=== PATIENT | female | born 1940 | race Caucasian/White ===

== ENCOUNTER 2024-10-07 10:03 | Emergency (ER) | payer BC, SELFPAY ==
--- NOTE | ~2024-10-07 | CT_ITS ---
EXAMINATION: CT brain wo con DATE: 10/07/2024 10:31 INDICATION: Closed head injury. TECHNIQUE: Computed tomography (CT) of the head was performed without intravenous contrast. The mA wa s adjusted according to patient size. Iterative reconstruction technique was employed. The dose-lengt h product was 605.33 mGy-cm. COMPARISON: None FINDINGS: There are scattered areas of low attenuation in the cerebral white matter, which is within normal limits for the patient's age. There is no intracranial hemorrhage, acute infarction, or abnorm al intracranial mass lesion. The ventricles are normal in size. The mastoid air cells are normal. The re is mild mucosal thickening in the paranasal sinuses. There are likely changes of ocular lens repla cement surgeries. There are changes of right-sided scleral banding procedure. There is a right optical effects camera operator ior scalp laceration. IMPRESSION: 1. Normal aging brain. Reviewed, dictated and finalized at location A. R FULFILLMENT SPECIALIST IMPRESSION: 1. Normal aging brain.
[2024-10-07 10:01] VITALS: BP 159/84; PULSE 90; RESP 16; TEMP 36.4; O2SAT 98
--- NOTE | 2024-10-07 10:28 | ED.FALL ---
HPI - Fall General Chief Complaint: Fall Stated Complaint: fall Time Seen by Provider: 10/07/24 10:03 History of Present Illness HPI Narrative: 84-year-old female presenting to the emergency department for evaluation of closed head injury. She does take blood thinners and states that she was walking in the dark trying to not wake up under for housemates while she was visiting family. She tripped and fell down 1 step and fell and struck the back of her head. Did not lose consciousness. She does have a small abrasion with a 0.5 cm laceration to posterior scalp. Denies any vision changes, nausea, vomiting, headache. Was otherwise in her normal state of health. No seizure history, did not lose consciousness. No weakness or motor deficits. Review of Systems Review of Systems: As reviewed above in HPI Exam Narrative: GENERAL: [Well-appearing, well-nourished, and in no acute distress.] HEAD: Normocephalic, posterior scalp hematoma was 0.5 cm laceration without any skull deformity or palpable deformity. EYES: [PERRLA and EOMI.] ENT: Nares clear, no rhinorrhea or epistaxis. Mucous membranes moist. No cervical spinal tenderness. No step-offs deformities. No restricted range of motion of the cervical spine. NECK: Supple. CHEST: [Clear to auscultation. No respiratory distress.] HEART: [Regular rate and rhythm]. No murmur heard. [Normal peripheral pulses.] ABDOMEN: [Soft, nondistended], [nontender], [No rigidity or guarding] EXTREMITIES: Normal range of motion. [No edema.] SKIN: Warm, dry, no rash. NEURO: [No focal deficits]. Alert and oriented [x3.] PSYCH: [Normal mood and affect.] Course Vital Signs Vital signs: Vital Signs Temperature 36.4 C 10/07/24 10:01 Pulse Rate 90 10/07/24 10:01 Respiratory Rate 16 10/07/24 10:01 Blood Pressure 159/84 H 10/07/24 10:01 Pulse Oximetry 98 10/07/24 10:01 Temperature 36.4 C 10/07/24 10:01 Pulse Rate 90 10/07/24 10:01 Respiratory Rate 16 10/07/24 10:01 Blood Pressure 159/84 H 10/07/24 10:01 Pulse Oximetry 98 10/07/24 10:01 Procedures Laceration Laceration 1: Date: 10/07/24 Time: 11:08 Site: scalp Side (If applicable): right Size (cm): 0.5 Description: linear Depth: simple, single layer Local Anesthetic: other anesthetic (TOPICAL LET) Amount of anesthesia used (mL): 5 Pre-repair: wound explored, irrigated extensively and deep structures intact ====== Skin Level ====== Skin layer closed with: filippo Number of sutures: 3 ====== Subcutaneous Layer ====== ====== Muscle Layer ====== ====== Tendon Layer ====== Dressing: pressure dressing MDM - Fall MDM Narrative Medical decision making narrative: 84-year-old female presenting for evaluation of a closed head injury while taking blood thinner medications. She is visiting family and not from town. She fell down 1 step in the dark while trying to not wake up her household. She is landed on the back of her head but did not lose consciousness. She has a small laceration the posterior scalp that will be repaired with filippo. Given her closed head injury on [facility] a CT head was obtained at this time. Patient has no mental status changes, no nausea vomiting, awake alert with normal strength and sensation unremarkable neurological assessment. Vital signs reassuring with some stable hypertension, no tachycardia, fever hypoxia. Let gel was applied to the posterior scalp for analgesia prior to filippo and CT scan obtained. CT scan shows no acute intracranial process such as a bleed. Laceration repaired with 3 separate filippo. Hemostasis achieved. Patient was given wound care instructions and return precautions as well as instructions to follow-up in 7-10 days for wound check and suture removal. Her tetanus is already up today. Stable for discharge at this time. Medical Records Attestation: I reviewed the patient's medical records. Imaging Data Attestation: I personally reviewed and interpreted this imaging study as follows: My impression: Impressions Head CT 10/07/24 10:38 IMPRESSION: 1. Normal aging brain. Discharge Plan Discharge Clinical Impression: CHI (closed head injury), Laceration of occipital scalp Patient Disposition: Home, Self-Care Condition: Stable Instructions: Antibiotic Form, Laceration (ED), Head Injury (ED), Staple Care (ED) Additional Instructions: Follow-up in 7-10 days for staple removal and wound check. Return with any new or worsening concerns at any time. Patient Language: Latvian Follow-up/Referrals: UNKNOWN,DOCTOR [Primary Care Provider] - Time of Disposition: 11:10
--- OUTSIDE RECORDS SUMMARY | 2024-10-14 21:56 | XMS_ITS | Continuity of Care Document ---
Author Organization [facility] Address Unknown Care Team Providers Care Homicide Squad Commanding Officer Name Role Phone DR BERENICE ROBERTO Primary Care Physician Encounter MPACCOMMFIN [id number] Date(s): 06/01/21 - 06/02/21 [facility] Attending Physician: MARVIN DEWEY MD Referring Physician: NONASSIGNED, PHYSICIAN Reason for Visit RIGHT SENT NODE INJECTION IN OR Allergies, Adverse Reactions, Alerts Substance Reaction Severity Status Adhesive Tape/Bandage pt prefers paper tape- others ri ps skin Active Medications cholecalciferol (Vitamin D3) Status: Ordered Start Date: 12/16/19 50,000 IntLUnit By Mouth Every 14 days. levothyroxine (Synthroid) Status: Ordered Start Date: 11/02/14 75 Microgram By Mouth EVERY MORNING. This is Synthroid; Do not change brands of medication; Do not discontinue drug without talking to doctor. Nonformulary Medication (Tob radex 0.3-0.1 % Oin Nova) Status: Ordered Start Date: 05/31/21 Left Eye 2 TIMES A DAY. timolol ophthalmic (Timoptic 0.5% ophthalmic solution) Status: Ordered Start Date: 12/16/19 1 Drops Each Affected Eye ONCE A DAY. Problem List Condition Effective Dates Status Health Status Inform ant Hypothyroidism NOS(Confirmed) Active Skin cancer(Confirmed) Active Procedures Procedure Date Related Diagnosis Body Site Status BIOPSY SENTINEL NODE (Left) 1 06/01/21 Completed MASTECTOMY SEGMENTAL (Left) 2 06/01/21 Completed BLEPHAROPLASTY (Bilateral) 3 12/17/19 Completed GI COLONOSCOPY W/REMOVAL OF POLYP/TUMOR/OTHER LESIONS W/COLD BIOPSY 4 11/04/14 Completed 1auto-populated from documented surgical case 2auto-populated from documented surgical case 3auto-populated from documented surgical case 4auto-populated from documented surgical case Social History Social History Type Response Smoking Status Never smoker Sex Female
--- OUTSIDE RECORDS SUMMARY | 2024-10-14 21:56 | XMS_ITS | Continuity of Care Document ---
Author Organization [facility] Address Unknown Care Team Providers Care Fur Sorter Name Role Phone BERENICE ROBERTO Primary Care Physician Encounter MPACCOMMFIN [id number] Date(s): 08/10/21 - 08/14/21 [facility] Discharge Disposition: Home/Routine Attending Physician: KEVIN KHAN MD Referring Physician: BERENICE ROBERTO MD Reason for Visit RAD ONC VISIT Allergies, Adverse Reactions, Alerts Substance Reaction Severity [...]
--- OUTSIDE RECORDS SUMMARY | 2024-10-14 21:56 | XMS_ITS | Continuity of Care Document ---
Author Organization [facility] Address [address] [place] [address]- Care Team Providers Care Art Tracer Name Role Phone BERENICE ROBERTO Primary Care Physician Encounter MPACCOMMFIN [id number] Date(s): 07/16/24 - 07/17/[address] [address]- Attending Physician: NONASSIGNED, PHYSICIAN Referring Physician: BERENICE ROBERTO MD Allergies, Adverse Reactions, Alerts Substance Criticality Severity Reaction Reaction Severity Status Adhesive Tape/Bandage pt prefers paper tape- others rips skin Active Medications Synthroid 75 mcg, By Mouth, QAM, Supply: 30 tab(s), 11/02/14 2:36:33 PM EST, This is Synthroid; Do not change brands of medication; Do not discontinue drug without talking to doctor, Tab Start Date: 11/02/14 Status: Ordered Timoptic 0.5% ophthalmic solution 1 Drop(s), Each Affected Eye, Daily, 12/16/19 1:31:00 PM EST Start Date: 12/16/19 Status: Ordered Tobradex 0.3-0.1 % Oin Nova Left Eye, BID, 05/31/21 8:45:00 AM EDT Start Date: 05/31/21 Status: Ordered Vitamin D3 50,000 IntLUnit, By Mouth, Q14Day, 12/16/19 1:30:00 PM EST, Tab Start Date: 12/16/19 Status: Ordered Problem List Condition Confirmation Course Effective Dates Status Health St atus Informant Hypothyroidism NOS Confirmed Active Skin cancer Confirmed Active Procedures Procedure Date Related Diagnosis Body [...] Response Smoking Status Never smoker Sex Female Sex Representation Female (finding) Patient Care team information Care Team Personnel Name: PARDEEP BLAKELY, BERENICE Friedman Position: Physician/Youth Agent (Meds) Member Role: Primary Care Physician Address: [address] [place] [address] [place] [address], [place] [address] [facility] Care Team Related Persons Name: AMOR SMALL
--- OUTSIDE RECORDS SUMMARY | 2024-10-14 21:56 | XMS_ITS | Continuity of Care Document ---
Author Organization [facility] Address Unknown Care Team Providers Care Pooling Operator Name Role Phone BERENICE ROBERTO Primary Care Physician Encounter EPICFIN [id number] Date(s): 01/25/22 - 01/26/22 [facility] Admitting Physician: SHANNON GORDON MD Referring Physician: SHANNON GORDON MD Reason for Visit ONC RETURN PATIENT Allergies, Adverse Reactions, Alerts Substance Reaction Severity [...]
--- OUTSIDE RECORDS SUMMARY | 2024-10-14 21:56 | XMS_ITS | Continuity of Care Document ---
Author Organization [facility] Address Unknown Care Team Providers Care Informatics Nurse Name Role Phone BERENICE ROBERTO Primary Care Physician Encounter MPACCOMMCLIVE [id number] Date(s): 08/24/21 - 10/23/21 [facility] Attending Physician: MICHELE NICOLE MD Referring Physician: PARDEEP BLAKELY, BERENICE Friedman Reason for Visit RAD ONC VISIT Allergies, [...]
--- OUTSIDE RECORDS SUMMARY | 2024-10-14 21:56 | XMS_ITS | Continuity of Care Document ---
Author Organization [facility] Address Unknown Care Team Providers Care Livestock Dealer Name Role Phone BERENICE ROBERTO Primary Care Physician Encounter EPICFIN [id number] Date(s): 10/19/21 - 10/20/21 [facility] Admitting Physician: SHANNON GORDON MD Referring Physician: MARVIN DEWEY MD Reason for Visit ONC RETURN PATIENT [...]
--- OUTSIDE RECORDS SUMMARY | 2024-10-14 21:56 | XMS_ITS | Continuity of Care Document ---
Author Organization [facility] Address Unknown Care Team Providers Care Linen Grader Name Role Phone BERENICE ROBERTO Primary Care Physician [phone] Encounter EPICFIN [id number] Date(s): 10/19/21 - 10/20/21 [facility] Admitting Physician: JEWEL NAPPANEE Referring Physician: SHANNON GORDON MD Reason for Visit ONC LAB OR TEST Allergies, Adverse Reactions, Alerts Substance Reaction Severity [...]
--- OUTSIDE RECORDS SUMMARY | 2024-10-14 21:56 | XMS_ITS | Continuity of Care Document ---
Author Organization [facility] Address Unknown Care Team Providers Care Tiler Name Role Phone DR BERENICE ROBERTO Primary Care Physician ( [phone] Encounter MPACCOMMFIN [id number] Date(s): 12/20/20 - 12/21/20 [facility] Attending Physician: NONASSIGNED, PHYSICIAN Referring Physician: NONASSIGNED, PHYSICIAN Reason for Visit SCREENING WITH NO SIGNS SYMPTOMS Allergies, Adverse Reactions, Alerts No Known Allergies Medications acetaminophen (Tylenol Extra Strength 500 mg oral tablet) 2 tab(s) By Mouth Every 6 Hours for 3 Days. Do not exceed 8 tablets in 24 hours, Take regularly for 3 days and then as needed. Refills: 0. Ordering provider: LOPEZ MADRID cholecalciferol (Vitamin D3) 50,000 IntLUnit By Mouth every other week. levothyroxine (Synthroid) 100 Microgram By Mouth EVERY MORNING. This is Synthroid; Do not change brands of medication; Do not discontinue drug without talking to doctor. timolol ophthalmic (Timoptic 0.5% ophthalmic solution) 1 Drops Each Affected Eye ONCE A DAY. Problem List Condition Effective Dates Status Health Status Inform ant Hypothyroidism NOS(Confirmed) Active Skin cancer(Confirmed) Active Procedures Procedure Date Related Diagnosis Body Site Status BLEPHAROPLASTY (Bilateral) 1 12/17/19 Completed GI COLONOSCOPY W/REMOVAL OF POLYP/TUMOR/OTHER LESIONS W/COLD BIOPSY 2 11/04/14 Completed 1auto-populated from documented surgical case 2auto-populated from documented surgical case Social History Social History Type Response Smoking Status Never smoker Sex Female
--- OUTSIDE RECORDS SUMMARY | 2024-10-14 21:56 | XMS_ITS | Continuity of Care Document ---
Author Organization [facility] Address Unknown Care Team Providers Care Terrazzo Worker Helper Name Role Phone BERENICE ROBERTO Primary Care Physician [phone] Encounter EPICFIN [id number] Date(s): 08/31/21 - 09/01/21 [facility] Referring Physician: MICHELE NICOLE MD Allergies, Adverse Reactions, Alerts Substance Reaction Severity [...]
--- OUTSIDE RECORDS SUMMARY | 2024-10-14 21:56 | XMS_ITS | Continuity of Care Document ---
Author Organization [facility] Address [address] [place] [address]- Care Team Providers Care Scaffold Worker Name Role Phone DR BERENICE ROBERTO Primary Care Physician Encounter MPACCOMMFIN [id number] Date(s): 12/29/19 - 12/30/[address] [address]- Attending Physician: CHERRY RIVERA MD Referring Physician: SELF, REFERRED Reason for Visit Eye Clinic Visit Allergies, Adverse Reactions, Alerts No Known Allergies [...]
--- OUTSIDE RECORDS SUMMARY | 2024-10-14 21:56 | XMS_ITS | Continuity of Care Document ---
Author Organization [facility] Address Unknown Care Team Providers Care Acrobatic Dancer Name Role Phone BERENICE ROBERTO Primary Care Physician [phone] Encounter ROC [id number] Date(s): 07/26/21 - 07/27/21 [facility] Attending Physician: KEVIN KHAN MD Referring Physician: NONASSIGNED, PHYSICIAN Reason for Visit [place] Allergies, Adverse Reactions, Alerts Substance Reaction Severity [...]
--- OUTSIDE RECORDS SUMMARY | 2024-10-14 21:56 | XMS_ITS | Continuity of Care Document ---
Author Organization [facility] Address Unknown Care Team Providers Care Elevator Starter Name Role Phone DR BERENICE ROBERTO Primary Care Physician ( [phone] Encounter MPACCOMMFIN [id number] Date(s): 01/24/21 - 01/25/21 [facility] Attending Physician: NONASSIGNED, PHYSICIAN Referring Physician: NONASSIGNED, [...]
--- OUTSIDE RECORDS SUMMARY | 2024-10-14 21:56 | XMS_ITS | Continuity of Care Document ---
Author Organization [facility] Address Unknown Care Team Providers Care Mortgage Loan Computation Clerk Name Role Phone DR BERENICE ROBERTO Primary Care Physician ( [phone] Encounter MPACCOMMFIN [id number] Date(s): 06/29/21 - 06/30/21 [facility] Attending Physician: NONASSIGNED, PHYSICIAN Referring Physician: BERENICE ROBERTO MD Reason for Visit C50.112 Allergies, Adverse Reactions, Alerts Substance Reaction Severity [...]
--- OUTSIDE RECORDS SUMMARY | 2024-10-14 21:56 | XMS_ITS | Continuity of Care Document ---
Author Organization [facility] Address Unknown Care Team Providers Care Account Services Specialist Name Role Phone DR BERENICE ROBERTO Primary Care Physician Encounter MPACCOMMFIN [id number] Date(s): 09/13/20 - 09/14/20 [facility] Attending Physician: NONASSIGNED, PHYSICIAN Referring Physician: BERENICE ROBERTO MD Reason for Visit lab Allergies, Adverse Reactions, Alerts No Known Allergies [...] surgical case 2auto-populated from documented surgical case Results Laboratory List Name Date TSH (Thyroid Stimulating Hormone) (Thyro id Stimulating Hormone) 09/13/20 09/13/20 Test Result Reference Range Specimen Source Labo ratory TSH 0.064 uIU/mL (Normal is 0.358-3.740 uIU/mL) [facility] Laboratory Information [facility] Number: [id number] [address] [facility] [place] [address] [address]- Social History Social History Type Response Smoking Status Never smoker Sex Female
--- OUTSIDE RECORDS SUMMARY | 2024-10-14 21:56 | XMS_ITS | Continuity of Care Document ---
Author Organization [facility] Address Unknown Care Team Providers Care Software Configuration Analyst Name Role Phone DR BERENICE ROBERTO Primary Care Physician Encounter MPACCOMMFIN [id number] Date(s): 12/12/19 - 12/13/19 [facility] Attending Physician: NONASSIGNED, PHYSICIAN Admitting Physician: NONASSIGNED, PHYSICIAN Referring Physician: NONASSIGNED, PHYSICIAN Reason for Visit SCREEN Allergies, Adverse Reactions, Alerts No Known Allergies Medications levothyroxine (Synthroid) 100 Microgram By Mouth EVERY MORNING. This is Synthroid; Do not change brands of medication; Do not discontinue drug without talking to doctor. Problem List Condition Effective Dates Status Health Status Inform ant Hypothyroidism NOS(Confirmed) Active Skin cancer(Confirmed) Active Procedures Procedure Date Related Diagnosis Body Site Status GI COLONOSCOPY W/REMOVAL OF POLYP/TUMOR/OTHER LESIONS W/COLD BIOPSY 1 11/04/14 Completed 1auto-populated from documented surgical case Social History Social History Type Response Smoking Status Never smoker Sex Female
--- OUTSIDE RECORDS SUMMARY | 2024-10-14 21:56 | XMS_ITS | Continuity of Care Document ---
Author Organization [facility] Address [address] [place] [address]- Care Team Providers Care Director Of Design Name Role Phone BERENICE ROBERTO Primary Care Physician Encounter MPACCOMMFIN [id number] Date(s): 05/14/24 - 05/15/[address] [address]- Attending Physician: GORAN LEE Referring Physician: SELF, REFERRED Allergies, Adverse Reactions, Alerts Substance Criticality Severity [...] Personnel Name: PARDEEP BLAKELY, BERENICE Friedman Position: Physician/Choker Setter (Meds) Member Role: Primary Care Physician Address: [address] [place] [address] [address] [place] [address]- [facility] Care Team Related Persons Name: AMOR SMALL
--- OUTSIDE RECORDS SUMMARY | 2024-10-14 21:56 | XMS_ITS | Continuity of Care Document ---
Author Organization [facility] Address [address] [place] [address]- Care Team Providers Care Canary Raiser Name Role Phone DR BERENICE ROBERTO Primary Care Physician Encounter MPACCOMMFIN [id number] Date(s): 12/25/19 - 12/26/[address] [address]- Attending Physician: LOPEZ MADRID Referring Physician: CHERRY RIVERA MD Reason for Visit Visual Disturbance Allergies, Adverse Reactions, Alerts No Known Allergies Medications acetaminophen (Tylenol Extra Strength 500 mg oral tablet) 2 tab(s) By Mouth Every 6 Hours for 3 Days. Do not exceed 8 tablets in 24 hours, Take regularly for 3 days and then as needed. Refills: 0. Ordering provider: LOPEZ MADRID cholecalciferol (Vitamin D3) 50,000 IntLUnit By Mouth every other week. erythromycin ophthalmic (daniella thromycin 0.5% ophthalmic ointment) 0.5 Inch Both Eyes 2 TIMES A DAY for 10 Days. Apply on both upper lids sutures. Refills: 0. Ordering provider: LOPEZ MADRID levothyroxine (Synthroid) 100 Microgram By Mouth EVERY [...]
--- OUTSIDE RECORDS SUMMARY | 2024-10-14 21:56 | XMS_ITS | Continuity of Care Document ---
Author Organization [facility] Address [address] [place] [address]- Care Team Providers Care Flight Attendant/Inflight Supervisor Name Role Phone BRUNAKYLE BERENICE Friedman Primary Care Physician [phone] Encounter MPACCOMMFIN [id number] Date(s): 06/17/24 - 06/18/24 [facility] [address] [place] [address]- Attending Physician: MAIRA E BLAKELY, ADRIANNA BHATT Referring Physician: JEANNE RAINEY Allergies, Adverse Reactions, Alerts Substance Criticality Severity [...] Personnel Name: PARDEEP BLAKELY, BERENICE Friedman Position: Physician/Customer Service Representative Teacher (Meds) Member Role: Primary Care Physician Address: [address] [place] [address] [place] [address], [place] [address]- [facility] Care Team Related Persons Name: AMOR SMALL
--- OUTSIDE RECORDS SUMMARY | 2024-10-14 21:56 | XMS_ITS | Continuity of Care Document ---
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) - Family history of malignant neoplasm of breast(Final) - Attending Physician: ADRIANNA SANDERSON MD Admitting Physician: ADRIANNA SANDERSON MD Referring Physician: BERENICE ROBERTO MD Reason for Visit Dermatochalasis of right upper eyelid, Dermatocha, Allergies, Adverse Reactions, Alerts No Known Allergies [...] surgical case 2auto-populated from documented surgical case Vital Signs 12/17/19 BMI from metric 23.9 Blood Pressure Cuff 132/77mmHg Blood Pressure Cuff 125/62mmHg Blood Pressure Cuff 120/51mmHg Height (cm) 157 cm Pulse 74 BPM Pulse 69 BPM Pulse 69 BPM O2 Saturation 96 % O2 Saturation 97 % O2 Saturation 92 % Temperature Metric 35.6 DegC Temperature Metric 36 DegC Temperature Metric 36 DegC 12/16/19 Dosing Weight (kg) 61.00 kg 1 1Result Comment: Dosing weight (kg) was created by Discern Expert using the Admission weight (kg). Social History Social History Type Response Smoking Status Never smoker Sex Female Hospital Discharge Instructions Patient Education 12/17/2019 17:11:00 After Surgery - Managing Your Care at Home (CUSTOM) After Surgery: Managing Your Care at Home [facility] These instructions will prepare you to manage your care once home. Managing Pain: Please fill your prescriptions for pain medicine and take the medicine as ordered by your doctor. Discomfort from your procedure is normal. Contact your doctor if: ??? You develop new or increasing pain ??? You have severe pain that is not relieved by the pain medicine What else can you do if you develop pain at home? Use ice packs on the surgical area for 20 minutes, 3-4 times a day ??? Change positions ??? Support your incision when getting in and out of bed ??? Try stress reducers such as deep breathing, music, and quiet visits from friends. Noticing Infection: A surgical site infection is one that occurs after surgery on the part of the body where surgery took place. Washing hands with soap and water is the best way to prevent surgical site infections. Contact your doctor if you have any signs and symptoms of infection including: ??? Redness and severe pain around the surgical site ??? Swelling in the area ??? Drainage that is not clear ??? Fever above 101??F using an oral thermometer If you had a urinary catheter, call your doctor if you have: ??? Difficulty urinating 6 hours after catheter removed ??? Pain or burning when you urinate ??? A frequent need to urinate without being able to pass much urine ??? Pain in the flank, which is just below the rib cage and above the waist on either side of the back ??? Blood in your urine ??? Your urine smells bad ??? Fever above 101??F using an oral thermometer Bleeding after Surgery: Stopping Bleeding ??? If you develop excessive bleeding from your surgery site or area: ??? Hold firm pressure for 10 min ??? Notify your surgeon immediately if it does not stop Managing Nausea: Nausea can occur after anesthesia and surgery. If you still have nausea or vomiting once home: ??? Try a cold compress to cool your forehead ??? Avoid heat and humidity ??? Try essential oils or scents such as brandi or peppermint ??? Relax and try to sleep through the nausea period ??? Eat bland, non-spiced, lean foods that are gentle on your stomach. Examples include crackers, rice, toasted whole grain bread, chicken without the skin ??? Contact your doctor if your nausea and vomiting gets worse or you can???t keep down fluids. QUESTIONS Write down any questions you have for your post procedure phone call or follow- up visit: You may receive a survey regarding your care. We would appreciate any feedback regarding the care you received. Our goal is to provide excellent care. 12/17/2019 17:11:00 [facility] Anesthesia Care Instructions (CUSTOM) Anesthesia Care Instructions [facility] Type of Anesthesia: You have received local anesthesia. The effects of anesthesia should disappear within a few hours. ___x__You have received intravenous sedation in addition to local anesthesia. You have received regional anesthesia. You have received general anesthesia. Additional Instructions: ??? If you had general anesthesia or major surgery, we recommend you have another adult stay with you for the next 24 hours. ??? For a minor procedure or surgery, you will get a sedative to help you relax. This drug will make you sleepy. It is usually given in a vein (by IV). A shot may also be used to numb the area. ??? If you had local anesthesia, you may feel some pain and discomfort as it wears off. If you havepain, don't be afraid to say so. Pain medicine works better if you take it before the pain gets bad. Common side effects from anesthesia include: ??? Feeling sleepy. (Your doctors and nurses will make sure you are not too sleepy to go home.) ??? Nausea and vomiting. This usually does not last long. ??? Feeling tired. Follow-up care is a jesus part of your treatment and safety. Be sure to make and go to all appointments and call your doctor if you are having problems. It's also a good idea to know your test results and keep a list of the medicines you take. How can you care for yourself at home? Activity ??? Don't do anything for 24 hours that requires attention to detail. It takes time for the medicine effects to completely wear off. ??? For your safety, you should not drive or operate any machinery that could be dangerous until the medicine wears off and you can think clearly and react easily. ??? Rest when you feel tired. Getting enough sleep will help you recover. Diet ??? Eat your normal diet unless your doctor gives you other instructions. If your stomach is upset,try clear liquids and bland, low-fat foods like plain toast or rice. ??? Drink plenty of fluids (unless your doctor tells you not to). ??? Don???t drink alcohol for 24 hours. Medicines ??? Be safe with medicines. Read and follow all instructions on the label. ??? If the doctor gave you a prescription medicine for pain, take it as prescribed. ??? If you are not taking a prescription pain medicine, ask your doctor if you can take an qxta-pqc-evqeedp medicine. ??? If you think your pain medicine is making you sick to your stomach: ??? Take your medicine after meals (unless your doctor has told you not to). ??? Ask your doctor for a different pain medicine. When should you call for help? Call 911 anytime you think you may need emergency care. For example, call if: ??? You have severe trouble breathing. ??? You passed out (lost consciousness). Call your doctor now or seek immediate medical care if: ??? You have trouble breathing. ??? You have ongoing or worsening nausea or vomiting. ??? You have a fever. ??? You have a new or worse headache. ??? The medicine is not wearing off and you can't think clearly. ??? Watch closely for changes in your health, and be sure to contact your doctor if: ??? You do not get better as expected. 12/17/2019 15:53:12 Eyelid Surgery: Post-op Postoperative instructions 1. You may shower after 24 hours and wash face like usual, but do NOT rub sutures. 2. Apply ice over both eyes for 10 minutes every hour you are awake for the first 48 hours. 3. Sleep with your head at 45 degrees for th first 48 hours. 4. For 3 days, no bending below the waist, no heavy lifting and no heavy physical activity like running. 5. Apply tobradex or erythromycin ointment on both upper lids sutures twice a day for 10 days. 6. Take tylenol 500 mg 2 tabs every 6 hours regularly for the first 3 days and then as needed. 7. Follow-up with Dr. Madrid at the [facility] on 12/25/2019at 2:00pm. 8. If you have decreasing vision, uncontrollable pain or active bleeding (more than a drop or two),call [phone] for ophthalmology on-call. Mental Status 12/17/19 Responsiveness/behavior Drowsy but arous able
--- OUTSIDE RECORDS SUMMARY | 2024-10-14 21:56 | XMS_ITS | Continuity of Care Document ---
Author Organization [facility] Address [address] [place] [address]- Care Team Providers Care Hazard Waste Handler Name Role Phone BERENICE ROBERTO Primary Care Physician Encounter MPACCOMMFIN [id number] Date(s): 09/26/21 - 10/10/[address] [id number]- Attending Physician: NONASSIGNED, PHYSICIAN Referring Physician: NONASSIGNED, PHYSICIAN Reason for Visit Eye Clinic Visit Allergies, Adverse Reactions, Alerts Substance Reaction Severity [...]
--- OUTSIDE RECORDS SUMMARY | 2024-10-14 21:56 | XMS_ITS | Continuity of Care Document ---
Author Organization [facility] Address [address] [place] [address]- Care Team Providers Care Solutions Executive Security Name Role Phone BERENICE ROBERTO Primary Care Physician Encounter MPACCOMMFIN [id number] Date(s): 03/14/24 - 03/15/[address] [address]- Attending Physician: GORAN LEE Referring Physician: GORAN LEE Allergies, Adverse Reactions, Alerts Substance Reaction Severity Status Adhesive Tape/Bandage pt prefers paper tape- others ri ps skin Active Medications Synthroid 75 mcg, By [...] Response Smoking Status Never smoker Sex Female Patient Care team information Care Team Personnel Name: PARDEEP BLAKELY, BERENICE Friedman Position: Physician/Sdet (Meds) Member Role: Primary Care Physician Address: Address: [address] [place] [address] [place] [address] [facility] Care Team Related Persons Name: AMOR SMALL Address: [address] [place] [address]
--- OUTSIDE RECORDS SUMMARY | 2024-10-14 21:56 | XMS_ITS | Continuity of Care Document ---
Author Organization [facility] Address [address] [place] [address]- Care Team Providers Care Service Cashier Name Role Phone BERENICE ROBERTO Primary Care Physician Encounter EPICFIN [id number] Date(s): 01/01/24 - 01/02/[address] [address]- Allergies, Adverse Reactions, Alerts Substance Reaction Severity [...] Personnel Name: PARDEEP BLAKELY, BERENICE Friedman Position: Physician/Daub Color Mixer (Meds) Member Role: Primary Care Physician Address: Address: [address] [place] [address] [place] [address] [facility] Care Team Related Persons Name: AMOR SMALL Address: [address] [place] [address]
--- OUTSIDE RECORDS SUMMARY | 2024-10-14 21:56 | XMS_ITS | Continuity of Care Document ---
Author Organization [facility] Address [address] [place] [address]- Care Team Providers Care Test Man Name Role Phone DR BERENICE ROBERTO Primary Care Physician Encounter EPICFIN ARIA FILLER OPERATOR [id number] Date(s): 06/29/21 - 06/29/21 [facility] [address] [place] [address]- [place] Allergies, Adverse Reactions, Alerts Substance Reaction Severity [...]
--- OUTSIDE RECORDS SUMMARY | 2024-10-14 21:56 | XMS_ITS | Continuity of Care Document ---
Author Organization [facility] Address Unknown Care Team Providers Care Elementary Secretary Name Role Phone BERENICE ROBERTO Primary Care Physician Encounter EPICFIN [id number] Date(s): 03/11/22 - 03/12/22 [facility] Admitting Physician: MARVIN DEWEY MD Referring Physician: MARVIN DEWEY MD Allergies, Adverse Reactions, Alerts Substance Reaction Severity Status Adhesive Tape/Bandage pt prefers paper tape- others ri ps skin Active Medications Synthroid 75 mcg, By Mouth, QAM, Supply: 30 tab(s), 11/02/14 14:36:33 EST, This is Synthroid; Do not change brands of medication; Do not discontinue drug without talking to doctor, Tab Start Date: 11/02/14 Status: Ordered Timoptic 0.5% ophthalmic solution 1 Drop(s), Each Affected Eye, Daily, 12/16/19 13:31:00 EST Start Date: 12/16/19 Status: Ordered Tobradex 0.3-0.1 % Oin Nova Left Eye, BID, 05/31/21 8:45:00 EDT Start Date: 05/31/21 Status: Ordered Vitamin D3 50,000 IntLUnit, By Mouth, Q14Day, 12/16/19 13:30:00 EST, Tab Start Date: 12/16/19 Status: Ordered Problem List Condition Effective Dates Status Health [...] Response Smoking Status Never smoker Sex Female Care Team Care Team Personnel Name: BERENICE ROBERTO MD Position: Physician/Adjunct History Instructor (Meds) Med Service: [facility] Member Role: Primary Care Physician Address: [address] [place] [address] [address] [place] [address] [facility] Care Team Related Persons Name: AMOR SMALL [address] [place] [address] [place] [address]
--- OUTSIDE RECORDS SUMMARY | 2024-10-14 21:56 | XMS_ITS | Continuity of Care Document ---
Author Organization [facility] Address Unknown Care Team Providers Care Slps Name Role Phone DR BERENICE ROBERTO Primary Care Physician Encounter MPACCOMMFIN [id number] Date(s): 03/22/21 - 03/23/21 [facility] Attending Physician: NONASSIGNED, PHYSICIAN Referring Physician: NONASSIGNED, PHYSICIAN Reason for Visit SCREENING WITH NO SIGNS SYMPTOMS SCREEN Allergies, Adverse Reactions, Alerts No Known [...]
--- OUTSIDE RECORDS SUMMARY | 2024-10-14 21:56 | XMS_ITS | Continuity of Care Document ---
Author Organization [facility] Address [address] [place] [address]- Care Team Providers Care Lockstitch Coat Joiner Name Role Phone BERENICE ROBERTO Primary Care Physician [phone] Encounter EPICFIN [id number] Date(s): 01/01/24 - 01/02/[address] [address]- Admitting Physician: SHANNON GORDON MD Allergies, Adverse Reactions, Alerts Substance Reaction [...] Personnel Name: PARDEEP BLAKELY, BERENICE Friedman Position: Physician/Stretcher Leveler Operator Helper (Meds) Member Role: Primary Care Physician Address: Address: [address] [place] [address] [place] [address] [facility] Care Team Related Persons Name: AMOR SMALL Address: [address] [place] [address]
--- OUTSIDE RECORDS SUMMARY | 2024-10-14 21:56 | XMS_ITS | Continuity of Care Document ---
Author Organization [facility] Address [address] [place] [address]- Care Team Providers Care Towel Sorter Name Role Phone BERENICE ROBERTO Primary Care Physician Encounter MPACCOMMFIN [id number] Date(s): 12/31/23 - 01/01/[address] [address]- Attending Physician: CHERRY RIVERA MD Referring Physician: SELF, REFERRED Allergies, Adverse Reactions, Alerts Substance Reaction Severity [...] Personnel Name: PARDEEP BLAKELY, BERENICE Friedman Position: Physician/Fence Post Cutter (Meds) Member Role: Primary Care Physician Address: Address: [address] [place] [address] [place] [address] [facility] Care Team Related Persons Name: AMOR SMALL Address: [address] [place] [address]
--- OUTSIDE RECORDS SUMMARY | 2024-10-14 21:56 | XMS_ITS | Continuity of Care Document ---
Author Organization [facility] Address Unknown Care Team Providers Care Plumbing Instructor Name Role Phone BERENICE ROBERTO Primary Care Physician Encounter EPICFIN [id number] Date(s): 08/30/21 - 08/31/21 [facility] Referring Physician: MICHELE NICOLE MD Allergies, Adverse [...]
--- OUTSIDE RECORDS SUMMARY | 2024-10-14 21:56 | XMS_ITS | Continuity of Care Document ---
Author Organization [facility] Address Unknown Care Team Providers Care Harvest Worker Fruit Name Role Phone DR BERENICE ROBERTO Primary Care Physician Encounter MPACCOMMCLIVE [id number] Date(s): 04/07/21 - 04/08/21 [facility] Attending Physician: NONASSIGNED, PHYSICIAN Referring Physician: NONASSIGNED, PHYSICIAN Reason for Visit RECALL LT ARCH DISTORTION Allergies, Adverse Reactions, Alerts No Known Allergies [...]
--- OUTSIDE RECORDS SUMMARY | 2024-10-14 21:56 | XMS_ITS | Continuity of Care Document ---
Author Organization [facility] Address Unknown Care Team Providers Care Business Management Intern Name Role Phone DR BERENICE ROBERTO Primary Care Physician Encounter MPACCOMMFIN [id number] Date(s): 05/20/20 - 05/21/20 [facility] Attending Physician: NONASSIGNED, PHYSICIAN Referring Physician: NONASSIGNED, PHYSICIAN Reason for Visit EVALUATE FOR OSTEOPOROSIS Allergies, Adverse Reactions, Alerts No Known Allergies [...]
--- OUTSIDE RECORDS SUMMARY | 2024-10-14 21:57 | XMS_ITS | Continuity of Care Document ---
Author Organization [facility] Address Unknown Care Team Providers Care Growth Hacker Name Role Phone DR BERENICE ROEBRTO Primary Care Physician ( [phone] Encounter MPACCOMMFIN [id number] Date(s): 02/08/21 - 02/09/21 [facility] Attending Physician: NONASSIGNED, PHYSICIAN Referring Physician: [...]
--- OUTSIDE RECORDS SUMMARY | 2024-10-14 21:57 | XMS_ITS | Encounter Summary ---
Author Organization [facility] Ambulatory Address [address] [place] [address] Phone Care Team Providers Care Surgery Tech Name Role Phone Ortiz Rothman MD Primary Care Provider [phone] Bryce Allison MD, PhD Unavailable + [phone] Provider, Abstract MD Unavailable Unavailabl Valerie Orellana MD Unavailable +- [phone] Yohan Powell MD Unavailable [phone] Vandana Walker Unavailable + Geovanna Hughes MD Unavailable Vandana Whitmore MD Unavailable + Provider, Historical Unavailable Unavailable Rozina Sanders MD Unavailable +[phone] Antonietta Bateman MD Unavailable + [phone] Antonietta Bateman MD Unavailable +[phone] Artie Lanza MD Unavailable Dena BerumenC Unavailable +[phone] Sangita HollyC Unavailable +[phone] Dulce LaraC Unavailable Elisa MartinesC Unavailable + Tanvi Gabriel Unavailable [phone] Merline Duran Unavailable +[phone] Tono Camarillo MD Unavailable Ean Mckeon MD Unavailable [phone] Sheyla Guerrero MD Unavailable [phone] None Unavailable Unavailable Sheyla Conley MD Unavailable +[phone] Karen Reynolds OD Unavailable [phone] Source Comments This information has been disclosed to you from records protected by federal confidentiality rules (42 CFR part 2). The federal rules prohibit you from making any further disclosure of information inthis record that identifies a patient as having or having had a substance use disorder either directly, by reference to publicly available information, or through verification of such identification by another person unless further disclosure is expressly permitted by the written consent of the individual whose information is being disclosed or as otherwise permitted by 42 CFR part 2. A general authorization for the release of medical or other information is NOT sufficient for this purpose (seesection 2.31). The federal rules restrict any use of the information to investigate or prosecute with regard to a crime any patient with a substance use disorder, except as provided at sections 2.12(c)(5) and 2.65.[facility] Ambulatory Reason for Visit * Reason Comments Follow-Up Encounter Details Date Type Department Care Team ([facility] Contact Info) Description 05/14/2024 11:00 AM EDT Office Visit [facility] Vision Van [address] [place] [phone] Timber Bucker: Valerie Purcell Rajesh, MD [address] [place] [address] [phone] Primary open angle glaucoma (POAG) of both eyes, severe stage (Primary Dx) Social History Tobacco Use Types Packs/Day Years Used Date Smoking Tobacco: Never Smokeless Tobacco: Never Alcohol Use Standard Drinks/Week Comments Yes 0 (1 standard drink = 0.6 oz pur e alcohol) socially Depression Answer Date Recorded PHQ Score Not on file 03/06/2020 PHQ Result PHQ-9 Score <= 4 03/06/2020 Sex and Gender Information Value Date Recorded Sex Assigned at Not on file Gender Identity Not on file Sexual Orientation Not on file documented as of this encounter Progress Notes * Merline Duran MBBS - 05/14/2024 11:00 AM EDT CC: 84 year old female presents today for follow up with HVF 24-2. Patient reports vision is stable. No fresh complaints. Denies pain/pressure. 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 Clinical Findings: Pachymetry 02/27/2024: 558/570 microns Gonioscopy 02/27/2024: open angles Right eye optic nerve head: pale with almost completely eroded rims Left eye optic nerve head: pale with inferior rim eroded and thin superior rim Posterior chamber intraocular lens well centered in both eyes Today: 05/14/24 Currently on: Brimonidine twice a day both eyes Timolol 0.5% twice a day both eyes Latanoprost once at night both eyes Clinical findings: Intraocular pressure 14-18 mm Hg and 23-28 mm Hg in the left eye Assessment: primary open angle glaucoma , severe stage, both eyes IOP target: 10 mm Hg or lower in both eyes - IOP uncontrolled both eyes, OS>OD - OCT and HVF both demonstrate possible progression, with more definitive porgression OD Plan: Continue both brimonidine twice a day and latanoprost once at night in both eyes Stop timolol 0.5% in both eyes Add dorzolamide/ timolol fixed combination twice a day in both eyes Review 2 months * Ean Mckeon MD - 05/14/2024 11:00 AM EDT I personally performed a history and physical examination on Danika Mckeon. I reviewed the Fellow's documentation and agree except otherwise noted. I discussed the plan with the patient. documented in this encounter Plan of Treatment Not on file documented as of this encounter Procedures Procedure Name Priority Date/Time Associated Diagnosis Comments CLARK 24-2 VISUAL FIELD - OU - BOTH EYES Routine 05/14/2024 12:17 PM EDT Primary open angle glaucoma (POAG) of both eyes, severe stage documented in this encounter Results * CLARK 24-2 VISUAL FIELD - OU - BOTH EYES (05/14/2024 12:17 PM EDT) Anatomical Region Laterality Modality Visual Field 05/14/2024 11:4 8 AM EDT Narrative 05/14/2024 3:15 PM EDT Clark visual field Right eye: reliable, worsened INS and paracentral depressions, temporal worsening Left eye: moderately reliable, worsened INS and paracentral depressions with progression of MD Ean Mckeon MD OPHTH VISUAL FIELD documented in this encounter Visit Diagnoses Diagnosis Primary open angle glaucoma (POAG) of both eyes, severe stage- Primary documented in this encounter Care Teams Surgery Tech Relationship Specialty Start Date End Date Ortiz Rothman MD [address] [facility] [address] [place] [address] PCP - General 12/03/02 Antonietta Bateman MD [facility], [address] [place] [address] PCP - CANCER CTR RMD Surgical Oncology 06/09/21 Artie Lanza MD 9100 [facility] [address] [place] [address] PCP - Cancer CTR Hematology 06/09/21 Bryce Allison MD, PhD [address] [place] [address] D, Bert [address] [place] [address] 08/25/10 Provider, MD Laura EPICARE PROVIDER 08/25/10 Valerie Wilkinson MD [facility] [address] [facility] [place] [address] 08/25/10 [place] [address] [place] [address] [address] [place] [address] ENT-Otolaryngology 03/15/17 Vandana Walker AUD [address] [place] [phone] Audiology 03/15/17 Geovanna Hughes MD [address] [place] [phone] Internal Medicine 04/01/19 Vandana Whitmore MD [address] [place] [address] [place] [address] Ophthalmology 08/18/19 Provider, Nithin EPICARE PROVIDER 11/06/19 Rozina Sanders MD [address] [place] [address] [place] [phone] Ophthalmology 12/25/19 Antonietta Bateman MD CORPORATE OFFICE [address], [facility] [address] [place] [address] Surgical Oncology 04/29/21 Dena Berumen PA-C [address] [facility] [address] [place] [address] Oncology 06/13/21 Sangita Holly PA-C [address] [facility] [address] [place] [address] General Surgery 06/23/21 Dulce Lara PA-C [address] [facility] [address] [place] [address] Surgical Oncology 06/28/22 Elisa Martines PA-C [address] [facility] [address] [place] [address] General Surgery 05/25/23 Tanvi Gabriel CRNP MW SURG ONC [facility] OFF 300 [facility] [address] [place] [address] General Surgery 07/04/23 Merline Duran MBBS [address] [phone] Internal Medicine 11/17/23 Tono Camarillo MD 200 [facility] [address] [place] [address] Ophthalmology 11/18/23 Ean Mckeon MD [address] [place] [address] Ophthalmology 02/27/24 Sheyla Guerrero MD [address] [place] [address] Oncology 03/13/24 None SELF-REFERRED OR FOR UNREFERRED [facility] HEALTH PLAN 03/13/24 Sheyla Conley MD [address], [address] [place] [address] Gastroenterology 03/14/24 Karen Reynolds OD [address] [place] [address] Optometry 03/14/24 documented as of this encounter
--- OUTSIDE RECORDS SUMMARY | 2024-10-14 21:57 | XMS_ITS | Encounter Summary ---
Author Organization [facility] Ambulatory Address [address] [place] [address] Phone Care Team Providers Care Manager Battery Name Role Phone Ortiz Rothman MD Primary Care Provider [phone] Bryce Allison MD, PhD Unavailable + [phone] Provider, Abstract MD Unavailable Unavailabl Valerie Orellana MD Unavailable +- [phone] Yohan Powell MD Unavailable [phone] Vandana Walker Unavailable + Geovanna Hughes MD Unavailable Vandana Whitmore MD Unavailable + Provider, Historical Unavailable Unavailable Rozina Sanders MD Unavailable +[phone] Antonietta Bateman MD Unavailable + [phone] Antonietta Bateman MD Unavailable +[phone] Artie Lanza MD Unavailable Dena BerumenC Unavailable [phone] Sangita HollyC Unavailable [phone] Dulce LaraC Unavailable Elisa MartinesC Unavailable + Tanvi Gabriel Unavailable [phone] Merline Duran Unavailable [phone] Tono Camarillo MD Unavailable Ean Mckeon MD Unavailable [phone] Sheyla Guerrero MD Unavailable [phone] None Unavailable Unavailable Sheyla Conley MD Unavailable + [phone] Karen Reynolds OD Unavailable [phone] Darwin Loving MD Unavailable [phone] Source Comments This information has been disclosed [...] except as provided at sections 2.12(c)(5) and 2.65.[facility] Ambulatory Reason for Visit * Reason Comments Ear Wax RT PT- Coming in for ear wax removalNo other issues or concerns at this time Encounter Details Date Type Department Care Team (Late st Contact Info) Description 06/13/2024 9:30 AM EDT Office Visit [facility] [address], Suite [facility] [place] [address] Automobile Radio Repairer: Fern Gifford Randall Scott, MD [address] [facility] Suite [facility], [address] [place] [address] Impacted cerumen of both ears (Primary Dx) Social History Tobacco Use Types [...] on file documented as of this encounter Last Filed Vital Signs Vital Sign Reading Time Taken Comments Blood Pressure - - Pulse - - Temperature 36.2 ??C (97.1 ??F) 06/13/2024 9:36 AM ED T Respiratory Rate - - Oxygen Saturation - - Inhaled Oxygen Concentration - - Weight 60.8 kg (134 lb) 06/13/2024 9:36 AM EDT Height 158.8 cm (5' 2.5 ) 06/13/2024 9:36 AM EDT Body Mass Index 24.12 06/13/2024 9:36 AM EDT documented in this encounter Progress Notes * Minda Kc - 06/13/2024 9:30 AM EDT Review of Systems: HENT: Ear wax Endocrine: Positive for thyroid problem. All other systems reviewed and are negative * Anisha Pena PA-C - 06/13/2024 9:30 AM EDT EAR CERUMEN REMOVAL Procedure Date/Time: 06/13/2024 9:30 AM Performed by: Darwin Loving MD Authorized by: Darwin Loving MD Removal of cerumen from bilateral was performed using wire loop and forceps. Comments: PROCEDURE: REMOVE IMPACTED EAR WAX Both ears were examined using the binocular microscope. Then under microscopic control, the wax wasremoved using instruments and suction. The removal of cerumen required significant time and effort.The binocular microscopic exam of the tympanic membranes was normal. TOLERANCE: The patient tolerated this well documented in this encounter Procedure Notes * Anisha Pena PA-C - 06/13/2024 9:30 AM EDTAssociated Order(s): EAR CERUMEN REMOVAL Post-Procedure Diagnose(s): Impacted cerumen of both ears EAR CERUMEN REMOVAL Procedure Date/Time: 06/13/2024 9:30 AM Performed by: Darwin Loving MD Authorized by: Darwin Loving MD Removal of cerumen from bilateral was performed using wire loop and forceps. Comments: PROCEDURE: REMOVE IMPACTED EAR WAX Both ears were examined using the binocular microscope. Then under microscopic control, the wax wasremoved using instruments and suction. The removal of cerumen required significant time and effort.The binocular microscopic exam of the tympanic membranes was normal. TOLERANCE: The patient tolerated this well documented in this encounter Plan of Treatment Not on file documented as of this encounter Procedures Procedure Name Priority Date/Time Associated Diagnosis Comments REMOVAL IMPACTED CERUMEN INSTRUMENTATION UNILAT Routine 06/13/2024 9:30 AM EDT Impacted cerumen of both ears documented in this encounter Results * REMOVAL IMPACTED CERUMEN INSTRUMENTATION UNILAT (06/13/2024 9:30 AM EDT) Narrative Anisha Pena PA-C - 06/13/2024 9:30 AM EDT Anisha Pena PA-C ? 06/13/2024 ??9:51 AM EAR CERUMEN REMOVAL Procedure Date/Time: 06/13/2024 9:30 AM Performed by: Darwin Loving MD Authorized by: Darwin Loving MD Removal of cerumen from bilateral was performed using wire loop and forceps. Comments: PROCEDURE: REMOVE IMPACTED EAR WAX Both ears were examined using the binocular microscope. ??Then under microscopic control, the wax was removed using instruments and suction. The removal of cerumen required significant time and effort. The binocular microscopic exam of the tympanic membranes was normal. TOLERANCE: The patient tolerated this well Darwin Loving MD IN CLINIC ORDER KIRK documented in this encounter Visit Diagnoses Diagnosis Impacted cerumen of both ears- Primary Impacted cerumen documented in this encounter Care Teams Manager Battery Relationship Specialty Start Date End Date Ortiz Rothman MD [address] [facility] [address] [place] [address] PCP - General 12/03/02 Antonietta Bateman MD [facility], [facility] [address] [facility] [address] [place] [address] PCP - CANCER CTR RMD Surgical Oncology 06/09/21 Artie Lanza MD 9100 [facility] [address] [place] [address] PCP - Cancer CTR Hematology 06/09/21 Bryce Allison MD, PhD [address] [place] [address] [address] [place] [phone] 08/25/10 ProviderLaura MD EPICARE PROVIDER 08/25/10 Valerie Wilkinson MD [facility] [address] [facility] [place] [address] 08/25/10 Yohan Powell MD [address] [facility] 300 [place] [address] ENT-Otolaryngology 03/15/17 Vandana Walker AUD [address] [place] [phone] Audiology 03/15/17 Geovanna Hughes MD [address] [address] Internal Medicine 04/01/19 Vandana Whitmore MD [address] [facility] [place] [address] Ophthalmology 08/18/19 Provider, Historical EPICARE PROVIDER 11/06/19 Rozina Sanders MD 203 [facility] [place] [phone] Ophthalmology 12/25/19 Antonietta Bateman MD CORPORATE OFFICE [address], [facility] [address] [place] [address] Surgical Oncology 04/29/21 Dena Berumen PA-C [address] [facility] [address] [place] [address] Oncology 06/13/21 Sangita Holly PA-C 300 [facility] [address] [place] [address] General Surgery 06/23/21 Dulce Lara PA-C [address] [facility] [address] [place] [address] Surgical Oncology 06/28/22 Elisa Martines PA-C [address] [facility] [address] [place] [address] General Surgery 05/25/23 Tanvi Gabriel CRNP [facility] SURG ONC [facility] OFF 300 [facility] [address] [place] [phone] General Surgery 07/04/23 Merline Duran MBBS [address] [place] [phone] Internal Medicine 11/17/23 Tono Camarillo MD [address] [facility] [address] [place] [address] Ophthalmology 11/18/23 Ean Mckeon MD [address] [place] [address] Ophthalmology 02/27/24 Sheyla Guerrero MD [address] [place] [address] Oncology 03/13/24 None SELF-REFERRED OR FOR UNREFERRED [facility] HEALTH PLAN 03/13/24 Sheyla Conley MD [address] [facility], [address] [place] [address] Gastroenterology 03/14/24 Karen Reynolds OD [address] [place] [address] Optometry 03/14/24 Darwin Loving MD 6001 [facility] [address], [facility] [place] [address] Otolaryngology 06/11/24 documented as of this encounter
--- OUTSIDE RECORDS SUMMARY | 2024-10-14 21:57 | XMS_ITS | Encounter Summary ---
Author Organization [facility] Ambulatory Address [address] [place] [address] Phone Care Team Providers Care Loader Unloader Name Role Phone Ortiz Rothman MD Primary Care Provider [phone] Bryce Allison MD, PhD Unavailable + [address] Provider, Abstract MD Unavailable Unavailabl Valerie Orellana MD Unavailable +- [phone] Yohan Powell MD Unavailable [phone] Vandana Walker Unavailable + Geovanna Hughes MD Unavailable Vandana Whitmore MD Unavailable + Provider, Historical Unavailable Unavailable Rozina Sanders MD Unavailable +[phone] Antonietta Bateman MD Unavailable + [phone] Antonietta Bateman MD Unavailable +[phone] Artie Lanza MD Unavailable Dena BerumenC Unavailable [phone] Sangita HollyC Unavailable [phone] Dulce LaraC Unavailable Elisa MartinesC Unavailable + Tanvi Gabriel Unavailable [phone] Merline Duran Unavailable [phone] Tono Camarillo MD Unavailable Ean Mckeon MD Unavailable [phone] Sheyla Guerrero MD Unavailable [phone] None Unavailable Unavailable Source Comments This information has been disclosed [...] except as provided at sections 2.12(c)(5) and 2.65.[facility] Ambulatory Encounter Details Date Type Department Care Team (Late st Contact Info) Description 03/13/2024 Ambulatory Visit Summary [facility] [address] [place] [address] External, Provider MedOnc - After Visit Summary Social History Tobacco Use Types Packs/Day Years [...] as of this encounter Progress Notes * External, Provider - 03/13/2024 1:31 PM EDT NOTE TYPE = TREATMENT/PROCEDURES DID: [facility] Visit Summary Visit/Patient Information Date & Time Provider March 13:31PM Artie Lanza M.D. Name Date of Danika Mckeon 1940 Problems Other specified disorders of bone density and structure, unspecified site Malignant neoplasm of central portion of left female breast Allergies & Adverse Reactions Allergies No Known Allergies. Adverse Reactions There is no information available. _ Medications Please review the list of medications below that were reviewed and confirmed by you at today???s visit. If any changes are needed, please notify us immediately. If you have any questions regarding the medications on this list, please contact the doctor who ordered the medication or your primary care provider. Current Patient Reported Medications This list displays each active medication's name and course description reported by the patient. The list is sorted based on the earliest start date of the medication. Brimonidine Tartrate Solution Ophthalmic COVID-19 mRNA Vaccine (Pfizer) Intramuscular COVID-19 mRNA Vaccine (Pfizer) Intramuscular COVID-19 mRNA Vaccine (Pfizer) Intramuscular Fluzone Quadrivalent Intramuscular Latanoprost Solution Ophthalmic Losartan Potassium (25 mg) Tablet Oral daily Pantoprazole Sodium (40 mg) Tablet, enteric coated Oral daily Prolia Subcutaneous Take as Directed Synthroid (75 mcg) Tablet Oral daily Synthroid (75 mcg) Tablet Oral daily Timolol Maleate (0.5 %) Solution Ophthalmic daily Vitamin D3 Capsule Oral every other week Active Treatment Medications Displays each active chemotherapy and non-chemotherapy medication. Tamoxifen Citrate Active Treatment Medications Given this Visit Displays each medication that has an approved dose recording on the effective date. The agent's name, administered dose, form, start date and time, end date and time (when entered). There is no information available in this category. __ Vital Signs Performed on March 13, 2024 12:44 Height - 61.75 in Weight - 136.9 lbs (HIGH) BSA - 1.62 sq.m BMI - 25.24 Temperature - 97.9 F (LOW) Pulse - 60 /min Respiration - 16 /min BP - 138/84 mm(hg) O2 Sat - 98 % __ Most Recent Labs Most recent lab results are not available for this patient. This link will provide you with access to all Patient Education resources that are available at [email or web address] Prepared By: Catia Vaz Created On: March 13, 2024 1:31PM documented in this encounter Plan of Treatment Not on file documented as of this encounter Visit Diagnoses Not on filedocumented in this encounter Care Teams Loader Unloader Relationship Specialty Start Date End Date Ortiz Rothman MD [address] [facility] [address] [place] [address] PCP - General 12/03/02 Antonietta Bateman MD [facility], [facility] 300 [facility] [address] [place] [address] PCP - CANCER CTR RMD Surgical Oncology 06/09/21 Artie Lanza MD 9100 [facility] [address] [place] [address] PCP - Cancer CTR Hematology 06/09/21 Bryce Allison MD, PhD [address] [place] [address] D, [facility] [address] [place] [phone] 08/25/10 ProviderLaura MD [facility] PROVIDER 08/25/10 Valerie Wilkinson MD [facility] 203 [facility] [place] [address] 08/25/10 [place] [address] [place] [address] 300 [place] [address] ENT-Otolaryngology 03/15/17 Vandana Walker AUD [address] [place] [address] Audiology 03/15/17 Geovanna Hughes MD [address] [address] Internal Medicine 04/01/19 Vandana Whitmore MD 203 [facility] [place] [address] Ophthalmology 08/18/19 Provider, Historical [facility] 11/06/19 Rozina Sanders MD 203 [facility] [place] [address] Ophthalmology 12/25/19 Antonietta Bateman MD CORPORATE OFFICE [address] [place] [address] Surgical Oncology 04/29/21 Dena Berumen PA-C [address] [place] [address] [place] [address] Oncology 06/13/21 Sangita Holly PA-C [address] [place] [address] General Surgery 06/23/21 Dulce Lara PA-C [address] [place] [address] [place] [address] Surgical Oncology 06/28/22 Elisa Martines PA-C [address] [facility] [address] [place] [address] General Surgery 05/25/23 Tanvi Gabriel CRNP [facility] SURG ONC [facility] OFF [address] [facility] [address] [place] [phone] General Surgery 07/04/23 Merline Duran MBBS [address] [place] [phone] Internal Medicine 11/17/23 Tono Camarillo MD 200 [facility] [address] [place] [address] Ophthalmology 11/18/23 Ean Mckeon MD 1622 [place] [address] Ophthalmology 02/27/24 Sheyla Guerrero MD [address] [place] [address] Oncology 03/13/24 None SELF-REFERRED OR FOR UNREFERRED [facility] HEALTH PLAN 03/13/24 documented as of this encounter
--- OUTSIDE RECORDS SUMMARY | 2024-10-14 21:57 | XMS_ITS | Continuity of Care Document ---
Author Organization [facility] Address [address] [place] [address]- Care Team Providers Care Contact Worker Name Role Phone DR BERENICE ROBERTO Primary Care Physician Encounter [id number] Date(s): 03/29/21 - 03/30/[address] [address]- Attending Physician: CHERRY RIVERA MD Referring Physician: NONASSIGNED, PHYSICIAN Reason for [...]
--- OUTSIDE RECORDS SUMMARY | 2024-10-14 21:57 | XMS_ITS | Encounter Summary ---
Author Organization [facility] Ambulatory Address [address] [place] [address] Phone Care Team Providers Care Topstitcher Lockstitch Name Role Phone Ortiz Rothman MD Primary Care Provider [phone] Bryce Allison MD, PhD Unavailable + [phone] Provider, Abstract MD Unavailable Unavailabl Valerie Orellana MD Unavailable +- [phone] Yohan Powell MD Unavailable Vandana Walker Unavailable + Geovanna Hughes MD Unavailable Vandana Whitmore MD Unavailable + Provider, Historical Unavailable Unavailable Rozina Sanders MD Unavailable +[phone] Antonietta Bateman MD Unavailable + 74 Antonietta Bateman MD Unavailable +[phone] Artie Lanza MD Unavailable Dena BerumenC Unavailable +[phone] Sangita HollyC Unavailable +[phone] Dulce LaraC Unavailable Elisa MartinesC Unavailable + Tanvi Gabriel Unavailable +[phone] Merline Duran Unavailable Tono Camarillo MD Unavailable Ean Mckeon MD Unavailable [phone] Source Comments This information has been disclosed [...] Ambulatory Reason for Visit * Reason Comments Schedule Appointment Encounter Details Date Type Department Care Team ([facility] st Contact Info) Description 03/03/[address] [address] Tile Molder Hand: Valerie Purcell Rajesh, MD [address] [place] [address] [phone] Schedule Appointment Social History Tobacco Use Types Packs/Day Years [...] on file documented as of this encounter Plan of Treatment Not on file documented as of this encounter Visit Diagnoses Not on filedocumented in this encounter Care Teams Topstitcher Lockstitch Relationship Specialty Start Date End Date Ortiz Rothman MD [address] [facility] [address] [place] [address] PCP - General 12/03/02 Antonietta Bateman MD [facility], [facility] 300 [facility] [address] [place] [address] PCP - CANCER CTR RMD Surgical Oncology 06/09/21 Artie Lanza MD 9100 [facility] [address] [place] [address] PCP - Cancer CTR Hematology 06/09/21 Bryce Allison MD, PhD [address] [place] [address] [address] [place] [phone] 08/25/10 ProviderLaura MD [facility] [place] [facility] PROVIDER 08/25/10 Valerie Wilkinson MD [facility] [address] [facility] [place] [address] 08/25/10 [place] [address] [place] [address] 300 [place], [place] [phone] ENT-Otolaryngology 03/15/17 Vandana Walker AUD [address] [place] [phone] Audiology 03/15/17 Geovanna Hughes MD [address] [address] Internal Medicine 04/01/19 Vandana Whitmore MD 203 [facility] [place] [place] [address] Ophthalmology 08/18/19 Provider, Historical EPICARE PROVIDER 11/06/19 Rozina Sanders MD 203 [facility] [place] [phone] Ophthalmology 12/25/19 Antonietta Bateman MD CORPORATE OFFICE [address], [facility] [address] [place] [address] Surgical Oncology 04/29/21 Dena Berumen PA-C 300 [facility] [address] [place] [address] Oncology 06/13/21 Sangita Holly PA-C 300 [facility] [address] [place] [address] General Surgery 06/23/21 Dulce Lara PA-C [address] [facility] [address] [place] [address] Surgical Oncology 06/28/22 Elisa Martines PA-C [address] [place] [address] [address] [place] [address] General Surgery 05/25/23 Tanvi Gabriel CRNP [facility] SURG ONC [facility] OFF 300 [facility] [address] [place] [address] General Surgery 07/04/23 Merline Duran MBBS [address] [phone] Internal Medicine 11/17/23 Tono Camarillo MD 200 [facility]. [address] [place] [address] Ophthalmology 11/18/23 Ean Mckeon MD 1622 [place] [address] Ophthalmology 02/27/24 documented as of this encounter
--- OUTSIDE RECORDS SUMMARY | 2024-10-14 21:57 | XMS_ITS | Continuity of Care Document ---
Author Organization [facility] Address Unknown Care Team Providers Care Accounting Manager Cpa Name Role Phone BERENICE ROBERTO Primary Care Physician [phone] Encounter EPICFIN [id number] Date(s): 01/25/22 - 01/26/22 [facility] Referring Physician: SHANNON GORDON MD Reason for [...]
--- OUTSIDE RECORDS SUMMARY | 2024-10-14 21:57 | XMS_ITS | Encounter Summary ---
Author Organization [facility] Ambulatory Address [address] [place] [address] Phone Care Team Providers Care Family Welfare Social Work Professor Name Role Phone Ortiz Rothman MD Primary Care Provider [phone] Bryce Allison MD, PhD Unavailable + [phone] Provider, Abstract MD Unavailable Unavailabl Valerie Orellana MD Unavailable +- [phone] Yohan Powell MD Unavailable [phone] Vandana Walker Unavailable + Geovanna Hughes MD Unavailable Vandana Whitmore MD Unavailable + Provider, Historical Unavailable Unavailable Rozina Sanders MD Unavailable +[phone] Antonietta Bateman MD Unavailable + 74 Antonietta Bateman MD Unavailable +[phone] Artie Lanza MD Unavailable Dena BerumenC Unavailable +[phone] Sangita HollyC Unavailable +[phone] Dulce LaraC Unavailable Elisa MartinesC Unavailable + Tanvi Gabriel Unavailable +[phone] Merline Duran Unavailable +[phone] Tono Camarillo MD Unavailable Ean Mckeon MD Unavailable +[phone] Sheyla Guerrero MD Unavailable [phone] None Unavailable Unavailable Sheyla Conley MD Unavailable +[phone] Karen Reynolds OD Unavailable [phone] Darwin Loving MD Unavailable [phone] Provider, Generic External Data Unavailable Unavailable Source Comments This information has [...] Ambulatory Reason for Visit * Reason Comments Patient Call Encounter Details Date Type Department Care Team ([facility] Contact Info) Description 08/22/[address] [address] Instructor Wastewater Treatment Plant: Valerie Purcell Rajesh, MD [address] [place] [phone] Patient Call Social History Tobacco Use Types Packs/Day Years [...] on file documented as of this encounter Miscellaneous Notes * Telephone Encounter - Savana Briseno - 09/23/2024 10:23 AM EST Called pt no answer lmom to call office back / when pt calls back please relay doctors message below * Telephone Encounter - Savana Briseno - 09/09/2024 10:46 AM EST Called pt no answer lmom to call office back / when pt calls back please relay doctors message below * Telephone Encounter - Savana Briseno - 08/26/2024 8:23 AM EST Called pt no answer lmom to call office back, when pt calls back please relay DR Mtz message below * Telephone Encounter - Savana Briseno - 08/22/2024 10:06 AM EST Pt called states she notices increased blurriness OD within the last month/ ou itchy OS red x 1 1/2year/ Dr Mckeon pt/ she wanted to know if her glaucoma eye drops could be causing symptom/ please call pt at [phone] cell documented in this encounter Plan of Treatment Not on file documented as of this encounter Visit Diagnoses Not on filedocumented in this encounter Care Teams Family Welfare Social Work Professor Relationship Specialty Start Date End Date Ortiz Rothman MD [address] [facility] [address] [place] [address] PCP - General 12/03/02 Antonietta Bateman MD [facility], [address] [place] [address] PCP - CANCER CTR RMD Surgical Oncology 06/09/21 Artie Lanza MD [address] [facility] [address] [place] [address] PCP - Cancer CTR Hematology 06/09/21 Bryce Allison MD, PhD [address] [facility] [address] [place] [address] 08/25/10 Provider, MD Laura EPICARE PROVIDER 08/25/10 Valerie Wilkinson MD [facility] 203 [facility] [place] [address] 08/25/10 Yohan Powell MD 6[address] [facility] [address] [place] [address] ENT-Otolaryngology 03/15/17 Vandana Walker AUD [address] [place] [address] Audiology 03/15/17 Geovanna Hughes MD [address] [address] Internal Medicine 04/01/19 Vandana Whitmore MD 203 [facility] [place] [place] [address] Ophthalmology 08/18/19 Provider, Nithin EPICARE PROVIDER 11/06/19 Rozina Sanders MD 203 [facility] [place] [address] Ophthalmology 12/25/19 Antonietat Bateman MD CORPORATE OFFICE [place] [address] [place] [address] Surgical Oncology 04/29/21 Dena Berumen PA-C [address] [facility] [address] [place] [address] Oncology 06/13/21 Sangita Holly PA-C 300 [facility] [address] [place] [address] General Surgery 06/23/21 Dulce Lara PA-C 300 [facility] [address] [place] [address] Surgical Oncology 06/28/22 Elisa Martines PA-C 6[address] [facility] [address] [place] [address] General Surgery 05/25/23 Tanvi Gabriel CRNP [facility] SURG ONC [facility] OFF 300 [facility] [address] [place] [address] General Surgery 07/04/23 Merline Duran MBBS [address] [place] [address] Internal Medicine 11/17/23 Tono Camarillo MD [address] [place] [address] Ophthalmology 11/18/23 Ean Mckeon MD [address] [place] [address] Ophthalmology 02/27/24 Sheyla Guerrero MD [address] [place] [address] Oncology 03/13/24 None SELF-REFERRED OR FOR UNREFERRED [facility] HEALTH PLAN 03/13/24 Sheyla Conley MD [address] [place] [address] Gastroenterology 03/14/24 Karen Reynolds OD [address] [place] [address] Optometry 03/14/24 [place] [address] [place] [address] Otolaryngology 06/11/24 Provider, Generic External Data 07/16/24 documented as of this encounter
--- OUTSIDE RECORDS SUMMARY | 2024-10-14 21:57 | XMS_ITS | Encounter Summary ---
Author Organization [facility] Ambulatory Address [address] [place] [address] Phone Care Team Providers Care Quality Control Lab Tech Name Role Phone Ortiz Rothman MD Primary Care Provider [phone] Bryce Allison MD, PhD Unavailable + [phone] Provider, Abstract MD Unavailable Unavailabl Valerie Orellana MD Unavailable +- [phone] Yohan Powell MD Unavailable [phone] Vandana Walker Unavailable + Geovanna Hughes MD Unavailable Vandana Whitmore MD Unavailable + Provider, Historical Unavailable Unavailable Rozina Sanders MD Unavailable +[phone] Antonietta Bateman MD Unavailable + 74 Antonietta Bateman MD Unavailable +[phone] Artie Lanza MD Unavailable Dena BerumenC Unavailable +[phone] Sangita HollyC Unavailable +[phone] Dulce LaraC Unavailable Elisa MartinesC Unavailable + Tanvi Gabriel Unavailable [phone] Merline Duran Unavailable +[phone] Tono Camarillo MD Unavailable Source Comments This information has been [...] except as provided at sections 2.12(c)(5) and 2.65.[facility] Ambulatory Reason for Visit * Reason Comments Follow-Up Encounter Details Date Type Department Care Team ([facility] Contact Info) Description 12/31/2023 10:30 AM EDT Office Visit [facility] [place] [address] [place] [phone] State'S Attorney: Valerie Purcell Evan L, MD, PhD [address] [place] [phone] Primary open angle glaucoma (POAG) of both eyes, mild stage (Primary Dx) Social History Tobacco Use [...] as of this encounter Progress Notes * Bryce Allison MD, PhD - 12/31/2023 10:30 AM EDT established patient lost to follow up h/o POAG OD > OS - using timolol OU qam No new issues Impression/Plan Primary open angle glaucoma - IOP not at target - hold timolol - start latanoprost OU qhs Graves disease - stable 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 f/u 1 month for applanation documented in this encounter Plan of Treatment Not on file documented as of this encounter Procedures Procedure Name Priority Date/Time Associated Diagnosis Comments OCT, OPTIC NERVE - OU - BOTH EYES Routine 12/31/2023 11:24 AM EDT Primary open angle glaucoma (POAG) of both eyes, mild stage VAN 24-2 VISUAL FIELD - OU - BOTH EYES Routine 12/31/2023 11:24 AM EDT Primary open angle glaucoma (POAG) of both eyes, mild stage documented in this encounter Results * OCT, OPTIC NERVE - OU - BOTH EYES (12/31/2023 11:24 AM EDT) Anatomical Region Laterality Modality Other 12/31/2023 11:2 4 AM EDT Narrative 12/31/2023 2:01 PM EDT HVF 24-2 OU OD - good study, superior arcuate and near inferior arcuate scotoma OS - good study, likely inferior arcuate scotoma and possible superior nasal step OCT NFL Good signal strength OU OD - Avg = 58, thin superior quadrant, thin inferior quadrant OS - Avg = 59, thin superior quadrant, thin inferior quadrant Overall, appears to demonstrate visual field progression OU Bryce Allison MD, PhD OPHTH TOMOGRAPHY * VAN 24-2 VISUAL FIELD - OU - BOTH EYES (12/31/2023 11:24 AM EDT) Anatomical Region Laterality Modality Visual Field 12/31/2023 11:0 4 AM EDT Narrative 12/31/2023 2:01 PM EDT HVF 24-2 OU OD - good study, superior arcuate and near inferior arcuate scotoma OS - good study, likely inferior arcuate scotoma and possible superior nasal step OCT NFL Good signal strength OU OD - Avg = 58, thin superior quadrant, thin inferior quadrant OS - Avg = 59, thin superior quadrant, thin inferior quadrant Overall, appears to demonstrate visual field progression OU Bryce Allison MD, PhD OPHTH VISUAL FIELD documented in this encounter Visit Diagnoses Diagnosis Primary open angle glaucoma (POAG) of both eyes, mild stage- Primary documented in this encounter Care Teams Quality Control Lab Tech Relationship Specialty Start Date End Date Ortiz Rothman MD [address] [facility] [address] [place] [address] PCP - General 12/03/02 Antonietta Bateman MD [facility], [facility] 300 [facility] [address] [place] [address] PCP - CANCER CTR RMD Surgical Oncology 06/09/21 Artie Lanza MD [address] [facility] [address] [place] [address] PCP - Cancer CTR Hematology 06/09/21 Bryce Allison MD, PhD [address] [place] [address] [address], [address] [place] [phone] 08/25/10 ProviderLaura MD [facility] PROVIDER 08/25/10 Valerie Wilkinson MD [facility] 203 [facility] [place] [address] 08/25/10 Yohan Powell MD [address] [facility] [address] [place] [address] ENT-Otolaryngology 03/15/17 Vandana Walker AUD [address] [place] [address] Audiology 03/15/17 Geovanna Hughes MD [address] [place] [address] Internal Medicine 04/01/19 Vandana Whitmore MD 203 [facility] [place] [address] Ophthalmology 08/18/19 Provider, Historical EPICARE PROVIDER 11/06/19 Rozina Sanders MD [address] [place] [address] [place] [address] Ophthalmology 12/25/19 Antonietta Bateman MD CORPORATE OFFICE [address] [place] [address] Surgical Oncology 04/29/21 Dena Berumen PA-C [address] [place] [address] Oncology 06/13/21 Sangita Holly PA-C [address] [place] [address] General Surgery 06/23/21 Dulce Lara PA-C [address] [place] [address] Surgical Oncology 06/28/22 Elisa Martines PA-C [address] [place] [address] [address] [place] [address] General Surgery 05/25/[address] [facility] SURG ONC [facility] OFF 300 [facility] [address] [place] [address] General Surgery 07/04/23 Merline Duran MBBS [address] [phone] Internal Medicine 11/17/23 Tono Camarillo MD 200 [facility] [address] [place], [place] [address] Ophthalmology 11/18/23 documented as of this encounter
--- OUTSIDE RECORDS SUMMARY | 2024-10-14 21:57 | XMS_ITS | Encounter Summary ---
Author Organization [facility] Ambulatory Address [address] [place] [address] Phone Care Team Providers Care Edge Cutting Machine Operator Name Role Phone Ortiz Rothman MD Primary Care Provider [phone] Bryce Allison MD, PhD Unavailable + [phone] Provider, Abstract MD Unavailable Unavailabl Valerie Orellana MD Unavailable +- [phone] Yohan Powell MD Unavailable [phone] Vandana Walker Unavailable + Geovanna Hughes MD Unavailable Vandana Whitmore MD Unavailable + Provider, Historical Unavailable Unavailable Rozina Sanders MD Unavailable [phone] Antonietta Bateman MD Unavailable + [phone] Antonietta Bateman MD Unavailable +[phone] Artie Lanza MD Unavailable Dena BerumenC Unavailable [phone] Sangita HollyC Unavailable [phone] Dulce LaraC Unavailable Elisa MartinesC Unavailable + Tanvi Gabriel Unavailable [phone] Merline Duran Unavailable Tono Camarillo MD Unavailable Ean Mckeon MD Unavailable [phone] Sheyla Guerrero MD Unavailable [phone] None Unavailable Unavailable Source Comments This information [...] except as provided at sections 2.12(c)(5) and 2.65.[facility] Ambulatory Encounter Details Date Type Department Care Team (Late st Contact Info) Description 03/13/2024 Office Note BRENDA Villalta [facility] [address] [place] [address] Sheyla Guerrero MD [address] [place] [address] Social History Tobacco Use Types Packs/Day Years [...] as of this encounter Progress Notes * Sheyla Guerrero MD - 03/13/2024 1:29 PM EDT NOTE TYPE: OFFICE NOTE DID: MOOFCNT PATIENT NAME: Danika Mckeon ID: [id number] DATE OF : 1940 DATE OF VISIT: March 13, 2024 FOLLOW UP OFFICE NOTE DIAGNOSIS: Primary M85.80 - Other specified disorders of bone density and structure, unspecified site, Diagnosed Oct 19, 2021 (Active) Primary C50.112 - Malignant neoplasm of central portion of left female breast, Diagnosed Jun 09, 2021 (Active) CHIEF COMPLAINT: Stage IA, T2N0M0. ILC left breast. ER+ 250, AL + 140, HER2 1+ by IHC, Ki-67 10%. Diagnosed 05/22/21 HISTORY OF PRESENT ILLNESS/INTERIM HISTORY: 84-year-old woman with a history of left breast cancer here today to establish care with Dr. Guerrero. She has Pmhx of breast cancer, osteoporosis, hypothyroidism, and glaucoma. She was diagnosed in 05/2021 with a Stage IA, T2N0M0. ILC of the left breast. ER+ 250, AL + 140, HER2 1+ by IHC, Ki-67 10%. S he underwent left segmental mastectomy and sentinel lymph node biopsy, and adjuvant radiation. She was on Anastrazole from 10/19/2021-12/31/2023. She had an office office visit with her oncologist on 01/01/2024, the note from this visit says that he will switch her to Tamoxifen in 12/2023 due to DEXA scan showing osteoporosis. Today, she tells me she has not taken any letrozole or tamoxifen since her last oncologist visit. She reports that she has had osteoporosis dating back to the 1989's and that n in the past she has been on prolia injections for osteoporioss but discontinued due to leg pains. In January 2024, she restarted Prolia through her PCP. She has screening mammogram scheduled for 03/24/24. ss PRIOR HISTORY: 1.Biopsy of the left breast mass on 04/15/21 showed invasive lobular carcinoma, classical type with histiocytoid morphology, ER positive (H score 250), AL positive (H score 140), HER2/kam negative (1+ by IHC), Ki-67 low (10%), Ivan grade 1. 2.Left segmental mastectomy and sentinel lymph node biopsy on 06/01/[address] Antonietta Bateman. Pathology showed a 5.0 cm invasive lobular carcinoma; Ivan grade 2 (tubule formation 3, nuclear grade 2, mitotic rate 1, total score 6/9); negative LVI; invasive carcinoma focally present at posterior/lateral margin of resection; LCIS, atypical lobular hyperplasia; none of four lymph nodes positive for metastatic carcinoma; pT2N0. 3.Adjuvant radiation completed 08/31/21 CURRENT THERAPY: 1.Anastrozole 10/19/21 - 01/01/24. Restarted 03/13/24. RADIOLOGY DATA: 1. Screening Mammography Digital Nadir w Kishan 03/13/2023 IMPRESSION: No evidence of malignancy is identified. 2. DEXA 05/16/23: T score PA LUMBAR SPINE(L1 - L4): -2.8 LEFT TOTAL HIP: -2.3 LEFT FEMORAL NECK: -2.3 REVIEW OF SYSTEMS: The pertinent ROS are incorporated in the HPI. Beyond those, the remaining 10 organ system ROS are either normal/negative or listed below. Breasts Abnormal - No abnormal masses of breast, no nipple discharge or pain. Intermittent chest wall pain s/p surgery and radiation. Gastrointestinal Abnormal - Abdominal pain, following with her pcp. No nausea, vomiting, diarrhea. MEDICATIONS: Brimonidine Tartrate Solution Ophthalmic COVID-19 mRNA Vaccine (Wearable Intelligence) Intramuscular COVID-19 mRNA Vaccine (Wearable Intelligence) Intramuscular COVID-19 mRNA Vaccine (Wearable Intelligence) Intramuscular Fluzone Quadrivalent Intramuscular Latanoprost Solution Ophthalmic Losartan Potassium (25 mg) Tablet Oral daily Pantoprazole Sodium (40 mg) Tablet, enteric coated Oral daily Prolia Subcutaneous Take as Directed Synthroid (75 mcg) Tablet Oral daily Synthroid (75 mcg) Tablet Oral daily Timolol Maleate (0.5 %) Solution Ophthalmic daily Vitamin D3 Capsule Oral every other week ALLERGIES: No Known Allergies. PAST MEDICAL HISTORY: Breast Cancer Glaucoma Hypothyroidism Osteopenia PROCEDURE/SURGICAL HISTORY: Ms. Mckeon's surgical/procedural history consists of Breast Surgery, cataracts, detached retina repair, scleral buckle, hysterectomy, and tonsillectomy. FAMILY HISTORY: Mother was diagnosed with breast cancer in her 40s. SOCIAL HISTORY: Ms. Mckeon is . Ms. Mckeon has never smoked. She drinks daily. She consumes 1 drink/day 7 days/week. Ms. Mckeon reports the following support systems: lives with spouse. Lives in [place] with her husbandand son. 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 Never smoker. Has one glass of wine per day on average. No illicit drugs. PHYSICAL EXAMINATION: Performed on March 13, 2024 12:44 Height 61.75 in Weight 136.9 lbs BSA (derived) 1.62 sq.m BMI 25.24 Temperature 97.9 F Pulse 60 /min Respiration 16 /min BP 138/84 Pulse Oximetry (O2 Sat) 98 % 1 - No physically strenuous activity, but ambulatory and able to carry out light or sedentary work (e.g. office work, light house work). (ECOG) Constitutional Alert, cooperative, oriented. Mood and affect appropriate. Appears close to chronological age. Well nourished. Well developed. Head Normocephalic Eyes Sclera are white Neck Supple without masses or thyromegaly Hematologic/Lymphatic No petechiae or purpura. No tender or palpable lymph nodes in the cervical, supraclavicular, or axillary area. Respiratory Lungs are clear to auscultation without rhonchi or wheezing. Cardiovascular Regular rate and rhythm of heart without murmurs, gallops or rubs. Breasts Symmetric bilaterally without nipple discharge and no masses or tenderness. No skin changes. Abdomen Non-tender, non-distended, no masses, ascites or hepatosplenomegaly. Musculoskeletal No tenderness or swelling, normal range of motion without obvious weakness. Integumentary No rashes, scars, or lesions suggestive of malignancy. Neurologic No sensory or motor deficits. Normal gait. Psychiatric Alert and oriented times three. Coherent speech. Verbalizes understanding of our discussions today. LABORATORY DATA: I personally reviewed laboratory tests which are available in the EMR. IMPRESSION: Stage IA, T2N0M0. ILC left breast. ER+ 250, AL + 140, HER2 1+ by IHC, Ki-67 10%. Diagnosed 05/22/21 ASSESSMENT AND PLAN: Ms. Mckeon is an 84 year old woman with a history of stage IA, T2N0M0, ER+/AL+, Her-2 negative ILC of the left breast. She underwent left segmental mastectomy and SLNB on 06/01/21 and completed adjuvant radiation on 08/31/21. She initiated Anastrozole 10/2021 - 01/01/24. She was found to have progressing osteoporosis on DEXA from 05/2023. Dr Lanza switched her to Mcfarlane on01/01/24. She never started this. He recommended a goal to continue adjuvant endocrine therapy for 5 years through 10/2026. She comes today, 03/13/24, to discuss her diagnosis and treatment options. Sicneher meeting with Dr Lanza, she and Dr Tello elected to restart Prolia. She received her last dose 01/2024. When asked, she tolerated Arimidex well. She would like to restart this. If her DEXA worsens despite Prolia she will consider Mcfarlane. I also spoke to her about BCI testing. She likes this idea and agrees. Will electronically send in a Rx for Arimidex. GAURAV [employer] will call her with BCI results. Mammogram scheduled 03/2024. FU in1 year. She knows to call or return at any time with questions or problems. NEW ORDERS TODAY: Other ordered by Hria Blair on March 13, 2024: The following orders have been created: [employer] For (breast cancer index testing) (Approved) Return Visit ordered by Hira Blair on March 13, 2024: The following order(s) were created to occur in 6 months: Schedule next visit with (15 Minutes) (Approved) Electronically Reviewed By: Sheyla Guerrero March 13, 2024 1:29PM documented in this encounter Plan of Treatment Not on file documented as of this encounter Visit Diagnoses Not on filedocumented in this encounter Care Teams Edge Cutting Machine Operator Relationship Specialty Start Date End Date Ortiz Rothman MD [address] [facility] [address] [place] [address] PCP - General 12/03/02 Antonietta Bateman MD [facility], [facility] [address] [facility] [address] [place] [address] PCP - CANCER CTR RMD Surgical Oncology 06/09/21 Artie Lanza MD [address] [facility] [address] [place] [address] PCP - Cancer CTR Hematology 06/09/21 Bryce Allison MD, PhD [address] [place] [address] D, Bert [address] [place] [phone] 08/25/10 Provider, MD Laura EPICARE PROVIDER 08/25/10 Valerie Wilkinson MD [facility]ENTER [address] [facility] [place] [address] 08/25/10 Yohan Powell MD [address] [place] [address] [address] [place] [address] ENT-Otolaryngology 03/15/17 Vandana Walker AUD [address] [place] [phone] Audiology 03/15/17 Geovanna Hughes MD [address] [place] [phone] Internal Medicine 04/01/19 Vandana Whitmore MD [address] [place] [address] [place] [address] Ophthalmology 08/18/19 Provider, Nithin EPICARE PROVIDER 11/06/19 Rozina Sanders MD [address] [place] [address] E[address] [facility] [place] [phone] Ophthalmology 12/25/19 Antonietta Bateman MD CORPORATE OFFICE [address], [facility] [address] [place] [address] Surgical Oncology 04/29/21 Dena Berumen PA-C [address] [facility] [address] [place] [address] Oncology 06/13/21 Sangita Holly PA-C [address] [facility] [address] [place] [address] General Surgery 06/23/21 Dulce Lara PA-C [address] [facility] [address] [place] [address] Surgical Oncology 06/28/22 Elisa Martines PA-C [address] [place] [address] [address] [place] [address] General Surgery 05/25/23 Tanvi Gabriel CRNP [facility] SURG ONC [facility] OFF [address] [facility] [address] [place] [phone] General Surgery 07/04/23 Merline Duran MBBS [address] [phone] Internal Medicine 11/17/23 Tono Camarillo MD [address] [facility] [address] [place] [address] Ophthalmology 11/18/23 Ean Mckeon MD [address] [place] [address] Ophthalmology 02/27/24 Sheyla Guerrero MD [address] [place] [address] Oncology 03/13/24 None SELF-REFERRED OR FOR UNREFERRED [facility] HEALTH PLAN 03/13/24 documented as of this encounter
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
--- OUTSIDE RECORDS SUMMARY | 2024-10-14 21:57 | XMS_ITS | Continuity of Care Document ---
Author Organization [facility] Address [address] [place] [address]- Care Team Providers Care Catalyst Operator Name Role Phone BERENICE ROBERTO Primary Care Physician [phone] Allergies, Adverse Reactions, Alerts Substance Reaction Severity [...]
--- OUTSIDE RECORDS SUMMARY | 2024-10-14 21:57 | XMS_ITS | Encounter Summary ---
Author Organization [facility] Ambulatory Address [address] [place] [address] Phone Care Team Providers Care Soils Analyst Name Role Phone Ortiz Rothman MD Primary Care Provider [phone] Bryce Allison MD, PhD Unavailable + [phone] Provider, Abstract MD Unavailable Unavailabl Valerie Orellana MD Unavailable +- [phone] Yohan Powell MD Unavailable [phone] Vandana Walker Unavailable + Geovanna Hughes MD Unavailable Vandana Whitmore MD Unavailable + Provider, Historical Unavailable Unavailable Rozina Sanders MD Unavailable +[phone] Antonietta Bateman MD Unavailable + [phone] Antonietta Bateman MD Unavailable +[phone] Artie Lanza MD Unavailable Dena BerumenC Unavailable +[phone] Sangita HollyC Unavailable +[phone] Dulce LaraC Unavailable Elisa MartinesC Unavailable + Tanvi Gabriel Unavailable +[phone] Merline Duran Unavailable +[phone] Tono Camarillo MD Unavailable Ean Mckeon MD Unavailable [phone] Sheyla Guerrero MD Unavailable [phone] None Unavailable Unavailable Source Comments This information [...] except as provided at sections 2.12(c)(5) and 2.65.[facility] Ambulatory Reason for Visit * Reason Comments Referral EGD Encounter Details Date Type Department Care Team (Late st Contact Info) Description 03/13/2024 Telephone [facility] Gastroenterology-[facility] in [address] [place] [address] Mobile Ui Designer: Dayana [place] None SELF-REFERRED OR FOR UNREFERRED [facility] HEALTH PLAN Referral (EGD ) Social History Tobacco Use Types Packs/Day Years [...] encounter Miscellaneous Notes * Telephone Encounter - Annetta Andres - 03/13/2024 2:26 PM EDT Please see attached and scanned referral for endoscopy and contact patient to schedule. Thank you. documented in this encounter Plan of Treatment Not on file documented as of this encounter Visit Diagnoses Not on filedocumented in this encounter Care Teams Soils Analyst Relationship Specialty Start Date End Date Ortiz Rothman MD [address] [facility] [address] [place] [address] PCP - General 12/03/02 Antonietta Bateman MD [facility], [facility] 300 [facility] [address] [place] [address] PCP - CANCER CTR RMD Surgical Oncology 06/09/21 Artie Lanza MD [address] [facility] [address] [place] [address] PCP - Cancer CTR Hematology 06/09/21 Bryce Allison MD, PhD 1400 [facility] [address], [address] [place] [phone] 08/25/10 ProviderLaura MD [facility] PROVIDER 08/25/10 Valerie Wilkinson MD [facility] [address] [facility] [place] [address] 08/25/10 Yohan Powell MD [address] [facility] [address] [place] [address] ENT-Otolaryngology 03/15/17 Vandana Walker AUD [address] [place] [phone] Audiology 03/15/17 Geovanna Hughes MD [address] [place] [address] Internal Medicine 04/01/19 Vandana Whitmore MD [address] [place] [address] [place] [address] Ophthalmology 08/18/19 Provider, Historical [facility] 11/06/19 Rozina Sanders MD 203 [facility] [place] [address] Ophthalmology 12/25/19 Antonietta Bateman MD CORPORATE OFFICE [address] [place] [address] Surgical Oncology 04/29/21 Dena Berumen PA-C [address] [place] [address] Oncology 06/13/21 Sangita Holly PA-C [address] [place] [address] General Surgery 06/23/21 Dulce Lara PA-C [address] [place] [address] Surgical Oncology 06/28/22 Elisa Martines PA-C [address] [place] [address] [place] [address] General Surgery 05/25/23 Tanvi Gabriel CRNP [facility] SURG ONC [facility] OFF [address] [place] [address] [place] [address] General Surgery 07/04/23 Merline Duran MBBS [address] [address] Internal Medicine 11/17/23 Tono Camarillo MD 200 [facility] [address] [place] [address] Ophthalmology 11/18/23 Ean Mckeon MD [address] [place] [address] Ophthalmology 02/27/24 Sheyla Guerrero MD [address] [place] [address] Oncology 03/13/24 None SELF-REFERRED OR FOR UNREFERRED [facility] HEALTH PLAN 03/13/24 documented as of this encounter
--- OUTSIDE RECORDS SUMMARY | 2024-10-14 21:57 | XMS_ITS | Encounter Summary ---
Author Organization [facility] Ambulatory Address [address] [place] [address] Phone Care Team Providers Care Sociology Adjunct Instructor Name Role Phone Ortiz Rothman MD Primary Care Provider [phone] Bryce Allison MD, PhD Unavailable + [phone] Provider, Abstract MD Unavailable Unavailabl Valerie Orellana MD Unavailable +- [phone] Yohan Powell MD Unavailable [phone] Vandana Walker Unavailable + Geovanna Hughes MD Unavailable Vandana Whitmore MD Unavailable + Provider, Historical Unavailable Unavailable Rozina Sanders MD Unavailable +[phone] Antonietta Bateman MD Unavailable + 74 Antonietta Bateman MD Unavailable +[phone] Artie Lanza MD Unavailable Dena BerumenC Unavailable +[phone] Sangita HollyC Unavailable +[phone] Dulce LaraC Unavailable Elisa MartinesC Unavailable + Tanvi Gabriel Unavailable [phone] Merline Duran Unavailable [phone] Tono Camarillo MD Unavailable Ean Mckeon MD Unavailable [phone] Sheyla Guerrero MD Unavailable [phone] None Unavailable Unavailable Sheyla Conley MD Unavailable +[phone] Karen Reynolds OD Unavailable [phone] Darwin Loving MD Unavailable [phone] Source Comments This information has been disclosed [...] Ambulatory Reason for Visit * Reason Comments Drooping Eyelid Encounter Details Date Type Department Care Team (Late st Contact Info) Description 06/17/2024 10:45 AM EDT Office Visit [facility] Vision [place] 203 [facility] [address] [place] [address] [employer] [place] Worker: Sheyla Quintanilla Susan Tonya, MD [address] [facility] [place] [address] 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 Since then she reports persistent redness but decreased itchiness. She reports occasionally using erythromycin ointment in the left eye. Currently using Cosopt, Brimonidine, and Latanoprost OU. 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 She is disinclined to do any surgery to the lidunless glaucoma people feel this is important. (I will discuss with them) Graves disease - mild proptosis since her 30s, not requiring surgery - s/p radio-iodine treatment - stable/monitor Dermatochalasis, OU - s/p upper lid blepharoplasty 12/17/19 - good result MGD/Blepharitis - Discussed lid scrubs, warm compresses as per Dr. Allison POAG - Currently on Cosopt, Brimonidine, and Latanoprost OU - Continue f/u w/ Dr. Mckeon * Vandana Whitmore MD - 06/17/2024 10:45 AM EDT I have reviewed the fellow/resident's findings and interpretations and agree and have linked my note. I have discussed the findings with the patient. Vandana Whitmore MD documented in this encounter Plan of Treatment Not on file documented as of this encounter Visit Diagnoses Diagnosis Lower eyelid retraction of left eye- Primary Eyelid retraction or lag documented in this encounter Care Teams Sociology Adjunct Instructor Relationship Specialty Start Date End Date Lamperski, Ortiz D, MD [address] [facility] [address] [place] [address] PCP - General 12/03/02 Antonietta Bateman MD [facility], [facility] 300 [facility] [address] [place] [address] PCP - CANCER CTR RMD Surgical Oncology 06/09/21 Artie Lanza MD [address] [facility] [address] [place] [address] PCP - Cancer CTR Hematology 06/09/21 Bryce Allison MD, PhD 1400 [facility], [facility] [address] [place] [phone] 08/25/10 Provider, MD Laura EPICARE PROVIDER 08/25/10 Valerie Wilkinson MD [facility] 203 [facility] [place] [address] 08/25/10 Yohan Powell MD [address] [facility] [address] [place], [place] [address] ENT-Otolaryngology 03/15/17 Vandana Walker AUD [address] [place] [phone] Audiology 03/15/17 Geovanna Hughes MD [address] [address] Internal Medicine 04/01/19 Vandana Whitmore MD 203 [facility] [place] [address] Ophthalmology 08/18/19 Provider, Historical EPICARE PROVIDER 11/06/19 Rozina Sanders MD [address] [facility] [place] [address] Ophthalmology 12/25/19 Antonietta Bateman MD CORPORATE OFFICE [address], [facility] 2 [address] [place] [address] Surgical Oncology 04/29/21 Dena Berumen PA-C [address] [place] [address] [place] [address] Oncology 06/13/21 Sangita Holly PA-C [address] [place] [address] [place] [address] General Surgery 06/23/21 Dulce Lara PA-C [address] [place] [address] [place] [address] Surgical Oncology 06/28/22 Elisa Martines PA-C [address] [place] [address] [address] [place] [address] General Surgery 05/25/23 Tanvi Gabriel CRNP [facility] SURG ONC [facility] OFF 300 [facility] [address] [place] [address] General Surgery 07/04/23 Merline Duran MBBS [address] [facility] [address] [place] [address] Internal Medicine 11/17/23 Tono Camarillo MD [address] [facility] [address] [place] [address] Ophthalmology 11/18/23 Ean Mckeon MD [address] [place] [address] Ophthalmology 02/27/24 Sheyla Guerrero MD [address] [place] [address] Oncology 03/13/24 None SELF-REFERRED OR FOR UNREFERRED [facility] HEALTH PLAN 03/13/24 Sheyla Conley MD [address] [place] [address] Gastroenterology 03/14/24 Karen Reynolds OD [address] [place] [address] Optometry 03/14/24 Darwin Loving MD [address] [facility] [address] [place] [address] Otolaryngology 06/11/24 documented as of this encounter
--- OUTSIDE RECORDS SUMMARY | 2024-10-14 21:57 | XMS_ITS | Encounter Summary ---
Author Organization [facility] work ([facility]) Address [address] [facility] [address] [place] [address] Care Team Providers Care Bench Molder Name Role Phone No Pcp, Pcp Primary Care Provider Unavailabl e Source Comments The information that you have received may contain highly confidential and/or federally protected health information. This information has been disclosed to you from records protected by [facility]. The law prohibits you from making any further disclosure of this information unless further disclosure is expressly permitted by the written consent of the person to whom it pertains or is authorized by the Confidentiality of HIV-Related Information Act. A general authorization for the releaseof medical or other information is not sufficient. This information may include information relatedto diagnosis and/or treatment of HIV, mental health, or drug and alcohol-related conditions. Any disclosure, dissemination, distribution, or copying of this information is strictly prohibited. If youfeel that you have received this information in error, please contact the sender immediately.[facility] ([facility]) Encounter Details Date Type Department Care Team (Late st Contact Info) Description 08/26/2021 2:40 PM EST Immunization [facility] Primary Care [address] [place] [phone] Encounter for immunization (Primary Dx) Social History Tobacco Use Types Packs/Day Years Used Date Smoking Tobacco: Never Assessed Alcohol and Drug Use Answer Date Record ed Females: In the past year, h ave you had more than 7 drinks in one week? Not on file 11/18/2020 Males greater than 65 years of age: In the past year, have you had more than 7 drinks in one week? Not on file 11/18/2020 Males less than or equal to 65 years of age: In the past year, have you had more than 14 drinks in one week? In the past year, have you u sed any drugs other than those prescribed by your doctor? Not on file 11/18/2020 Sex and Gender Information Value Date Recorded Sex Assigned at Not on file Gender Identity Not on file Sexual Orientation Not on file COVID-19 Exposure Response Date Recorded In the last month, have you been in contact with someone who was confirmed or suspected to have Coronavirus / COVID-19? No / Unsure 08/26/2021 2:25 PM EST documented as of this encounter Plan of Treatment Not on file documented as of this encounter Visit Diagnoses Diagnosis Encounter for immunization- Primary documented in this encounter Orders Immunization/Injection Count Last Ordered Date First Ordered Date PFIZER SARS-COV-2 VACCINE 1 08/26/2021 documented in this encounter Care Teams Bench Molder Relationship Specialty Start Date End Date No Pcp, Pcp PCP - General 08/24/21 08/11/23 documented as of this encounter
--- OUTSIDE RECORDS SUMMARY | 2024-10-14 21:57 | XMS_ITS | Encounter Summary ---
Author Organization [facility] Ambulatory Address [address] [place] [address] Phone Care Team Providers Care Bus Greaser Name Role Phone Ortiz Rothman MD Primary Care Provider [phone] Bryce Allison MD, PhD Unavailable + [phone] Provider, Abstract MD Unavailable Unavailabl Valerie Orellana MD Unavailable +- 00 Yohan Powell MD Unavailable [phone] Vandana Walker Unavailable + Geovanna Hughes MD Unavailable Vandana Whitmore MD Unavailable + Provider, Historical Unavailable Unavailable Rozina Sanders MD Unavailable +[phone] Antonietta Bateman MD Unavailable + 74 Antonietta Bateman MD Unavailable +[phone] Artie Lanza MD Unavailable Dena BerumenC Unavailable +[phone] Sangita HollyC Unavailable [phone] Dulce LaraC Unavailable Elisa MartinesC Unavailable + Tanvi Gabriel Unavailable [phone] Merline Duran Unavailable [phone] Tono Camarillo MD Unavailable Source Comments [...] except as provided at sections 2.12(c)(5) and 2.65.[facility] Ambulatory Reason for Visit * Reason Comments Patient Call Encounter Details Date Type Department Care Team ([facility] Contact Info) Description 01/29/2024 Telephone [facility] Eye Center [address] [address] Shell Sieve Operator: Valerie Purcell Evan L, MD, PhD [address] [place] [phone] Patient Call Social History Tobacco Use Types [...] * Telephone Encounter - Savana Briseno - 2024 8:59 AM EDT Pt called back relayed Dr Allison message below to use Brimonidine bid / she thanked me for the callback * Telephone Encounter - Savana Briseno - 2024 8:57 AM EDT Called pt to relay DR Allison message below no answer lmom to call office back * Telephone Encounter - Savana Briseno - 01/29/2024 3:43 PM EDT CRM message: Danika Mckeon 1940 is requesting to speak with provider regarding the following reason the amount of medicine Dr. Allison told her to take is different than what she received at the pharmacy .office note states latanoprost at bedtime but pharmacy received brimonidine tartrate 0.2 % 1 drop Both Eyes 3 times daily she did not think she was told to use eyedrops that often,pt advise documented in this encounter Plan of Treatment Not on file documented as of this encounter Visit Diagnoses Not on filedocumented in this encounter Care Teams Bus Greaser Relationship Specialty Start Date End Date Ortiz Rothman MD [address] [facility] [address] [place] [address] PCP - General 12/03/02 Antonietta Bateman MD [facility] [address] [facility] [address] [place] [address] PCP - CANCER CTR RMD Surgical Oncology 06/09/21 Artie Lanza MD [address] [facility] [address] [place] [address] PCP - Cancer CTR Hematology 06/09/21 Bryce Allison MD, PhD 1400 [facility] D, [address] [place] [address] 08/25/10 Provider, MD Laura EPICARE PROVIDER 08/25/10 Valerie Wilkinson MD [facility] 203 [facility] [place] [place] [address] 08/25/10 Yohan Powell MD [address] [place] [address] [address] [place] [address] ENT-Otolaryngology 03/15/17 Vandana Walker AUD [address] [place] [address] Audiology 03/15/17 Geovanna Hughes MD [address] [place] [phone] Internal Medicine 04/01/19 Vandana Whitmore MD [address] [facility] [place] [address] Ophthalmology 08/18/19 Provider, Nithin EPICARE PROVIDER 11/06/19 Rozina Sanders MD [address] [place] [address] [place] [address] Ophthalmology 12/25/19 Antonietta Bateman MD CORPORATE OFFICE [address], [facility] [address] [place] [address] Surgical Oncology 04/29/21 Dena Berumen PA-C 300 [facility] [address] [place] [address] Oncology 06/13/21 Sangita Holly PA-C 300 [facility] [address] [place] [address] General Surgery 06/23/21 Dulce Lara PA-C 300 [facility] [address] [place] [address] Surgical Oncology 06/28/22 Elisa Martines PA-C [address] [place] [address] [address] [place] [address] General Surgery 05/25/23 Tanvi Gabriel CRNP [facility] SURG ONC [facility] OFF [address] [facility] [address] [place] [address] General Surgery 07/04/23 Merline Duran MBBS [address] [address] Internal Medicine 11/17/23 Tono Camarillo MD 200 [facility] [address] [place] [address] Ophthalmology 11/18/23 documented as of this encounter
--- OUTSIDE RECORDS SUMMARY | 2024-10-14 21:57 | XMS_ITS | Encounter Summary ---
Author Organization [facility] Ambulatory Address [address] [place] [address] Phone Care Team Providers Care Quick Print Operator Name Role Phone Ortiz Rothman MD Primary Care Provider [phone] Bryce Allison MD, PhD Unavailable + [phone] Provider, Abstract MD Unavailable Unavailabl Valerie Orellana MD Unavailable +- [phone] Yohan Powell MD Unavailable [phone] Vandana Walker Unavailable + Geovanna Hughes MD Unavailable Vandana Whitmore MD Unavailable + Provider, Historical Unavailable Unavailable Rozina Sanders MD Unavailable +[phone] Antonietta Bateman MD Unavailable + [phone] Antonietta Bateman MD Unavailable +[phone] Artie Lanza MD Unavailable Dena BerumenC Unavailable +[phone] Sangita HollyC Unavailable +[phone] Dulce LaraC Unavailable [phone] Elisa MartinesC Unavailable + Tanvi Gabriel Unavailable +[phone] Merline Duran Unavailable +[phone] Tono Camarillo MD Unavailable Ean Mckeon MD Unavailable +[phone] Sheyla Guerrero MD Unavailable +[phone] None Unavailable Unavailable Sheyla Conley MD Unavailable +[phone] Karen Reynolds OD Unavailable [phone] Darwin Loving MD Unavailable [phone] Provider, Generic External Data Unavailable Unavailable Source [...] 2.65.[facility] Ambulatory Reason for Visit * Reason Comments Follow-Up Hematoma Encounter Details Date Type Department Care Team ([facility] st Contact Info) Description 07/16/2024 10:00 AM EDT Office Visit [facility] [place] [address] [place] [phone] Shearing Machine Tender: Valerie Purcell Rajesh, MD [address] [place] [id number] Primary open angle glaucoma (POAG) of both eyes, severe stage (Primary Dx); Pseudophakia of both eyes; Lower eyelid retraction of left eye Social History Tobacco Use Types Packs/Day Years [...] as of this encounter Progress Notes * Ean Mckeon MD - 07/16/2024 10:00 AM EDT CHIEF COMPLAINTS 07/16/2024: 84 year old female presents today for follow up with HVF 24-2. Patient reports vision is stable. No fresh complaints. Denies pain/pressure. HPI 02/27/2024: New patient presents for glaucoma evaluation Past ocular history: History of cataract surgery in both eyes Blepharoplasty both eyes upper lids Family history: no family history of glaucoma Past medical history: Social history: Eye medications: Latanoprost QHS OU, Brimonidine BID BOTH EYES, dorzolamide/ timolol fixed combination twice a day both eyes Testing: HVF: Clark Visual Field 24-2 reliable visual field : paracentral and superior arcuate scotoma inthe right eye Superior arcuate scotoma in the left eye Visual Acuity (Snellen - Linear) Right Left Dist sc 20/30 -2 20/60 -2 Dist ph sc 20/50 +2 Correction: Glasses Tonometry (iCare, 10:31 AM) Right Left Pressure 12 13 Clinical Findings: Pachymetry 02/27/2024: 558/570 microns Gonioscopy 02/27/2024: open angles Right eye optic nerve head: pale with almost completely eroded rims Left eye optic nerve head: pale with inferior rim eroded and thin superior rim Posterior chamber intraocular lens well centered in both eyes Intraocular pressure: 06/17/2024 13 14 iCare 10:58 AM 05/14/2024 18 14 28 23 iCare Applanation 11:12 AM 12:41 PM 03/14/2024 15 13 16 13 iCare Applanation 10:14 AM 10:20 AM 02/27/2024 24 33 iCare 2:11 PM 01/29/2024 18 28 Applanation 10:24 AM OS x 2 12/31/2023 20 22 Tonopen 10:54 AM Assessment: 07/16/2024 primary open angle glaucoma , severe stage, both eyes IOP target: 10 mm Hg or lower in both eyes - IOP uncontrolled both eyes, OS>OD - OCT and HVF both demonstrate possible progression, with more definitive porgression OD Intraocular pressure low teens in both eyes on current intraocular pressure medications in both eyes Plan: Continue latanoprost once at night, dorzolamide/ timolol fixed combination twice a day and brimonidine twice a day in both eyes Review 3 months: Clark Visual Field and optical coherence tomography that visit documented in this encounter Plan of Treatment Not on file documented as of this encounter Visit Diagnoses Diagnosis Primary open angle glaucoma (POAG) of both eyes, severe stage- Primary Pseudophakia of both eyes Lens replaced by other means Lower eyelid retraction of left eye Eyelid retraction or lag documented in this encounter Care Teams Quick Print Operator Relationship Specialty Start Date End Date Ortiz Rothman MD [address] [facility] [address] [place] [address] PCP - General 12/03/02 Antonietta Bateman MD [facility], [facility] [address] [facility] [address] [place] [address] PCP - CANCER CTR RMD Surgical Oncology 06/09/21 Artie Lanza MD [address] [facility] [address] [place] [address] PCP - Cancer CTR Hematology 06/09/21 Bryce Alilson MD, PhD [address] [facility] D, [address] [place] [address] 08/25/10 Provider, MD ADE Sanchez PROVIDER 08/25/10 Valerie Wilkinson MD [facility] [address] [facility] [facility] [place] [address] 08/25/10 [place] [address] [place] [address] ENT-Otolaryngology 03/15/17 Vandana Walker AUD [address] [place] [phone] Audiology 03/15/17 Geovanna Hughes MD [address] [place] [phone] Internal Medicine 04/01/19 Vandana Whitmore MD 203 [facility] [place] [address] Ophthalmology 08/18/19 Provider, [facility] PROVIDER 11/06/19 Rozina Sanders MD [address] [place] [address] [place] [phone] Ophthalmology 12/25/19 Antonietta Bateman MD CORPORATE OFFICE [address], [facility] [address] [place] [address] Surgical Oncology 04/29/21 Dena Berumen PA-C [address] [place] [address] [place] [address] Oncology 06/13/21 Sangita Holly PA-C [address] [place] [address] General Surgery 06/23/21 Dulce Lara PA-C [address] [place] [address] [place] [address], [place] [address] Surgical Oncology 06/28/22 Elisa Martiens PA-C [address] [facility] [address] [place] [address] General Surgery 05/25/23 Tanvi Gabriel CRNP MW SURG ONC [facility] OFF [address] [facility] [address] [place] [address] General Surgery 07/04/23 Merline Duran MBBS [address] [phone] Internal Medicine 11/17/23 Tono Camarillo MD [address] [facility] [address] [place] [address] Ophthalmology 11/18/23 Ean Mckeon MD [address] [place] [address] Ophthalmology 02/27/24 Sheyla Guerrero MD [address] [place] [address] Oncology 03/13/24 None SELF-REFERRED OR FOR UNREFERRED [facility] HEALTH PLAN 03/13/24 Sheyla Conley MD 200 [facility] [address] [place] [address] Gastroenterology 03/14/24 Karen Reynolds OD [address] [place] [address] Optometry 03/14/24 Darwin Loving MD [address] [place] [address], [address] [place] [address] [place] [address] Otolaryngology 06/11/24 Provider, Generic External Data 07/16/24 documented as of this encounter
--- OUTSIDE RECORDS SUMMARY | 2024-10-14 21:57 | XMS_ITS | Encounter Summary ---
Author Organization [facility] Ambulatory Address [address] [place] [address] Phone Care Team Providers Care Visual Merchandising Associate Name Role Phone Ortiz Rothman MD Primary Care Provider [phone] Bryce Allison MD, PhD Unavailable + [phone] Provider, Abstract MD Unavailable Unavailabl Valerie Orellana MD Unavailable +- [phone] Yohan Powell MD Unavailable [phone] Vandana Walker Unavailable + Geovanna Hughes MD Unavailable Vandana Whitmore MD Unavailable + Provider, Historical Unavailable Unavailable Rozina Sanders MD Unavailable +[phone] Antonietta Bateman MD Unavailable + 74 Antonietta Bateman MD Unavailable +[phone] Artie Lanza MD Unavailable Dena BerumenC Unavailable [phone] Sangita HollyC Unavailable +[phone] Dulce LaraC Unavailable Elisa MartinesC Unavailable + Tanvi Gabriel Unavailable [phone] Merline Duran Unavailable [phone] Tono Camarillo MD Unavailable Source Comments [...] 2.12(c)(5) and 2.65.[facility] Ambulatory Encounter Details Date Type Department Care Team ([facility] Contact Info) Description 07/16/2023 Telephone [facility] Eye [facility] [address] [place] [address] Engineer Systems: Valerie Purcell Evan L, MD, PhD 1400 [facility] D, [facility] [address] [place] [address] Social History Tobacco Use Types Packs/Day Years [...] on filedocumented in this encounter Care Teams Visual Merchandising Associate Relationship Specialty Start Date End Date Ortiz Rothman MD [address] [facility] [address] [place] [address] PCP - General 12/03/02 Antonietta Bateman MD [facility], [facility] [address] [facility] [address] [place] [address] PCP - CANCER CTR RMD Surgical Oncology 06/09/21 Artie Lanza MD [address] [facility] [address] [place] [address] PCP - Cancer CTR Hematology 06/09/21 Bryce Allison MD, PhD [address] [place] [address], [address] [place] [address] 08/25/10 Provider, MD Laura EPICARE PROVIDER 08/25/10 Valerie Wilkinson MD [facility] EYE [facility]ENTER 203 [facility] [place] [address] 08/25/10 Yohan Powell MD [address] [facility] [address] [place], [place] [phone] ENT-Otolaryngology 03/15/17 Vandana Walker, [place] [address] [place] [phone] Audiology 03/15/17 Geovanna Hughes MD [address] [phone] Internal Medicine 04/01/19 Vandana Whitmore MD 203 [facility] [place] [address] Ophthalmology 08/18/19 Provider, Historical EPICARE PROVIDER 11/06/19 Rozina Sanders MD 203 [facility] [address] Ophthalmology 12/25/19 Antonietta Bateman MD CORPORATE OFFICE [address], [facility] [address] [place] [address] Surgical Oncology 04/29/21 Dena Berumen PA-C [address] [facility] [address] [place] [address] Oncology 06/13/21 Sangita Holly PA-C [address] [facility] [address] [place] [address] General Surgery 06/23/21 Dulce Lara PA-C [address] [facility] [address] [place] [address] Surgical Oncology 06/28/22 Elisa Martines PA-C [address] [facility] [address] [place] [address] General Surgery 05/25/23 Tanvi Gabriel CRNP [facility] SURG ONC [facility] OFF [address] [facility] [address] [place] [address] General Surgery 07/04/23 Merline Duran MBBS [address] [address] Internal Medicine 11/17/23 Tono Camarillo MD 200 [facility] [address] [place] [address] Ophthalmology 11/18/23 documented as of this encounter
--- OUTSIDE RECORDS SUMMARY | 2024-10-14 21:57 | XMS_ITS | Encounter Summary ---
Author Organization [facility] Ambulatory Address [address] [place] [address] Phone Care Team Providers Care Parts Data Writer Name Role Phone Ortiz Rothman MD Primary Care Provider [phone] Bryce Allison MD, PhD Unavailable + [phone] Provider, Abstract MD Unavailable Unavailabl Valerie Orellana MD Unavailable +- [phone] Yohan Powell MD Unavailable Vandana Walker Unavailable + Geovanna Hughes MD Unavailable Vandana Whitmore MD Unavailable + Provider, Historical Unavailable Unavailable Rozina Sanders MD Unavailable +[phone] Antonietta Bateman MD Unavailable + 74 Antonietta Bateman MD Unavailable +[phone] Artie Lanza MD Unavailable Dena BerumenC Unavailable +[phone] Sangita HollyC Unavailable +[phone] Dulce LaraC Unavailable Elisa MartinesC Unavailable + Tanvi Gabriel Unavailable [phone] Merline Duran Unavailable [phone] Tono Camarillo MD Unavailable Source Comments [...] except as provided at sections 2.12(c)(5) and 2.65.[facility] Ambulatory Reason for Visit * Reason Comments Follow-Up Encounter Details Date Type Department Care Team ([facility] st Contact Info) Description 01/29/2024 10:00 AM EDT Office Visit [facility] [place] [address] [place] [phone] Shut Off Worker: Valerie Purcell Evan L, MD, PhD [address] [place] [phone] Primary open angle glaucoma (POAG) of [...] Notes * Bryce Allison MD, PhD - 01/29/2024 10:00 AM EDT established patient lost to follow up h/o POAG OD > OS - using latanoprost OU qhs No new issues Impression/Plan Primary open angle glaucoma - IOP still not at target - hold latanoprost OU qhs - start brimonidine bid OU Graves disease - stable 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 f/u 1 month for applanation documented in this encounter Plan of Treatment Not on file documented as of this encounter Visit Diagnoses Diagnosis Primary open angle glaucoma (POAG) of both eyes, mild stage- Primary documented in this encounter Care Teams Parts Data Writer Relationship Specialty Start Date End Date Ortiz Rothman MD [address] [facility] [address] [place] [address] PCP - General 12/03/02 Antonietta Bateman MD [facility], [facility] 300 [facility] [address] [place] [address] PCP - CANCER CTR RMD Surgical Oncology 06/09/21 Artie Lanza MD [address] [facility] [address] [place] [address] PCP - Cancer CTR Hematology 06/09/21 Bryce Allison MD, PhD 1400 [facility] D, [address] [place] [address] 08/25/10 Provider, MD [facility] 08/25/10 Valerie Wilkinson MD [facility] 203 [facility] [place] [address] 08/25/10 Yohan Powell MD [address] [facility] [address] [place] [address] ENT-Otolaryngology 03/15/17 Vandana Walker AUD [address] [place] [phone] Audiology 03/15/17 Geovanna Hughes MD [address] [place] [phone] Internal Medicine 04/01/19 Vandana Whitmore MD [address] [facility] [place] [address] Ophthalmology 08/18/19 Provider, [facility] PROVIDER 11/06/19 Rozina Sanders MD [address] [place] [address] [place] [phone] Ophthalmology 12/25/19 Antonietta Bateman MD CORPORATE OFFICE [address] [place] [address] Surgical Oncology 04/29/21 Dena Berumen PA-C [address] [place] [address] [address] [place] [address] Oncology 06/13/21 Sangita Holly PA-C 300 [facility] [address] [place] [address] General Surgery 06/23/21 Dulce Lara PA-C 300 [facility] [address] [place] [address] Surgical Oncology 06/28/22 Elisa Martines PA-C [address] [facility] [address] [place] [address] General Surgery 05/25/23 Tanvi Gabriel CRNP [facility] SURG ONC [facility] OFF 300 [facility] [address] [facility] [place] [phone] General Surgery 07/04/23 Merline Duran MBBS [address] [phone] Internal Medicine 11/17/23 Tono Camarillo MD 200 [facility] [address] [place] [address] Ophthalmology 11/18/23 documented as of this encounter
--- OUTSIDE RECORDS SUMMARY | 2024-10-14 21:57 | XMS_ITS | Referral Summary ---
Author Organization [facility] Ambulatory Address [address] [place] [address] Phone Care Team Providers Care Public Works Technician Name Role Phone Berenice Rothman MD Primary Care Provider [phone] Bryce Allison MD, PhD Unavailable + [phone] Provider, Abstract MD Unavailable Unavailabl Valerie Orellana MD Unavailable + [phone] Yohan Powell MD Unavailable [phone] Vandana Walker Unavailable + Geovanna Hughes MD Unavailable Vandana Whitmore MD Unavailable + Provider, Historical Unavailable Unavailable Rozina Sanders MD Unavailable [phone] Antonietta Bateman MD Unavailable + [phone] Antonietta Bateman MD Unavailable [phone] Artie Lanza MD Unavailable Dena BerumenC Unavailable [phone] Sangita Holly-C Unavailable [phone] Dulce LaraC Unavailable Elisa Martines-C Unavailable + Tanvi Gabriel Unavailable [phone] Merline Duran Unavailable [phone] Tono Camarillo MD Unavailable Ean Mckeon MD Unavailable [phone] Sheyla Guerrero MD Unavailable None Unavailable Unavailable Sheyla Conley MD Unavailable [phone] Karen Reynolds OD Unavailable [phone] Darwin Loving MD Unavailable Provider, Generic External Data Unavailable Unavailable Source [...] as provided at sections 2.12(c)(5) and 2.65.[facility] Ambulatory Encounters Date Type Department Care Team Description 10/12/2024 EKG EXTERNAL DEPARTMENT [address] [address] Ritesh Roman MD 10/12/2024 Imaging EXTERNAL DEPARTMENT [address] [address] Ritesh Roman MD 10/12/2024 Lab Results EXTERNAL DEPARTMENT [address] [address] Ritesh Roman MD 09/04/2024 Ambulatory Visit Summary [facility] [address] [place] [address] External, Provider [facility] - After Visit Summary 09/04/2024 Office Note BRENDA [facility] [address] [place] [address] Sheyla Guerrero MD 08/22/2024 Telephone [facility] [address] [place] [address] Population Geneticist: Valerie Purcell Rajesh, MD Patient Call 07/23/2024 9:30 AM EDT [facility] [address] [facility] [address] [place] [address] Population Geneticist: Irene Arroyo Annmarie, CRNP Personal history of breast cancer (Primary Dx); Encounter for screening mammogram for breast cancer; 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, estrogen receptor positive (HCC) 07/16/2024 10:00 AM EDT Office Visit [facility] [address] [facility] [address] [place] [address] Population Geneticist: Valerie Purcell Rajesh, MD Primary open angle glaucoma (POAG) of both eyes, severe stage (Primary Dx); Pseudophakia of both eyes; Lower eyelid retraction of left eye from Last 3 Months Allergies Active Allergy Reactions Criticality Noted Date Comments Adhesive Tape 06/13/2021 Other reaction(s): pt prefers paper tape- others rips skin Medications Medication Sig Dispensed Refills Start Date End Date Status cholecalciferol, vitamin D3, 50,000 unit oral capsule Take 50,000 units by mouth q 2 weeks 3 05/17/2019 Active anastrozole (ARIMIDEX) 1 mg oral tablet TAKE ONE TABLET BY MOUTH DAILY. Same as arimidex 06/29/2021 Active SYNTHROID 75 mcg oral tablet Take 75 micrograms by mouth 07/04/2021 Active pantoprazole (PROTONIX) 40 mg oral delayed-release tablet TAKE ONE TABLET BY MOUTH DAILY 30 MINUTES BEFORE A MEAL 02/25/2024 Active losartan (COZAAR) 25 mg oral tablet Take 25 mg by mouth daily Active ketoconazole (NIZORAL) 2 % topical cream 2 times a day 01/28/2024 Active dorzolamide-timoloL (COSOPT) 22.3-6.8 mg/mL ophthalmic drops Place 1 drop into both eyes 2 times a day 10 mL 2 05/14/2024 Active brimonidine (ALPHAGAN) 0.2 % ophthalmic drops Place 1 drop into both eyes 2 times a day 10 mL 2 05/14/2024 Active latanoprost (XALATAN) 0.005 % ophthalmic drops Place 1 drop into both eyes nightly 7.5 mL 2 07/16/2024 Active Active Problems Problem Noted Date Diagnosed Date Malignant neoplasm of lower- outer quadrant of left breast of female, estrogen receptor positive 04/29/2021 Dermatochalasis of both upper eyelids 12/25/2019 Overview (12/25/2019): - sp blepharoplasty BUL x 20-30 years ago - sp functional blepharoplasty BUL x 12/17/2019 Assessment & Plan (12/25/2019 3:02 PM EDT): #Dermatochalasis BUL - sp blepharoplasty BUL x 20-30 years ago - POD8 functional blepharoplasty BUL - Good PO evolution - No signs of infection or dehiscence - Punctate keratitis OU with minimal lagophthalmos 0.25 mm OS Plan #Sutures removed today - Continue Tobradex/erythromycin ointment on BUL BID for another 3-5 days and then stop - No makeup for another 3 weeks - No swimming or hot tub x 3 weeks - No sun exposure x 6 months - Try AT (Refresh or Systane) QID OU - FU with Dr. 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 Immunizations Name Administration Dates Next Due Hep A (Vaqta) 10/31/2019 Hepatitis A (19Y & Over) 07/29/2008,08/16/2007 Polio (IPOL) 08/16/2007 Td (adult) 08/16/2007 Typhoid 08/16/2007 Social History Tobacco Use Types Packs/Day Years [...] on file Sexual Orientation Not on file Last Filed Vital Signs Vital Sign Reading Time Taken Comments Blood Pressure 136/74 07/23/2024 9:31 AM EDT Pulse 70 07/23/2024 9:31 AM EDT Temperature 36.7 ??C (98 ??F) 07/23/2024 9:31 AM EDT Respiratory Rate 16 07/04/2023 9:42 AM EDT Oxygen Saturation 100% 07/23/2024 9:31 AM EDT Inhaled Oxygen Concentration - - Weight 59.9 kg (132 lb) 07/23/2024 9:31 AM EDT Height 158.8 cm (5' 2.5 ) 07/23/2024 9:31 AM EDT Body Mass Index 23.76 07/23/2024 9:31 AM EDT Plan of Treatment Not on file Procedures Procedure Name Priority Date/Time Associated Diagnosis Comments CT CERVICAL SPINE WITHOUT CONTRAST Routine 10/12/2024 11:[address] ANGIO CHEST WITH CONTRAST Routine 10/12/2024 11:25 AM EST ECG 12 LEAD WITH INTERPRETATION 10/12/2024 10:24 AM EST SARS-COV-2 RNA, INFLUENZA A/B, AND RSV RNA, QUALITATIVE NAAT STAT 10/12/2024 10:21 AM EST HIGH SENSITIVITY TROPONIN I STAT 10/12/2024 10:21 AM EST MAGNESIUM STAT 10/12/2024 10:21 AM EST COMPREHENSIVE METABOLIC PANEL (CMP) STAT 10/12/2024 10:21 AM EST CBC (INCLUDES DIFFERENTIAL AND PLATELETS) STAT 10/12/2024 10:21 AM EST BI MAMMOGRAM DIGITAL SCREENING WITH TOMOSYNTHESIS BILATERAL Routine 03/24/2024 1:22 PM EDT 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, estrogen receptor positive (HCC) Personal history of breast cancer Encounter for screening mammogram for breast cancer Lobular carcinoma of left breast (HCC) DXA AXIAL SKELETON 1 OR MORE SITES - SCREENING Routine 05/16/2023 11:00 AM EDT FREE T4 Routine 09/13/2020 9:08 AM EST COLONOSCOPY Routine 11/04/2014 10:00 AM EST LIPID BATTERY Routine 07/14/2010 7:58 AM EDT from Last 3 Months or Most Recently Relevant to Health Maintenance Results * CT CERVICAL SPINE WITHOUT CONTRAST (10/12/2024 11:49 AM EST) Anatomical Region Laterality Modality Other 10/12/2024 11:4 9 AM EST Impressions 10/12/2024 11:52 AM EST Impression: No acute fracture or dislocation. Signed by: Yoandy Harper on 10/12/2024 11:52 AM Narrative 10/12/2024 11:52 AM EST Clinical history: neck pain, fall 5 days ago Comparison: None. Technique: Noncontrast CT of the cervical spine. Findings: No evidence of an acute fracture. Vertebral body heights are maintained. ??No listhesis. Moderate degenerative changes with mild dextroscoliotic tilt are incidentally noted. Limited evaluation of the paraspinal soft tissues is unremarkable. Procedure Note Yoandy Harper MD - 10/12/2024 Clinical history: neck pain, fall 5 days ago Comparison: None. Technique: Noncontrast CT of the cervical spine. Findings: No evidence of an acute fracture. Vertebral body heights are maintained. No listhesis. Moderate degenerative changes with mild dextroscoliotic tilt are incidentally noted. Limited evaluation of the paraspinal soft tissues is unremarkable. IMPRESSION Impression: No acute fracture or dislocation. Signed by: Yoandy Harper on 10/12/2024 11:52 AM Ritesh Roman MD IMG CT ORDERABLES * CT ANGIO CHEST WITH CONTRAST (10/12/2024 11:25 AM EST) Anatomical Region Laterality Modality Other 10/12/2024 11:2 5 AM EST Impressions 10/12/2024 12:06 PM EST 1. ??Negative evaluation for pulmonary embolism. 2. ??Pulmonary nodules in the left upper lobe with the largest measuring 1.0 cm. Further evaluation with PET/CT or follow-up CT at 3 months is recommended. A notice that an imaging finding is present on this exam which may require follow up will be sent to the patient. Significant Finding: Pulmonary nodules Suggested Follow-up: Either PET/CT or short interval follow-up CT at 3 months Time Interval: PET/CT as soon as clinically able or follow-up chest CT at 3 months. Signed by: Diana Stokes on 10/12/2024 12:06 PM Narrative 10/12/2024 12:06 PM EST CLINICAL HISTORY: Chest and neck pain, fall 5 days ago, shortness of breath, recent air travel. History of left breast cancer status post lumpectomy. COMPARISON: CT dated 07/26/2021. TECHNIQUE: CT of the chest was performed. 75 cc intravenous Isovue-370 was administered uneventfully. Ultimately planar reformatted images were provided and reviewed. FINDINGS: Diagnostic quality: This examination is of adequate quality to evaluate the pulmonary arteries. Pulmonary emboli: No evidence of acute pulmonary embolism. Airways: Clear. Lungs: There is a solid 1.0 x 0.6 cm pulmonary nodule in the left upper lobe on series 3, image 158. A subpleural right upper lobe nodule located on series 3, image 170 measures 0.5 x 0.4 cm. Subsegmental atelectasis involves the lower lobes bilaterally and lingula. Dependent hypoventilatory changes are present. Pleura: No pleural effusion or pneumothorax. Heart and pericardium: The heart size is normal. No pericardial effusion. No CT evidence of right heart strain. Aorta: No acute abnormality. Normal caliber. Pulmonary arteries: Mild dilatation and main pulmonary artery can be seen in the setting of pulmonary arterial hypertension. Lymph nodes: Nonenlarged. Esophagus: The esophagus is patulous. Imaged soft tissues of the neck: No acute abnormality. Musculoskeletal/chest wall: No aggressive lytic or blastic osseous lesion. Posttreatment changes are present in the left breast and left axilla. Surgical clips are present in the left axilla. No suspicious lymphadenopathy. Imaged upper abdomen: No acute or suspicious findings in the upper abdomen. Procedure Note Stokes, Diana Dayana, DO / Signing Provider, [employer] - 10/12/2024 CLINICAL HISTORY: Chest and neck pain, fall 5 days ago, shortness of breath, recent air travel. History of left breast cancer status post lumpectomy. COMPARISON: CT dated 07/26/2021. TECHNIQUE: CT of the chest was performed. 75 cc intravenous Isovue-370 was administered uneventfully. Ultimately planar reformatted images were provided and reviewed. FINDINGS: Diagnostic quality: This examination is of adequate quality to evaluate the pulmonary arteries. Pulmonary emboli: No evidence of acute pulmonary embolism. Airways: Clear. Lungs: There is a solid 1.0 x 0.6 cm pulmonary nodule in the left upper lobe on series 3, image 158. A subpleural right upper lobe nodule located on series 3, image 170 measures 0.5 x 0.4 cm. Subsegmental atelectasis involves the lower lobes bilaterally and lingula. Dependent hypoventilatory changes are present. Pleura: No pleural effusion or pneumothorax. Heart and pericardium: The heart size is normal. No pericardial effusion. No CT evidence of right heart strain. Aorta: No acute abnormality. Normal caliber. Pulmonary arteries: Mild dilatation and main pulmonary artery can be seen in the setting of pulmonary arterial hypertension. Lymph nodes: Nonenlarged. Esophagus: The esophagus is patulous. Imaged soft tissues of the neck: No acute abnormality. Musculoskeletal/chest wall: No aggressive lytic or blastic osseous lesion. Posttreatment changes are present in the left breast and left axilla. Surgical clips are present in the left axilla. No suspicious lymphadenopathy. Imaged upper abdomen: No acute or suspicious findings in the upper abdomen. IMPRESSION 1. Negative evaluation for pulmonary embolism. 2. Pulmonary nodules in the left upper lobe with the largest measuring 1.0 cm. Further evaluation with PET/CT or follow-up CT at 3 months is recommended. A notice that an imaging finding is present on this exam which may require follow up will be sent to the patient. Significant Finding: Pulmonary nodules Suggested Follow-up: Either PET/CT or short interval follow-up CT at 3 months Time Interval: PET/CT as soon as clinically able or follow-up chest CT at 3 months. Signed by: Diana Stokes on 10/12/2024 12:06 PM Provider [facility] IMG CT ORDERABLES * ECG 12 LEAD WITH INTERPRETATION (10/12/2024 10:24 AM EST) 10/12/2024 10:2 4 AM EST Narrative Procedure Note Sebastian Couch MD - 10/12/2024 10:24 AM EST Ventricular Rate 95 BPM Atrial Rate 95 BPM P-R Interval 178 ms QRS Duration 80 ms QT 364 ms QTc 457 ms P [place] 52 degrees R [place] 8 degrees T [place] 74 degrees Sinus rhythm with frequent premature ventricular complexes Low voltage QRS Borderline ECG When compared with ECG of 11-NOV-2007 11:31, premature ventricular complexes are now present Vent. rate has increased BY 31 BPM Confirmed by Sebastian Couch ([id number]) on 10/13/2024 11:18:15 AM Ritesh Roman MD ECG ORDERABLES * HIGH SENSITIVITY TROPONIN I (10/12/2024 10:21 AM EST) [facility] Troponin I High Sensitivity 4 <45 ng/L 10/12/2024 11:13 AM EST [facility] Comment: High Sensitivity Troponin I measured using the Siemens Immunoassay (Atellica analyzer or EXL analyzer, Siemens, [place], [place].) 10/12/2024 10:2 1 AM EST 10/12/2024 10:34 AM EST Ritesh Roman MD LAB BLOOD ORDERABLES [facility] [address] [place] [address] * SARS-COV-2 RNA, INFLUENZA A/B, AND RSV RNA, QUALITATIVE NAAT (10/12/2024 10:21 AM EST) [facility] SARS-CoV-2 RT PCR Not Detected [facility] 10/12/2024 11:29 AM EST [facility] Comment The Xpert Xpress Cov-2/Flu/RSV plus RT-PCR assay is cleared by the FDA, and the 10/12/2024 11:29 AM EST [facility] Comment: Xpert Xpress Cov-2 plus RT-PCR assay is under the FDA's Emergency Use Authorization. SARS-CoV-2 Reason for Order Symptomatic Patient 10/12/2024 10:13 AM EST [facility] Patient Symptomatic for SARS-CoV-2 Yes 10/12/2024 10:13 AM EST [facility] Influenza A Not Detected [facility] 10/12/2024 11:29 AM EST [facility] Influenza B Not Detected [facility] 10/12/2024 11:29 AM EST [facility] RSV Not Detected [facility] 10/12/2024 11:29 AM EST [facility] 10/12/2024 10:2 1 AM EST 10/12/2024 10:47 AM EST Ritesh Roman MD LAB MICROBIOLOGY GEN ERAL ORDERABLES Performing Organization Address City/[facility]/ZIP Co de Phone Number [facility] [address] [place] [address] * MAGNESIUM (10/12/2024 10:21 AM EST) Magnesium(Mg) 1.7 1.6 - 2.6 mg/dL 10/12/2024 11:13 AM EST [facility] 10/12/2024 10:2 1 AM EST 10/12/2024 10:34 AM EST Ritesh Roman MD LAB BLOOD ORDERABLES Performing Organization Address [facility]/ZIP Co de Phone Number [facility] [address] [place] [address] * (ABNORMAL) COMPREHENSIVE METABOLIC PANEL (CMP) (10/12/2024 10:21 AM EST) Sodium(Na) 142 136 - 145 mmol/L 10/12/2024 11:13 AM EST [facility] Potassium(K) 4.3 3.5 - 5.0 mmol/L 10/12/2024 11:13 AM EST [facility] Chloride(Cl) 107 98 - 112 mmol/L 10/12/2024 11:13 AM EST [facility] Carbon Dioxide(CO2) 27 20 - 31 mmol/L 10/12/2024 11:13 AM EST [facility] Urea Nitrogen 11 9 - 23 mg/dL 10/12/2024 11:13 AM EST [facility] Glucose 115(H) 70 - 99 mg/dL 10/12/2024 11:13 AM EST [facility] Creatinine 0.82 0.55 - 1.02 mg/dL 10/12/2024 11:13 AM EST [facility] Calcium(Ca) 9.1 8.3 - 10.6 mg/dL 10/12/2024 11:13 AM EST [facility] Alkaline Phosphatase 60 46 - 116 U/L 10/12/2024 11:13 AM EST [facility] Total Bilirubin 1.4(H) 0.0 - 0.8 mg/dL 10/12/2024 11:13 AM EST [facility] Total Protein 7.0 5.7 - 8.2 g/dL 10/12/2024 11:13 AM EST [facility] Albumin 3.7 3.4 - 5.0 g/dL 10/12/2024 11:13 AM EST [facility] Aspartate Aminot.(AST) 18 13 - 40 U/L 10/12/2024 11:13 AM EST [facility] Alanine Aminotrans(ALT) 18 7 - 40 U/L 10/12/2024 11:13 AM EST [facility] ANION GAP 13 6 - 15 meq/L 10/12/2024 11:13 AM EST [facility] A/G RATIO 1.1 10/12/2024 11:13 AM EST [facility] BUN/CREATININE RATIO 13 10/12/2024 11:13 AM EST [facility] CALCULATED OSMOLALITY 294 281 - 307 mOsm/kg 10/12/2024 11:13 AM EST [facility] eGFR 71 >59 10/12/2024 11:13 AM EST [facility] Comment: GFR = 142 X [min(Scr/k,1)]a max(Scr/k,1)-1.200x0.9938age X 1.012 [if female] Where Scr is serum creatinine; k is 0.7 for females and 0.9 males; a is -0.241 for females and -0.302 for males; min indicates the minimum of Scr/k or 1, max indicates the maximum of Scr/k or 1 10/12/2024 10:2 1 AM EST 10/12/2024 10:34 AM EST Ritesh Roman MD LAB BLOOD ORDERABLES [facility] [address] [place] [address] * (ABNORMAL) CBC (INCLUDES DIFFERENTIAL AND PLATELETS) (10/12/2024 10:21 AM EST) Neutrophils 72 % 10/12/2024 10:39 AM EST [facility] ABS Neutrophils 3.60 1.80 - 7.50 X10E+09/L 10/12/2024 10:39 AM EST [facility] Lymphocytes 16 % 10/12/2024 10:39 AM EST [facility] ABS Lymphocytes 0.80(L) 1.00 - 5.00 X10E+09/L 10/12/2024 10:39 AM EST [facility] Monocytes 11 % 10/12/2024 10:39 AM EST [facility] ABS Monocytes 0.60 0.00 - 0.80 X10E+09/L 10/12/2024 10:39 AM EST [facility] Eosinophils 0 % 10/12/2024 10:39 AM EST [facility] ABS Eosinophils 0.00 0.00 - 0.70 X10E+09/L 10/12/2024 10:39 AM EST [facility] Basophils 1 % 10/12/2024 10:39 AM EST [facility] BASOPHILS, ABS 0.00 0.00 - 0.20 X10E+09/L 10/12/2024 10:39 AM EST [facility] WBC 5.0 3.8 - 10.6 X10E+09/L 10/12/2024 10:39 AM EST [facility] RBC 4.53 3.90 - 5.00 X10E+12/L 10/12/2024 10:39 AM EST [facility] Hgb 13.6 12.9 - 16.7 g/dL 10/12/2024 10:39 AM EST [facility] Hematocrit(HCT) 40.3 35.0 - 43.0 % 10/12/2024 10:39 AM EST [facility] MCV 88.8 81.0 - 99.0 fL 10/12/2024 10:39 AM EST [facility] MCH 30.0 27.0 - 33.0 pg 10/12/2024 10:39 AM EST [facility] MCHC 33.7 30.0 - 37.0 g/dL 10/12/2024 10:39 AM EST [facility] RDW 13.1 11.5 - 14.5 % 10/12/2024 10:39 AM EST [facility] Platelets 172 150 - 450 X10E+09/L 10/12/2024 10:39 AM EST [facility] Mean Platelet Volume 8.5 fL 10/12/2024 10:39 AM EST [facility] 10/12/2024 10:2 1 AM EST 10/12/2024 10:34 AM EST Ritesh Roman MD LAB BLOOD ORDERABLES Performing Organization Address City/State/[facility] Co de Phone Number [facility] [address] [place] [address] * BI MAMMOGRAM DIGITAL SCREENING WITH TOMOSYNTHESIS BILATERAL (03/24/2024 1:22 PM EDT) Anatomical Region Laterality Modality Other 03/24/2024 1:22 PM EDT Impressions 03/25/2024 9:55 AM EDT No evidence of malignancy is identified. RECOMMENDATION: Routine screening mammography and tomosynthesis is recommended in one year, unless otherwise clinically indicated. ??We will provide the patient with these findings and recommendations. OVERALL ASSESSMENT: BI-RADS: 2 - BENIGN FINDING(S) RIS CODE: 2BENIGN Signed by: Nathan Callahan on 03/25/2024 9:55 AM Narrative 03/25/2024 9:55 AM EDT CLINICAL HISTORY: The patient is 84 years old and presents for routine screening. Patient had a left breast 5:00 ultrasound-guided core needle biopsy on 04/15/2021 which showed invasive lobular carcinoma. Patient had left lumpectomy with negative sentinel biopsy on 06/01/2021. Patient is status post radiation therapy and is currently taking Arimidex. Mother diagnosed with breast cancer at age 45 and ovarian cancer at age 47. FINDINGS: Bilateral synthetically generated digital mammography with CAD and digital breast tomosynthesis including left exaggerated lateral CC views reveals scattered areas of fibroglandular density. No suspicious findings or significant changes are present as compared to the prior examination(s), the most recent of which is dated 03/13/2023. Post-surgical changes are noted in the left breast at the lumpectomy site and in the left axilla. Mild post-radiation skin thickening is noted on the left side, unchanged. Stable asymmetry is noted in the medial right breast. Procedure Note Nathan Callahan MD - 03/25/2024 CLINICAL HISTORY: The patient is 84 years old and presents for routine screening. Patient had a left breast 5:00 ultrasound-guided core needle biopsy on 04/15/2021 which showed invasive lobular carcinoma. Patient had left lumpectomy with negative sentinel biopsy on 06/01/2021. Patient is status post radiation therapy and is currently taking Arimidex. Mother diagnosed with breast cancer at age 45 and ovarian cancer at age 47. FINDINGS: Bilateral synthetically generated digital mammography with CAD and digital breast tomosynthesis including left exaggerated lateral CC views reveals scattered areas of fibroglandular density. No suspicious findings or significant changes are present as compared to the prior examination(s), the most recent of which is dated 03/13/2023. Post-surgical changes are noted in the left breast at the lumpectomy site and in the left axilla. Mild post-radiation skin thickening is noted on the left side, unchanged. Stable asymmetry is noted in the medial right breast. IMPRESSION No evidence of malignancy is identified. RECOMMENDATION: Routine screening mammography and tomosynthesis is recommended in one year, unless otherwise clinically indicated. We will provide the patient with these findings and recommendations. OVERALL ASSESSMENT: BI-RADS: 2 - BENIGN FINDING(S) RIS CODE: 2BENIGN Signed by: Nathan Callahan on 03/25/2024 9:55 AM [facility] IMG BI ORDERABLES * DXA AXIAL SKELETON 1 OR MORE SITES - SCREENING (05/16/2023 11:00 AM EDT) Anatomical Region Laterality Modality Other 05/16/2023 11:0 0 AM EDT Narrative 05/16/2023 9:09 PM EDT [facility] ?[facility] ?[address] [facility] ?[id number] Scheduling: ? [place] [address] Service Location: [place] ? Patient: DANIKA MCKEON ? EMPI Number: [id number] (MR: [id number]) ? Date: 1940 (age: 83) ? Exam Date: 05/16/2023 ? Referred By: BERENICE ROTHMAN MD ?DXA Bone Density Study INDICATIONS - Estrogen-deficient and at clinical risk for osteoporosis - Health Maintenance - Hypothyroidism - Screening for Osteoporosis MEASURES AND MEDICATIONS ? STARTED ??DISCONTINUED ? -------- ? Synthroid 1971 ? Current ?Duncan 2013 ? 2018 ?Evista 1995 ? 2006 ? Calcium Unknown ??Unknown ? Vitamin D Unknown ??Unknown ? DXA SCAN RESULTS ?BONE MINERAL ?? YOUNG ADULT ?AGE-MATCHED ADULT ?DENSITY g/cm2 ?T-SCORE ? Z-SCORE ?PA LUMBAR SPINE(L1 - L4): ? 0.737 ?-2.8 ? -0.1 ?LEFT TOTAL HIP: ? 0.661 ?-2.3 ? -0.1 ? LEFT FEMORAL NECK: ? 0.590 ?-2.3 ?0.1 ?LEFT 1/3 DISTAL RADIUS: ? 0.556 ?-2.3 ?1.1 ? Findings - SPINE ? WHO diagnostic criteria (relationship to young adult bone mass) place the ? lumbar spine within the OSTEOPOROSIS range. ? From previous examination 05/20/2020 to the present, the lumbar spine has ? decreased 5.5%. Findings - LEFT HIP ? WHO diagnostic criteria (relationship to young adult bone mass) place the ? total hip within the LOW BONE MASS (OSTEOPENIA) range. ? WHO diagnostic criteria (relationship to young adult bone mass) place the ? femoral neck within the LOW BONE MASS (OSTEOPENIA) range. ? From previous examination 05/20/2020 to the present, the total hip has ? remained stable. Findings - LEFT 1/3 DISTAL RADIUS ? WHO diagnostic criteria (relationship to young adult bone mass) place the ? 1/3 distal radius within the LOW BONE MASS (OSTEOPENIA) range. REPORT SUMMARY ? The overall ??World Health Organization (WHO) classification for this ? patient is OSTEOPOROSIS. My signature below is attestation that I have interpreted this study and agree with the findings as noted above. Signed by: Damaris Nelson MD ??05/16/2023 21:09 For postmenopausal women, perimenopausal women and men age 50 and older, we report the World Health Organization (WHO) bone density classification based on the T-score. For premenopausal women, men less than age 50 and children, we use the Z-score and report if the bone density is within the expected range for age or below the expected range for age. Although older patients may be close to the mean bone density for their age (i.e., they have lost an average amount of bone as they have aged), they, like their age-matched cohorts, are often osteopenic (low bone mass) or osteoporotic because their bone density may have been decreasing over many years. ??Initiation and choice of therapy depends not only on bone mineral density, but other risk factors such as increased age, positive family history, smoking (past or present), thin body habitus, treatment with medications causing bone loss, etc. ??The relative risks of fracture approximately doubles for each one SD reduction in bone mineral density. WORLD HEALTH ORGANIZATION (W.H.O.) BONE DENSITY CRITERIA FOR OSTEOPOROSIS ?*T-SCORE = standard deviations (SD) from the mean for healthy young adults ? Normal: Maintain bone health, calcium, vitamin D, exercise suggested ? T = -1 SD and above ? Osteopenia: Prevention suggested plus calcium, vitamin D, exercise (low bone mass) T = between -1 SD and -2.5 SD ?? Osteoporosis: Treatment suggested plus calcium, vitamin D, exercise ? T = -2.5 SD and below Procedure Note Damaris Gunter MD - 05/16/2023 [facility] [address] [facility] [address] Scheduling: MAU Urena [address] Service Location: North Patient: DANIKA MCKEON Number: [id number] (MR: [id number]) Date: 1940 (age: 83) Exam Date: 05/16/2023 Referred By: BERENICE ROTHMAN MD DXA Bone Density Study INDICATIONS - Estrogen-deficient and at clinical risk for osteoporosis - Health Maintenance - Hypothyroidism - Screening for Osteoporosis MEASURES AND MEDICATIONS STARTED DISCONTINUED -------- Synthroid 1971 Current Prolia 2013 2018 Evista 1994 2005 Calcium Unknown Unknown Vitamin D Unknown Unknown DXA SCAN RESULTS BONE MINERAL YOUNG ADULT AGE-MATCHEDADULT DENSITY g/cm2 T-SCORE Z-SCORE PA LUMBAR SPINE(L1 - L4): 0.737 -2.8 -0.1 LEFT TOTAL HIP: 0.661 -2.3 -0.1 LEFT FEMORAL NECK: 0.590 -2.3 0.1 LEFT 1/3 DISTAL RADIUS: 0.556 -2.3 1.1 Findings - SPINE WHO diagnostic criteria (relationship to young adult bone mass) placethe lumbar spine within the OSTEOPOROSIS range. From previous examination 05/20/2020 to the present, the lumbar spinehas decreased 5.5%. Findings - LEFT HIP WHO diagnostic criteria (relationship to young adult bone mass) placethe total hip within the LOW BONE MASS (OSTEOPENIA) range. WHO diagnostic criteria (relationship to young adult bone mass) placethe femoral neck within the LOW BONE MASS (OSTEOPENIA) range. From previous examination 05/20/2020 to the present, the total hiphas remained stable. Findings - LEFT 1/3 DISTAL RADIUS WHO diagnostic criteria (relationship to young adult bone mass) placethe 1/3 distal radius within the LOW BONE MASS (OSTEOPENIA) range. REPORT SUMMARY The overall World Health Organization (WHO) classification for this patient is OSTEOPOROSIS. My signature below is attestation that I have interpreted this study andagree with the findings as noted above. Signed by: Damaris Nelson MD 05/16/2023 21:09 For postmenopausal women, perimenopausal women and men age 50 and older,we report the World Health Organization (WHO) bone density classificationbased on the T-score. For premenopausal women, men less than age 50 andchildren, we use the Z-score and report if the bone density is within the expectedrange for age or below the expected range for age. Although older patients may be close to the mean bone density for theirage (i.e., they have lost an average amount of bone as they have aged), they,like their age-matched cohorts, are often osteopenic (low bone mass) or osteoporotic because their bone density may have been decreasing over many years. Initiation and choice of therapy depends not only on bone mineral density, but other risk factors such as increased age, positive family history, smoking (past or present), thin body habitus, treatment with medications causing bone loss, etc. The relative risks of fracture approximately doubles for each one SD reduction in bone mineral density. WORLD HEALTH ORGANIZATION (W.H.O.) BONE DENSITY CRITERIA FOROSTEOPOROSIS *T-SCORE = standard deviations (SD) from the mean for healthy youngadults Normal: Maintain bone health, calcium, vitamin D, exercisesuggested T = -1 SD and above Osteopenia: Prevention suggested plus calcium, vitamin D, exercise (low bone mass) T = between -1 SD and -2.5 SD Osteoporosis: Treatment suggested plus calcium, vitamin D, exercise T = -2.5 SD and below Berenice Rothman MD [facility] [place] * FREE T4 (09/13/2020 9:08 AM EST) [facility] FREE T4 1.6 0.8 - 1.6 ng/dL 09/13/2020 11:15 AM EST [facility] 09/13/2020 9:08 AM EST 09/13/2020 9:09 AM EST Berenice Rothman MD LABORATORY [facility] [address] [place] [address] * COLONOSCOPY (11/04/2014 10:00 AM EST) 11/04/2014 10:0 0 AM EST Narrative [facility] - 11/04/2014 10:20 AM EST [facility] Division of Gastroenterology Patient Name: Danika Mckeon Procedure Date: 11/04/2014 10:00 AM Date of : 1940 Admit Type: Outpatient Age: 74 Gender: Female Note Status: Addendum Attending MD: Kobe Diaz DR Patient Location: [facility] Procedure: ? Colonoscopy Indications: ? Screening for colorectal malignant neoplasm Providers: ? Kobe Diaz DR Referring MD: ?Berenice Rothman MD Medicines: ? see nurses notes Complications: ? No immediate complications. Procedure: ? Pre-Anesthesia Assessment: ? - Refer to H&P documented by physician prior to the ? procedure. ? After I obtained informed consent, the colonoscope ? was passed under direct vision. Throughout the ? procedure, the patient's blood pressure, pulse, and ? oxygen saturations were monitored continuously. The ? PCF-H190L [id number] was introduced through the anus ? and advanced up to the cecum, identified by ? appendiceal orifice and ileocecal valve. The ? colonoscopy was performed without difficulty. The ? patient tolerated the procedure well. The quality of ? the bowel preparation was adequate to identify ? polyps. Findings: ?The perianal exam was abnormal. Findings include ? hemorrhoids. ? A sessile polyp was found in the sigmoid colon. The ? polyp was 6 mm in size. The polyp was removed with a ? jumbo cold forceps. Resection and retrieval were ? complete. ? Multiple medium-mouthed diverticula were found in ? the sigmoid colon. ? for technical reasons, certain lesions of the colon ? such as flat polyps could go undetected. also, there ? is a higher probability of right colonic lesions ? being missed by colonoscopy. patient is aware of ? these limitations of the procedure ? The exam was otherwise without abnormality on direct ? and retroflexion views. Impression: ?- Hemorrhoids found on perianal exam. ? - One 6 mm polyp in the sigmoid colon. Resected and ? retrieved. ? - Diverticulosis in the sigmoid colon. ? - The examination was otherwise normal on direct and ? retroflexion views. Recommendation: ?- Use fiber, for example Citrucel, Fibercon, Konsyl ? or Metamucil. ? - Telephone endoscopist for pathology results in 1 ? week. ? - Repeat colonoscopy after studies are complete for ? surveillance based on pathology results. Kobe Diaz DR 11/04/2014 10:20 AM The attending physician listed above was present throughout the entire procedure. Number of Addenda: 1 Note Initiated On: 11/04/2014 10:00 AM Addendum Number: 1 ?? Addendum Date: 11/04/2014 10:20 AM ? could try bentyl 10 mg a.c. if post prandial loose stools occurs ? frequently, to f/u with dr roger Diaz DR 11/04/2014 10:21 AM The attending physician listed above was present throughout the entire procedure. ? [address] [facility] [address] Procedure Note Joe Escobar MD - 11/04/2014 [facility] Division of Gastroenterology Patient Name: Danika Mckeon Procedure Date: 11/04/2014 10:00 AM Date of : 1940 Admit Type: Outpatient Age: 74 Gender: Female Note Status: Addendum Attending MD: Kobe Diaz DR Patient Location: [facility] Procedure: Colonoscopy Indications: Screening for colorectal malignant neoplasm Providers: Kobe Diaz DR Referring MD: Berenice Rothman MD Medicines: see nurses notes Complications: No immediate complications. Procedure: Pre-Anesthesia Assessment: - Refer to H&P documented by physician prior to the procedure. After I obtained informed consent, the colonoscope was passed under direct vision. Throughout the procedure, the patient's blood pressure, pulse, and oxygen saturations were monitored continuously. The PCF-H190L [id number] was introduced through the anus and advanced up to the cecum, identified by appendiceal orifice and ileocecal valve. The colonoscopy was performed without difficulty. The patient tolerated the procedure well. The quality of the bowel preparation was adequate to identify polyps. Findings: The perianal exam was abnormal. Findings include hemorrhoids. A sessile polyp was found in the sigmoid colon. The polyp was 6 mm in size. The polyp was removed with a jumbo cold forceps. Resection and retrieval were complete. Multiple medium-mouthed diverticula were found in the sigmoid colon. for technical reasons, certain lesions of the colon such as flat polyps could go undetected. also, there is a higher probability of right colonic lesions being missed by colonoscopy. patient is aware of these limitations of the procedure The exam was otherwise without abnormality on direct and retroflexion views. Impression: - Hemorrhoids found on perianal exam. - One 6 mm polyp in the sigmoid colon. Resected and retrieved. - Diverticulosis in the sigmoid colon. - The examination was otherwise normal on direct and retroflexion views. Recommendation: - Use fiber, for example Citrucel, Fibercon, Konsyl or Metamucil. - Telephone endoscopist for pathology results in 1 week. - Repeat colonoscopy after studies are complete for surveillance based on pathology results. Kobe Diaz DR 11/04/2014 10:20 AM The attending physician listed above was present throughout the entire procedure. Number of Addenda: 1 Note Initiated On: 11/04/2014 10:00 AM Addendum Number: 1 Addendum Date: 11/04/2014 10:20 AM could try bentyl 10 mg a.c. if post prandial loose stools occurs frequently, to f/u with dr roger Diaz DR 11/04/2014 10:21 AM The attending physician listed above was present throughout the entire procedure. [address] [facility] [address] Berenice Rothman MD GI PROCEDURES [facility] * (ABNORMAL) LIPID BATTERY (07/14/2010 7:58 AM EDT) Cholesterol 227(H) 10 - 199 mg/dL [facility] Comment:200-239 mg/dL Border line-high cholesterol level Triglyceride 51 10 - 199 mg/dL [facility] High Density Lipoprotein(HDL) 81 mg/dL [facility] Comment: <35 mg/dL ? Major risk factor for Chronic Heart Disease >=60 mg/dL ?Negative risk factor for Chronic Heart Disease Low Density Lipoprotein 136(H) 0 - 129 mg/dL [facility] 07/14/2010 7:58 AM EDT 07/14/2010 7:59 AM EDT Berenice Rothman MD LABORATORY Performing Organization Address [facility] de Phone Number [facility] [address] [place] [address] from Last 3 Months or Most Recently Relevant to Health Maintenance Care Teams Public Works Technician Relationship Specialty Start Date End Date Berenice Rothman MD [address] [facility] [address] [place] [address] PCP - General 12/03/02 Antonietta Bateman MD [facility], [address] [place] [address] PCP - CANCER CTR RMD Surgical Oncology 06/09/21 Artie Lanza MD [address] [facility] [address] [place] [address] PCP - Cancer CTR Hematology 06/09/21 Bryce Allison MD, PhD [address] [facility] [address], [address] [place] [phone] 08/25/10 Provider, MD Laura EPICARE PROVIDER 08/25/10 Valerie Wilkinson MD [facility] [address] [facility] [place] [place] [address] 08/25/10 Yohan Powell MD [address] [facility] [address] [place] [address] ENT-Otolaryngology 03/15/17 Vandana Walker AUD [address] [place] [phone] Audiology 03/15/17 Geovanna Hughes MD [address] [place] [phone] Internal Medicine 04/01/19 Vandana Whitmore MD [address] [place] [address] EYE [place] [address] Ophthalmology 08/18/19 Provider, Nithin EPICARE PROVIDER 11/06/19 Rozina Sanders MD [address] [facility] [place] [phone] Ophthalmology 12/25/19 Antonietta Bateman MD COR[facility]ATE [facility]ICE [address] [address] [place] [address] Surgical Oncology 04/29/21 Dena Berumen PA-C [address] [place] [address] [address] [place] [address] Oncology 06/13/21 Sangita Holly PA-C [address] [place] [address] [address] [place] [address] General Surgery 06/23/21 Dulce Lara PA-C [address] [place] [address] [address] [place] [address] Surgical Oncology 06/28/22 Elisa Martines PA-C [address] [place] [address] [address] [place] [address] General Surgery 05/25/23 Tanvi Gabriel CRNP [facility] SURG ONC [facility] OFF [address] [facility] [address] [place] [address] General Surgery 07/04/23 Merline Duran MBBS [address] [phone] Internal Medicine 11/17/23 Tono Camarillo MD [address] [facility] [address] [place] [address] Ophthalmology 11/18/23 Ean Mckeon MD [address] [place] [address] Ophthalmology 02/27/24 Sheyla Guerrero MD [address] [place] [address] Oncology 03/13/24 None SELF-REFERRED OR FOR UNREFERRED [facility] 03/13/24 Sheyla Conley MD [address] [place] [address] Gastroenterology 03/14/24 Karen Reynolds OD [address] [place] [address] Optometry 03/14/24 Darwin Loving MD [address] [place] [address] Otolaryngology 06/11/24 Provider, Generic External Data 07/16/24
--- OUTSIDE RECORDS SUMMARY | 2024-10-14 21:57 | XMS_ITS | Encounter Summary ---
Author Organization [facility] Ambulatory Address [address] [place] [address] Phone Care Team Providers Care Enlisted Aircrew/Aerial Observer/Gunner Name Role Phone Ortiz Rothman MD Primary Care Provider [phone] Bryce Allison MD, PhD Unavailable + [phone] Provider, Abstract MD Unavailable Unavailabl Valerie Orellana MD Unavailable +- [phone] Yohan Powell MD Unavailable [phone] Vandana Walker Unavailable + Geovanna Hughes MD Unavailable Vandana Whitmore MD Unavailable + Provider, Historical Unavailable Unavailable Rozina Sanders MD Unavailable [phone] Antonietta Bateman MD Unavailable + [phone] Antonietta Bateman MD Unavailable +[phone] Artie Lanza MD Unavailable Dena BerumenC Unavailable [phone] Sangita HollyC Unavailable [phone] Dulce LaraC Unavailable Elisa MartinesC Unavailable + Tanvi Gabriel Unavailable [phone] Merline Duran Unavailable Tono Camarillo MD Unavailable Source Comments This [...] except as provided at sections 2.12(c)(5) and 2.65.[facility] Ambulatory Encounter Details Date Type Department Care Team ([facility] st Contact Info) Description 11/18/2023 Telephone [facility] vidIQ [facility] [address] [facility] 1st [place] [address] Vegetable Cook: Mayra Alexander Oliver, MD [address] [place] [address] [address] [place] [address] Social History Tobacco Use Types Packs/Day Years [...] encounter Miscellaneous Notes * Telephone Encounter - Tono Camarillo MD - 11/18/2023 9:22 AM EST Pt called requesting timolol, placed order. documented in this encounter Plan of Treatment Not on file documented as of this encounter Visit Diagnoses Not on filedocumented in this encounter Care Teams Enlisted Aircrew/Aerial Observer/Gunner Relationship Specialty Start Date End Date Ortiz Rothman MD [address] [facility] [address] [place] [address] PCP - General 12/03/02 Antonietta Bateman MD [facility], [facility] [address] [facility] [address] [place] [address] PCP - CANCER CTR RMD Surgical Oncology 06/09/21 Artie Lanza MD [address] [facility] [address] [place] [address] PCP - Cancer CTR Hematology 06/09/21 Bryce Allison MD, PhD [address] [facility], [facility] [address] [place] [address] 08/25/10 Provider, MD Laura [facility] 08/25/10 Valerie Wilkinson MD [facility] [address] [facility] [place] [address] 08/25/10 Yohan Powell MD [address] [facility] [address] [place] [address] ENT-Otolaryngology 03/15/17 Vandana Walker AUD [address] [place] [address] Audiology 03/15/17 Geovanna Hughes MD [address] [address] Internal Medicine 04/01/19 Vandana Whitmore MD [address] [facility] [place] [address] Ophthalmology 08/18/19 Provider, Historical EPICARE PROVIDER 11/06/19 Rozina Sanders MD [address] [facility] [place] [address] Ophthalmology 12/25/19 Antonietta Bateman MD CORPORATE OFFICE [address], [facility] [address] [place] [address] Surgical Oncology 04/29/21 Dena Berumen PA-C [address] [place] [address] [place] [address] Oncology 06/13/21 Sangita Holly PA-C [address] [place] [address] [place] [address] General Surgery 06/23/21 Dulce Lara PA-C [address] [place] [address] [place] [address] Surgical Oncology 06/28/22 Elisa Martines PA-C [address] [place] [address] [address] [place] [address] General Surgery 05/25/23 Tanvi Gabriel CRNP [facility] SURG ONC [facility] OFF [address] [facility] [address] [place] [phone] General Surgery 07/04/23 Merline Duran MBBS [address] [address] Internal Medicine 11/17/23 Tono Camarillo MD [address] [facility] [address] [place] [address] Ophthalmology 11/18/23 documented as of this encounter
--- OUTSIDE RECORDS SUMMARY | 2024-10-14 21:57 | XMS_ITS | Encounter Summary ---
Author Organization [facility] work ([facility]) Address [address] [facility] [address] [place] [address] Care Team Providers Care Tutorial Laboratory Supervisor Name Role Phone Unavailable Primary Care Provider Unavailabl e Source Comments The information that you have received may contain highly confidential and/or federally protected health information. This information has been disclosed to you from records protected by [facility]. The law prohibits you from making [...] information in error, please contact the sender immediately.[facility] ([facility]) Encounter Details Date Type Department Care Team (Latest Contact Info) Description 12/20/2020 3:50 PM EST Office Visit [facility] COVID Immunization Clinic [address] [address] Encounter for immunization (Primary Dx) Social History [...] Count Last Ordered Date First Ordered Date [facility] SARS-COV-2 VACCINE 1 12/20/2020 documented in this encounter
--- OUTSIDE RECORDS SUMMARY | 2024-10-14 21:57 | XMS_ITS | Encounter Summary ---
Author Organization [facility] work ([facility]) Address [address] [facility] [address] [place] [address] Care Team Providers Care Water Registrar Name Role Phone Unavailable Primary Care Provider Unavailabl e Source Comments The information that you have received may contain highly confidential and/or federally protected health information. This information has been disclosed to you from records protected by [facility]. The law prohibits you from making [...] information in error, please contact the sender immediately.[facility] ([facility]) Encounter Details Date Type Department Care Team (Latest Contact Info) Description 12/02/2020 5:50 PM EST Immunization [facility] COVID Immunization Clinic [address] [address] Encounter for immunization (Primary Dx) Social History [...] Count Last Ordered Date First Ordered Date SKURA SARS-COV-2 VACCINE 1 12/02/2020 documented in this encounter
--- OUTSIDE RECORDS SUMMARY | 2024-10-14 21:57 | XMS_ITS | Encounter Summary ---
Author Organization [facility] Ambulatory Address [address] [place] [address] Phone Care Team Providers Care Roll Reclaimer Name Role Phone Ortiz Rothman MD Primary Care Provider [phone] Bryce Allison MD, PhD Unavailable + [phone] Provider, Abstract MD Unavailable Unavailabl Valerie Orellana MD Unavailable +- [phone] Yohan Powell MD Unavailable [phone] Vandana Walker Unavailable + Geovanna Hughes MD Unavailable Vandana Whitmore MD Unavailable + Provider, Historical Unavailable Unavailable Rozina Sanders MD Unavailable +[phone] Antonietta Bateman MD Unavailable + [phone] Antonietta Bateman MD Unavailable +[phone] Artie Lanza MD Unavailable Dena BerumenC Unavailable [phone] Sangita HollyC Unavailable [phone] Dulce LaraC Unavailable Elisa MartinesC Unavailable + Tanvi Gabriel Unavailable [phone] Merline Duran Unavailable Tono Camarillo MD Unavailable Ean Mckeon MD Unavailable [phone] Sheyla Guerrero MD Unavailable [phone] None Unavailable Unavailable Sheyla Conley MD Unavailable +[phone] Karen Reynolds OD Unavailable [phone] Darwin Loving MD Unavailable [phone] Provider, Generic External Data Unavailable Unavailable Source [...] except as provided at sections 2.12(c)(5) and [address].[facility] Ambulatory Encounter Details Date Type Department Care Team (Late st Contact Info) Description 09/04/2024 Office Note [facility] [address] [place] [address] Sheyla Guerrero MD [address] [place], [place] [id number] Social History Tobacco Use Types Packs/Day Years [...] Progress Notes * Sheyla Guerrero MD - 09/04/2024 2:07 PM EST NOTE TYPE: OFFICE NOTE DID: MOOFCNT PATIENT NAME: Danika Mckeon ID: [id number] DATE OF : 1940 DATE OF VISIT: Sep 04, 2024 FOLLOW UP OFFICE NOTE DIAGNOSIS: Primary C50.912 - Malignant neoplasm of unspecified site of left female breast, Diagnosed March 13, 2024 (Active) Primary M85.80 - Other specified disorders of bone density and structure, unspecified site, Diagnosed Oct 19, 2021 (Active) Primary C50.112 - Malignant neoplasm of central portion of left female breast, Diagnosed Jun 09, 2021 (Active) CHIEF COMPLAINT: Stage IA, T2N0M0. ILC left breast. ER+ 250, MT + 140, HER2 1+ by IHC, Ki-67 10%. Diagnosed 05/22/21 [facility] testin03/2024 Positive benefit from extended adjuvant hormone therapy. Osteoporosis on DEXA 05/2023 HISTORY OF PRESENT ILLNESS/INTERIM HISTORY: PRIOR THERAPY: 1.Left segmental mastectomy and sentinel lymph node biopsy on 06/01/[address] Antonietta Bateman. 2.Adjuvant radiation completed 08/31/21 CURRENT THERAPY: For Breast cancer: 1.Anastrozole 10/19/21 - 01/01/24. Restarted 03/13/24. For osteoporosis: Prolia per her PCP INTERVAL HISTORY: Danika presents for 6-month follow-up. She tolerates anastrozole well. She continues Prolia given by her PCP. She has no complaints or concerns today. sd RADIOLOGY DATA: 1. Screening Mammography Digital Nadir w Kishan 03/24/24:No evidence of malignancy is identified. 2. DEXA 05/16/23: T score PA LUMBAR SPINE(L1 - L4): -2.8 LEFT TOTAL HIP: -2.3 LEFT FEMORAL NECK: -2.3 REVIEW OF SYSTEMS: The pertinent ROS are incorporated in the HPI. Beyond those, the remaining 10 organ system ROS are either normal/negative or listed below. MEDICATIONS: Brimonidine Tartrate Solution Ophthalmic COVID-19 mRNA Vaccine (Pfizer) Intramuscular COVID-19 mRNA Vaccine (Browserling) Intramuscular COVID-19 mRNA Vaccine (Browserling) Intramuscular Fluzone Quadrivalent Intramuscular Latanoprost Solution Ophthalmic [...] PAST MEDICAL HISTORY: Breast Cancer Glaucoma Hypothyroidism Osteoporosis PROCEDURE/SURGICAL HISTORY: Ms. Mckeon's surgical/procedural history consists of Breast Surgery, cataracts, detached retina repair, scleral buckle, hysterectomy, and tonsillectomy. FAMILY HISTORY: Mother was diagnosed with breast cancer in her 40s. SOCIAL HISTORY: Ms. Mckeon is . Ms. Mckeon has never smoked. She drinks daily. She consumes 1 drink/day 7 days/week. Ms. Mckeon reports the following support systems: lives with spouse. Lives in [place] with her husbandand son. 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 Never smoker. Has one glass of wine per day on average. No illicit drugs. PHYSICAL EXAMINATION: Performed on Sep 04, 2024 13:42 Height 61.75 in Weight 137.2 lbs BSA (derived) 1.62 sq.m BMI 25.30 Temperature 97.4 F Pulse 69 /min Respiration 16 /min BP 110/73 Pulse Oximetry (O2 Sat) 98 % 0 - Fully active, able to carry on all predisease activities without restrictions. (ECOG) Constitutional Alert and oriented. Well nourished. Well developed. Head Normocephalic. Eyes Sclerae white. Hematologic/Lymphatic No cervical, supraclavicular or axillary adenopathy. Respiratory Lungs are clear to auscultation without rhonchi or wheezing. Cardiovascular Regular rate and rhythm of heart. Breasts Symmetric bilaterally without nipple discharge and no masses or tenderness. No skin changes. No axillary adenopathy bilaterally. Abdomen Soft, Non-tender, non-distended, no masses, no ascites and no hepatosplenomegaly. Extremities No calf pain or lower extremity swelling. Musculoskeletal No deformity. No focal weakness. Integumentary No pallor, bruising, jaundice or rash. Neurologic No sensory or motor deficits, normal gait, cranial nerves intact. Psychiatric Alert and oriented times three. Cooperative. Coherent speech. Verbalizes understanding of our discussions today. LABORATORY DATA: I personally reviewed laboratory tests which are available in the EMR. IMPRESSION: Stage IA, T2N0M0. ILC left breast. ER+ 250, MT + 140, HER2 1+ by IHC, Ki-67 10%. Diagnosed 05/22/21 [facility] testin03/2024 Positive benefit from extended adjuvant hormone therapy. ASSESSMENT AND PLAN: Ms. 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 [...] therapy for 5 years through 10/2026. She was off adjuvant AI 12/2023 - 02/2024. She restarted Arimidex 03/13/24. If her DEXA worsens despite Prolia she will consider Mcfarlane. [facility]CI testin03/2024 Positive benefit from extended adjuvant hormone therapy. I recommend a 7 year course of adjuvant AI therapy, through 10/2028. Mammogram due 03/2025. DEXA due 04/2025. Rx given for mammo and DEXA. MD FU 6 months. Osteoporosis: Dr Dr Tello elected to restart Prolia. She received her last dose 07/2024. She knows to call or return at any time with questions or problems. NEW ORDERS TODAY: Diagnostics ordered by Barb Babb on Sep 04, 2024: The following order(s) were created to occuron May 17, 2025: Dexa Scan (Compare to Last, 2 year follow up evaluation, H/o osteoporosis, Postmenopausal, On Aromitase Inhibitor) (Approved) Diagnostics ordered by Barb Babb on Sep 04, 2024: The following order(s) were created to occuron Mar 25, 2025: Mammogram (Bilateral, Screening, With Tomosynthesis) (Approved) Return Visit ordered by Barb Babb on Sep 04, 2024: The following order(s) were created to occur in 6 months: Schedule next visit with (Approved) Electronically Reviewed By: Sheyla Guerrero Sep 04, 2024 2:07PM documented in this encounter Plan of Treatment Not on file documented as of this encounter Visit Diagnoses Not on filedocumented in this encounter Care Teams Roll Reclaimer Relationship Specialty Start Date End Date Ortiz Rothman MD [address] [facility] [address] [place] [address] PCP - General 12/03/02 Antonietta Bateman MD [facility], [facility] [address] [facility] [address] [place] [address] PCP - CANCER CTR RMD Surgical Oncology 06/09/21 Artie Lanza MD [address] [facility] [address] [place] [address] PCP - Cancer CTR Hematology 06/09/21 Bryce Allison MD, PhD [address] [facility] [address] [place] [phone] 08/25/10 ProviderLaura MD EPICARE PROVIDER 08/25/[address] Wilkinson MD [facility] [address] [facility] [place] [address] 08/25/10 Yohan Powell MD [address] [facility] [address] [place] [address] ENT-Otolaryngology 03/15/17 Vandana Walker AUD [address] [place] [address] Audiology 03/15/17 Geovanna Hughes MD [address] [address] Internal Medicine 04/01/19 Vnadana Whitmore MD [address] [facility] [place] [address] Ophthalmology 08/18/19 Provider, Historical [facility] PROVIDER 11/06/19 Rozina Sanders MD [address] [facility] [place] [address] Ophthalmology 12/25/19 Antonietta Bateman MD [facility] [address] [place] [address] Surgical Oncology 04/29/21 Dean Berumen PA-C [address] [place] [address] Oncology 06/13/21 Sangita Holly PA-C [address] [place] [address] General Surgery 06/23/21 Dulce Lara PA-C [address] [place] [address] Surgical Oncology 06/28/22 Elisa Martines PA-C [address] [place] [address] [address] [place] [address] General Surgery 05/25/23 Tanvi Gabriel CRNP [facility] SUR[facility] [address] [facility] [address] [place] [address] General Surgery 07/04/23 Merline Duran MBBS [address] [place] [address] Internal Medicine 11/17/23 Tono Camarillo MD [address] [facility] [address] [place] [address] Ophthalmology 11/18/23 Ean Mckeon MD [address] [place] [address] Ophthalmology 02/27/24 Sheyla Guerrero MD [address] [place] [address] Oncology 03/13/24 None SELF-REFERRED OR FOR UNREFERRED [facility] HEALTH PLAN 03/13/24 Sheyla Conley MD [address] [place] [address] Gastroenterology 03/14/24 Karen Reynolds OD [address] [place] [address] Optometry 03/14/24 Darwin Loving MD [address] [facility] [address] [place] [address] Otolaryngology 06/11/24 Provider, Generic External Data 07/16/24 documented as of this encounter
--- OUTSIDE RECORDS SUMMARY | 2024-10-14 21:57 | XMS_ITS | Continuity of Care Document ---
Author Organization [facility] Address [address] [place] [address] Care Team Providers Care Line Pilot Name Role Phone BERENICE ROBERTO Primary Care Physician [phone] Encounter [id number] [id number] Date(s): 03/27/22 - 03/28/[address] [address]- Attending Physician: CHERRY RIVERA MD Referring Physician: NONASSIGNED, PHYSICIAN Allergies, Adverse Reactions, Alerts Substance Reaction Severity [...] Female Care Team Care Team Personnel Name: PARDEEP BLAKELY, BERENICE Friedman Position: Physician/School Photographs Detailer (Meds) Med Service: [facility] Member Role: Primary Care Physician Address: [address] [place] [address] [address] [place] [address] [facility] Care Team Related Persons Name: AMOR SMALL [address] [place] [address] [place] [address]
--- OUTSIDE RECORDS SUMMARY | 2024-10-14 21:57 | XMS_ITS | Encounter Summary ---
Author Organization [facility] Ambulatory Address [address] [place] [address] Phone Care Team Providers Care Unit Clerk Name Role Phone Ortiz Rothman MD Primary Care Provider [phone] Bryce Allison MD, PhD Unavailable + [phone] Provider, Abstract MD Unavailable Unavailabl Valerie Orellana MD Unavailable +- [phone] Yohan Powell MD Unavailable [phone] Vandana Walker Unavailable + Geovanna Hughes MD Unavailable Vandana Whitmore MD Unavailable + Provider, Historical Unavailable Unavailable Rozina Sanders MD Unavailable [phone] Antonietta Bateman MD Unavailable + [phone] Antonietta Bateman MD Unavailable +[phone] Artie Lanza MD Unavailable Dena BerumenC Unavailable [phone] Sangita HollyC Unavailable [phone] Dulce LaraC Unavailable Elisa MartinesC Unavailable + Tanvi Gabriel Unavailable [phone] Merline Duran Unavailable [phone] Tono Camarillo MD Unavailable Ean Mckeon MD Unavailable [phone] Sheyla Guerrero MD Unavailable [phone] None Unavailable Unavailable Sheyla Conley MD Unavailable [phone] Karen Reynolds OD Unavailable [phone] Darwin Loving MD Unavailable [phone] Provider, Generic External Data Unavailable Unavailable Source [...] except as provided at sections 2.12(c)(5) and 2.65.[facility] Ambulatory Encounter Details Date Type Department Care Team (Late st Contact Info) Description 09/04/2024 Ambulatory Visit Summary [facility] Frenchl[facility] [address] [place] [address] External, Provider MedOnc - After Visit Summary [...] encounter Progress Notes * External, Provider - 09/04/2024 2:15 PM EST NOTE TYPE = TREATMENT/PROCEDURES DID: [facility] Visit Summary Visit/Patient Information Date & Time Provider Sep 04:15PM Artie Lanza M.D. Name Date of Danika Mckeon 1940 Problems Malignant neoplasm of unspecified site of left female breast Other specified disorders of bone density and [...] this category. __ Vital Signs Performed on Sep 04, 2024 13:42 Height - 61.75 in Weight - 137.2 lbs (HIGH) BSA - 1.62 sq.m BMI - 25.30 Temperature - 97.4 F (LOW) Pulse - 69 /min Respiration - 16 /min BP - 110/73 mm(hg) O2 Sat - 98 % __ Most Recent Labs Most recent lab results are not available for this patient. This link will provide you with access to all Patient Education resources that are available at [facility].Jobaline [email or web address] Prepared By: Cristina Jason Created On: Sep 04, 2024 2:15PM documented in this encounter Plan of Treatment Not on file documented as of this encounter Visit Diagnoses Not on filedocumented in this encounter Care Teams Unit Clerk Relationship Specialty Start Date End Date Ortiz Rothman MD [address] [facility] [address] [place] [address] PCP - General 12/03/02 Antonietta Bateman MD [facility], [facility] [address] [facility] [address] [place] [address] PCP - CANCER CTR RMD Surgical Oncology 06/09/21 Artie Lanza MD [address] [facility] [address] [place] [address] PCP - Cancer CTR Hematology 06/09/21 Bryce Allison MD, PhD [address] [facility] [address] [place] [address] 08/25/10 Provider, MD Laura EPICARE PROVIDER 08/25/10 Valerie Wilkinson MD [facility] [address] [facility] [place] [address] 08/25/10 Yohan Powell MD [address] [facility] [address] [place] [address] ENT-Otolaryngology 03/15/17 Vandana Walker AUD [address] [place] [address] Audiology 03/15/17 Geovanna Hughes MD [address] [address] Internal Medicine 04/01/19 Vandana Whitmore MD [address] [facility] [place] [address] Ophthalmology 08/18/19 Provider, Historical EPICARE PROVIDER 11/06/19 Rozina Sanders MD [facility] [place] [place] [address] Ophthalmology 12/25/19 Antonietta Bateman MD [facility]PORATE OFFICE [address], [facility] [address] [place] [address] Surgical Oncology 04/29/21 Dena Berumen PA-C [address] [place] [address] Oncology 06/13/21 Sangita Holly PA-C [address] [place] [address] General Surgery 06/23/21 Dulce Laar PA-C [address] [place] [address] Surgical Oncology 06/28/22 Elisa Martines PA-C [address] [facility] [address] [place] [address] General Surgery 05/25/23 Tanvi Gabriel CRNP [facility] SURG ONC [facility] OFF [address] [facility] [address] [place] [address] General Surgery 07/04/23 Merline Duran MBBS [facility] [address] [address] Internal Medicine 11/17/23 Tono Camarillo MD [address] [facility] [address] [place] [address] Ophthalmology 11/18/23 Ean Mckeon MD [address] [place] [address] Ophthalmology 02/27/24 Sheyla Guerrero MD [address] [place] [address] Oncology 03/13/24 None SELF-REFERRED OR FOR UNREFERRED [facility] HEALTH PLAN 03/13/24 Sheyla Conley MD [address] [place] [address] Gastroenterology 03/14/24 Karen Reynolds OD [address] [place] [address] Optometry 03/14/24 Darwin Loving MD [address] [facility] [address] [place] [address] Otolaryngology 06/11/24 Provider, Generic External Data 07/16/24 documented as of this encounter
--- OUTSIDE RECORDS SUMMARY | 2024-10-14 21:57 | XMS_ITS | Clinical Summary ---
Author Organization [facility] Ambulatory Address [address] [place] [address] Phone Care Team Providers Care Wet Pour Supervisor Name Role Phone Berenice Rothman MD Primary Care Provider [phone] Bryce Allison MD, PhD Unavailable + [phone] Provider, Abstract MD Unavailable [facility] Valerie Orellana MD Unavailable + [phone] Yohan Powell MD Unavailable [phone] Vandana Walker Unavailable + Geovanna Hughes MD Unavailable Vandana Whitmore MD Unavailable + Provider, Historical Unavailable Unavailable Rozina Sanders MD Unavailable [phone] Antonietta Bateman MD Unavailable + [phone] Antonietta Bateman MD Unavailable [phone] Artie Lanza MD Unavailable Dena BerumenC Unavailable [phone] Sangita Holly-C Unavailable +[phone] Dulce LaraC Unavailable Elisa Martines-C Unavailable + Tanvi Gabriel Unavailable [phone] Merline Duran Unavailable [phone] Tono Camarillo MD Unavailable Ean Mckeon MD Unavailable [phone] Sheyla Guerrero MD Unavailable [phone] None Unavailable Unavailable Sheyla Conley MD Unavailable [phone] Karen Reynolds OD Unavailable [phone] Darwin Loving MD Unavailable [phone] Provider, Generic External Data Unavailable Unavailable Source [...] except as provided at sections 2.12(c)(5) and 2.65.[facility] Allergies Active Allergy Reactions Criticality Noted Date [...] and combined forms of senile cataract 03/16 Encounters Date Type Department Care Team Description 10/12/2024 EKG EXTERNAL DEPARTMENT [address] [place] [address] Ritesh Roman MD 10/12/2024 Imaging EXTERNAL DEPARTMENT [address] [place] [address] Ritesh Roman MD 10/12/2024 Lab Results EXTERNAL DEPARTMENT [address] [place] [address] Ritesh Roman MD 09/04/2024 Ambulatory Visit Summary BRENDA Villalta [facility] [address] [place] [address] External, Provider MedOn - After Visit Summary 09/04/2024 Office Note BRENDA Villalta [facility] [address] [place] [address] Sheyla Guerrero MD 08/22/[address] [facility] [address] [address] Extrusion Technician: Valerie Purcell Rajesh, MD Patient Call 07/23/2024 9:30 AM EDT Office Visit [facility] [address] [facility] [address] [place] [address] Extrusion Technician: Irene Arroyo Annmarie, CRNP Personal history of breast cancer (Primary Dx); Encounter for screening mammogram for breast cancer; 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, estrogen receptor positive (HCC) 07/16/2024 10:00 AM EDT Office Visit [facility] [address] [place] [address] [address] [place] [address] Extrusion Technician: Valerie Purcell Rajesh, MD Primary open angle glaucoma (POAG) of both eyes, severe stage (Primary Dx); Pseudophakia of both eyes; Lower eyelid retraction of left eye from Last 3 Months Immunizations Name Administration Dates Next Due Hep A (Vaqta) 10/31/2019 Hepatitis A (19Y & Over) 07/29/2008,08/16/2007 Polio (IPOL) 08/16/2007 Td (adult) 08/16/2007 Typhoid 08/16/2007 Family History Medical History Relation Comments Heart Disease Biological Father Ca, Breast Biological Mother Cancer Biological Mother Other Other All reviewed, no ne relevant Relation Status Comments Biological Father Biological Mother Other Social History Tobacco Use Types Packs/Day Years [...] 07/23/2024 9:31 AM EDT Plan of Treatment Health Maintenance Due Date Last Done Comments Full Body Skin Exam 1940 Medicare Annual Wellness Visit 1940 Pneumococcal Vaccine (1 of 2 - PCV) 1947 Advance Directives 1959 Shingles Vaccine (Recombinant) (1 of 2) 01/31/1960 Hearing Screening 2006 DTaP/Tdap/Td Vaccine (1 - Tdap) 08/17/2007 08/16/2007 Cholesterol Screening 07/14/2015 07/14/2010 RSV Vaccine (1 - 1-dose 75+ series) 01/31/2016 TSH 09/13/2021 09/13/2020, 08/17, 07/14/2010 Depression Screening 10/15/2023 Flu Vaccine (#1) 07/15/2024 Colorectal Cancer Screening Discussion 11/04/2024 11/04/2014 Mammogram Discussion 03/24/2026 03/24/2024, 03/13/2023, 03/11/2022, Additional history exists Vision Exam 09/26/2026 09/26/2021, 06/15, 03/17/2019, Additional history exists Dexa Scan 05/16/2028 05/16/2023, 03/2020, 11/23/2015, Additional history exists COVID-19 Vaccine Completed 06/20/2024, , 08/26/2021, Additional history exists Hepatitis B Vaccine Aged Out No longe r eligible based on patient's age to complete this topic Procedures Procedure Name Priority Date/Time Associated Diagnosis [...] findings in the upper abdomen. Procedure Note Diana Stokes, DO / Signing Provider, [employer] - 10/12/2024 [...] QT 364 ms QTc 457 ms P [place] 52 degrees R [place] 8 degrees T [place] 74 degrees Sinus rhythm with frequent premature ventricular complexes Low voltage QRS Borderline ECG When compared with ECG of 11-NOV-2007 11:31, premature ventricular complexes are now present Vent. rate has increased BY 31 BPM Confirmed by Sebastian Couch ([id number]) on 10/13/2024 11:18:15 AM Ritesh Roman MD ECG ORDERABLES * HIGH SENSITIVITY TROPONIN I (10/12/2024 10:21 AM EST) Pathologist [facility] Troponin I High Sensitivity 4 <45 ng/L 10/12/2024 11:[address] [facility] Comment: High Sensitivity Troponin I measured using the Siemens Immunoassay (Atellica analyzer or EXL analyzer, Siemens, [place], [place].) 10/12/2024 10:2 1 AM EST 10/12/2024 10:34 AM EST Ritesh Roman MD LAB BLOOD ORDERABLES [facility] [address] [place] [address] * SARS-COV-2 RNA, INFLUENZA A/B, AND RSV RNA, QUALITATIVE NAAT (10/12/2024 10:21 AM EST) [facility] SARS-CoV-2 RT PCR Not Detected NDETE 10/12/2024 11:[address] [facility] Comment The Xpert Xpress Cov-2/Flu/RSV plus RT-PCR assay is cleared by the FDA, and the 10/12/2024 11:[address] [facility] Comment: Xpert Xpress Cov-2 plus RT-PCR assay is under the FDA's Emergency Use Authorization. SARS-CoV-2 Reason for Order Symptomatic Patient 10/12/2024 10:[address] [facility] Patient Symptomatic for SARS-CoV-2 Yes 10/12/2024 10:[address] [facility] Influenza A Not Detected NDETEC 10/12/2024 11:[address] [facility] Influenza B Not Detected NDETEC 10/12/2024 11:[address] [facility] RSV Not Detected NDETEC 10/12/2024 11:[address] [facility] 10/12/2024 10:2 1 AM EST 10/12/2024 10:47 AM EST Ritesh Roman MD LAB MICROBIOLOGY GEN ERAL ORDERABLES Performing Organization Address [facility] Co de Phone Number [facility] [address] [place] [address] * MAGNESIUM (10/12/2024 10:21 AM EST) Magnesium(Mg) 1.7 1.6 - 2.6 mg/dL 10/12/2024 11:[address] [facility] 10/12/2024 10:2 1 AM EST 10/12/2024 10:34 AM EST Ritesh Roman MD LAB BLOOD ORDERABLES Performing Organization Address [facility] de Phone Number [facility] [address] [place] [address] * (ABNORMAL) COMPREHENSIVE METABOLIC PANEL (CMP) (10/12/2024 10:21 AM EST) Sodium(Na) 142 136 - 145 mmol/L 10/12/2024 11:[address] [facility] Potassium(K) 4.3 3.5 - 5.0 mmol/L 10/12/2024 11:[address] [facility] Chloride(Cl) 107 98 - 112 mmol/L 10/12/2024 11:[address] [facility] Carbon Dioxide(CO2) 27 20 - 31 mmol/L 10/12/2024 11:[address] [facility] Urea Nitrogen 11 9 - 23 mg/dL 10/12/2024 11:[address] [facility] Glucose 115(H) 70 - 99 mg/dL 10/12/2024 11:[address] [facility] Creatinine 0.82 0.55 - 1.02 mg/dL 10/12/2024 11:[address] [facility] Calcium(Ca) 9.1 8.3 - 10.6 mg/dL 10/12/2024 11:[address] [facility] Alkaline Phosphatase 60 46 - 116 U/L 10/12/2024 11:[address] [facility] Total Bilirubin 1.4(H) 0.0 - 0.8 mg/dL 10/12/2024 11:13 AM EST [facility] Total Protein 7.0 5.7 - 8.2 g/dL 10/12/2024 11:[address] [facility] Albumin 3.7 3.4 - 5.0 g/dL 10/12/2024 11:[address] [facility] Aspartate Aminot.(AST) 18 13 - 40 U/L 10/12/2024 11:[address] [facility] Alanine Aminotrans(ALT) 18 7 - 40 U/L 10/12/2024 11:[address] [facility] ANION GAP 13 6 - 15 meq/L 10/12/2024 11:[address] [facility] A/G RATIO 1.1 10/12/2024 11:[address] [facility] BUN/CREATININE RATIO 13 10/12/2024 11:[address] [facility] CALCULATED OSMOLALITY 294 281 - 307 mOsm/kg 10/12/2024 11:[address] [facility] eGFR 71 >59 10/12/2024 11:[address] [facility] Comment: GFR = 142 X [...] EST Ritesh Roman MD LAB BLOOD ORDERABLES [facility] [address] [place] [address] * (ABNORMAL) CBC (INCLUDES DIFFERENTIAL AND PLATELETS) (10/12/2024 10:21 AM EST) [facility] Neutrophils 72 % 10/12/2024 10:39 AM EST [...] Basophils 1 % 10/12/2024 10:39 AM EST [facility] BASOPHILS, ABS 0.00 0.00 - 0.20 X10E+09/L 10/12/2024 10:39 AM EST [facility] WBC 5.0 3.8 - 10.6 X10E+09/L 10/12/2024 10:39 AM EST [facility] RBC 4.53 3.90 - 5.00 X10E+12/L 10/12/2024 10:39 AM EST [facility] Hgb 13.6 12.9 - 16.7 g/dL 10/12/2024 10:39 AM EST [facility] Hematocrit(HCT) 40.3 35.0 - 43.0 % 10/12/2024 10:39 AM EST [facility] MCV 88.8 81.0 - 99.0 fL 10/12/2024 10:[address] [facility] MCH 30.0 27.0 - 33.0 pg 10/12/2024 10:[address] [facility] MCHC 33.7 30.0 - 37.0 g/dL 10/12/2024 10:[address] [facility] RDW 13.1 11.5 - 14.5 % 10/12/2024 10:[address] [facility] Platelets 172 150 - 450 X10E+09/L 10/12/2024 10:[address] [facility] Mean Platelet Volume 8.5 fL 10/12/2024 10:[address] [facility] 10/12/2024 10:2 1 AM EST 10/12/2024 10:34 AM EST Ritesh Roman MD LAB BLOOD ORDERABLES Performing Organization Address City/State/[facility] Co nv Phone Number [facility] [address] [place] [address] * BI MAMMOGRAM DIGITAL SCREENING WITH TOMOSYNTHESIS [...] AM EDT Narrative 05/16/2023 9:09 PM EDT [facility] ?[facility] ?[address] [facility] ?[address] Scheduling: ? [place] [id number] Service Location: [place] ? Patient: DANIKA MCKEON ? EMPI Number: [id number] (MR: [id number]) ? Date: 1940 (age: 83) ? Exam Date: 05/16/2023 ? Referred By: BERENICE ROTHMAN MD ?DXA Bone Density Study INDICATIONS - Estrogen-deficient and at clinical risk for osteoporosis - Health Maintenance - Hypothyroidism - Screening for Osteoporosis MEASURES AND MEDICATIONS ? STARTED ??DISCONTINUED ? -------- ? Synthroid 1971 ? Current ?Prolia 2013 ? 2018 ?Evista 1995 ? 2006 [...] Procedure Note Damaris Gunter MD - 05/16/2023 [facility] [address] [facility] [address] Scheduling: [place] [id number] Service Location: [place] Patient: DANIKA MCKEON Number: [id number] (MR: [id number]) Date: 1940 (age: 83) Exam Date: 05/16/2023 Referred By: BERENICE ROTHMAN MD DXA Bone Density Study INDICATIONS - Estrogen-deficient and at clinical risk for osteoporosis - Health Maintenance - Hypothyroidism - Screening for Osteoporosis MEASURES AND MEDICATIONS STARTED DISCONTINUED -------- Synthroid 1971 Current Prolia 2013 2018 Loreneista 1994 2005 Calcium Unknown Unknown Vitamin D Unknown Unknown DXA SCAN RESULTS BONE MINERAL YOUNG ADULT AGE-MATCHEDADULT DENSITY g/cm2 T-SCORE Z-SCORE MAU LUMBAR SPINE(L1 - L4): 0.737 -2.8 -0.1 [...] -2.5 SD and below Berenice Rothman MD IMG DXA ORDERABLE S * FREE T4 (09/13/2020 9:08 AM EST) [facility] FREE T4 1.6 0.8 - 1.6 ng/dL 09/13/2020 11:[address] [facility] 09/13/2020 9:08 AM EST 09/13/2020 9:09 AM EST Berenice Rothman MD LABORATORY Performing Organization Address City/State/[facility] Co de Phone Number [facility] [address] [place] [address] * COLONOSCOPY (11/04/2014 10:00 AM EST) 11/04/2014 10:0 0 AM EST Narrative [facility] - 11/04/2014 10:[address] [facility] [place] Division of Gastroenterology Patient Name: Danika Mckeon Procedure Date: 11/04/2014 10:00 AM Date of : 1940 Admit Type: Outpatient Age: 74 Gender: Female Note Status: Addendum Attending MD: Kobe Diaz DR Patient Location: [facility] Procedure: ? Colonoscopy Indications: ? Screening for [...] saturations were monitored continuously. The ? PCF-H190L [id number] was introduced through the anus ? and [...] present throughout the entire procedure. ? [address] [facility] [address] Procedure Note Joe Escobar MD - 11/04/2014 [facility] Division of Gastroenterology Patient Name: Danika cMkeon Procedure Date: 11/04/2014 10:00 AM Date of : 1940 Admit Type: Outpatient Age: 74 Gender: Female Note Status: Addendum Attending MD: Kobe Diaz DR Patient Location: [facility] Procedure: Colonoscopy Indications: Screening for [...] oxygen saturations were monitored continuously. The PCF-H190L [id number] was introduced through the anus and advanced [...] was present throughout the entire procedure. [address] [facility] [address] Berenice Rothman MD GI PROCEDURES [facility] * [...] 7:59 AM EDT Berenice Rothman MD [facility] [address] [place] [address] from Last 3 Months or Most Recently Relevant to Health Maintenance Care Teams Wet Pour Supervisor Relationship Specialty Start Date End Date Berenice Rothman MD [address] [facility] [address] [place] [address] PCP - General 12/03/02 Antonietta Bateman MD [facility], [address] [place] [address] PCP - CANCER CTR RMD Surgical Oncology 06/09/21 Artie Lanza MD [address] [facility] [address] [place] [address] PCP - Cancer CTR Hematology 06/09/21 Bryce Allison MD, PhD [address] [facility] [address] [place] [phone] 08/25/10 Provider, MD Laura [facility] HE[facility] PROVIDER 08/25/[address] [facility] [address] [facility] [place] [address] 08/25/10 [place] [address] [place] [address] [address] [place] [address] ENT-Otolaryngology 03/15/17 Vandana Walker AUD [address] [place] [phone] Audiology 03/15/17 Geovanna Hughes MD [address] [place] [phone] Internal Medicine 04/01/19 Vandana Whitmore MD [address] [place] [address] [place] [address] Ophthalmology 08/18/19 Provider, Historical EPICARE PROVIDER 11/06/19 Rozina Sanders MD [address] [place] [address] [place] [phone] Ophthalmology 12/25/19 Antonietta Bateman MD CORPOR[facility] OFFICE [address], [facility] [address] [place] [address] Surgical Oncology 04/29/21 Dena Berumen PA-C [address] [place] [address] Oncology 06/13/21 Sangita Holly PA-C [address] [place] [address] General Surgery 06/23/21 Dulce Lara PA-C [address] [facility] [address] [place] [address] Surgical Oncology 06/28/22 Elisa Martines PA-C [address] [facility] [address] [place] [address] General Surgery 05/25/23 Tanvi Gabriel CRNP [facility] SURG ONC [facility] OFF [address] [facility] [address] [place] [address] General Surgery 07/04/23 Merline Duran MBBS [address] [phone] Internal Medicine 11/17/23 Tono Camarillo MD [address] [facility] [address] [place] [address] Ophthalmology 11/18/23 Ean Mckeon MD [facility] [place] [address] Ophthalmology 02/27/24 Sheyla Guerrero MD [address] [place] [address] Oncology 03/13/24 None SELF-REFERRED OR FOR UNREFERRED [facility] 03/13/24 Sheyla Conley MD [address] [place] [address] Gastroenterology 03/14/24 Karen Reynolds OD [facility] [place] [address] Optometry 03/14/24 Darwin Loving MD [address] [place] [address], [address] [place] [address] Otolaryngology 06/11/24 Provider, Generic External Data 07/16/24
--- OUTSIDE RECORDS SUMMARY | 2024-10-14 21:57 | XMS_ITS | Continuity of Care Document ---
Author Organization [facility] Address [address] [place] [address]- Care Team Providers Care Stone Mason Name Role Phone BERENICE ROBERTO Primary Care Physician [phone] Encounter [facility] [id number] Date(s): 01/29/24 - 01/30/[address] [address]- Attending Physician: CHERRY RIVERA MD [...] Personnel Name: PARDEEP BLAKELY, BERENICE Friedman Position: Physician/Associate Loan Officer (Meds) Member Role: Primary Care Physician Address: Address: [address] [place] [address] [place] [address]- [facility] Care Team Related Persons Name: AMOR SMALL Address: [address] [place] [address]
--- OUTSIDE RECORDS SUMMARY | 2024-10-14 21:57 | XMS_ITS | Encounter Summary ---
Author Organization [facility] Ambulatory Address [address] [place] [address] Phone Care Team Providers Care Entry Level Receptionist Name Role Phone Ortiz Rothman MD Primary Care Provider [phone] Bryce Allison MD, PhD Unavailable + [phone] Provider, Abstract MD Unavailable Unavailabl Valerie Orellana MD Unavailable +- [phone] Yohan Powell MD Unavailable [phone] Vandana Walker Unavailable + Geovanna Hughes MD Unavailable Vandana Whitmore MD Unavailable + Provider, Historical Unavailable Unavailable Rozina Sanders MD Unavailable [phone] Antonietta Bateman MD Unavailable + [phone] Antonietta Bateman MD Unavailable +[phone] Artie Lanza MD Unavailable Dena BerumenC Unavailable [phone] Sangita HollyC Unavailable [phone] Dulce LaraC Unavailable Elisa MartinesC Unavailable + Tanvi Gabriel Unavailable [phone] Merline Duran Unavailable [phone] Tono Camarillo MD Unavailable Ean Mckeon MD Unavailable [phone] Sheyla Guerrero MD Unavailable None Unavailable Unavailable Sheyla Conley MD Unavailable [phone] Karen Reynolds OD Unavailable [phone] Darwin Loving MD Unavailable [phone] Provider, Generic External Data Unavailable Unavailable Source [...] 2.65.[facility] Ambulatory Reason for Referral * Radiology - Authorized Specialty Diagnoses / Procedures Referred By Contjennifer t Referred To Contact Diagnoses Personal history of breast cancer Encounter for screening mammogram for breast cancer 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, estrogen receptor positive (HCC) Procedures BI MAMMOGRAM DIGITAL SCREENING WITH TOMOSYNTHESIS BILATERAL Tanvi Gabriel CRNP [facility] [address] [facility] [address] [place] [phone] Referral ID Status Reason Start Date Expiration Date V isits Requested Visits Authorized [id number] Authorized 07/23/2024 1 1 Reason for Visit * Reason Comments Wellness Visit Encounter Details Date Type Department Care Team (Late st Contact Info) Description 07/23/2024 9:30 AM EDT [facility] [address] [facility] [address] [place] [address] Customer Solutions Representative: Irene Arroyo Annmarie, CRNP [facility] [address] [facility] [address] [place] [phone] Personal history of breast cancer (Primary Dx); Encounter for screening mammogram for breast cancer; 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, estrogen receptor positive (HCC) Social History Tobacco Use Types Packs/Day Years [...] ??F) 07/23/2024 9:31 AM EDT Respiratory Rate - - Oxygen Saturation 100% 07/23/2024 9:31 AM EDT Inhaled Oxygen Concentration - - Weight 59.9 kg (132 lb) 07/23/2024 9:31 AM EDT Height 158.8 cm (5' 2.5 ) 07/23/2024 9:31 AM EDT Body Mass Index 23.76 07/23/2024 9:31 AM EDT documented in this encounter Patient Instructions * Patient Instructions* Tanvi Gabriel CRNP - 07/23/2024 9:30 AM EDT Routine screening mammogram due in March 2025. Order placed. Continue follow up with Dr. Guerrero as scheduled and continue treatment as prescribed. Continue follow-up with PCP for routine health maintenance including colonoscopy screenings, bone density screening, bloodwork and adult immunizations Patient has been discharged from the annual follow-up program after three years of surveillance. Continue monthly self breast examinations and yearly clinical breast examinations. Contact our office and return sooner with any new breast complaints or concerns. Continue to eat a well balanced diet, sleep well and exercise daily Imaging scheduling number is [phone] documented in this encounter Progress Notes * Tanvi Gabriel CRNP - 07/23/2024 9:30 AM EDT [facility] Reason for Visit: Annual Wellness Exam Diagnosis: Stage IIA (T2, N0, M0) Infiltrating lobular carcinoma, left breast: ER H-score 250, W[place] H-score 140, Her2 neg by IHC, Ki-67 10%. (0/4LN) Procedure: Left segmental mastectomy (central lumpectomy) and left sentinel lymph node biopsy at [facility] on 06/01/21. The procedure was performed by Dr. Antonietta Bateman. Medical Oncology: Adjuvant Arimidex initiated in October 2021 and continuing, under the care of . Radiation Oncology: Patient completed adjuvant breast radiation under the care of Dr. Frye. Treatment Site Energy/ Modality Technique Dose Fractions From To Elapsed Days Left breast 6 MV photons Tangents with 3-dimensional treatment planning Minimum tumor dose 42.56 Gy16 August 02, 2021 August 24, 2021 22 Left breast boost 12 MeV electrons En-face Minimum tumor dose 10 Gy 4 August 25, 2021 August 31, 2021 6 Total 52.56 Gy 20 August 02, 2021 August 31, 2021 29 Genetics: Not performed to date. Updated HPI: Danika Mckeon is a 84 year old female who presents to the office today for a Breast Cancer Annual Follow-up Wellness visit. She presents with the above detailed breast history. The Follow-up Wellness visit was established to ensure that patients who have been treated by surgery for a diagnosis of breast cancer would be examined once a year for three years to help provide continuity of care. Patient is doing well overall and has no breast complaints at this time. She denies any new breast concerns to include palpable masses, skin retraction, skin discoloration, nipple retraction, ornipple discharge. She has completed the breast pain study and she reports no current breast pain remains. She tolerates anastrozole therapy. Review of Systems with focus on breast cancer: CONSTITUTIONAL: negative for chronic unexplained headaches, dizziness RESPIRATORY: negative for chronic unexplained cough, shortness of breath MUSCULOSKELETAL: negative for chronic unexplained back pain, bone pain SKIN: reports negative for breast or chest wall skin changes, rash, scaling, lumps or bumps PSYCHIATRIC: negative for prolonged increase of anxiety, depression since diagnosis and treatment for breast cancer Outpatient Medications Marked as Taking for the 07/23/24 encounter (Office Visit) with Tanvi Gabriel CRNP Medication Sig Dispense Refill anastrozole (ARIMIDEX) 1 mg oral tablet TAKE ONE TABLET BY MOUTH DAILY. Same as arimidex brimonidine (ALPHAGAN) 0.2 % ophthalmic drops Place 1 drop into both eyes 2 times a day 10 mL 2 cholecalciferol, vitamin D3, 50,000 unit oral capsule Take 50,000 units by mouth q 2 weeks 3 dorzolamide-timoloL (COSOPT) 22.3-6.8 mg/mL ophthalmic drops Place 1 drop into both eyes 2 times a day 10 mL 2 ketoconazole (NIZORAL) 2 % topical cream 2 times a day latanoprost (XALATAN) 0.005 % ophthalmic drops Place 1 drop into both eyes nightly 7.5 mL 2 losartan (COZAAR) 25 mg oral tablet Take 25 mg by mouth daily pantoprazole (PROTONIX) 40 mg oral delayed-release tablet TAKE ONE TABLET BY MOUTH DAILY 30 MINUTESBEFORE A MEAL SYNTHROID 75 mcg oral tablet Take 75 micrograms by mouth The patient's allergies, medications, and past medical, surgical and family histories were reviewed. No changes noted at this time. Physical Exam: Vitals: BP 136/74 Pulse 70 Temp 98 ??F (36.7 ??C) (Oral) Ht 5' 2.5 (158.8 cm) Wt 132 lb (59.9 kg) SpO2 100% BMI 23.76 kg/m?? General Appearance: well appearing, nourished, and comfortable female Comprehensive Breast Exam: A comprehensive examination of the breasts and chest wall was performed with the patient upright and supine with arms at her sides and above her head. No cervical, supraclavicular, or infraclavicular lymphadenopathy is present on palpation. Inspection of the breasts bilaterally demonstrates there to be no secondary signs of malignancy. No erythema or edema of the breastskin is present. There are no lesions or retraction of the nipple or areola bilaterally. No spontaneous nipple discharge was witnessed. Palpation of the axilla bilaterally is without lymphadenopathy.Palpation of the breasts bilaterally demonstrates no masses. Bilateral breasts are symmetrical. Shehas no clinical evidence of lymphedema and she has full UE ROM. Diagnostic Imaging: Bilateral screening mammogram on 03-24-24 Results: BI-RADS 2 Benign Recommendation: Routine screening mammogram in 1 year unless otherwise clinically indicated. DEXA 05-16-23, osteoporosis Impression: Danika Mckeon is a 84 year old female with a history of invasive left breast cancer who is 3 years s/p left segmental mastectomy and left SNB. She has no new breast concerns at this time. Physical examination and screening imaging are both benign. There is no evidence of disease at 3 years. Recommendations: Routine screening mammogram due in March 2025. Order placed. Continue follow up with Dr. Guerrero as scheduled and continue treatment as prescribed. Continue follow-up with PCP for routine health maintenance including colonoscopy screenings, bone density screening, bloodwork and adult immunizations Patient has been discharged from the annual follow-up program after three years of surveillance. Continue monthly self breast examinations and yearly clinical breast examinations. Contact our office and return sooner with any new breast complaints or concerns. Continue to eat a well balanced diet, sleep well and exercise daily Imaging scheduling number is [phone] Total time (ciby-mv-qdko and uzj-gzeh-jz-face) spent on today's visit was 25 minutes. This includedpreparation for the visit (i.e. reviewing test results), performance of a medically appropriate history and examination, and orders for medications, tests or other procedures. This time is exclusive of procedures performed and time spent teaching. documented in this encounter Plan of Treatment Scheduled Orders Name Type Priority Associated Diagnoses Orde r Schedule BI MAMMOGRAM DIGITAL SCREENING WITH TOMOSYNTHESIS BILATERAL Imaging Routine Personal history of breast cancer Encounter for screening mammogram for breast cancer 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, estrogen receptor positive (HCC) 1 Occurrences starting 07/23/2024 until 07/23/2025 documented as of this encounter Visit Diagnoses Diagnosis Personal history of breast cancer- Primary Personal history of malignant neoplasm of breast Encounter for screening mammogram for breast cancer 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, estrogen receptor positive (HCC) documented in this encounter Care Teams Entry Level Receptionist Relationship Specialty Start Date End Date Ortiz Rothman MD [address] [facility] [address] [place] [address] PCP - General 12/03/02 Antonietta Bateman MD [facility], [facility] [address] [facility] [address] [place] [address] PCP - CANCER CTR RMD Surgical Oncology 06/09/21 Artie Lanza MD [address] [facility] [address] [place] [address] PCP - Cancer CTR Hematology 06/09/21 Bryce Allison MD, PhD [address] [facility] [address] [place] [address] 08/25/10 ProviderLaura MD EPICARE PROVIDER 08/25/10 Valerie Wilkinson MD [facility] [address] [facility] [place] [address] 08/25/10 Yohan Powell MD [address] [facility] [address] [place], [place] [id number] ENT-Otolaryngology 03/15/17 Vandana Walker AUD [address] [place] [phone] Audiology 03/15/17 Geovanna Hughes MD [address] [phone] Internal Medicine 04/01/19 Vandana Whitmore MD [address] [facility] [place] [address] Ophthalmology 08/18/19 Provider, Historical [facility] PROVIDER 11/06/19 Rozina Sanders MD [address] [facility] [place] [address] Ophthalmology 12/25/19 Antonietta Bateman MD [facility] [address] [place] [address] Surgical Oncology 04/29/21 Dena Berumen PA-C [address] [place] [address] Oncology 06/13/21 Sangita Holly PA-C [address] [place] [address] General Surgery 06/23/21 Dulce Lara PA-C [address] [place] [address] Surgical Oncology 06/28/22 Elisa Martines PA-C [address] [place] [address] [address] [place] [address] General Surgery 05/25/23 Tanvi Gabriel CRNP [facility] [address] [facility] [address] [place] [address] General Surgery 07/04/23 Merline Duran MBBS [address] [address] Internal Medicine 11/17/23 Tono Camarillo MD [address] [facility] [address] [place] [address] Ophthalmology 11/18/23 Ean Mckeon MD [address] [place] [address] Ophthalmology 02/27/24 Sheyla Guerrero MD [address] [place] [address] Oncology 03/13/24 None SELF-REFERRED OR FOR UNREFERRED [facility] HE[facility]AN 03/13/24 Sheyla Conley MD [address] [place] [address] Gastroenterology 03/14/24 Karen Reynolds OD [address] [place] [address] Optometry 03/14/24 Darwin Loving MD [address] [facility] [address] [place] [address] Otolaryngology 06/11/24 Provider, Generic External Data 07/16/24 documented as of this encounter
--- OUTSIDE RECORDS SUMMARY | 2024-10-14 21:57 | XMS_ITS | Continuity of Care Document ---
Author Organization [facility] Address Unknown Care Team Providers Care Supervisor Chassis Assembly Name Role Phone DR BERENICE ROBERTO Primary Care Physician Encounter [facility] [id number] Date(s): 05/02/21 - 05/03/21 [facility] Attending Physician: NONASSIGNED, PHYSICIAN Referring Physician: BERENICE ROBERTO MD Reason for Visit CLINIC VISIT Allergies, Adverse Reactions, Alerts No Known Allergies [...]
--- OUTSIDE RECORDS SUMMARY | 2024-10-14 21:57 | XMS_ITS | Referral Summary ---
Author Organization [facility] ([facility]) Address [address] [address] Care Team Providers Care Metal Bending Machine Operator Name Role Phone JuliOrtiz gayle Primary Care Provider [phone] Source Comments The information that you have received may contain highly confidential and/or federally protected health information. This information has been disclosed to you from records protected by [facility]. The law prohibits you from making [...] information in error, please contact the sender immediately.[facility] ([facility]) Allergies No known active allergies Medications Medication Sig Dispensed Refills Start Date End Date Status levothyroxine (Synthroid) 100 MCG tablet Take by mouth . Active anastrozole (ARIMIDEX) 1 mg tablet TAKE ONE TABLET BY MOUTH DAILY. SAME ARIMIDEX 06/04/2023 Active losartan (COZAAR) 25 MG tablet Take 1 tablet (25 mg total) by mouth daily . 08/02/2023 Active timolol (TIMOPTIC) 0.5 % ophthalmic solution INSTILL 1 DROP INTO EACH EYE EVERY MORNING 05/08/2023 Active Immunizations Name Administration Dates Next Due COVID-19 mRNA (PF) (Pfizer, 2 dose series) 08/26,12/20/2020,12/02/2020 Social History Tobacco Use Types Packs/Day Years Used Date Smoking Tobacco: Never Smokeless Tobacco: Never Tobacco Cessation:Counseling Given: Not Answered Alcohol Use Standard Drinks/Week Comments Yes 0 (1 standard drink = 0.6 oz pur e alcohol) daily Alcohol and Drug Use Answer Date Record ed Females: In the past year, h ave you had more than 7 drinks in one week? Not on file 02/25/2022 Males greater than 65 years of age: In the past year, have you had more than 7 drinks in one week? 02/25/2022 Males less than or equal to 65 years of age: In the past year, have you had more than 14 drinks in one week? In the past year, have you u sed any drugs other than those prescribed by your doctor? Not on file 02/25/2022 Transportation Answer Date Recorded Has a lack of transportation kept you from medical appointments, meetings, work, or from getting things needed for daily living? Not on file 09/27/2023 Utilities Answer Date Recorded In the past 12 months has [employer], [employer], or water [employer] threatened to shut off services in your home? Not on file 09/27/2023 Sex and Gender Information Value Date Recorded Sex Assigned at Not on file Gender Identity Not on file Sexual Orientation Not on file Last Filed Vital Signs Vital Sign Reading Time Taken Comments Blood Pressure 190/83 08/12/2023 11:59 AM EDT Pulse 69 08/12/2023 11:59 AM EDT Temperature 36.4 ??C (97.6 ??F) 08/12/2023 11:59 AM E DT Respiratory Rate 16 08/12/2023 11:59 AM EDT Oxygen Saturation 99% 08/12/2023 11:59 AM EDT Inhaled Oxygen Concentration - - Weight - - Height - - Body Mass Index - - Plan of Treatment Not on file Care Teams Metal Bending Machine Operator Relationship Specialty Start Date End Date Ortiz Rothman [address] [facility] [address] [place] [address] PCP - General Internal Medicine 08/12/23
--- OUTSIDE RECORDS SUMMARY | 2024-10-14 21:57 | XMS_ITS | Encounter Summary ---
Author Organization [facility] Ambulatory Address [address] [place] [address] Phone Care Team Providers Care Network Architect Manager Name Role Phone Ortiz Rothman MD Primary Care Provider [phone] Bryce Allison MD, PhD Unavailable + [phone] Provider, Abstract MD Unavailable Unavailabl Valerie Orellana MD Unavailable +- [phone] Yohan Powell MD Unavailable [phone] Vandana Walker Unavailable + Geovanna Hughes MD Unavailable Vandana Whitmore MD Unavailable + Provider, Historical Unavailable Unavailable Rozina Sanders MD Unavailable [phone] Antonietta Bateman MD Unavailable + [phone] Antonietta Bateman MD Unavailable [phone] Artie Lanza MD Unavailable Dena BerumenC Unavailable [phone] Sangita HollyC Unavailable [phone] Dulce LaraC Unavailable Elisa MartinesC Unavailable + Tanvi Gabriel Unavailable [phone] Merline Duran Unavailable [phone] Tono Camarillo MD Unavailable Ean Mckeon MD Unavailable [phone] Source Comments This information has been disclosed [...] sections 2.12(c)(5) and 2.65.[facility] Ambulatory Reason for Visit * Reason Comments Evaluation Encounter Details Date Type Department Care Team (Late st Contact Info) Description 02/27/2024 1:45 PM EDT Office Visit [facility] [place] [address] [place] [phone] Multiple Drum Sander Helper: Valerie Purcell Rajesh, MD [address] [place] [address] Primary open angle glaucoma (POAG) of both eyes, severe stage (Primary Dx); Pseudophakia of both eyes Social History Tobacco Use Types Packs/Day Years [...] on file documented as of this encounter Patient Instructions * Patient Instructions* Ean Mckeon MD - 02/27/2024 1:45 PM EDT Please use your eyedrops as follows: Medication Top color Eye Morning Afternoon Evening Bedtime Combigan or Brimonidine-Timolol Blue both eyes X X Latanoprost Teal both eyes X Allow at least 5 minutes between drops. Call or come in with any of the following symptoms: - Increasing redness - Increasing pain - Decreasing vision [facility] [place] - Glaucoma Service Thank you for allowing us to participate in your care. Follow up as instructed. If you have any problems, please call at any time. 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 in the left eye Visual Acuity (Snellen - Linear) Right Left Dist sc 20/50 -2 20/50 +1 Dist ph sc 20/40 +1 20/40 -2 Tonometry (iCare, 2:11 PM) Right Left Pressure 24 33 Clinical Findings: Pachymetry 02/27/2024: 558/570 microns Gonioscopy 02/27/2024: open angles Right eye optic nerve head: pale with almost completely eroded rims Left eye optic nerve head: pale with inferior rim eroded and thin superior rim Posterior chamber intraocular lens well centered in both eyes Assessment: primary open angle glaucoma , severe stage, both eyes IOP target: 10 mm Hg or lower in both eyes Plan: Stop brimonidine in both eyes Re start latanoprost once at night in both eyes Add brimonindine/ timolol fixed combination twice a day in both eyes Return in 2 weeks for intraocular pressure check with fellow clinic Target intraocular pressure low teens in both eyes Repeat Clark Visual Field 24-2 next visit documented in this encounter Nursing Notes * Nai Love - 02/27/2024 1:45 PM EDT Prev pt of Dr Allison presents for eval. Pt denies pain, flashes and floaters. Pt denies tearing anddischarge but has redness that is unchanged. Gtt: Brimonidine BID OU Testing with Dr Allison 12/31/23 documented in this encounter Plan of Treatment Not on file documented as of this encounter Visit Diagnoses Diagnosis Primary open angle glaucoma (POAG) of both eyes, severe stage- Primary Pseudophakia of both eyes Lens replaced by other means documented in this encounter Care Teams Network Architect Manager Relationship Specialty Start Date End Date Ortiz Rothman MD [address] [facility] [address] [place] [address] PCP - General 12/03/02 Antonietta Bateman MD [facility], [facility] [address] [facility] [address] [place] [address] PCP - CANCER CTR RMD Surgical Oncology 06/09/21 Artie Lanza MD [address] [facility] [address] [place] [address] PCP - Cancer CTR Hematology 06/09/21 Bryce Allison MD, PhD [address] [place] [address] [address], [address] [place] [phone] 08/25/10 Provider, MD Laura EPICARE PROVIDER 08/25/10 Valerie Wilkinson MD [facility] [address] [facility] [place] [address] 08/25/10 Yohan Powell MD [address] [facility] [address] [place] [address] ENT-Otolaryngology 03/15/17 Vandana Walker AUD [address] [place] [phone] Audiology 03/15/17 Geovanna Hughes MD [address] [place] [phone] Internal Medicine 04/01/19 Vandana Whitmore MD [address] [facility] [place] [address] Ophthalmology 08/18/19 Provider, Historical EPICARE PROVIDER 11/06/19 Rozina Sanders MD [address] [place] [address] [place] [phone] Ophthalmology 12/25/19 Antonietta Bateman MD CORPORATE OFFICE [address], [facility] [address] [place] [address] Surgical Oncology 04/29/21 Dena Berumen PA-C [address] [place] [address] [place] [address] Oncology 06/13/21 Sangita Holly PA-C [address] [place] [address] [place] [address] General Surgery 06/23/21 Dulce Lara PA-C [address] [facility] [address] [place] [address] Surgical Oncology 06/28/22 Elisa Martines PA-C [address] [facility] [address] [place] [address] General Surgery 05/25/23 Tanvi Gabriel CRNP [facility] SUR[facility] ONC [facility] OFF [address] [facility] [address] [place] [address] General Surgery 07/04/23 Merline Duran MBBS [address] [place] [phone] Internal Medicine 11/17/23 Tono Camarillo MD [address] [facility] [address] [place] [address] Ophthalmology 11/18/23 Ean Mckeon MD [address] [place] [address] Ophthalmology 02/27/24 documented as of this encounter
--- OUTSIDE RECORDS SUMMARY | 2024-10-14 21:57 | XMS_ITS | Encounter Summary ---
Author Organization [facility] Ambulatory Address [address] [place] [address] Phone Care Team Providers Care Artificial Snow Making Machine Operator Name Role Phone Ortiz Rothman MD Primary Care Provider [phone] Bryce Allison MD, PhD Unavailable + [phone] Provider, Abstract MD Unavailable Unavailabl Valerie Orellana MD Unavailable +- [phone] Yohan Powell MD Unavailable [phone] Vandana Walker Unavailable + Geovanna Hughes MD Unavailable Vandana Whitmore MD Unavailable + Provider, Historical Unavailable Unavailable Rozina Sanders MD Unavailable +[phone] Antonietta Bateman MD Unavailable + [phone] Antonietta Bateman MD Unavailable +[phone] Artie Lanza MD Unavailable Dena BerumenC Unavailable [phone] Sangita HollyC Unavailable [phone] Dulce LaraC Unavailable Elisa MartinesC Unavailable + Tanvi Gabriel Unavailable [phone] Merline Duran Unavailable [phone] Source Comments This information has been disclosed [...] except as provided at sections 2.12(c)(5) and 2.65.[facility] Ambulatory Encounter Details Date Type Department Care Team ([facility] Contact Info) Description 11/17/2023 Mobile Encounter [address] [place] [phone] Leather Stripping Machine Operator: Sheyla Quintanilla Bushra, MBBS [address] [place] [address] Social History Tobacco Use Types Packs/Day Years [...] Progress Notes * Merline Duran MBBS - 11/17/2023 5:06 PM EST Patient called for refill of her drops that has been filled. I called and let the patient know. documented in this encounter Plan of Treatment Not on file documented as of this encounter Visit Diagnoses Not on filedocumented in this encounter Care Teams Artificial Snow Making Machine Operator Relationship Specialty Start Date End Date Lamperski, Ortiz D, MD [address] [facility] [address] [place] [address] PCP - General 12/03/02 Antonietta Bateman MD [facility], [facility] [address] [facility] [address] [place] [address] PCP - CANCER CTR RMD Surgical Oncology 06/09/21 Artie Lanza MD [address] [facility] [address] [place] [address] PCP - Cancer CTR Hematology 06/09/21 Bryce Allison MD, PhD [address] [facility], [facility] [address] [place] [phone] 08/25/10 Provider, MD Laura EPICARE PROVIDER 08/25/10 Valerie Wilkinson MD [facility] [address] [facility] [place] [address] 08/25/10 Yohan Powell MD [address] [facility] [address] [place], [place] [id number] ENT-Otolaryngology 03/15/17 Vandana Walker AUD [address] [place] [phone] Audiology 03/15/17 Geovanna Hughes MD [address] [phone] Internal Medicine 04/01/19 Vandana Whitmore MD [address] [facility] [place] [address] Ophthalmology 08/18/19 Provider, Historical EPICARE PROVIDER 11/06/19 Rozina Sanders MD [address] [facility] [place] [address] Ophthalmology 12/25/19 Antonietta Bateman MD CORPORATE OFFICE [address], [facility] [address] [place] [address] Surgical Oncology 04/29/21 Dena Berumen PA-C [address] [place] [address] [place] [address] Oncology 06/13/21 Sangita Holly PA-C [address] [place] [address] [place] [address] General Surgery 06/23/21 Dulce Lara PA-C [address] [place] [address] [place] [address] Surgical Oncology 06/28/22 Elisa Martines PA-C [address] [place] [address] [address] [place] [address] General Surgery 05/25/23 Tanvi Gabriel CRNP [facility] SUR[facility] ONC [facility] OFF [address] [facility] [address] [place] [phone] General Surgery 07/04/23 Merline Duran MBBS [address] [place] [address] Internal Medicine 11/17/23 documented as of this encounter
--- OUTSIDE RECORDS SUMMARY | 2024-10-14 21:57 | XMS_ITS | Continuity of Care Document ---
Author Organization [facility] Address Unknown Care Team Providers Care Nurse Advisor Name Role Phone DR BERENICE ROBERTO Primary Care Physician Encounter [facility] [id number] Date(s): 04/15/21 - 04/16/21 [facility] Attending Physician: NONASSIGNED, PHYSICIAN Referring Physician: NONASSIGNED, PHYSICIAN Reason for Visit LEFT Allergies, Adverse Reactions, Alerts No Known Allergies [...]
--- OUTSIDE RECORDS SUMMARY | 2024-10-14 21:57 | XMS_ITS | Encounter Summary ---
Author Organization [facility] Ambulatory Address [address] [place] [address] Phone Care Team Providers Care Reimbursement Spec Name Role Phone Ortiz Rothman MD Primary Care Provider [phone] Bryce Allison MD, PhD Unavailable + [phone] Provider, Abstract MD Unavailable Unavailabl Valerie Orellana MD Unavailable +- [phone] Yohan Powell MD Unavailable [phone] Vandana Walker Unavailable + Geovanna Hughes MD Unavailable Vandana Whitmore MD Unavailable + Provider, Historical Unavailable Unavailable Rozina Sanders MD Unavailable [phone] Antonietta Bateman MD Unavailable + [phone] Antonietta Bateman MD Unavailable +[phone] Artie Lanza MD Unavailable Dena BerumenC Unavailable [phone] Sangita HollyC Unavailable [phone] Dulce LaraC Unavailable [phone] Elisa MartinesC Unavailable + Tanvi Gabriel Unavailable [phone] Merline Duran Unavailable [phone] Tono Camarillo MD Unavailable Source Comments [...] 2.65.[facility] Ambulatory Encounter Details Date Type Department Care Team (Late st Contact Info) Description 01/01/2024 Office Note [facility] [address] [place] [address] Artie Lanza MD [address] [place] [address] Social History Tobacco Use Types Packs/Day Years [...] as of this encounter Progress Notes * Artie Lanza MD - 01/01/2024 2:30 PM EDT NOTE TYPE: OFFICE NOTE DID: MOOFCNT PATIENT NAME: Danika Mckeon ID: [id number] DATE OF : 1940 DATE OF VISIT: Jan 01, 2024 FOLLOW UP OFFICE NOTE DIAGNOSIS: Primary M85.80 - Other specified disorders of bone density and structure, unspecified site, Diagnosed Oct 19, 2021 (Active) Primary C50.112 - Malignant neoplasm of central portion of left female breast, Diagnosed Jun 09, 2021 (Active) CHIEF COMPLAINT: PRINCIPAL DIAGNOSIS: - Stage IA, T2N0M0, left breast invasive lobular carcinoma (ER/MD positive, HER2 negative, Ki-67 10%, Ivan grade 1) CURRENT THERAPY: - Anastrozole 1 mg daily -- started 10/19/21 PRIOR HISTORY: - The patient had a screening mammogram on 03/22/21 that showed no suspicious findings on the right, but noted architectural distortion on the left for which additional evaluation was recommended. - Diagnostic mammogram and ultrasound on 04/07/21 showed a 2.5 cm lesion in the periareolar area of the left breast concerning for malignancy and minimally asymmetric thickening of a left axillary lymph node, which was felt to be likely benign. - Biopsy of the left breast mass on 04/15/21 showed invasive lobular carcinoma, classical type with histiocytoid morphology, ER positive (H score 250), MD positive (H score 140), HER2/kam negative (1+ by IHC), Ki-67 low (10%), Byram grade 1. - The patient underwent left segmental mastectomy and sentinel lymph node biopsy on 06/01/[address] Antonietta Bateman. Pathology showed a 5.0 cm invasive lobular carcinoma; Ivan grade 2 (tubule formation 3, nuclear grade 2, mitotic rate 1, total score 6/9); negative LVI; invasive carcinoma focally present at posterior/lateral margin of resection; LCIS, atypical lobular hyperplasia; none of fourlymph nodes positive for metasatic carcinoma; pT2N0. - The patient had a post-operative surgical wound infection that was treated with 10 days of Keflex. She had a seroma aspirated on 06/13/21, cultures from which were negative. - Adjuvant radiation completed 08/31/21 - DEXA on 05/21/20 showed osteopenia - Adjuvant anastrozole started 10/19/21, though patient lost to follow-up for two years after that. - Bilateral screening mammogram 03/13/23 showed BI-RADS 2 findings - DEXA 05/16/23 showed osteporosis HISTORY OF PRESENT ILLNESS/INTERIM HISTORY: Ms. Mckeon is an 83 year old woman with a history of stage IA, T2N0M0, left breast invasive lobular carcinoma (ER/MD positive, HER2 negative, Ki-67 10%, Ivan grade 1) s/p left segmental mastectomyand SLNB on 06/01/21 and adjuvant radiation completed on 08/31/21 who presents for ongoing follow-up. The patient reports that she has been taking anastrozole regularly for the past two years despite not having been seen in follow-up. She is tolerating it well with no side effects. She reports that she has had intermittent discomfort in her left breast chronically since surgery, but this is unchanged recently, and she has no new breast complaints. Her energy is OK. She exercises regularly. Her appetite is normal. She denies fevers, chills, chest pain, shortness of breath, cough, abdominal pain,nausea, vomiting, diarrhea, dysuria, lower extremity swelling, bone pain, back pain, headache, blurred vision, numbness, tingling, weakness, or bleeding issues. REVIEW OF SYSTEMS: The pertinent ROS are incorporated in the HPI. Beyond those, the remaining 10 organ system ROS are either normal/negative or listed below. MEDICATIONS: COVID-19 mRNA Vaccine (Scurri) Intramuscular COVID-19 mRNA Vaccine (Scurri) Intramuscular COVID-19 mRNA Vaccine (Scurri) Intramuscular Fluzone Quadrivalent Intramuscular Synthroid (75 mcg) Tablet Oral daily Timolol [...] support systems: lives with spouse. Lives [place] with her husbandand son. 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 Never smoker. Has one glass of wine per day on average. No illicit drugs. PHYSICAL EXAMINATION: Performed on Jan 01, 2024 13:49 Height 61.75 in Weight 134.6 lbs BSA (derived) 1.61 sq.m BMI 24.82 Temperature 96.6 F Pulse 65 /min Respiration 16 /min BP 133/59 Pulse Oximetry (O2 Sat) 99 % Fatigue 2 Pain Assessment 2 0 - Fully active, able to carry on all predisease activities without restrictions. (ECOG) Constitutional Alert, cooperative, oriented. Mood and affect appropriate. Appears close to chronological age. Well nourished. Well developed. Head Normocephalic; no scars. Eyes Conjunctivae and sclerae are clear and without icterus. Pupils are reactive and equal. ENMT Normal oral mucosa without lesions. No pharyngeal erythema or exudation. Neck Supple. Hematologic/Lymphatic No petechiae or purpura. No tender or palpable lymph nodes in the cervical, supraclavicular, axillary or inguinal area. Respiratory Lungs are clear to auscultation without rhonchi or wheezing. Cardiovascular Regular rate and rhythm of heart without murmurs, gallops or rubs. Breasts Deferred. Abdomen Non-tender, non-distended, no masses, ascites or hepatosplenomegaly. Normal bowel sounds. Extremities No visible deformities, no cyanosis, clubbing or edema. Musculoskeletal No tenderness or swelling, normal range of motion without obvious weakness. Integumentary No rash. Neurologic No sensory or motor deficits, normal cerebellar function, normal gait, cranial nerves intact. Psychiatric Alert and oriented times three. Coherent speech. Verbalizes understanding of our discussions today. LABORATORY DATA: I personally reviewed laboratory tests which are available in the EMR. IMPRESSION: Ms. Mckeon is an 83 year old woman with a history of stage IA, T2N0M0, left breast invasive lobular carcinoma (ER/MD positive, HER2 negative, Ki-67 10%, Byram grade 1) s/p left segmental mastectomyand SLNB on 06/01/21 and adjuvant radiation completed on 08/31/21 who presents for ongoing follow-up. # Breast Cancer The patient is doing well since her last visit, which is fortunate as she was temporarily lost to follow-up. She has been taking anastrozole for the past two years, which she has tolerated well with essentially no side effects. She has no signs or symptoms concerning for recurrent, metastatic disease, so no testing is necessary at this time. She is due for her annual mammogram in 02/2024, which I h ave ordered today. While the patient has been tolerating anastrozole well, her repeat DEXA on 05/16/23 showed that her osteopenia has progressed to osteoporosis. Therefore, I discussed with the patientthat it would be safest to switch her to tamoxifen to prevent further degradation of her bone density and reduce her risk of fracture. The risk of VTE with tamoxifen was discussed as was the risk of e ndometrial cancer, though the patient is s/p hysterectomy. Our goal remains to continue adjuvant endocrine therapy for 5 years through 10/2026. I will see her back in 6 months. # Osteoporosis The patient had a DEXA scan on 05/20/20 that showed osteopenia. Her repeat DEXA on 05/16/23 showed osteoporosis. She has been on Prolia and Fosamax in the past with her PCP. I have switched her to tamoxifen, so she will follow-up with her PCP for management of her osteoporosis going forward. ASSESSMENT AND PLAN: - Stop anastrozole - Start tamoxifen 20 mg daily -- plan for 5years of therapy through 10/2026 - F/u with PCP for management of osteoporosis - Annual mammogram due 02/2024 -- ordered today - Return to clinic in 6 months She knows to call or return at any time with questions or problems. NEW ORDERS TODAY: Return Visit ordered by Artie Lanza on Jan 01, 2024: The following order(s) were created to occurin 6 months: Schedule next visit with (Approved) (Transcribed) Diagnostics ordered by Artie Lanza on Jan 01, 2024: The following order(s) were created to occur in 2 months: Mammogram (Bilateral, Compare to Last, History of left breast cancer) (Approved) (Transcribed) Electronically Reviewed By: Artie Lanza Jan 01, 2024 2:30PM documented in this encounter Plan of Treatment Not on file documented as of this encounter Visit Diagnoses Not on filedocumented in this encounter Care Teams Reimbursement Spec Relationship Specialty Start Date End Date Ortiz Rothman MD [address] [facility] [address] [place] [address] PCP - General 12/03/02 Antonietta Bateman MD [facility] [address] [facility] [address] [place] [address] PCP - CANCER CTR RMD Surgical Oncology 06/09/21 Artei Lanza MD [address] [facility] [address] [place] [address] PCP - Cancer CTR Hematology 06/09/21 Bryce Allison MD, PhD [address] [facility] [address] [place] [phone] 08/25/10 Provider, MD ALONDRA SanchezARE PROVIDER 08/25/10 Valerie Wilkinson MD [facility] [address] [facility] [place] [address] 08/25/10 Yohan Powell MD [address] [facility] [address] [place], [place] [phone] ENT-Otolaryngology 03/15/17 Vandana Walker AUD [address] [place] [phone] Audiology 03/15/17 Geovanna Hughes MD [address] [place] [phone] Internal Medicine 04/01/19 Vandana Whitmore MD [address] [facility] [place] [address] Ophthalmology 08/18/19 Provider, Nithin EPICARE PROVIDER 11/06/19 Rozina Sanders MD [address] [facility] [place] [address] Ophthalmology 12/25/19 Antonietta Bateman MD CORPORATE OFFICE [address], [facility] [address] [place] [address] Surgical Oncology 04/29/21 Dena Beruemn PA-C [address] [place] [address] [address] [place] [address] Oncology 06/13/21 Sangita Holly PA-C [address] [place] [address] [address] [place] [address] General Surgery 06/23/21 Dulce Lara PA-C [address] [place] [address] [address] [place] [address] Surgical Oncology 06/28/22 Elisa Martines PA-C [address] [place] [address] [address] [place] [address] General Surgery 05/25/23 Tanvi Gabriel CRNP [facility] SURG ONC [facility] OFF [address] [facility] [address] [place] [address] General Surgery 07/04/23 Merline Duran MBBS [address] [phone] Internal Medicine 11/17/23 Tono Camarillo MD [address] [facility] [address] [place] [address] Ophthalmology 11/18/23 documented as of this encounter
--- OUTSIDE RECORDS SUMMARY | 2024-10-14 21:57 | XMS_ITS | Encounter Summary ---
Author Organization [facility] Ambulatory Address [address] [place] [address] Phone Care Team Providers Care Safety Lead Name Role Phone Ortiz Rothman MD Primary Care Provider [phone] Bryce Allison MD, PhD Unavailable + [phone] Provider, Abstract MD Unavailable Unavailabl Valerie Orellana MD Unavailable + 00 Yohan Powell MD Unavailable [phone] Vandana Walker Unavailable + Geovanna Hughes MD Unavailable Vandana Whitmore MD Unavailable + Provider, Historical Unavailable Unavailable Rozina Sanders MD Unavailable [phone] Antonietta Bateman MD Unavailable + [phone] Antonietta Bateman MD Unavailable [phone] Artie Lanza MD Unavailable Dena Berumen PA-C Unavailable [phone] Sangita Holly PA-C Unavailable [phone] Dulce Lara PA-C Unavailable [phone] Elisa Martines PA-C Unavailable + Tanvi Gabriel Unavailable [phone] Source Comments This information has been disclosed [...] [facility] Reason for Referral * Radiology - Closed Specialty Diagnoses / Procedures Referred By Antonieta bauman Referred To Contact Diagnoses 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, estrogen receptor positive (HCC) Personal history of breast cancer Encounter for screening mammogram for breast cancer Lobular carcinoma of left breast (HCC) Procedures BI MAMMOGRAM DIGITAL SCREENING WITH TOMOSYNTHESIS BILATERAL Tanvi Gabriel CRNP [facility] OFF [address] [place] [address] [place] [phone] Referral ID Status Reason Start Date Expiration Date Visits Re quested Visits Authorized [id number] Closed 07/04/2023 1 1 Reason for Visit * Reason Comments Wellness Visit Encounter Details Date Type Department Care Team (Late st Contact Info) Description 07/04/2023 9:30 AM EDT Office Visit [facility] [address] [facility] [address] [place] [address] Line Assembly Utility Worker: Irene Arroyo Annmarie, CRNP [facility] OFF [address] [place] [phone] 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, estrogen receptor positive (HCC) (Primary Dx); Personal history of breast cancer; Encounter for screening mammogram for breast cancer; Lobular carcinoma of left breast (HCC) Social History Tobacco Use Types Packs/Day [...] Sign Reading Time Taken Comments Blood Pressure 149/84 07/04/2023 9:42 AM EDT Pulse 61 07/04/2023 9:42 AM EDT Temperature 36 ??C (96.8 ??F) 07/04/2023 9:42 AM EDT Respiratory Rate 16 07/04/2023 9:42 AM EDT Oxygen Saturation 98% 07/04/2023 9:42 AM EDT Inhaled Oxygen Concentration - - Weight 60.3 kg (133 lb) 07/04/2023 9:42 AM EDT Height 160 cm (5' 2.99 ) 07/04/2023 9:42 AM EDT Body Mass Index 23.57 07/04/2023 9:42 AM EDT documented in this encounter Patient Instructions * Patient Instructions* Tanvi Gabriel CRNP - 07/04/2023 9:30 AM EDT Routine screening mammogram due in February 2024. Order placed. Continue follow up with Dr. Lanza as scheduled and continue treatment as prescribed. Continue follow-up with PCP for routine health maintenance including colonoscopy screenings, bone density screening, bloodwork and adult immunizations Return to the [facility] in one year. Continue monthly self breast examinations and yearly clinical breast examinations. Contact our office and return sooner with any new breast complaints or concerns. Continue to eat a well balanced diet, sleep well and exercise daily Imaging scheduling number is [phone] documented in this encounter Progress Notes * Tanvi Gabriel CRNP - 07/04/2023 9:30 AM EDT [facility] Reason for Visit: Annual Wellness Exam Diagnosis: Stage IIA (T2, N0, M0) Infiltrating lobular carcinoma, left breast: ER H-score 250, MD H-score 140, Her2 neg by IHC, Ki-67 10%. (0/4LN) Procedure: Left segmental mastectomy (central lumpectomy) and left sentinel lymph node biopsy at [facility] on 06/01/21. The procedure was performed by Dr. Antonietta Bateman. Medical Oncology: Adjuvant Arimidex initiated in October 2021 and continuing, under the care of Dr.Neal Lanza. Radiation Oncology: Patient completed adjuvant breast radiation [...] 2021 29 Genetics: Not performed to date. Patient may be interested in testing. Pamphlet provided. Updated HPI: Danika Mckeon is a 83 year old female who presents to the [...] continuity of care. Patient is doing well overall. She denies any new breast concerns to include palpable masses, skin retraction, skin discoloration, nipple retraction, or nipple discharge. She continues to experience intermittent left aches/ pains. She tolerates Arimidex without noticeable side effects. Review of Systems with focus on breast [...] Outpatient Medications Marked as Taking for the 07/04/23 encounter (Office Visit) with Tanvi Gabriel CRNP Medication Sig Dispense Refill anastrozole (ARIMIDEX) 1 mg oral tablet TAKE ONE TABLET BY MOUTH DAILY. Same as arimidex cephalexin (KEFLEX) 500 mg oral capsule Take 1 capsule by mouth 4 times daily 40 capsule 0 cholecalciferol, vitamin D3, 50,000 unit oral capsule Take 50,000 units by mouth q 2 weeks 3 SYNTHROID 75 mcg oral tablet Take 75 micrograms by mouth SYNTHROID TABLET 100MCG PO None Entered timoloL maleate (TIMOPTIC) 0.5 % ophthalmic drops INSTILL ONE DROP INTO EACH EYE EVERY MORNING. 10 mL 0 tobramycin-dexamethasone (TOBRADEX) 0.3-0.1 % opht ophthalmic ointment Place into the left eye 2 times a day 3.5 g 0 The patient's allergies, medications, and past medical, surgical and family histories were reviewed. No changes noted at this time. Physical Exam: Vitals:BP 149/84 Pulse 61 Temp 96.8 ??F (36 ??C) (Oral) Resp 16 Ht 5' 2.99 (160 cm) Wt 133 lb (60.3 kg) SpO2 98% BMI 23.57 kg/m?? General Appearance: well appearing, nourished, and [...] no masses. Bilateral breasts are symmetrical. Shehas full UE ROM and no clinical evidence of lymphedema. Diagnostic Imaging: Bialteral screening mammogram on 03-13-23 Results: BI-RADS 2 Benign Recommendation: Routine screening mammogram in 1 year unless otherwise clinically indicated. DEXA 05-16-23, osteoporosis Impression: Danika Mckeon is a 83 year old female with a history of invasive left breast cancer who is 2 years s/p left segmental mastectomy and left SNB. She has no new breast concerns at this time. Physical examination and screening imaging are both benign. There is no evidence of disease at 2 years. Recommendations: Routine screening mammogram due in February 2024. Order placed. Continue follow up with Dr. Lanza as scheduled and continue treatment as prescribed. Continue follow-up with PCP for routine health maintenance including colonoscopy screenings, bone density screening, bloodwork and adult immunizations Return to the [facility] in one year. Continue monthly self breast examinations and yearly clinical breast examinations. Contact our office and return sooner with any new breast complaints or concerns. Continue to eat a well balanced diet, sleep well and exercise daily Imaging scheduling number is [phone] Patient interested in ABCS study for breast pain Patient may be interested in genetics evaluation as her mother had breast cancer at age 45. Total time (szhr-mt-zukv and hsg-ogmx-ux-face) spent on today's visit was 25 minutes. This includedpreparation for the visit (i.e. reviewing test results), performance of a medically appropriate history and examination, and orders for medications, tests or other procedures. This time is exclusive of procedures performed and time spent teaching. The patient verbalized understanding of our discussion. Dr. Johansen was available for consultation during the patient's visit today. documented in this encounter Plan of Treatment Not on file documented as of this encounter Results * BI MAMMOGRAM DIGITAL SCREENING WITH TOMOSYNTHESIS [...] Nathan Callahan on 03/25/2024 9:55 AM Tanvi Gabriel [facility] IMG BI ORDERABLES documented in this encounter Visit Diagnoses Diagnosis 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, estrogen receptor positive (HCC)- Primary Personal history of breast cancer Personal history of malignant neoplasm of breast Encounter for screening mammogram for breast cancer Lobular carcinoma of left breast (HCC) Malignant neoplasm of breast (female), unspecified site documented in this encounter Care Teams Safety Lead Relationship Specialty Start Date End Date Ortiz Rothman MD [address] [facility] [address] [place] [address] PCP - General 12/03/02 Antonietta Bateman MD [facility] Surgical [facility], [facility] [address] [place] [address] PCP - CANCER CTR RMD Surgical Oncology 06/09/21 Artie Lnaza MD [address] [facility] [address] [place] [address] PCP - Cancer CTR Hematology 06/09/21 Bryce Allison MD, PhD [address] [facility] [address] [place] [phone] 08/25/10 ProviderLaura MD [facility] 08/25/10 Valerie Wilkinson MD [facility] [address] [facility] [place] [address] 08/25/10 Yohan Powell MD [address] [facility] [address] [place] [address] ENT-Otolaryngology 03/15/17 Vandana Walker AUD [address] [place] [address] Audiology 03/15/17 Geovanna Hughes MD [address] [place] [phone] Internal Medicine 04/01/19 Vandana Whitmore MD [address] [facility] [place] [address] Ophthalmology 08/18/19 Provider, [facility] 11/06/19 Rozina Sanders MD [address] [facility] [place] [phone] Ophthalmology 12/25/19 Antonietta Bateman MD CORPORATE OFFICE [address], [facility] [address] [place] [address] Surgical Oncology 04/29/21 Dena Berumen PA-C [address] [place] [address] Oncology 06/13/21 Sangita Holly PA-C [address] [place] [address] General Surgery 06/23/21 Dulce Lara PA-C [address] [place] [address] Surgical Oncology 06/28/22 Elisa Martines PA-C [address] [place] [address] [address] [place] [address] General Surgery 05/25/23 Tanvi Gabriel CRNP [facility] OFF [address] [place] [address] [place], [place] [address] [phone] General Surgery 07/04/23 documented as of this encounter
--- OUTSIDE RECORDS SUMMARY | 2024-10-14 21:57 | XMS_ITS | Encounter Summary ---
Author Organization [facility] Ambulatory Address [address] [place] [address] Phone Care Team Providers Care Internal Combustion Engineer Name Role Phone Ortiz Rothman MD Primary Care Provider [phone] Bryce Allison MD, PhD Unavailable + [phone] Provider, Abstract MD Unavailable Unavailabl Valerie Orellana MD Unavailable +- [phone] Yohan Powell MD Unavailable [phone] Vandana Walker Unavailable + Geovanna Hughes MD Unavailable Vandana Whitmore MD Unavailable + Provider, Historical Unavailable Unavailable Rozina Sanders MD Unavailable [phone] Antonietta Bateman MD Unavailable + [phone] Antonietta Bateman MD Unavailable [phone] Artie Lanza MD Unavailable Dena BerumenC Unavailable [phone] Sangita HollyC Unavailable [phone] Dulce LaraC Unavailable Elisa MartinesC Unavailable + Tanvi Gabriel Unavailable [phone] Merline Duran Unavailable [phone] Tono Camarillo [...] sections 2.12(c)(5) and 2.65.[facility] Ambulatory Encounter Details Date Type Department Care Team (Late st Contact Info) Description 01/01/2024 Ambulatory Visit Summary [facility] [address] [facility] [address] [place] [phone] External, Provider MedOnc - After Visit Summary [...] encounter Progress Notes * External, Provider - 01/01/2024 2:30 PM EDT NOTE TYPE = TREATMENT/PROCEDURES DID: [facility] Visit Summary Visit/Patient Information Date & Time Provider Dec 3142:30PM Artie Lanza M.D. Name Date of Danika [...] the earliest start date of the medication. COVID-19 mRNA Vaccine (BeQuan) Intramuscular COVID-19 mRNA Vaccine (BeQuan) Intramuscular COVID-19 mRNA Vaccine (BeQuan) Intramuscular Fluzone Quadrivalent Intramuscular Synthroid (75 mcg) [...] this category. __ Vital Signs Performed on Jan 01, 2024 13:49 Height - 61.75 in (LOW) Weight - 134.6 lbs (LOW) BSA - 1.61 sq.m BMI - 24.82 Temperature - 96.6 F (LOW) Pulse - 65 /min Respiration - 16 /min BP - 133/59 mm(hg) O2 Sat - 99 % Fatigue - 2 Pain - 2 __ Most Recent Labs Most recent lab results are not available for this patient. This link will provide you with access to all Patient Education resources that are available at [email or web address] Prepared By: Barbara Gonzalez Created On: Jan 01, 2024 2:30PM documented in this encounter Plan of Treatment Not on file documented as of this encounter Visit Diagnoses Not on filedocumented in this encounter Care Teams Internal Combustion Engineer Relationship Specialty Start Date End Date Ortiz Rothman MD [address] [facility] [address] [place] [id number] PCP - General 12/03/02 Antonietta Bateman MD [facility], [facility] [address] [facility] [address] [place] [address] PCP - CANCER CTR RMD Surgical Oncology 06/09/21 Artie Lanza MD [address] [facility] [address] [place] [address] PCP - Cancer CTR Hematology 06/09/21 Bryce Allison MD, PhD [address] [place] [address] [address] [place] [phone] 08/25/10 ProviderLaura MD [facility] PROVIDER 08/25/10 Valerie Wilkinson MD [facility] [address] [facility] [place] [address] 08/25/10 Yohan Powell MD [address] [facility] [address] [place] [address] ENT-Otolaryngology 03/15/17 Vandana Walker, HELLEN [address] [place] [phone] Audiology 03/15/17 Geovanna Hughes MD [address] [address] Internal Medicine 04/01/19 Vandana Whitmore MD [address] [facility] [place] [address] Ophthalmology 08/18/19 Provider, Historical [facility] PROVIDER 11/06/19 Rozina Sanders MD [address] [facility] [place] [phone] Ophthalmology 12/25/19 Antonietta Bateman MD CORPORATE OFFICE [address], [facility] [address] [place] [address] Surgical Oncology 04/29/21 Dena Berumen PA-C [address] [facility] [address] [place] [address] Oncology 06/13/21 Sangita Holly PA-C [address] [facility] [address] [place] [address] General Surgery 06/23/21 Dulce Lara PA-C [address] [facility] [address] [place] [address] Surgical Oncology 06/28/22 Elisa Martines PA-C [address] [facility] [address] [place] [address] General Surgery 05/25/23 Tanvi Gabriel CRNP [facility] SUR[facility]C [facility] OFF [address] [facility] [address] [place] [phone] General Surgery 07/04/23 Merline Duran MBBS [address] [phone] Internal Medicine 2/3/24 Tono Camarillo MD [address] [place] [address] Ophthalmology 11/18/23 documented as of this encounter
--- OUTSIDE RECORDS SUMMARY | 2024-10-14 21:57 | XMS_ITS | Continuity of Care Document ---
Author Organization [facility] Address [address] [place] [address]- Care Team Providers Care Associate Professor Of Literacy Name Role Phone BERENICE ROBERTO Primary Care Physician [phone] Encounter EPICFIN [id number] Date(s): 03/07/24 - 03/07/24 [facility] [address] [place] [address]- Admitting Physician: BERENICE ROBERTO MD Referring Physician: BERENICE ROBERTO MD Allergies, Adverse Reactions, Alerts Substance Reaction [...] Personnel Name: PARDEEP BLAKELY, BERENICE Friedman Position: Physician/Home Visitor [employer] (Meds) Member Role: Primary Care Physician Address: Address: [address] [place] [address] SUITE [facility] [place] [address]- [facility] Care Team Related Persons Name: AMOR SMALL Address: [address] [place] [address]
--- OUTSIDE RECORDS SUMMARY | 2024-10-14 21:57 | XMS_ITS | Encounter Summary ---
Author Organization [facility] work ([facility]) Address [address] [address] Care Team Providers Care Clerk Carrier Name Role Phone Ortiz Rothman Primary Care Provider [phone] Source Comments The information that you have received may contain highly confidential and/or federally protected health information. This information has been disclosed to you from records protected by [employer]. The law prohibits you from making any [...] contact the sender immediately.[facility] ([facility]) Reason for Visit * Reason Comments Lt jaw pain States woke last nig ht with pain in her Lt jaw. States today is having difficulty chewing-drinking liquids ok. Encounter Details Date Type Department Care Team (Late st Contact Info) Description 08/12/2023 11:55 AM EDT - 08/12/2023 12:19 PM EDT Emergency [facility] Emergency Dept [address] [place] [address] Shamar Billingsley DO [address] [place], [place] [phone] Lakeisha Barlow, instructional facilitator Disposition: Home or Self Care Social History Tobacco Use Types Packs/Day Years [...] by your doctor? Not on file 02/25/2022 Sex and Gender Information Value Date Recorded [...] - - Body Mass Index - - documented in this encounter Discharge Instructions * Attachments The following attachments cannot be sent through Care Everywhere. * Temporomandibular Joint Syndrome (Dutch) documented in this encounter Medications at Time of Discharge Medication Sig Dispensed Refills Start Date End Date anastrozole (ARIMIDEX) 1 mg tablet TAKE ONE TABLET BY MOUTH DAILY. SAME ARIMIDEX 06/04/2023 levothyroxine (Synthroid) 100 MCG tablet Take by mouth . losartan (COZAAR) 25 MG tablet Take 1 tablet (25 mg total) by mouth daily . 08/02/2023 timolol (TIMOPTIC) 0.5 % ophthalmic solution INSTILL 1 DROP INTO EACH EYE EVERY MORNING 05/08/2023 documented as of this encounter Discharge Disposition Disposition Code Departure Means Destination Home or Self Half-Way documented in this encounter ED Notes * Shamar Billingsley DO - 08/12/2023 12:17 PM EDT EMERGENCY DEPARTMENT ENCOUNTER CHIEF COMPLAINT Chief Complaint Patient presents with ??? Lt jaw pain States woke last night with pain in her Lt jaw. States today is having difficulty chewing-drinking liquids ok. HPI Danika Mckeon is a 83 y.o. female presents with left-sided jaw pain near her ear that she noticed a little last night much more so this morning. Patient denies any sort of trauma. She tells me the pain her TMJ area on the left side. When asked about which she has recently eaten a her, the patient tellsme she had a large Holy for dinner last night. She tells me was very large and she really had open her mouth wide to bite and she would. She thinks she may have strained in doing so. She has never been told that she grinds her teeth. There is no radiation of the pain. It is made worse with opening and closing of her jaw. No ear pain. No other complaints. PAST MEDICAL HISTORY Past Medical History: Diagnosis Date ??? Cancer (HCC) ??? Disease of thyroid gland ??? Hypertension SURGICAL HISTORY History reviewed. No pertinent surgical history. CURRENT MEDICATIONS No current facility-administered medications for this encounter. Current Outpatient Medications Medication Sig Dispense Refill ??? anastrozole (ARIMIDEX) 1 mg tablet TAKE ONE TABLET BY MOUTH DAILY. SAME ARIMIDEX ??? levothyroxine (Synthroid) 100 MCG tablet Take by mouth . ??? losartan (COZAAR) 25 MG tablet Take 1 tablet (25 mg total) by mouth daily . ??? timolol (TIMOPTIC) 0.5 % ophthalmic solution INSTILL 1 DROP INTO EACH EYE EVERY MORNING ALLERGIES No Known Allergies FAMILY HISTORY History reviewed. No pertinent family history. SOCIAL HISTORY Social History Socioeconomic History ??? Marital status: Tobacco Use ??? Smoking status: Never ??? Smokeless tobacco: Never Substance and Sexual Activity ??? Alcohol use: Yes Comment: daily REVIEW OF SYSTEMS General: AAO x 3, No acute distress Constitutional: Afebrile, Non-toxic, No recent weight loss Neurological: No headache HEENT: As per HPI Pulmonary: No dyspnea, coughing Cardiac: No chest pain, palpitations Gastrointestinal: No abdominal pain, N/V/D : No hematuria, dysuria Musculoskeletal: No unusual muscle aches, joint pains Skin: No rashes Psychiatric: No anxiety/depression* PHYSICAL EXAM General: Awake and alert, interactive, NAD Head: NC/AT, tenderness to palpation over the left TMJ. This is worse with opening and closing of the mouth Eyes: PERRL, anicteric sclera Ears: Normal external appearance, normal appearing left tympanic membrane Nose: Clear nares without d/c Throat: MMM, patent oropharynx, No tonsillar enlargement, erythema, exudates Neck: Midline trachea, No masses, No adenopathy Cardiac: Reg. rate Lungs: Nonlabored Abdomen: defer Extremities: No peripheral edema Skin: No rashes Neuro: CN II-XII grossly intact, clear speech, No motor deficits Psych: Normal affect, No excessive anxiety ED COURSE & MEDICAL DECISION MAKING Patient is hemodynamically stable and in no severe distress. Patient's signs and symptoms are consistent with a temporomandibular joint arthralgia on the left side. I have asked the patient to eat only soft foods over the next couple days. She refused any pain medication and just going to take Motrin [id number]. She will follow-up with her primary physician the next couple days. She was disc harged in stable condition. Medications - No data to display Labs Reviewed - No data to display No results found. CLINICAL IMPRESSION Problem List Items Addressed This Visit None Visit Diagnoses Arthralgia of left temporomandibular joint - Primary Shamar Billingsley DO 08/12/23 1220 documented in this encounter Plan of Treatment Not on file documented as of this encounter Visit Diagnoses Diagnosis Arthralgia of left temporomandibular joint- Primary documented in this encounter Historical Medications * This list may reflect changes made after this encounter. Medication Sig Dispensed Refills Start Date End Date timolol (TIMOPTIC) 0.5 % ophthalmic solution INSTILL 1 DROP INTO EACH EYE EVERY MORNING 05/08/2023 losartan (COZAAR) 25 MG tablet Take 1 tablet (25 mg total) by mouth daily . 08/02/2023 anastrozole (ARIMIDEX) 1 mg tablet TAKE ONE TABLET BY MOUTH DAILY. SAME ARIMIDEX 06/04/2023 levothyroxine (Synthroid) 100 MCG tablet Take by mouth . added in this encounter Care Teams Clerk Carrier Relationship Specialty Start Date End Date Ortiz Rothman [address] [facility] [address] [place] [phone] PCP - General Internal Medicine 08/12/23 documented as of this encounter
--- OUTSIDE RECORDS SUMMARY | 2024-10-14 21:57 | XMS_ITS | Clinical Summary ---
Author Organization [facility] work ([facility]) Address [address] [address] Care Team Providers Care Salon Stylist Name Role Phone JuliOrtiz gayle Primary Care Provider [phone] Source Comments The information that you have received may contain highly confidential and/or federally protected health information. This information has been disclosed to you from records protected by [facility]. The law prohibits you from making [...] information in error, please contact the sender immediately.[facility] ([facility]) Allergies No known active allergies [...] mRNA (PF) (Pfizer, 2 dose series) 08/26,12/20/2020,12/02/2020 Medical History Medical History Date Comments Hypertension Disease of thyroid gland Cancer (HCC) Social History Tobacco Use Types Packs/Day [...] Recorded In the past 12 months has [employer]UC[employer], [employer], or water [employer] threatened to shut off services in your home? Not on file 09/27/2023 Sex and Gender Information Value Date Recorded Sex Assigned at Not on file Gender Identity Not on file Sexual Orientation Not on file Obstetrics History Last Filed Vital Signs Vital Sign Reading [...] Mass Index - - Plan of Treatment Health Maintenance Due Date Last Done Comments MEDICARE ANNUAL WELLNESS VISIT 1940 PRE-DIABETES SCREENING 1940 Depression Screen 1953 Social Determinants of Health 1959 ZOSTER VACCINE (1 of 2) 1991 DXA SCAN 2006 Pneumococcal Vaccine: 65+ Years (1 of 1 - PCV) 2006 DTaP/Tdap/Td Vaccines (1 - Tdap) 08/17/2007 08/16/2007 RSV Vaccine: Adults (60 yrs and older) and Patients (1 - 1-dose 75+ series) 01/31/2016 COVID-19 Vaccine ( - 2023-2 5 season) 2024 08/26/2021, 12/20/2020, 12/02/2020 INFLUENZA VACCINES (#1) 2024 ROTAVIRUS VACCINES Aged Out No longer eligible based on patient's age to complete this topic Care Teams Salon Stylist Relationship Specialty Start Date End Date Ortiz Rothman [address] [facility] [address] [place] [phone] PCP - General Internal Medicine 08/12/23
--- OUTSIDE RECORDS SUMMARY | 2024-10-14 21:58 | XMS_ITS | Encounter Summary ---
Author Organization [facility] Ambulatory Address [address] [place] [address] Phone Care Team Providers Care Suction Plate Roller Hand Name Role Phone Ortiz Rothman MD Primary Care Provider [phone] Bryce Allison MD, PhD Unavailable + [phone] Provider, Abstract MD Unavailable Unavailabl Valerie Orellana MD Unavailable [phone] Yohan Powell MD Unavailable [phone] Vandana Walker Unavailable [phone] Geovanna Hughes MD Unavailable Vandana Whitmore MD Unavailable +[phone] Provider, Historical Unavailable Unavailable Rozina Sanders MD Unavailable [phone] Antonietta Bateman MD Unavailable [phone] Source Comments This information has been disclosed [...] except as provided at sections 2.12(c)(5) and 2.65.[facility] Ambulatory Reason for Visit * Reason Comments Follow-Up referred by DR. TUAN GEE for eval. of tear ducts/dryness Encounter Details Date Type Department Care Team (Late st Contact Info) Description 05/03/2021 8:30 AM EDT Office Visit [facility] Rule [address] [facility] 6th [place] [address] Founder And Chief Executive Officer: Sheyla Quintanilla, Vandana Bates MD [address] [facility] [place], [place] [id number] Thyroid eye disease (Primary Dx) Social History Tobacco Use Types [...] as of this encounter Progress Notes * Kenny Dior - 05/03/2021 8:30 AM EDT 81 yo F here for f/u. Has been having left eye redness for the past two years as well as itching ofleft eye. Also recently had chalazion left lower lid that is resolved. Currently taking timolol forglaucoma, has not been using artificial tears or warm compresses or lid scrubs. Denies lagophthalmos when sleeping. Thyroid has been stable since last visit. Of note, recently diagnosed with breast cancer. Impression/Plan: Dermatochalasis, OU - s/p upper lid blepharoplasty 12/17/19 - good result Lower lid ectropion and laxity OS - likely contributing to eye irritation and redness - patient slightly more proptotic OS and also not symptomatic OD - discussed options with patient, would recommend small temporal tarsorrhaphy in minor procedure - patient will get back to us once make arrangement for breast cancer treatment - in meantime, recommend lubrication Graves disease - mild proptosis since her 30s, not requiring surgery - s/p radio-iodine treatment - stable/monitor MGD/Blepharitis - Discussed lid scrubs, warm compresses as per Dr. Allison POAG - Currently on timolol, continue f/u with Dr. Allison * Vandana Whitmore MD - 05/03/2021 8:30 AM EDT I have reviewed the fellow/resident's findings and interpretations and agree and have linked my note. I have discussed the findings with the patient. Vandana Whitmore MD documented in this encounter Nursing Notes * Linda Galeana - 05/03/2021 8:30 AM EDT 81 y/o female presents for referred by DR. ALLISON for eval. of tear ducts/dryness. She was formallydiagnosed with breast cancer yesterday. Pt. denies ocular pain/discomfort/pressure, headache, diplopia, no new flashes/floaters, no tearing/discharge/matting. She notes itchy,red eyes also OS>OD. 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 documented in this encounter Care Teams Suction Plate Roller Hand Relationship Specialty Start Date End Date Ortiz Rothman MD [address] [facility] [address] [place] [id number] PCP - General 12/03/02 Bryce Allison MD, PhD [address] [place] [address] D, [address] [place] [phone] 08/25/10 Provider, MD Laura EPICARE PROVIDER 08/25/10 Valerie Wilkinson MD [facility] [address] [facility] [place] [address] 08/25/10 Yohan Powell MD [address] [place] [address] [address] [place] [address] ENT-Otolaryngology 03/15/17 Vandana Walker AUD [address] [place] [phone] Audiology 03/15/17 Geovanna Hughes MD [address] [phone] Internal Medicine 04/01/19 Vandana Whitmore MD [address] [facility] [place] [address] Ophthalmology 08/18/19 Provider, Historical EPICARE PROVIDER 11/06/19 Rozina Sanders MD [address] [facility] [place] [phone] Ophthalmology 12/25/19 Antonietta Bateman MD CORPORATE OFFICE [address], [facility] [address] [place] [address] Surgical Oncology 04/29/21 documented as of this encounter
--- OUTSIDE RECORDS SUMMARY | 2024-10-14 21:58 | XMS_ITS | Encounter Summary ---
Author Organization [facility] Ambulatory Address [address] [place] [address] Phone Care Team Providers Care Asset Management Analyst Name Role Phone Ortiz Rothman MD Primary Care Provider [phone] Bryce Allison MD, PhD Unavailable +[phone] Provider, Abstract MD Unavailable Unavailabl Valerie Orellana MD Unavailable [phone] Yohan Powell MD Unavailable [phone] Vandana Walker Unavailable [phone] Geovanna Hughes MD Unavailable Vandana Whitmore MD Unavailable +[phone] Provider, Historical Unavailable Unavailable Rozina Sanders MD Unavailable [phone] Source Comments This information has been disclosed [...] as provided at sections 2.12(c)(5) and 2.65.[facility] Ambulatory Encounter Details Date Type Department Care Team (Late st Contact Info) Description 04/15/2021 Imaging EXTERNAL DEPARTMENT [address] [place] [address] [employer], Provider Social History Tobacco Use Types Packs/Day Years [...] Procedure Name Priority Date/Time Associated Diagnosis Comments BI US BIOPSY BREAST NEEDLE CORE W CLIP PLACEMENT W/WO IMAGING LEFT Routine 04/15/2021 9:20 AM EDT documented in this encounter Results * BI US BIOPSY BREAST NEEDLE CORE W CLIP PLACEMENT W/WO IMAGING LEFT (04/15/2021 9:20 AM EDT) Anatomical Region Laterality Modality Other 04/15/2021 9:20 AM EDT Impressions 04/15/2021 9:36 AM EDT Uncomplicated left breast ultrasound guided core biopsy and clip placement is performed. RECOMMENDATION Final recommendations are pending pathology. Narrative 04/15/2021 9:36 AM EDT Addendum Begins Original report by Dr. Sales. Addendum by Dr. Krishnan. The results for ultrasound-guided core biopsy 5:00 left breast have returned as invasive lobular carcinoma, ER positive, MO positive, H ER-2/kam negative with the low Ki-67 (10%). These results are concordant with imaging findings. Surgical consultation with consideration to MRI for extent of disease is recommended. These findings and follow-up recommendations will be provided to the patient by the breast imaging nurse. Addendum Ends CLINICAL HISTORY: The patient presents for ultrasound-guided core biopsy of a suspicious mass in the 5:00 retroareolar left breast. PROCEDURE: The patient was positively identified and a time-out procedure was performed. Laterality was confirmed. After all questions were answered, written informed consent was obtained for left breast ultrasound guided core biopsy and clip placement. The mass in the 5:00 retroareolar left breast identified on the diagnostic US dated 04/07/2021 is again identified today and is targeted for biopsy. Standard sterile technique was utilized. Under sonographic guidance using 10 cc of 1% Xylocaine for local anesthetic the mass was sampled using a 14-gauge biopsy device. 5 samples were obtained directly through the mass from a lateral approach and the samples submitted to Surgical pathology. A butterfly-shaped hydro-Jorge clip was placed in the mass. The patient tolerated the procedure well. Estimated blood loss is less than 1 mL. Following the procedure, CC and 90 radiographs show the clip to be in expected location. Procedure Note Nita Sales MD - 04/21/2021 Addendum Begins Original report by Dr. Sales. Addendum by Dr. Krishnan. The results for ultrasound-guided core biopsy 5:00 left breast have returned as invasive lobular carcinoma, ER positive, MO positive, H ER-2/kam negative with the low Ki-67 (10%). These results are concordant with imaging findings. Surgical consultation with consideration to MRI for extent of disease is recommended. These findings and follow-up recommendations will be provided to the patient by the breast imaging nurse. Addendum Ends CLINICAL HISTORY: The patient presents for ultrasound-guided core biopsy of a suspicious mass in the 5:00 retroareolar left breast. PROCEDURE: The patient was positively identified and a time-out procedure was performed. Laterality was confirmed. After all questions were answered, written informed consent was obtained for left breast ultrasound guided core biopsy and clip placement. The mass in the 5:00 retroareolar left breast identified on the diagnostic US dated 04/07/2021 is again identified today and is targeted for biopsy. Standard sterile technique was utilized. Under sonographic guidance using 10 cc of 1% Xylocaine for local anesthetic the mass was sampled using a 14-gauge biopsy device. 5 samples were obtained directly through the mass from a lateral approach and the samples submitted to Surgical pathology. A butterfly-shaped hydro-Jorge clip was placed in the mass. The patient tolerated the procedure well. Estimated blood loss is less than 1 mL. Following the procedure, CC and 90 radiographs show the clip to be in expected location. IMPRESSION Uncomplicated left breast ultrasound guided core biopsy and clip placement is performed. RECOMMENDATION Final recommendations are pending pathology. Ortiz Rothman MD IMG BI ORDERABLES documented in this encounter Visit Diagnoses Not on filedocumented in this encounter Care Teams Asset Management Analyst Relationship Specialty Start Date End Date Ortiz Rothman MD [address] [facility] [address] [place] [address] PCP - General 12/03/02 Bryce Allison MD, PhD [address] [facility] D, [address] [place] [address] 08/25/10 Provider, MD Laura [facility] 08/25/10 Valerie Wilkinson MD [facility] [address] [facility] [place] [address] 08/25/10 Yohan Powell MD [address] [place] [address] [address] [place] [address] ENT-Otolaryngology 03/15/17 Vandana Walker AUD [address] [place] [phone] Audiology 03/15/17 Geovanna Hughes MD [address] [place] [phone] Internal Medicine 04/01/19 Vandana Whitmore MD [address] [place] [address] [place] [address] Ophthalmology 08/18/19 Provider, Historical EPICARE PROVIDER 11/06/19 Rozina Sanders MD [address] [facility] [place] [address] Ophthalmology 12/25/19 documented as of this encounter
--- OUTSIDE RECORDS SUMMARY | 2024-10-14 21:58 | XMS_ITS | Encounter Summary ---
Author Organization [facility] Ambulatory Address [address] [place] [address] Phone Care Team Providers Care Flooring Grader Name Role Phone Ortiz Rothman MD Primary Care Provider [phone] Bryce Allison MD, PhD Unavailable +[phone] Provider, Abstract MD Unavailable Unavailabl e Valerie Wilkinson MD Unavailable [phone] Yohan Powell MD Unavailable [phone] Vandana Walker Unavailable [phone] Geovanna Hughes MD Unavailable Vandana Whitmore MD Unavailable +[phone] Provider, Historical Unavailable Unavailable Source Comments This information has [...] at sections 2.12(c)(5) and 2.65.[facility] Ambulatory Encounter Details Date Type Department Care Team (Late st Contact Info) Description 12/17/2019 OP Report EXTERNAL DEPARTMENT [address] [place] [address] Vandana Whitmore MD [address] [facility] [place] [address] Operative Note Social History Tobacco Use Types Packs/Day Years Used Date Smoking Tobacco: Never Smokeless Tobacco: Never Alcohol Use Standard Drinks/Week Comments Yes 0 (1 standard drink = 0.6 oz pur e alcohol) socially Sex and Gender Information Value Date Recorded Sex Assigned at Not on file Gender Identity Not on file Sexual Orientation Not on file documented as of this encounter Progress Notes * Vandana Whitmore MD - 12/17/2019 5:32 PM EST Operative Note Template: [facility] Patient: DANIKA MCKEON Age: 79 years Sex: Female : 1940 Associated Diagnoses: None Author: VANDANA WHITMORE MD Operative Information PATIENT NAME: DANIKA MCKEON FIN: [phone] SURGERY START: 12/17/19 15:30 SURGERY STOP: 12/17/19 16:10 PRE-OP DIAGNOSIS: same POST-OP DIAGNOSIS: dermatochalasis PRIMARY SURGEON: VANDANA WHITMORE MD METER READER CHIEF(S): RONEN RIOJAS Resident, Surgical PROCEDURE: [id number] BLEPHAROPLASTY (primary), Bilateral ANESTHESIA: MAC SPECIMENS: None TUBES AND DRAINS: None ATTENDEE(S): SHERRIE BLAKELY, JEWEL Vicente Anesthesiologist, Primary LASCHARLEY BEHAVIOR CLINICIAN, ORIANA ALARCON, Primary Operative Note Operative Details Findings: No Significant Findings. After informed consent, the patient was identified. The patient was taken to the operating room andwas prepped and draped in usual sterile fashion appropriate for oculoplastic surgery. Calipers and smooth forceps were used to determine the area of skin to be resected - following the eyelid crease and extending superiorly to the extent that would not cause exposure of the cornea when the patient closes her eyes. The upper eyelids were marked with a marking pen to outline the area of skin to be resected. 2% lidocaine with 1:100,000 epinephrine was injected subcutaneously in both upper eyelids.A #15 blade was used to incise the skin along the line previously marked. Iris scissors were used to excise this area of skin on each upper eyelid. Bipolar cautery was used to obtain hemostasis. Monopolar cautery was used to open the septum medially. An area of orbital fat was resected from each eyelid, including parts of the middle and medial fat pads, after injection with local. the levator wasvisualized and avoided. this was done without anterior traction except with a qtip, and used a monopolar disposable cautery. Again, hemostasis was achieved using bipolar cautery. The skin was closed using 7.0 prolene suture. Tobradex and xeroform gauze were applied to the incisions OU. Two clean, dry 4x4's were placed over the incisions and an ice pack was applied to the patient's eyelids. The patient was taken to the PACU in stable condition. Postoperative Information Estimated Blood Loss: Minimal. Complications: None. Professional Services Attending Attestation: I personally performed the jesus portions and was immediately available for the non-jesus portions. Perform - Completed by VANDANA WHITMORE MD (on 12/18/2019 17:34) Sign - Completed by VANDANA WHITMORE MD (on 12/18/2019 17:34) VERIFY - Completed by VANDANA WHITMORE MD (on 12/18/2019 17:34) documented in this encounter Plan of Treatment Not on file documented as of this encounter Visit Diagnoses Not on filedocumented in this encounter Care Teams Flooring Grader Relationship Specialty Start Date End Date Ortiz Rothman MD [address] [facility] [address] [place] [address] PCP - General 12/03/02 Bryce Allison MD, PhD [address] [facility] [address], [address] [place] [phone] 08/25/10 Provider, Laura, EPICARE PROVIDER 08/25/10 Valerie Wilkinson MD [facility] [address] [facility] [place] [address] 08/25/10 Yohan Powell MD [address] [place] [address] ENT-Otolaryngology 03/15/17 Vandana Walker AUD [address] [place] [phone] Audiology 03/15/17 Geovanna Hughes MD [address] [place] [phone] Internal Medicine 04/01/19 Vandana Whitmore MD [address] [place] [address] [place] [address] Ophthalmology 08/18/19 Provider, Historical EPICARE PROVIDER 11/06/19 documented as of this encounter
--- OUTSIDE RECORDS SUMMARY | 2024-10-14 21:58 | XMS_ITS | Encounter Summary ---
Author Organization [facility] Ambulatory Address [address] [place] [address] Phone Care Team Providers Care Environmental Studies Faculty Member Name Role Phone Ortiz Rothman MD Primary Care Provider [phone] Bryce Allison MD, PhD Unavailable [phone] Provider, Abstract Unavailable Unavailabl e Valerie Wilkinson MD Unavailable [phone] Yohan Powell MD Unavailable [phone] Vandana Walker Unavailable [phone] Geovanna Hughes MD Unavailable Source Comments This information has [...] sections 2.12(c)(5) and 2.65.[facility] Ambulatory Reason for Visit * Reason Comments Follow-Up Encounter Details Date Type Department Care Team (Late st Contact Info) Description 04/01/2019 3:15 PM EDT Office Visit [facility] [address] [facility] 1st [place] [address] Ski Lift Mechanic: Valerie Purcell Evan L, MD, PhD [address] [facility], [facility] [address] [place] [address] Benign lesion of eyelid (Primary Dx) Social History Tobacco Use Types Packs/Day Years Used Date Smoking Tobacco: Never Alcohol Use Standard Drinks/Week Comments Yes 0 (1 standard drink = 0.6 oz pur e alcohol) socially Sex and Gender Information Value Date Recorded Sex Assigned at Not on file Gender Identity Not on file Sexual Orientation Not on file documented as of this encounter Progress Notes * Bryce Allison MD, PhD - 04/01/2019 3:15 PM EDT I supervised the procedure documented in this encounter Procedure Notes * Bryce Allison MD, PhD - 04/01/2019 3:15 PM EDT Patient, site and side positively identified for Danika Mckeon I have personally discussed the risks, benefits and alternatives of the procedure with Ms. Mckeon. sheappears to understand and wishes to proceed. 3 skin tags removed around eyelids local anesthesia tolerated well no complications dress with maxitrol for 4 days f/u as schedule for comprehensive exam documented in this encounter Nursing Notes * Kerrie Briseno - 04/01/2019 3:15 PM EDT Last seen 03/17/19 79 yo female patient here for nodule removal Patient notes no significant change to vision. No pain or discomfort Constitutional: denies fatigue, fever, chills, weight change Cardiovascular: denies syncope, chest pain, palpitations Respiratory: no cough, exertional dyspnea, orthopnea or PND Gastrointestinal: no abdominal pain, nausea, vomiting, constipation or diarrhea Genitourinary: no dysuria, hematuria, flank pain Musculoskeletal: no muscle or joint pains or weakness OPTICIAN APPRENTICE DISPENSING: denies headaches, seizures, vertigo ENT: no dysphagia, rhinitis, pharyngitis Integumentary: no rashes or pruritis Psychiatric: no depression, anxiety, mood disorders Endocrine: no heat/cold intolerance, polydipsia Hematologic/Lymphatic: no bruising, blood clots, anemia documented in this encounter Plan of Treatment Scheduled Orders Name Type Priority Associated Diagnoses Orde r Schedule EXCISION BENIGN LESION: EYELIDS, FACE, NOSE <0.5 CM Eye Procedure Routine Benign lesion of eyelid Ordered: 04/02/2019 documented as of this encounter Visit Diagnoses Diagnosis Benign lesion of eyelid- Primary Unspecified disorder of eyelid documented in this encounter Care Teams Environmental Studies Faculty Member Relationship Specialty Start Date End Date Ortiz Rothman MD [address] [facility] [address] [place] [address] PCP - General 12/03/02 Bryce Allison MD, PhD [address] [place] [address], [facility] [address] [place] [phone] 08/25/10 ProviderLaura MD [facility] PROVIDER 08/25/[address] [facility] [address] [facility] [place] [address] 08/25/10 Yohan Powell MD [address] [place] [phone] ENT-Otolaryngology 03/15/17 Vandana Walker [address] [place] [phone] Audiology 03/15/17 Geovanna Hughes MD [address] [place] [phone] Internal Medicine 04/01/19 documented as of this encounter
--- OUTSIDE RECORDS SUMMARY | 2024-10-14 21:58 | XMS_ITS | Encounter Summary ---
Author Organization [facility] Ambulatory Address [address] [place] [address] Phone Care Team Providers Care Repeater Chief Name Role Phone Ortiz Rothman MD Primary Care Provider [phone] Bryce Allison MD, PhD Unavailable + [phone] Provider, Abstract Unavailable Unavailabl e Valerie Wilkinson MD Unavailable [phone] Yohan Powell MD Unavailable [phone] Vandana Walker Unavailable [phone] Geovanna Hughes MD Unavailable Source Comments This [...] except as provided at sections 2.12(c)(5) and 2.65.[facility] Ambulatory Encounter Details Date Type Department Care Team (Late st Contact Info) Description 06/24/2019 9:00 AM EDT Testing Visit [facility] Vision [place] [address] [place] [phone] [employer] Exchange Administrator: Konstantinbrook Kerrie Primary open angle glaucoma (POAG) of both eyes, mild stage Social History Tobacco Use Types Packs/Day Years Used Date Smoking Tobacco: Never Alcohol Use Standard Drinks/Week Comments Yes 0 (1 standard drink = 0.6 oz pur e alcohol) socially Sex and Gender Information Value Date Recorded Sex Assigned at Not on file Gender Identity Not on file Sexual Orientation Not on file documented as of this encounter Nursing Notes * Federico Qureshi - 06/24/2019 9:00 AM EDT Oct done documented in this encounter Plan of Treatment Not on file documented as of this encounter Procedures Procedure Name Priority Date/Time Associated Diagnosis Comments VAN 24-2 VISUAL FIELD Routine 06/24/2019 8:37 AM EDT Primary open angle glaucoma (POAG) of both eyes, mild stage documented in this encounter Results * VAN 24-2 VISUAL FIELD (06/24/2019 8:37 AM EDT) MD (OD) FORUM RESULTS MD (OS) FORUM RESULTS PSD (OD) FORUM RESULTS PSD (OS) FORUM RESULTS GHT (OD) FORUM RESULTS GHT (OS) FORUM RESULTS RELIABILITY (OD) FORUM RESULTS RELIABILITY (OS) FORUM RESULTS VFI (OD) FORUM RESULTS VFI (OS) FORUM RESULTS GPA (OD) FORUM RESULTS GPA (OS) FORUM RESULTS FIXATION LOSSES FORUM RESULTS FALSE POS ERRORS FORUM RESULTS FALSE NEG ERRORS FORUM RESULTS 06/24/2019 8:37 AM EDT Impressions FORUM RESULTS - 06/24/2019 8:37 AM EDT HVF 24-2 OU OD - good study, superior arcuate scotoma OS - good study, wnl Consistent with previous study Plan to repeat in one year Narrative FORUM RESULTS - 06/24/2019 8:37 AM EDT See linked image. Bryce Allison MD, PhD EYE TESTING FORUM RESULTS documented in this encounter Visit Diagnoses Diagnosis Primary open angle glaucoma (POAG) of both eyes, mild stage documented in this encounter Care Teams Repeater Chief Relationship Specialty Start Date End Date Ortiz Rothman MD [address] [facility] [address] [place] [address] PCP - General 12/03/02 Bryce Allison MD, PhD 1400 [facility] D, [address] [place] [address] 08/25/10 Provider, Laura, MD BOOKER PROVIDER 08/25/10 Valerie Wilkinson MD [facility] [address] [facility] [place] [address] 08/25/10 Yohan Powell MD [address] [place] [address] [place] [address] ENT-Otolaryngology 03/15/17 Vandana Walker, HELLEN [address] [place] [address] Audiology 03/15/17 Geovanna Hughes MD [address] [address] Internal Medicine 04/01/19 documented as of this encounter
--- OUTSIDE RECORDS SUMMARY | 2024-10-14 21:58 | XMS_ITS | Encounter Summary ---
Author Organization [facility] Ambulatory Address [address] [place] [address] Phone Care Team Providers Care Aquatics Coordinator Name Role Phone Ortiz Rothman MD Primary Care Provider [phone] Bryce Allison MD, PhD Unavailable + [phone] Provider, Abstract MD Unavailable Unavailabl Valerie Orellana MD Unavailable [phone] Yohan Powell MD Unavailable [phone] Vandana Walker Unavailable [phone] Geovanna Hughes MD Unavailable Vandana Whitmore MD Unavailable [phone] Provider, Historical Unavailable Unavailable Rozina Sanders MD Unavailable [phone] Antonietta Bateman MD Unavailable Source Comments This information has [...] except as provided at sections 2.12(c)(5) and 2.65.[facility] Ambulatory Encounter Details Date Type Department Care Team (Late st Contact Info) Description 06/01/2021 OP Report EXTERNAL DEPARTMENT [address] [place] [address] Antonietta Bateman MD CORPORATE OFFICE [place] [address] [facility] [facility] [place] [address] SurgOnc-Operative Social History Tobacco Use Types Packs/Day Years [...] as of this encounter Progress Notes * Antonietta Bateman MD - 06/01/2021 11:07 AM EDT left palp guided SM SLNBX: [facility] Patient: DANIKA MCKEON Age: 81 years Sex: Female : 1940 Associated Diagnoses: None Author: ANTONIETTA BATEMAN MD Operative Information PATIENT NAME: DANIKA MCKEON FIN: [phone] SURGERY START: 06/01/21 09:58 SURGERY STOP: PRE-OP DIAGNOSIS: LEFT BREAST CANCER POST-OP DIAGNOSIS: LEFT BREAST CANCER PRIMARY SURGEON: ANTONIETTA BATEMAN MD FOUNDATION RELATIONS MANAGER(S): None PROCEDURE: MASTECTOMY SEGMENTAL (primary), Left Comment: PALPATION GUIDED BIOPSY SENTINEL NODE, Left Comment: TC 99 INJECTION AT 9:48 ANESTHESIA: General SPECIMENS: 1. LEFT PALPATION GUIDED CENTRAL LUMPECTOMY MARGIN MAP 2. LEFT AX SNB 1 BLUE 335 3. LEFT AX SNB 2 BLUE 900 4. LEFT AX SNB 3 560 BLUE 5. LEFT AX SNB 4 850 BLUE 6. LEFT BREAST ADDITIONAL SUPERIOR MARGIN STITCH NEW MARGIN 7. LEFT BREAST ADDITIONAL POSTERIOR INFERIOR MARGIN STITCH NEW MARGIN TUBES AND DRAINS: None ATTENDEE(S): ALONDRA LAMB MD Anesthesiologist, Primary BETZAIDA ALARCON, AFSHAN DOSS CRNA, Primary ELO LACEY Fellow, Surgical Preoperative Information Informed Consent: Signed by patient. Risk Acknowledgment Statement: I have reviewed the procedure with the patient. We discussed the risks and benefits of and the alternatives to the procedure. Surgical/Invasive Pre-Procedure Verify: Patient identified prior to surgery, Correct surgical site marked, Laterality identified, Correct procedure, Correct patient position, Patient padded appropriately. Operative Note Indications Indications: Primary excision. Breast Preservation: The patient is a satisfactory candidate for breast preservation. Lymph Node Status: Clinically negative. Pre Op Diagnosis Abnormal Mammogram: Left. Breast Cancer: Left. Palpable Breast Mass: Left. Patient Menopausal Status Postmenopausal. Lesion Location Location: Left. Location: Central. Pre-Op Diagnostics - Left Ultrasound guided core biopsy: Invasive breast cancer. Pre-Op Therapies - Left Left: None. Breast/Chest Wall Procedure - Left Localization: Palpation Guided. Segmental Mastectomy. Closure: Glue. Axillary Procedure - Left Localization: None. Ulm Lymph Node Biopsy. Closure: Glue. Breast/Chest Wall Operative Details - Left Left Segmental Mastectomy The patient was prepped and draped in the usual sterile fashion. Incision Type: Eliptical. Incision Details: Incision Size: The incision was approx 6 cm in length. Excision/Resection: An area of fibrofatty breast tissue was excised and submitted to pathology in an oriented fashion: The overlying skin was included in the resection, A section of fibrofatty breasttisue measuring 47g20h6 cm was removed. Excision/Resection:Specimen orientation: Standard. Excision/Resection: Specimen assessment: Lesion palpable. Excision/Resection: Specimen margins: Superior Margin Obtained: the specimen measured 4x5 cm, posterior-inferior margin obtained: 8x6. Excision/Resection: Specimen submitted: Permanent histopathology. Wound closure: Wound irrigated & made hemostatic prior to closure. , Wound was closed with layered subcutaneous sutures.. Drains: No drains were used. Axillary Operative Details - Left Left Ulm Lymph Node Biopsy: The patient was prepped and draped in the usual sterile fashion, Technetium sulfur colloid (Colloid injection site in skin at edge of areola, Performed in the operating room by surgeon), Tracer: Blue dye Blue dye injected by surgeon in subareolar location, Tracer: Blue dye type Methelyne Blue, Tracer: Volume The volume of dye injected was 4 cc, Location The operation of SLN mapping was restricted to the ipsilateral axilla, Incision A small transverse incision was made in the infra hair-bearing ipsilateral axilla. It extended to and thru the clavipectoral fascia exposing the deep axillary lymph nodes, Incision Details Incision Size: The incision was approx 3 cm in length, Excision/Resection: Ulm Lymph Node 1 Blue and Radioactive 335 cps. , Excision/Resection: Ulm Lymph Node 2 Blue and Radioactive 900 cps. , Excision/Resection: [place] Lymph Node 3 Blue and Radioactive 560 cps. , Excision/Resection: [place]m Lymph Node 4 Blue and Radioactive 850 cps. , Wound closure (Wound irrigated & made hemostatic prior to closure. , Wound edges approximatedwith layered subcutaneous sutures.), Drains: No drains were used. . Antibiotic Prophylaxis Antibiotic Prophylaxis: Cefazolin (Ancef) 2 g IV. Anesthesia Anesthesia: General Endotracheal. Operative Events Blood Loss: 50 CCs. Postoperative Information Sponge/Needle Count: Correct. Post-Operative Diagnosis: Same as pre-operative diagnosis. Post-Operative Condition: Good condition. Professional Services Attending Attestation: I was present for the jesus portions and immediately available for the non-keyportions. Credentials Title and Author Credentials: . Title: Surgeon. Perform - Completed by ANTONIETTA BATEMAN MD (on 06/01/2021 11:12) Sign - Completed by ANTONIETTA BATEMAN MD (on 06/01/2021 11:12) VERIFY - Completed by ANTONIETTA BATEMAN MD (on 06/01/2021 11:12) documented in this encounter Plan of Treatment Not on file documented as of this encounter Visit Diagnoses Not on filedocumented in this encounter Care Teams Aquatics Coordinator Relationship Specialty Start Date End Date Ortiz Rothman MD [address] [facility] [address] [place] [address] PCP - General 12/03/02 Bryce Allison MD, PhD 1400 [facility] D, [facility] [address] [place] [address] 08/25/10 Provider, MD Laura EPICARE PROVIDER 08/25/10 Valerie Wilkinson MD [facility] [address] [facility] [place] [address] 08/25/10 Yohan Powell MD [address] [place] [address] [address] [place] [address] ENT-Otolaryngology 03/15/17 Vandana Walker AUD [address] [place] [address] Audiology 03/15/17 Geovanna Hughes MD [address] [place] [phone] Internal Medicine 04/01/19 Vandana Whitmore MD [address] [place] [address] [place] [address] Ophthalmology 08/18/19 Provider, Historical EPICARE PROVIDER 11/06/19 Rozina Sanders MD [address] [place] [address] [place] [address] Ophthalmology 12/25/19 Antonietta Bateman MD CORPORATE OFFICE [address], [facility] [address] [place] [address] Surgical Oncology 04/29/21 documented as of this encounter
--- OUTSIDE RECORDS SUMMARY | 2024-10-14 21:58 | XMS_ITS | Encounter Summary ---
Author Organization [facility] Ambulatory Address [address] [place] [address] Phone Care Team Providers Care Furniture Designer Name Role Phone Ortiz Rothman MD Primary Care Provider [phone] Bryce Allison MD, PhD Unavailable [phone] Provider, Abstract Unavailable Unavailabl e Valerie Wilkinson MD Unavailable [phone] Yohan Powell MD Unavailable [phone] Vandana Walker Unavailable [phone] Geovanna Hughes MD Unavailable Source Comments This [...] Team (Late st Contact Info) Description 06/24/2019 8:00 AM EDT Office Visit [facility] [place] [address] [facility] 1st [place] [address] Advanced Manufacturing Technician: Valerie Purcell Evan L, MD, PhD 1400 [facility] [place], [facility] [address] [place] [address] Primary open angle glaucoma (POAG) of [...] Notes * Bryce Allison MD, PhD - 06/24/2019 8:00 AM EDT Scheduled follow up for primary open angle glaucoma pseudophakic OU Impression/Plan primary open angle glaucoma - continued good response to timolol OU - visual field is stable - dilated exam and OCT in 6 months Pseudophakia OU - stable Dermatochalasis, 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 Pt sts: Vision is stable to March 2019 appt. Floaters OU stable, not noticing as much any more. Denies Pain, pressure, hugo's, flashes, and other ocular complaints. POHX: POAG OU, s/p right upper lid eve K removal 03/17/19, pseudophakia OU, dermatochalasis OU, graves disease Gtts: Refresh PM OU, artifical tears PRN OU, timolol QAM OU Constitutional: Normal Cardiovascular: Normal Respiratory: Normal Gastrointestinal: Normal Genitourinary: Normal Musculoskeletal: Normal BAKER PAINT: Normal ENT: Normal Integumentary: Normal Psychiatric: Normal Endocrine: Normal Hematologic/Lymphatic: Normal Mental Status: Normal documented in this encounter Plan of Treatment Not on file documented as of this encounter Results * VAN 24-2 VISUAL [...] (POAG) of both eyes, mild stage- Primary Primary open angle glaucoma (POAG) of both eyes, mild stage documented in this encounter Care Teams Furniture Designer Relationship Specialty Start Date End Date Ortiz Rothman MD [address] [facility] [address] [place] [address] PCP - General 12/03/02 Bryce Allison MD, PhD 1400 [facility] D, [address] [place] [address] 08/25/10 Laura Villalobos MD [facility] PROVIDER 08/25/10 Valerie Wilkinson MD [facility] [address] [facility] [place] [address] 08/25/10 Yohan Powell MD [address] [place] [address] ENT-Otolaryngology 03/15/17 Vandana Walker AUD [address] [place] [phone] Audiology 03/15/17 Geovanna Hughes MD [address] [place] [phone] Internal Medicine 04/01/19 documented as of this encounter
--- OUTSIDE RECORDS SUMMARY | 2024-10-14 21:58 | XMS_ITS | Encounter Summary ---
Author Organization [facility] Ambulatory Address [address] [place] [address] Phone Care Team Providers Care Bi Application Developer Name Role Phone Ortiz Rothman MD Primary Care Provider [phone] Bryce Allison MD, PhD Unavailable [phone] Provider, Abstract Unavailable Unavailabl e Valerie Wilkinson MD Unavailable [phone] Yohan Powell MD Unavailable [phone] Vandana Walker Unavailable [phone] Source Comments This information has been disclosed [...] Care Team (Late st Contact Info) Description 06/14/2017 Lab Results EXTERNAL DEPARTMENT [address] [place], [place] [id number] Daphnie Garibay, BRITTANI [address] [place] [address] Social History Tobacco Use Types Packs/Day Years [...] Procedure Name Priority Date/Time Associated Diagnosis Comments VITAMIN D 25-OH SCREEN FOR DEFICIENCY/TOXICITY Routine 06/14/2017 12:16 PM EDT COMP METABOLIC PANEL Routine 06/14/2017 12:16 PM EDT PARATHYROID HORMONE (SERUM) Routine 06/14/2017 12:16 PM EDT documented in this encounter Results * (ABNORMAL) VITAMIN D 25-OH SCREEN FOR DEFICIENCY/TOXICITY (06/14/2017 12:16 PM EDT) Vitamin D, 25-Hydroxy 26(L) 30 - 100 ng/mL 06/14/2017 3:22 PM EDT [facility] Comment: Vitamin D Status ?Range Deficiency ?<20 ng/mL Insufficency ?20-30 ng/mL Sufficiency ? 30-100 ng/mL 06/14/2017 12:1 6 PM EDT 06/14/2017 12:17 PM EDT Daphnie Garibay PA-C LABORAT[facility] [address] [place] [address] * (ABNORMAL) PARATHYROID HORMONE (SERUM) (06/14/2017 12:16 PM EDT) INTACT PTH 89.1(H) 14.0 - 72.0 pg/mL 06/14/2017 3:21 PM EDT [facility] PTHN CALCIUM 9.3 8.5 - 10.1 mg/dL 06/14/2017 1:16 PM EDT [facility] 06/14/2017 12:1 6 PM EDT 06/14/2017 12:17 PM EDT Daphnie Garibay PA-C LAB[facility] [address] [place] [address] * COMP METABOLIC PANEL (06/14/2017 12:16 PM EDT) Sodium(Na) 139 136 - 144 mmol/L 06/14/2017 1:21 PM EDT [facility] Potassium(K) 4.1 3.5 - 4.9 mmol/L 06/14/2017 1:21 PM EDT [facility] Chloride(Cl) 104 98 - 109 mmol/L 06/14/2017 1:21 PM EDT [facility] Carbon Dioxide(CO2) 27 22 - 32 mmol/L 06/14/2017 1:21 PM EDT [facility] Urea Nitrogen 9 7 - 24 mg/dL 06/14/2017 1:21 PM EDT [facility] Glucose 94 70 - 99 mg/dL 06/14/2017 1:21 PM EDT [facility] Creatinine 0.73 0.50 - 1.17 mg/dL 06/14/2017 1:21 PM EDT [facility] Calcium(Ca) 9.3 8.5 - 10.1 mg/dL 06/14/2017 1:21 PM EDT [facility] Alkaline Phosphatase 79 46 - 128 U/L 06/14/2017 1:21 PM EDT [facility] Total Bilirubin 1.4 0.1 - 1.4 mg/dL 06/14/2017 1:21 PM EDT [facility] Total Protein 7.2 6.4 - 8.2 g/dL 06/14/2017 1:21 PM EDT [facility] Albumin 3.9 3.4 - 4.6 g/dL 06/14/2017 1:21 PM EDT [facility] Aspartate Aminot.(AST) 21 10 - 40 U/L 06/14/2017 1:21 PM EDT [facility] Alanine Aminotrans(ALT) 19 12 - 67 U/L 06/14/2017 1:21 PM EDT [facility] ANION GAP 12 7 - 15 mEq/L 06/14/2017 1:21 PM EDT [facility] A/G RATIO 1.2 06/14/2017 1:21 PM EDT [facility] BUN/CREATININE RATIO 12 06/14/2017 1:21 PM EDT [facility] CALCULATED OSMOLALITY 286 281 - 307 mOsm/kg 06/14/2017 1:21 PM EDT [facility] EGFR >60 >59 06/14/2017 1:21 PM EDT [facility] Comment: Average GFR for age >=70 is 75 mL/min/1.73m2 GFR <60mL/min/1.73m2 indicates kidney disease GFR <15mL/min/1.73m2 indicates kidney failure. Information on MDRD formula may be found: NIH's web site: http://www.nkdep.nih.gov eGFR >60 >59 06/14/2017 1:21 PM EDT [facility] eGFR Reported Reference Range: 06/14/2017 1:21 PM EDT [facility] Comment: ? Stable GFR values greater than or equal to 60 mL/min/1.73m2 indicate normal or minimally impaired kidney function. ? Stable GFR values less than 60 mL/min/1.73m2 indicate chronic kidney disease (CKD). ? Stable GFR values less than 15 mL/min/1.73m2 indicate chronic kidney failure (CKF). ?? Reported Reference Ranges have not been validated for patients with ages <18 or >70 years. ?? Information on MDRD formula may be found: NIH's web site: ??http://www.nkdep.nih.gov 06/14/2017 12:1 6 PM EDT 06/14/2017 12:17 PM EDT Daphnie Garibay PA-C LABORATORY [facility] [address] [place] [phone] documented in this encounter Visit Diagnoses Not on filedocumented in this encounter Care Teams Bi Application Developer Relationship Specialty Start Date End Date Ortiz Rothman MD [address] [facility] [address] [place] [address] PCP - General 12/03/02 Bryce Allison MD, PhD 1400 [facility] D, [address] [place] [address] 08/25/10 Provider, MD ADE Sanchez PROVIDER 08/25/10 Valerie Wilkinson MD [facility] [address] [facility] [place] [address] 08/25/10 Yohan Powell MD [address] [place] [address] [address] [place] [address] ENT-Otolaryngology 03/15/17 Vandana Walker AUD [address] [place] [address] Audiology 03/15/17 documented as of this encounter
--- OUTSIDE RECORDS SUMMARY | 2024-10-14 21:58 | XMS_ITS | Encounter Summary ---
Author Organization [facility] Ambulatory Address [address] [place] [address] Phone Care Team Providers Care Roasterman Name Role Phone Ortiz Rothman MD Primary Care Provider [phone] Bryce Allison MD, PhD Unavailable [phone] Provider, Abstract MD Unavailable Unavailabl Valerie Orellana MD Unavailable [phone] Yohan Powell MD Unavailable [phone] Vandana Walker Unavailable [phone] Geovanna Hughes MD Unavailable Vandana Whitmore MD Unavailable +[phone] Provider, Historical Unavailable Unavailable Rozina Sanders MD Unavailable [phone] Source Comments This information has been disclosed [...] except as provided at sections 2.12(c)(5) and 2.65.[facility] Ambulatory Reason for Visit * Reason Comments Surgery Encounter Details Date Type Department Care Team (Late st Contact Info) Description 08/21/2019 Telephone [facility] [place] [address] [place] [address] File Conversion Operator: Valerie Purcell, Vandana Bates MD [address] [facility] [place] [address] Surgery Social History Tobacco Use Types Packs/Day Years [...] Miscellaneous Notes * Telephone Encounter - Savana Ho - 08/22/2019 9:26 AM EST Spoke with patient she wants to think about surgical dates and will call back to schedule. * Telephone Encounter - Savana Ho - 08/21/2019 10:25 AM EST Left message for patient to return my call to schedule surgery. documented in this encounter Plan of Treatment Not on file documented as of this encounter Visit Diagnoses Not on filedocumented in this encounter Care Teams Roasterman Relationship Specialty Start Date End Date rOtiz Rothman MD [address] [facility] [address] [place] [address] PCP - General 12/03/02 Bryce Allison MD, PhD 1400 [facility] D, [address] [place] [phone] 08/25/10 Provider, Laura, MD BOOKER PROVIDER 08/25/10 Valerie Wilkinson MD [facility] [address] [facility] [place] [address] 08/25/10 Yohan Powell MD [address] [place] [address] [address] [place] [address] ENT-Otolaryngology 03/15/17 Vandana Walker AUD [address] [place] [phone] Audiology 03/15/17 Geovanna Hughes MD [address] [place] [phone] Internal Medicine 04/01/19 Vandana Whitmore MD [address] [place] [address] [place] [address] Ophthalmology 08/18/19 Provider, Historical EPICARE PROVIDER 11/06/19 Rozina Sanders MD [address] [place] [address] [place] [phone] Ophthalmology 12/25/19 documented as of this encounter
--- OUTSIDE RECORDS SUMMARY | 2024-10-14 21:58 | XMS_ITS | Encounter Summary ---
Author Organization [facility] Ambulatory Address [address] [place] [address] Phone Care Team Providers Care Salvage Supervisor Name Role Phone Ortiz Rothman MD Primary Care Provider + [phone] Bryce Allison MD, PhD Unavailable [phone] Provider, Abstract Unavailable Unavailabl e Valerie Wilkinson MD Unavailable [phone] Yohan Powell MD Unavailable [phone] Vandana Walker Unavailable [phone] Source Comments This information has been disclosed [...] provided at sections 2.12(c)(5) and 2.65.[facility] Ambulatory Reason for Visit * Reason Onset Date Comments Hearing Loss 03/15/2017 Encounter Details Date Type Department Care Team (Latest Contact Info) Description 03/15/2017 3:00 PM EDT Testing Visit [address] [place] [phone] Hospital Admissions Clerk: Isidra Amos Abby L, [facility] [address] [place] [address] Mixed conductive and sensorineural hearing loss, unilateral, 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 $! documented in this encounter Plan of Treatment Scheduled Orders Name Type Priority Associated Diagnoses Orde r Schedule Comprehensive Audiometry, Bilateral [31154] ENT Procedures Routine Sensorineural hearing loss, unilateral, left ear, with unrestricted hearing on the contralateral side Mixed conductive and sensorineural hearing loss, unilateral, right ear with restricted hearing on the contralateral side Ordered: 03/15/2017 Tympanometry (Impedance Testing) [[id number]] ENT Procedures Routine Sensorineural hearing loss, unilateral, left ear, with unrestricted hearing on the contralateral side Mixed conductive and sensorineural hearing loss, unilateral, right ear with restricted hearing on the contralateral side Ordered: 03/15/2017 documented as of this encounter Visit Diagnoses Diagnosis Mixed conductive and sensorineural hearing loss, unilateral, right ear with restricted hearing on the contralateral side- Primary Sensorineural hearing loss, unilateral, left ear, with unrestricted hearing on the contralateral side documented in this encounter Care Teams Salvage Supervisor Relationship Specialty Start Date End Date Ortiz Rothman MD [address] [facility] [address] PCP - General 12/03/02 Bryce Allison MD, PhD [address] [place] [address] D, [facility] [address] [place] [phone] 08/25/10 Provider, Laura, MD BOOKER PROVIDER 08/25/10 Valerie Wilkinson MD [facility] [address] [facility] [place] [address] 08/25/10 Yohan Powell MD [address] [place] [address] ENT-Otolaryngology 03/15/17 Vandana Walker, [place] [address] [place] [phone] Audiology 03/15/17 documented as of this encounter
--- OUTSIDE RECORDS SUMMARY | 2024-10-14 21:58 | XMS_ITS | Encounter Summary ---
Author Organization [facility] Ambulatory Address [address] [place] [address] Phone Care Team Providers Care Light Bulb Assembler Name Role Phone Ortiz Rothman MD Primary Care Provider [phone] Bryce Allison MD, PhD Unavailable [phone] Provider, Abstract Unavailable Unavailabl e Valerie Wilkinson MD Unavailable [phone] Yohan Powell MD Unavailable [phone] Vandana Walker Unavailable [phone] Source Comments This information has been disclosed [...] Care Team (Late st Contact Info) Description 10/21/2018 1:45 PM EST Testing Visit [facility] [place] [facility] [address] [address] Hand Cooper Helper: Kerrie Butts Glaucoma suspect of both eyes Social History Tobacco Use Types Packs/Day Years Used Date Smoking Tobacco: Never Alcohol Use Standard Drinks/Week Comments Yes 0 (1 standard drink = 0.6 oz pur e alcohol) socially Sex and Gender Information Value Date Recorded Sex Assigned at Not on file Gender Identity Not on file Sexual Orientation Not on file documented as of this encounter Nursing Notes * Augustina Monaco - 10/21/2018 1:45 PM EST 24-2 Completed RTL documented in this encounter Plan of Treatment Not on file documented as of this encounter Procedures Procedure Name Priority Date/Time Associated Diagnosis Comments VAN 24-2 VISUAL FIELD Routine 10/21/2018 12:15 PM EST Glaucoma suspect of both eyes documented in this encounter Results * VAN 24-2 VISUAL FIELD (10/21/2018 12:15 PM EST) MD (OD) FORUM RESULTS MD (OS) FORUM RESULTS PSD (OD) FORUM RESULTS PSD (OS) FORUM RESULTS GHT (OD) FORUM RESULTS GHT (OS) FORUM RESULTS RELIABILITY (OD) FORUM RESULTS RELIABILITY (OS) FORUM RESULTS VFI (OD) FORUM RESULTS VFI (OS) FORUM RESULTS GPA (OD) FORUM RESULTS GPA (OS) FORUM RESULTS FIXATION LOSSES FORUM RESULTS FALSE POS ERRORS FORUM RESULTS FALSE NEG ERRORS FORUM RESULTS 10/21/2018 12:1 5 PM EST Impressions FORUM RESULTS - 10/21/2018 12:15 PM EST HVF 24-2 OU OD - good study, 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 Bryce Allison MD, PhD EYE TESTING FORUM RESULTS documented in this encounter Visit Diagnoses Diagnosis Glaucoma suspect of both eyes Preglaucoma, unspecified documented in this encounter Care Teams Light Bulb Assembler Relationship Specialty Start Date End Date Ortiz Rothman MD [address] [facility] [address] [place] [address] PCP - General 12/03/02 Bryce Allison MD, PhD 1400 [facility] D, Bert [address] [place] [phone] 08/25/10 Provider, Laura, MD [facility] 08/25/10 Valerie Wilkinson MD [facility] 203 [facility] [place] [address] 08/25/10 [place] [address] [place] [address] [address] [place] [address] ENT-Otolaryngology 03/15/17 Vandana Walker, HELLEN [address] [place] [phone] Audiology 03/15/17 documented as of this encounter
--- OUTSIDE RECORDS SUMMARY | 2024-10-14 21:58 | XMS_ITS | Encounter Summary ---
Author Organization [facility] Ambulatory Address [address] [place] [address] Phone Care Team Providers Care Rustic Fence Builder Name Role Phone Ortiz Rothman MD Primary Care Provider [phone] Bryce Allison MD, PhD Unavailable [phone] Provider, Abstract MD Unavailable Unavailabl Valerie Orellana MD Unavailable + [phone] Yohan Powell MD Unavailable [phone] Vandana Walker Unavailable + Geovanna Hughes MD Unavailable Vandana Whitmore MD Unavailable + Provider, Historical Unavailable Unavailable Rozina Sanders MD Unavailable [phone] Antonietta Bateman MD Unavailable + [phone] Antonietta Bateman MD Unavailable [phone] Artie Lanza MD Unavailable Dena Berumen PA-C Unavailable [phone] Sangita Holly PA-C Unavailable [phone] Source Comments This information has been disclosed [...] for Visit * Reason Comments Patient Call Schedule testing [facility] Encounter Details Date Type Department Care Team (Late st Contact Info) Description 10/11/2021 Telephone [facility] [place] [address] [facility] 1st [place] [address] Zipper Setter: Valerie Purcell Evan L, MD, PhD [address] [place] [address] [place] [phone] Patient Call (Schedule testing [place]) Social History Tobacco Use Types Packs/Day Years [...] encounter Miscellaneous Notes * Telephone Encounter - Jennifer Guillory - 10/11/2021 11:57 AM EST I called and spoke with patient and scheduled for 10/12 @ 9:30am. * Telephone Encounter - Divina Bishop - 10/11/2021 11:43 AM EST CRM message: Danika Mckeon 1940 is requesting a return call regarding scheduling for Oct Testing in [place]. The patient sees provider/physician DR. Allison. documented in this encounter Plan of Treatment Not on file documented as of this encounter Visit Diagnoses Not on filedocumented in this encounter Care Teams Rustic Fence Builder Relationship Specialty Start Date End Date Ortiz Rothman MD [address] [facility] [address] [place] [address] PCP - General 12/03/02 Antonietta Bateman MD [facility], [facility] [address] [facility] [address] [place] [address] PCP - CANCER CTR RMD Surgical Oncology 06/09/21 Artie Lanza MD [address] [facility] [address] [place] [address] PCP - Cancer CTR Hematology 06/09/21 Bryce Allison MD, PhD [address] [place] [address] D, Bert [address] [place] [phone] 08/25/10 ProviderLaura MD EPICARE PROVIDER 08/25/10 Valerie Wilkinson MD [facility] 203 [facility] [place] [address] 08/25/10 [place] [address] [place] [address] [address] [place] [address] ENT-Otolaryngology 03/15/17 Vandana Walker AUD [address] [place] [phone] Audiology 03/15/17 Geovanna Hughes MD [address] [phone] Internal Medicine 04/01/19 Vandana Whitmore MD [address] [facility] [place] [address] Ophthalmology 08/18/19 Provider, Historical EPICARE PROVIDER 11/06/19 Rozina Sanders MD [facility] [place] [address] Ophthalmology 12/25/19 Antonietta Bateman MD CORPORATE OFFICE [address] [place] [address] Surgical Oncology 04/29/21 Dena Berumen PA-C [address] [place] [address] [place] [address] Oncology 06/13/21 Sangita Holly PA-C [address] [place] [address] General Surgery 06/23/21 documented as of this encounter
--- OUTSIDE RECORDS SUMMARY | 2024-10-14 21:58 | XMS_ITS | Encounter Summary ---
Author Organization [facility] Ambulatory Address [address] [place] [address] Phone Care Team Providers Care Senior Administrative Associate Name Role Phone Ortiz Rothman MD Primary Care Provider [phone] Bryce Allison MD, PhD Unavailable + [phone] Provider, Abstract MD Unavailable Unavailabl Valerie Orellana MD Unavailable [phone] Yohan Powell MD Unavailable [phone] Vandana Walker Unavailable [phone] Geovanna Hughes MD Unavailable Vandana Whitmore MD Unavailable +[phone] Provider, Historical Unavailable Unavailable Rozina Sanders MD Unavailable [phone] Antonietta Bateman MD Unavailable [phone] Source Comments This information has been [...] except as provided at sections 2.12(c)(5) and 2.65.[facility] Ambulatory Reason for Visit * Reason Comments Breast Cancer LEFT Encounter Details Date Type Department Care Team (Late st Contact Info) Description 05/02/2021 9:30 AM EDT Office Visit [facility] [address] [facility] [address] [place] [phone] Impregnator And Drier: Cheryl Mares Emilia J, MD [facility] [address] [place] [address], [facility] [address] [place] [address] 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, estrogen receptor positive (HCC) (Primary Dx) Social History Tobacco Use Types [...] Sign Reading Time Taken Comments Blood Pressure 128/76 05/02/2021 9:16 AM EDT Pulse 74 05/02/2021 9:16 AM EDT Temperature - - Respiratory Rate - - Oxygen Saturation - - Inhaled Oxygen Concentration - - Weight 59.9 kg (132 lb) 05/02/2021 9:16 AM EDT Height 157.5 cm (5' 2 ) 05/02/2021 9:16 AM EDT Body Mass Index 24.14 05/02/2021 9:16 AM EDT documented in this encounter Progress Notes * Arturo Staton - 05/02/2021 9:30 AM EDT Review of Systems Skin: Positive for skin lesions. HENT: Positive for hearing loss. Endo/Heme: Positive for cold intolerance. Breast: Positive for breast lump. All other systems negative * Antonietta Bateman MD - 05/02/2021 9:30 AM EDT HISTORY OF PRESENT ILLNESS Danika Mckeon is a pleasant 81 year old postmenopausal woman who presents in office today accompaniedby her friend and referred by Dr. Rothman in consultation for a recently diagnosed left breast cancer. The patient specifically was not aware of any breast masses, skin changes, nipple retraction or nipple discharge. Her most recent bilateral screening mammogram was performed at at [facility] in March 2021 reveals scattered fibroglandular densities, no suspicious findings in the right breast, and architectural distortion in the left breast. Diagnostic imaging to include mammogram compression views andultrasound confirm the persistence of a mass in the retroareolar left breast that is superficial in location associated with subtle skin thickening. Targeted ultrasound demonstrates that the mass is difficult to separate from the nipple areolar complex and measures 2.5 x 1.8 x 2.1 cm. Ultrasound ofthe left axilla demonstrating normal-appearing lymph nodes. Left breast 3:00 ultrasound-guided core needle biopsy demonstrates invasive lobular carcinoma, Jesup score 5/9, ER positive, H score 250, MI positive, H score 140, HER-2/kam negative, Ki-67 10%. Danika Mckeon denies a history of previous breast problems or breast biopsies. She also has never hada history of chest radiation. Family history is significant for a mother with breast and ovarian cancer in her early 40s. She is not of Ashkenazi Scientologist descent. She denies any new onset weight loss, headaches, bone pain, shortness of breath or abdominal pain. ROS The Review of Systems was reviewed in the patient's informational encounter dated 05/02/2021 and electronic chart, and otherwise the Review of Systems is negative. Allergies Allergen Reactions ??? No Known Allergies Outpatient Medications Marked as Taking for the 05/02/21 encounter (Office Visit) with Luca Bateman MD Medication Sig Dispense Refill ??? cholecalciferol, vitamin D3, 50,000 unit oral capsule Take 50,000 units by mouth once a week 3 ??? SYNTHROID TABLET 100MCG PO None Entered ??? timoloL maleate (TIMOPTIC) 0.5 % ophthalmic drops INSTILL ONE DROP INTO EACH EYE EVERY MORNING 10 mL 3 ??? tobramycin-dexamethasone (TOBRADEX) 0.3-0.1 % opht ophthalmic ointment Place into the left eye 4 times daily 3.5 g 3 The patient's Past Medical, Surgical and Family Histories were reviewed. Past Medical History Diagnosis Date Toxic diffuse goiter without mention of thyrotoxic crisis or storm Unspecified cataract Disorder of thyroid Glaucoma 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, estrogen receptor positive (hcc) 04/29/2021 Past Surgical History Procedure Date Repair detach retina,scleral buckle Remv cataract extracap,insert lens Cataract procedure Hysterectomy Tonsillectomy Family History Problem Comment Relation Other All reviewed, none relevant Other Cancer Biological Mother Ca, Breast Biological Mother Heart Disease Biological Father Social History Tobacco Use ??? Smoking status: Never Smoker ??? Smokeless tobacco: Never Used Substance Use Topics ??? Alcohol use: Yes Comment: socially Breast Health and Related Information: Bra Size: 34DD Do you perform self breast exams?: Yes Menarche - Age: 15 Age at 1st : 28 Have you ever breast fed your child?: Yes HRT Past Use: Yes HRT Current Use: No Past Use of Control: Yes Present Use of Control: No Physical exam Vitals: Blood pressure 128/76, pulse 74, height 5' 2 (157.5 cm), weight 132 lb (59.9 kg).Body massindex is 24.14 kg/m??. General Appearance: Well appearing, nourished, comfortable. Awake, alert, oriented x3. Head and Neck: No cervical lymphadenopathy. The trachea is midline. No jugular venous distention. Moist mucous membranes. Respiratory: Effort is normal. Lungs are clear. There are no wheezes, rales, or rhonchi heard. Cardiovascular: Heart rhythm is regular, auscultation reveals normal heart sounds with no gallops, rubs or murmurs. Gastrointestinal: The abdomen is soft, nontender and nondistended. There are no abdominal masses. Musculoskeletal: Normal strength and tone. Normal gait. Patient gets on and off the examining tablewith minimal assistance. Comprehensive Breast Exam: A comprehensive examination of the breasts and chest wall was performed with the patient upright and supine with arms at her sides and above her head, breasts symmetric in appearance. No erythema or edema of breast skin. Nipples are normally everted. No crusting or excoriation. Right Breast: Palpation negative for mass or abnormal fibroglandular thickening. No axillary, infra, or supraclavicular adenopathy. Left Breast: Palpation reveals a 2.5cm firm, non-tender and mobile mass in the retroareolar left breast that is closely associated to the nipple/areolar complex. No axillary, infra, or supraclavicular adenopathy. Imaging Review: The patients [facility] diagnostic breast imaging to include mammogram and ultrasound isindependently reviewed along with the reports. The percutaneous biopsy performed under ultrasound guidance is felt to be technically satisfactory,the clip deposited at the time of biopsy is adequately positioned and the findings are felt to be concordant. ASSESSMENT AND PLAN Danika Mckeon is a pleasant 81 year old female with a clinical stage IIA (T2, N0, M0) invasive lobular carcinoma, Nuclear grade 2, estrogen receptor positive, progesterone receptor positive, HER-2/kam negative and Ki-67 approximately 10 % of the left breast. I independently reviewed the patient's screening and diagnostic imaging. The results are as outlined in the history of present illness. I had an in-depth conversation with the patient about the multimodality approach to breast cancer management. The comprehensive treatment plan will include anti- endocrine therapy, surgery, and adjuvant radiation therapy. The risks and benefits of this treatment plan were discussed with the patient. She and I specifically discussed: That by virtue of the size of her cancer relative to the size of her breast she is a candidate for breast conservation therapy. However, all of her surgical options will include a segmental mastectomy, or total mastectomy. Margins and possible need for re-excision for positive margins. The need for adjuvant radiation therapy after breast conservation therapy to reduce the risk of ipsilateral tumor recurrence. The cosmetic appearance of the breast following surgery and radiation, specifically in her case given the need to RESECT THE NIPPLE AREOLAR COMPLEX with a CENTRAL LUMPECTOMY. That the axilla is clinically negative and she is a candidate for sentinel node staging. That she is a candidate for hormonal therapy because of the ER and MI status of her tumor.. She would like to think about her options and discuss with family members prior to surgical planning. She will return to the office when she has made a decision. The patient verbalized understanding of our discussion. I spent 45 minutes with Danika, the majorityof this time spent in counseling and coordination of care. Thank you for involving me in her care. Please do not hesitate to contact me with questions. NB: Documentation partially created using [employer] voice recognition software. There may be grammatical/typographical errors, which may not be recognized despite proofreading. Please contact me if there is any confusion or ambiguity. documented in this encounter Nursing Notes * Cheryl Mares - 05/02/2021 9:30 AM EDT Here for left breast cancer Found on routine imaging No hx of breast biopsy in past Here with friend * Arturo Staton - 05/02/2021 9:30 AM EDT Patient evaluated by Dr. Bateman, she will call me after she decides which surgery she will have and be brought back to clinic for surgery planning documented in this encounter Plan of Treatment Not on file documented as of this encounter Visit Diagnoses Diagnosis 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, estrogen receptor positive (HCC)- Primary documented in this encounter Care Teams Senior Administrative Associate Relationship Specialty Start Date End Date Ortiz Rothman MD [address] [facility] [address] [place] [address] PCP - General 12/03/02 Bryce Allison MD, PhD 1400 [facility] D, Bert [address] [place] [phone] 08/25/10 Provider, MD Laura EPICARE PROVIDER 08/25/10 Valerie Wilkinson MD [facility] 203 [facility] [place], [place] [phone] 08/25/10 Yohan Powell MD [address] [facility] [address] [place] [address] ENT-Otolaryngology 03/15/17 Vandana Walker AUD [address] [place] [address] Audiology 03/15/17 Geovanna Hughes MD [address] [place] [phone] Internal Medicine 04/01/19 Vandana Whitmore MD 203 [facility] [place] [address] Ophthalmology 08/18/19 Provider, Historical EPICARE PROVIDER 11/06/19 Rozina Sanders MD 203 [facility] [place] [phone] Ophthalmology 12/25/19 Antonietta Bateman MD CORPORATE OFFICE [address], [facility] 2 [address] [place] [address] Surgical Oncology 04/29/21 documented as of this encounter
--- OUTSIDE RECORDS SUMMARY | 2024-10-14 21:58 | XMS_ITS | Encounter Summary ---
Author Organization [facility] Ambulatory Address [address] [place] [address] Phone Care Team Providers Care Occupational Medicine Officer Name Role Phone Ortiz Rothman MD Primary Care Provider [phone] Bryce Allison MD, PhD Unavailable + [phone] Provider, Abstract MD Unavailable Unavailabl Valerie Orellana MD Unavailable [phone] Yohan Powell MD Unavailable [phone] Vandana Walker Unavailable [phone] Geovanna Hughes MD Unavailable Vandana Whitmore MD Unavailable +[phone] Provider, Historical Unavailable Unavailable Rozina Sanders MD Unavailable [phone] Antonietta Bateman MD Unavailable [phone] Source Comments This information has been [...] 2.65.[facility] Ambulatory Reason for Referral * Ophthalmology - Closed Specialty Diagnoses / Procedures Referred By Antonieta bauman Referred To Contact Diagnoses 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 Procedures TARSORRHAPHY CONSTRUCT INTERMARGINAL ADHESION, PERMANENT - OS - LEFT EYE Vandana Whitmore MD [address] [facility] [place] [address] Referral ID Status Reason Start Date Expiration Date Visits Re quested Visits Authorized [id number] Closed 05/09/2021 1 1 Reason for Visit * Reason Comments Procedure Encounter Details Date Type Department Care Team (Latest Contact Info) Description 05/09/2021 10:00 AM EDT Office Visit [facility] [place] [address] [place] [address] [address] [place] [phone] Welding Process Specialist: Sheyla Quintanilla Susan Tonya, MD [address] [place] [address] [place] [address] 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 0.5 cc of 1% lido-epi injected into lateral commissure Follow-up phone call 2-3 weeks with status. * Vandana Whitmore MD - 05/09/2021 10:00 AM EDT I was present and assisting for the entire procedure. Procedure: Tarsorrhaphy OS Indication: exposure keratitoconjunctivitis Surgeon: Barby Whitmore Anesthesia: Local Prep: Betadine Complications: None Consent done. Proparicaine, then isopropanol to skin and transconj and transq injection of 2% lido + epi. #15 blade and iris scissors used to deepithelialize upper and lower lid margins to 4 mm. 6.0 vicryl suture used to appose both tarsi. Knots and lashes kept anterior, suture bites anterior to conj. 5.0 fast interrupted to skin. Erythromycin ophth mehul applied. 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- Primary Exposure keratoconjunctivitis documented in this encounter Care Teams Occupational Medicine Officer Relationship Specialty Start Date End Date Ortiz Rothman MD [address] [facility] [address] [place] [address] PCP - General 12/03/02 Bryce Allison MD, PhD [address] [place] [address] D, Bert [address] [place] [address] 08/25/10 Provider, MD Laura [facility] PROVIDER 08/25/10 Valerie Wilkinson MD [facility] [address] [facility] [place] [address] 08/25/10 Yohan Powell MD [address] [facility] [address] [place] [address] ENT-Otolaryngology 03/15/17 Vandana Walker AUD [address] [place] [address] Audiology 03/15/17 Geovanna Hughes MD [address] [place] [phone] Internal Medicine 04/01/19 Vandana Whitmore MD [address] [facility] [place] [address] Ophthalmology 08/18/19 Provider, Historical EPICARE PROVIDER 11/06/19 Rozina Sanders MD [address] [place] [address] [place] [phone] Ophthalmology 12/25/19 Antonietta Bateman MD CORPORATE OFFICE [address], [facility] [address] [place] [address] Surgical Oncology 04/29/21 documented as of this encounter
--- OUTSIDE RECORDS SUMMARY | 2024-10-14 21:58 | XMS_ITS | Encounter Summary ---
Author Organization [facility] Ambulatory Address [address] [place] [address] Phone Care Team Providers Care Cell Attendant Name Role Phone Ortiz Rothman MD Primary Care Provider [phone] Bryce Allison MD, PhD Unavailable + [phone] Provider, Abstract MD Unavailable Unavailabl Valerie Orellana MD Unavailable [phone] Yohan Powell MD Unavailable [phone] Vandana Walker Unavailable + Geovanna Hughes MD Unavailable Vandana Whitmore MD Unavailable + Provider, Historical Unavailable Unavailable Rozina Sanders MD Unavailable [phone] Antonietta Bateman MD Unavailable [phone] Antonietta Bateman MD Unavailable [phone] Artie Lanza MD Unavailable Dena Berumen PA-C Unavailable [phone] Source Comments This information has been disclosed [...] [facility] Amb[facility] Reason for Referral * Radiology - Closed Specialty Diagnoses / Procedures Referred By Antonieta bauman Referred To Contact Diagnoses Malignant neoplasm of central portion of left breast in female, estrogen receptor positive (HCC) Procedures BI MAMMOGRAM DIGITAL SCREENING WITH TOMOSYNTHESIS BILATERAL Dena Berumen PA-C [address] [facility] [address] [place] [address] Referral ID Status Reason Start Date Expiration Date Visits Re quested Visits Authorized [id number] Closed 06/13/2021 1 1 * Consult / Referral - Closed Specialty Diagnoses / Procedures Referred By Antonieta bauman Referred To Contact Diagnoses Malignant neoplasm of central portion of left breast in female, estrogen receptor positive (HCC) Dena Berumen PA-C [address] [facility] [address] [place] [address] Referral ID Status Reason Start Date Expiration Date Visits Re quested Visits Authorized [id number] Closed 06/13/2021 1 1 Scheduling Instructions Call our office to schedule your Wellness Visit. Please specifiy [place], [place] or [place] Location. Reason for Visit * Reason Comments Breast Surgery Post-Operative Visit po s x 06/01 Encounter Details Date Type Department Care Team (Late st Contact Info) Description 06/13/2021 11:30 AM EDT Office Visit [facility] [address] [facility] [address] [place] [phone] Building Construction Teacher: Irene Arroyo Maria E, PA-C [address] [facility] [address] [place] [address] Malignant neoplasm of central portion of left breast in female, estrogen receptor positive (HCC) (Primary Dx); Seroma of breast Social History Tobacco Use Types Packs/Day Years [...] Sign Reading Time Taken Comments Blood Pressure 160/100 06/13/2021 11:31 AM EDT Pulse 74 06/13/2021 11:31 AM EDT Temperature 35.7 ??C (96.3 ??F) 06/13/2021 11:31 AM E DT Respiratory Rate - - Oxygen Saturation 98% 06/13/2021 11:31 AM EDT Inhaled Oxygen Concentration - - Weight 60.8 kg (134 lb) 06/13/2021 11:31 AM EDT Height 157.5 cm (5' 2 ) 06/13/2021 11:31 AM EDT Body Mass Index 24.51 06/13/2021 11:31 AM EDT documented in this encounter Patient Instructions * Patient Instructions* Dena Berumen PA-C - 06/13/2021 11:30 AM EDT 1. The patient's surgical management is now complete. 2. Medical Oncology consult with Dr. Lanza to discuss systemic therapies as indicated. 3. Radiation Oncology consult with Dr. Frye to discuss required adjuvant breast irradiation. 4. Return to [place] [employer] guidelines for breast cancer screening and surveillance. Due February 2022. 5. Three-year annual office visit in our Breast Cancer Follow-up Clinic. Return to our office in approximately 1 year for annual check-up. This is optional. 6. Contact the office with any signs or symptoms of infection or wound changes.[id number] documented in this encounter Progress Notes * Dena Berumen PA-C - 06/13/2021 11:30 AM EDT Reason For Visit: Post-op breast surgery Diagnosis: Stage IIA (T2, N0, M0) Infiltrating lobular carcinoma, left breast: ER H-score 250, MO H-score 140, Her2 neg by IHC, Ki-67 10%. Procedure: Left segmental mastectomy (central lumpectomy) and sentinel lymph node biopsy at [facility] on 06/01/21. The procedure performed by Dr. Antonietta Bateman. Interim History: Danika Mckeon is a 81 year old postmenopausal woman who presents for her postoperative visit at [facility] following the above procedure. The operation was performed without complication and her recovery has been uneventful. She c/o some irritation in the axilla and breast incision discomfort. She was not aware of any erythema or incisional issues prior to today other than her mild discomfort. She does not c/o fever or chills. She is wearing her supportive bra day and night. Physical Exam: The patient???s physical examination demonstrates a well healed transverse incision of the left breast at Zero o'clock. The axillary wound is well healed without erythema or edema. There is mild erythema involving the breast incision for approx 4cm x 5cm that is concerning for early infection, there is associated tenderness and mild warmth. The erythema mildly improves when she is supine raising the possibility that at least a portion of the erythema is edema related. There is also resolving breast ecchymosis. There is some scabby healing along the incision but the surgical glue is completely intact. There is no ecchymosis. UE grossly symmetric. Targeted breast US at the bedside demonstrated a large simply fluid collection with a few septations. The borders of the erythema were outlined. A photo was taken and uploaded with her verbal consent. After verbal consent, the skin of the left was prepped with betadine, 1 cc of 1% Lidocaine was infiltrated into the skin and subcutaneous tissue, with direct ultrasound guided visualization, an 18 gauge needle was used to aspirate approximately 80 cc of serosanguineous fluid which was sent for C&S. The seroma was aspirated to extinction. The patient tolerated the procedure well without any complications. A sterile pressure dressing was applied with Bacitracin, gauze and paper tape. Pathology: FINAL DIAGNOSIS: PART 1: BREAST, LEFT, PALPATION-GUIDED CENTRAL LUMPECTOMY: A. INVASIVE LOBULAR CARCINOMA, PEDRITO GRADE 2 (TUBULE FORMATION 3, NUCLEAR GRADE 2, MITOTIC RATE 1; TOTAL SCORE 6/9). B. INVASIVE CARCINOMA MEASURES 5.0 CM IN GREATEST DIMENSION. C. NO LYMPHOVASCULAR SPACE INVASION IS IDENTIFIED. D. INVASIVE CARCINOMA IS FOCALLY (TWO FOCI LESS THAN 1 MM EACH) PRESENT AT THE POSTERIOR/LATERAL MARGIN OF RESECTION (see Part 7 for new posterior/inferior margin and comment). E. OTHER MARGINS OF RESECTION ARE AWAY FROM THE TUMOR. F. LOBULAR CARCINOMA IN SITU, NUCLEAR GRADE 2, CLASSICAL TYPE. G. ATYPICAL LOBULAR HYPERPLASIA. H. FIBROCYSTIC CHANGES WITH APOCRINE METAPLASIA. I. BIOPSY SITE CHANGES. J. SKIN AND NIPPLE, NEGATIVE FOR TUMOR. PART 2: LEFT AXILLARY SENTINEL LYMPH NODE #1, BIOPSY: ONE LYMPH NODE NEGATIVE FOR METASTATIC CARCINOMA (0/1). PART 3: LEFT AXILLARY SENTINEL LYMPH NODE #2, BIOPSY: ONE LYMPH NODE NEGATIVE FOR METASTATIC CARCINOMA (0/1). PART 4: LEFT AXILLARY SENTINEL LYMPH NODE #3, BIOPSY: ONE LYMPH NODE NEGATIVE FOR METASTATIC CARCINOMA (0/1). PART 5: LEFT AXILLARY SENTINEL LYMPH NODE #4, BIOPSY: ONE LYMPH NODE NEGATIVE FOR METASTATIC CARCINOMA (0/1). PART 6: BREAST, LEFT, ADDITIONAL SUPERIOR MARGIN, EXCISION: BENIGN BREAST TISSUE. PART 7: BREAST, LEFT, ADDITIONAL POSTERIOR/INFERIOR MARGIN, EXCISION: A. LOBULAR CARCINOMA IN SITU (LCIS), NUCLEAR GRADE 2, CLASSICAL AND FLORID TYPE. B. FLORID LCIS IS 2 MM FROM THE NEW MARGIN. C. ATYPICAL LOBULAR HYPERPLASIA. COMMENT: Based on the conversation with Dr. Antonietta Bateman, Part 7 of the specimen includes the entire new posterior margin (including posterior/lateral portion), and therefore, the final margin of resection is negative for invasive carcinoma. Tumor characteristics a) Size: 5.0 cm b) Pedrito score: 6 c) ER H-score: 250 d) MO H-score: 140 e) HER2 status: negative f) Ki-67 labeling index: 10% Based on above tumor characteristics, the estimated recurrence score using Birgit Equations is reported below. Birgit Equation 1 (includes a-f): 20 [place] Equation 2 (includes a-e): 19 Birgit Equation 3 (includes c-f): 17 Average Birgit Equation score: 19 NOTE For more scientific details, see reference: Debra JAMISON et al. Mod Pathol. 2013;26:658-664. PMID: [id number]. [email or web address] Impression: A 81 year old postmenopausal woman with left breast cancer treated with segmental mastectomy and sentinel lymph node biopsy. She has breast erythema on exam concerning for post-surgical wound infection. Recommendations: 1. Begin Keflex 500mg QID x 10 days. Rx sent electronically to preferred pharmacy. Monitor symptomsfor worsening. Reviewed signs of worsening infection. Will await seroma aspirate C&S. We will follow-up with the patient by phone in 48 hours to monitor response and provide update on C&S result. RTC can be based on her response. Encouraged to continue supportive bra as well. Patient instruc jj to call sooner if worsening or new concerns arise. 2. Medical Oncology consult with Dr. Lanza to discuss systemic therapies as indicated. 3. Radiation Oncology consult with Dr. Frye to discuss required adjuvant breast irradiation. 4. Return to [place] [employer] guidelines for breast cancer screening and surveillance. Due February 2022. 5. Three-year annual office visit in our Breast Cancer Follow-up Clinic. Return to our office in approximately 1 year for annual check-up. This is optional. 6. Contact the office with any signs or symptoms of infection or wound changes. Dr. Bateman was available during the patient???s visit today. Dena Berumen PA-C documented in this encounter Plan of Treatment Scheduled Referrals Name Type Priority Associated Diagnoses Orde r Schedule CONSULT TO WELLNESS PROGRAM Referral Routine Malignant neoplasm of central portion of left breast in female, estrogen receptor positive (HCC) Ordered: 06/13/2021 documented as of this encounter Procedures Procedure Name Priority Date/Time Associated Diagnosis Comments DEEP WOUND CULTURE Routine 06/13/2021 12 :26 PM EDT Malignant neoplasm of central portion of left breast in female, estrogen receptor positive (HCC) Seroma of breast ANAEROBIC BACTERIA CULTURE WITH GRAM STAIN Routine 06/13/2021 12:26 PM EDT documented in this encounter Results * BI MAMMOGRAM DIGITAL SCREENING WITH TOMOSYNTHESIS BILATERAL (03/11/2022 7:52 AM EDT) Anatomical Region Laterality Modality Other 03/11/2022 7:52 AM EDT Impressions 03/16/2022 11:04 AM EDT No evidence of malignancy is identified. RECOMMENDATION: Routine screening mammography and tomosynthesis is recommended in one year, unless otherwise clinically indicated. ??The patient appears to be eligible for a research study of contrast-enhanced mammography (versus tomosynthesis) in women with a personal history of breast cancer. If she is interested in participating, please email [email or web address] or leave a message at [phone]. We will provide the patient with these findings and recommendations. OVERALL ASSESSMENT: BI-RADS: 2 - BENIGN FINDING(S) RIS CODE: 3BENIGN Narrative 03/16/2022 11:04 AM EDT CLINICAL HISTORY: The patient is 82 years old and presents for routine screening. The patient is status post breast conservation therapy for invasive lobular carcinoma on the left diagnosed in 2020. FINDINGS: Bilateral synthetically generated digital mammography with CAD and digital breast tomosynthesis including exaggerated lateral CC views reveals heterogeneously dense breast tissue, which may obscure small masses. No suspicious findings or significant changes are present as compared to the prior examination(s), the most recent of which is dated 03/22/2021. Post-surgical changes including skin thickening and surgical clips in the axilla are noted in the left breast. Procedure Note Jenifer Light MD - 03/16/2022 CLINICAL HISTORY: The patient is 82 years old and presents for routine screening. The patient is status post breast conservation therapy for invasive lobular carcinoma on the left diagnosed in 2020. FINDINGS: Bilateral synthetically generated digital mammography with CAD and digital breast tomosynthesis including exaggerated lateral CC views reveals heterogeneously dense breast tissue, which may obscure small masses. No suspicious findings or significant changes are present as compared to the prior examination(s), the most recent of which is dated 03/22/2021. Post-surgical changes including skin thickening and surgical clips in the axilla are noted in the left breast. IMPRESSION No evidence of malignancy is identified. RECOMMENDATION: Routine screening mammography and tomosynthesis is recommended in one year, unless otherwise clinically indicated. The patient appears to be eligible for a research study of contrast-enhanced mammography (versus tomosynthesis) in women with a personal history of breast cancer. If she is interested in participating, please email [email or web address] or leave a message at [phone]. We will provide the patient with these findings and recommendations. OVERALL ASSESSMENT: BI-RADS: 2 - BENIGN FINDING(S) RIS CODE: 3BENIGN Dena Berumen PA-C IMG BI ORDERABLES * ANAEROBIC BACTERIA CULTURE WITH GRAM STAIN (06/13/2021 12:26 PM EDT) Specimen Description Aspirate RBRST SEROMA S P LUMPECTOMY 06/13/2021 6:28 PM EDT [facility] Special Requests None 06/13/2021 6:28 PM EDT [facility] Culture No Anaerobes isolated 06/19/2021 1:08 PM EDT [facility] Report Final Result 06/19/2021 06/19/2021 1:08 PM EDT [facility] 06/13/2021 12:2 6 PM EDT 06/13/2021 6:26 PM EDT Dena Berumen PA-C LAB MICROBIOLOGY GEN ERAL ORDERABLES [facility] [address] [place] [address] * DEEP WOUND CULTURE (06/13/2021 12:26 PM EDT) Specimen Description Aspirate RBRST SEROMA S P LUMPECTOMY 06/13/2021 6:27 PM EDT [facility] Special Requests None 06/13/2021 6:28 PM EDT [facility] Gram Stain Rare WBCs present No organisms seen 06/13/2021 9:58 PM EDT [facility] Culture No Growth 2 Days 06/15/2021 10:12 AM EDT [facility] Report Final Result 06/15/2021 06/15/2021 10:12 AM EDT [facility] Aspirate 06/13/2021 12:2 6 PM EDT 06/13/2021 6:26 PM EDT Dena Berumen PA-C LAB MICROBIOLOGY GEN ERAL ORDERABLES [facility] [address] [facility] [place] [address] documented in this encounter Visit Diagnoses Diagnosis Malignant neoplasm of central portion of left breast in female, estrogen receptor positive (HCC)- Primary Seroma of breast documented in this encounter Care Teams Cell Attendant Relationship Specialty Start Date End Date Ortiz Rothman MD [address] [facility] [address] [place] [address] PCP - General 12/03/02 Antonietta Bateman MD [facility], [facility] [address] [facility] [address] [place] [address] PCP - CANCER CTR RMD Surgical Oncology 06/09/21 Artie Lanza MD [address] [facility] [address] [place] [address] PCP - Cancer CTR Hematology 06/09/21 Bryce Allison MD, PhD [address] [facility] D, Bert [address] [place] [id number] 08/25/10 ProviderLaura MD EPICARE PROVIDER 08/25/10 Valerie Wilkinson MD [facility] [address] [facility] [place] [address] 08/25/10 Yohan Powell MD [address] [facility] [address] [place], [place] [id number] ENT-Otolaryngology 03/15/17 Vandana Walker, [place] [address] [place] [address] Audiology 03/15/17 Geovanna Hughes MD [address] [address] Internal Medicine 04/01/19 Vandana Whitmore MD [address] [facility] [place] [address] Ophthalmology 08/18/19 Provider, Historical EPICARE PROVIDER 11/06/[address] [facility] [place] [phone] Ophthalmology 12/25/19 Antonietta Bateman MD CORPORATE OFFICE [address], [facility] [address] [place] [address] Surgical Oncology 04/29/21 Dena Berumen PA-C [address] [place] [address] [address] [place] [address] Oncology 06/13/21 documented as of this encounter
--- OUTSIDE RECORDS SUMMARY | 2024-10-14 21:58 | XMS_ITS | Encounter Summary ---
Author Organization [facility] Ambulatory Address [address] [place] [address] Phone Care Team Providers Care [employer]ora Product Consultant Name Role Phone Ortiz Rothman MD Primary Care Provider [phone] Bryce Allison MD, PhD Unavailable + [phone] Provider, Abstract MD Unavailable Unavailabl Valerie Orellana MD Unavailable [phone] Yohan Powell MD Unavailable [phone] Vandana Walker Unavailable [phone] Geovanna Hughes MD Unavailable Vandana Whitmore MD Unavailable +[phone] Provider, Historical Unavailable Unavailable Rozina Sanders MD Unavailable [phone] Antonietta Bateman MD Unavailable [phone] Source Comments This information has been [...] except as provided at sections 2.12(c)(5) and 2.65.[facility] Ambulatory Encounter Details Date Type Department Care Team (Late st Contact Info) Description 06/01/2021 Lab Results EXTERNAL DEPARTMENT [address] [place] [address] Antonietta Bateman MD CORPORATE OFFICE [address] [facility] [address] [place] [address] Social History Tobacco Use Types Packs/Day Years [...] Procedure Name Priority Date/Time Associated Diagnosis Comments SURGICAL PATHOLOGY - BREAST INVASIVE CANCER 06/01/2021 10:50 AM EDT documented in this encounter Results * SURGICAL PATHOLOGY - BREAST INVASIVE CANCER (06/01/2021 10:50 AM EDT) Tumor Location Left [facility] Histologic Type Classical [facility] Lymph Nodes Method H/E stain [facility] Lymph Nodes Method Keratin stain [facility] CO PATH Extension of Tumor Not applicable [facility] C OPATH PROCEDURE [facility] Her2/kam Status Her2/kam level 1+ [facility] Angiolymphatic Invasion No angiolymphatic invasion [facility] Estrogen Receptor Status Estrogen receptors positive [facility] Progesterone Receptor Status Progesterone receptors positive [facility] Surgical Margin Involvement, In Situ DCIS not present [facility] COPA TH Nuclear Grade 2 [facility] TREATMENT EFFECT Not applicable [facility] Tubule Formation 3 [facility] Dermal lymphatic invasion No dermal lymphatic invasion [facility] Lymph Nodes Positive All lymph nodes are negative [facility] Mitotic activity score 1 [facility] Tumor Mutlifocality No, invasive tumor is not multifocal [facility] Total Pedrito score 6 [facility] Maximum Dimension 50 mm [facility] Stevenson grade (1, 2, 3) 2 [facility] Her2/kam Status (FISH) Not performed/Not required [facility] H-Score: Progesterone Receptors 140 0-300 [facility] H-Score: Estrogen Receptors 250 0-300 [facility] KI-67 LABELING INDEX 10 % [facility] Pathologic Staging (pTNM) BrstInv BrstInv - pT2 Tumor > 20mm but not > 50mm in grt dim [facility] Surgical Margin Involvement No, closest margin is > or = 10mm [facility] Pathologic Staging (pTNM) BrstInv BrstInv - pN0 No regional lymph node (ln) metastasis identified or ITCs only [facility] Microcalcifications No calcification present [facility] Tumor Type, In Situ Lobular carcinoma in situ [facility] Tumor Type Lobular carcinoma [facility] Total Number Of Lymph Nodes Examined 4 [facility] Tumor Location/Segment Central subareolar [facility] 06/01/2021 10:5 0 AM EDT 06/01/2021 12:14 PM EDT Narrative [facility] - 06/06/2021 1:16 PM EDT FINAL DIAGNOSIS: PART 1: BREAST, LEFT, PALPATION-GUIDED CENTRAL LUMPECTOMY: A. ?INVASIVE LOBULAR CARCINOMA, PEDRITO GRADE 2 (TUBULE FORMATION 3, NUCLEAR GRADE 2, MITOTIC RATE 1; TOTAL SCORE 6/9). B. ? INVASIVE CARCINOMA MEASURES 5.0 CM IN GREATEST DIMENSION. C. ? NO LYMPHOVASCULAR SPACE INVASION IS IDENTIFIED. D. ? INVASIVE CARCINOMA IS FOCALLY (TWO FOCI LESS THAN 1 MM EACH) PRESENT AT THE POSTERIOR/LATERAL MARGIN OF RESECTION (see Part 7 for new posterior/inferior margin and comment). E. ? OTHER MARGINS OF RESECTION ARE AWAY FROM THE TUMOR. F. ? LOBULAR CARCINOMA IN SITU, NUCLEAR GRADE 2, CLASSICAL TYPE. G. ? ATYPICAL LOBULAR HYPERPLASIA. H. ? FIBROCYSTIC CHANGES WITH APOCRINE METAPLASIA. I. ? BIOPSY SITE CHANGES. J. ? SKIN AND NIPPLE, NEGATIVE FOR TUMOR. PART 2: LEFT AXILLARY SENTINEL LYMPH NODE #1, BIOPSY: ? ONE LYMPH NODE NEGATIVE FOR METASTATIC CARCINOMA (0/1). PART 3: LEFT AXILLARY SENTINEL LYMPH NODE #2, BIOPSY: ? ONE LYMPH NODE NEGATIVE FOR METASTATIC CARCINOMA (0/1). PART 4: LEFT AXILLARY SENTINEL LYMPH NODE #3, BIOPSY: ? ONE LYMPH NODE NEGATIVE FOR METASTATIC CARCINOMA (0/1). PART 5: LEFT AXILLARY SENTINEL LYMPH NODE #4, BIOPSY: ? ONE LYMPH NODE NEGATIVE FOR METASTATIC CARCINOMA (0/1). PART 6: BREAST, LEFT, ADDITIONAL SUPERIOR MARGIN, EXCISION: ? BENIGN BREAST TISSUE. PART 7: BREAST, LEFT, ADDITIONAL POSTERIOR/INFERIOR MARGIN, EXCISION: A. ?LOBULAR CARCINOMA IN SITU (LCIS), NUCLEAR GRADE 2, CLASSICAL AND FLORID TYPE. B. ? FLORID LCIS IS 2 MM FROM THE NEW MARGIN. C. ? ATYPICAL LOBULAR HYPERPLASIA. ON/eb EJB/EJB COMMENT: Based on the conversation with Dr. Antonietta Bateman, Part 7 of the specimen includes the entire new posterior margin (including posterior/lateral portion), and therefore, the final margin of resection is negative for invasive carcinoma. Tumor characteristics a) Size: 5.0 cm b) Stevenson score: 6 c) ER H-score: 250 d) MO H-score: 140 e) HER2 status: negative f) Ki-67 labeling index: 10% Based on above tumor characteristics, the estimated recurrence score using Elgin Equations is reported below. Elgin Equation 1 (includes a-f): 20 Zoraida Equation 2 (includes a-e): 19 Zoraida Equation 3 (includes c-f): 17 Average Zoraida Equation score: 19 NOTE For more scientific details, see reference: Debra JAMISON et al. Mod Pathol. 2013;26:658-664. PMID: [id number]. [email or web address] ON/acs ? Pathologist: ??Yenny Fuentes M.D. ? Report Electronically Signed Out ? By Pathologist: ??Yenny Fuentes M.D. ? 06/06/2021 13:16 My signature is attestation that I have personally reviewed the submitted material(s) and the final diagnosis reflects that evaluation. GROSS DESCRIPTION: The case is received in seven parts. Part 1 (received fresh for intraoperative consultation), is labeled with the patient's name, initials LRJ, and 1. left palpation guided central lumpectomy margin map . WEIGHT: 75.3 g SKIN: 6.0 x 2.2 cm, to include nipple, pale carl, wrinkled, dull OVERALL DIMENSIONS: Medial to Lateral 8.0 cm Superior to Inferior 5.8 cm Anterior to Posterior 4.0 cm SECTIONED: Medial to lateral into 10 slices MASS WITH BIOPSY SITE: Appearance: Extremely ill-defined with sprawling borders, pale carl-pink to carl-yellow to white, densely fibrous, finely nodular to gritty Size: 5.0 x 4.7 x 2.8 cm Location: slices 3 to 9 Biopsy jelly identified in slides 6, however no metallic clip is identified, and is presumed to have been dislodged at the time of intraoperative consultation sectioning DISTANCE FROM MASS TO MARGINS: Superior: 0.2 cm, slice 6-7 Inferior: 0.2 cm, slice 5-7 Medial: 1.2 cm, slice 1 Lateral: 1.6 cm, slice 8 Anterior: 1.0 cm, slice 6 Posterior: 0.7 cm, slice 7-8 REMAINING TISSUE COMPOSITION: 75% adipose tissue and 25% moderately dense extremely dense and finely nodular, carl-white fibrous tissue ADDITIONAL STUDIES: An intraoperative gross consultation is performed. The specimen is representatively submitted from medial to lateral and in individual slices from anterior to posterior and superior to inferior as follows: 1A-1D- slice 1, to include skin and nipple and medial margin, perpendicularly sectioned and entirely submitted 1E-1G-slice 2, to include mass flanking fibrous tissue, trisected and entirely submitted 1H-1L-slice 3, to include mass and skin with nipple, serially sectioned and entirely submitted 1M-1P-slice 4, representatively submitted, full face of mass with superior margin and inferior margin 1Q-1U-slice 5, representatively submitted, full face of mass with superior margin and inferior margin 1V-1Y-slice 6, representatively submitted, full face of mass with biopsy site, superior margin, inferior margin, and anterior margin [id number] 7, representatively submitted, full face of mass with superior margin, inferior margin and posterior margin 1AF-slice 8, representatively submitted, mass with posterior margin 1AG-slice 8, representatively submitted, lateral margin nearest to mass [id number] 9, representatively submitted, mass with inferior margin and posterior margin [id number] 10, to include mass flanking fibrous tissue, perpendicularly sectioned and entirely submitted Inking Moses: Anterior- orange Posterior- black Superior- red Inferior- green Medial- blue Lateral- yellow Cold Ischemic Time: 27 minutes FORMALIN EXPOSURE TIME: 15.5 hours Part 2 (received fresh), is labeled with the patient's name, initials LRJ, and 2. left ax SNB 1 blue 335 . It consists of a 2.8 x 2.0 x 1.0 cm portion of yellow-pink, lobulated fibroadipose tissue which harbors a 2.2 x 1.0 x 0.7 cm lymph node candidate. Sectioning at 0.2 cm intervals reveals carl-red, soft to pale yellow and fatty, focally blue-tinged cut surfaces. The specimen is trisected and entirely submitted in cassette 2A-2C. FORMALIN EXPOSURE TIME: 12.5 hours Part 3 (received fresh), is labeled with the patient's name, initials LRJ, and 3. left ax SNB 2 blue 900 . It consists of a 1.1 x 0.8 x 0.6 cm lymph node candidate surfaced by minimal yellow adipose tissue. Sectioning at 0.2 cm intervals reveals carl-red, soft to yellow, fatty, focally blue tinged cut surfaces. The specimen is trisected and entirely submitted in cassette 3A-3C. FORMALIN EXPOSURE TIME: 12.5 hours Part 4 (received fresh), is labeled with the patient's name, initials LRJ, and 4. left ax SNB 3 560 blue . It consists of a 1.3 x 0.7 x 0.6 cm lymph node candidate surfaced by minimal yellow adipose tissue. Sectioning at 0.2 cm intervals reveals carl-red, soft, focally blue tinged cut surfaces. The specimen is trisected and entirely submitted in cassette 4A-4B. FORMALIN EXPOSURE TIME: 12.5 hours Part 5 (received fresh), is labeled with the patient's name, initials LRJ, and 5. left ax SNB 4 850 blue . It consists of a 1.0 x 0.6 x 0.5 cm lymph node candidate surfaced by minimal yellow adipose tissue. Sectioning at 0.2 cm intervals reveals carl-red to pale yellow, focally blue tinged, soft and fatty cut surfaces. The specimen is bisected and entirely submitted in cassette 5A. FORMALIN EXPOSURE TIME: 12.5 hours Part 6 (received fresh), is labeled with the patient's name, initials LRJ, and 6. left breast additional superior margin stitch new margin . It consists of a 9.4 g, 4.5 x 4.2 x 1.3 cm irregular portion of yellow-pink, lobulated fibroadipose tissue with a suture on one surface designating the new superior margin (inked red). Sections reveal soft cut surfaces free of discrete nodules or lesions. [employer] sections are submitted in cassette 6A-6E. FORMALIN EXPOSURE TIME: 12.5 hours Part 7 (received fresh), is labeled with the patient's name, initials LRJ, and 7. left breast additional posterior inferior margin stitch new margin . It consists of a 13.9 g, 5.7 x 5.5 x 1.3 cm irregular portion of yellow-pink, lobulated fibroadipose tissue with a suture on one surface containing no posterior inferior margin (inked green). Sections reveal soft cut surfaces free of discrete nodules or lesions. [employer] sections are submitted in cassette 7A-7E. The remaining specimen is entirely submitted on 06/02/2021 in cassette 7F-7O. FORMALIN EXPOSURE TIME: 12.5 hours GROSSED BY: MAU Traylor(ASCP) AXR1//AXR1/AXR1 INTRAOPERATIVE CONSULTATION: 1GC: BREAST, LEFT, PALPATION GUIDED CENTRAL LUMPECTOMY (gross consultation): ? A. SUFFICIENT FOR ANCILLARY STUDIES/COMMUNICATED TO AND CONFIRMED BY SURGICAL TEAM ? B. MASS CLOSE TO SUPERIOR MARGIN AND INFERIOR MARGIN AT INFERIOR/POSTERIOR ASPECT ? (Krista Fuentes M.D. ??/ MAU Delcid) MICROSCOPIC: Antibody/Antigen ? Result Cytokeratin AE1/3 ?Negative (2A, 2B, 3A, 3B, 3C, 4A, 4B, 5A), positive (1AP) Smooth muscle myosin heavy chain ? Attenuated but positive (7A, 7B) P63 ?Attenuated but positive (7A, 7B) ?? Dual e-cadherin/p120 ? Lobular staining (7A, 7B). Utilizing formalin-fixed (8-96 hour range), paraffin embedded tissue, immunohistology is performed with the following selected antibodies and designated antibody clone(s), directed against the following antigenic target(s), with adequate positive and negative internal and external controls. Antibodies are optimized appropriate for fixation times. ANTIBODY ?CLONE ? TARGET ANTIGEN ? VENDOR AE1/AE3 ? AE1/AE3 ? carcinomas ? [employer] Myosin ?SMMS-1 ?Myoepithelial cells ? Gage p63 ? 4A4 ? Myoepithelial cells ? Gage e-cadherin ?36 ?Lobular Differentiation ? Gage p120 ?98 ?Lobular Differentiation ? [employer] ON/eb The following statement applies to all immunohistochemistry, insitu hybridization (CHONG & FISH), molecular & genomic pathology, and immunofluorescence testing: The testing was developed and its performance characteristics determined by the [facility], Department of Pathology, as required by the CLIA '88 regulations. ??The testing has not been cleared or approved for the specific use by the U.S. Food and Drug Administration, but the FDA has determined such approval is not necessary for clinical use. ? This laboratory is certified under the Clinical Laboratory Improvement Amendments of 1988 ( CLIA ) as qualified to perform high-complexity clinical testing. Pursuant to the requirements of CLIA, ASR's used in this laboratory have been established and verified for accuracy and precision. ??Additional information about this type of test is available upon request. Selected immunohistochemistry testing is performedat [facility], [address] [place] [address]; [facility], [address] [facility], [facility]; and [facility] of [facility], [address] [place] [address]. CASE SYNOPSIS: ? SYNOPTIC - PRIMARY INVASIVE CARCINOMA OF BREAST LATERALITY: ?Left PROCEDURE: ?Segmental Resection LOCATION: ?Central subareolar SIZE OF TUMOR: ?Maximum dimension invasive component: ??50 mm MULTICENTRICITY/MULTIFOCALITY OF INVASIVE FOCI: ? No TUMOR TYPE (invasive component): ? Lobular carcinoma HISTOLOGIC TYPE: ?Classical PEDRITO SCORE: ?Tubule formation: 3 ? Nuclear grade: 2 ? Mitotic activity score: 1 ? Total Pedrito score: 6 ? Stevenson grade (1, 2, 3): 2 ANGIOLYMPHATIC INVASION: ?No DERMAL LYMPHATIC INVASION: ?No CALCIFICATION: ?No TUMOR TYPE, IN SITU: ?LCIS SURGICAL MARGINS INVOLVED BY INVASIVE COMPONENT: ? No, closest margin is > or = 10mm SURGICAL MARGINS INVOLVED BY IN SITU COMPONENT: ? DCIS not present TREATMENT EFFECT: ?Not applicable EXTENSION OF TUMOR: ?Not applicable LYMPH NODES: ?All lymph nodes are negative ? Total number of lymph nodes examined: 4 METHOD(S) OF LYMPH NODE EXAMINATION: ? H/E stain, Keratin stain T STAGE, PATHOLOGIC: ?pT2 N STAGE, PATHOLOGIC: ?pN0 M STAGE, PATHOLOGIC: ESTROGEN RECEPTORS: ?positive, H-score: ??250 PROGESTERONE RECEPTORS: ?positive, H-score: ??140 HER2/KAM (IHC): ?1+ HER2/KAM (FISH): ?Not performed/Not required Ki-67 LABELING INDEX: ?10 % PATIENT HISTORY: Clinical findings based on: Ultrasound, mammogram Site and size of lesion 1: Left 3:00, Histology: ILC Neoadjuvant therapy: No Chief Complaint/Surgery Pre-op Diagnosis: ??LEFT BREAST CANCER Surgery Post-op Diagnosis: ??LEFT BREAST CANCER Surgical Procedure: ??MASTECTOMY SEGMENTAL Surgical Procedure: ??BIOPSY SENTINEL NODE HISTO TISSUE SUMMARY/SLIDES REVIEWED: Part 1: 1. LEFT PALPATION GUIDED ??CENTRAL LUMPECTOMY ??MARGIN MAP Taken: 06/01/2021 10:50 ? Received: 06/01/2021 12:14 Stain/cnt ? Block H&E x 1 ? A H&E x 1 ? B H&E x 1 ? C H&E x 1 ? D H&E x 1 ? E H&E x 1 ? F H&E x 1 ? G H&E x 1 ? H H&E x 1 ? I H&E x 1 ? J H&E x 1 ? K H&E x 1 ? L H&E x 1 ? M H&E x 1 ? N H&E x 1 ? O H&E x 1 ? P H&E x 1 ? Q H&E x 1 ? R H&E x 1 ? S H&E x 1 ? T H&E x 1 ? U H&E x 1 ? V H&E x 1 ? W H&E x 1 ? X H&E x 1 ? Y H&E x 1 ? Z H&E x 1 ? AA H&E x 1 ? AB H&E x 1 ? AC H&E x 1 ? AD H&E x 1 ? AE H&E x 1 ? AF H&E x 1 ? AG H&E x 1 ? AH H&E x 1 ? AI H&E x 1 ? AJ H&E x 1 ? AK H&E x 1 ? AL H&E x 1 ? AM H&E x 1 ? AN H&E x 1 ? AO AE1/3 x 1 ? AP H&E x 1 ? AP H&E x 1 ? AQ GR x 1 ? (none) Part 2: 2. LEFT AX SNB ??1 BLUE 335 Taken: 06/01/2021 10:50 ? Received: 06/01/2021 12:14 Stain/cnt ? Block AE1/3 x 1 ? A H&E x 1 ? A AE1/3 x 1 ? B H&E x 1 ? B H&E x 1 ? C Part 3: 3. LEFT AX SNB 2 BLUE ??900 Taken: 06/01/2021 10:50 ? Received: 06/01/2021 12:14 Stain/cnt ? Block AE1/3 x 1 ? A H&E x 1 ? A AE1/3 x 1 ? B H&E x 1 ? B AE1/3 x 1 ? C H&E x 1 ? C Part 4: 4. LEFT AX SNB 3 ??560 BLUE Taken: 06/01/2021 10:50 ? Received: 06/01/2021 12:14 Stain/cnt ? Block AE1/3 x 1 ? A H&E x 1 ? A AE1/3 x 1 ? B H&E x 1 ? B Part 5: 5. LEFT AX SNB 4 850 BLUE Taken: 06/01/2021 10:50 ? Received: 06/01/2021 12:14 Stain/cnt ? Block AE1/3 x 1 ? A H&E x 1 ? A Part 6: 6. LEFT BREAST ADDITIONAL SUPERIOR MARGIN STITCH NEW MARGIN Taken: 06/01/2021 10:50 ? Received: 06/01/2021 12:14 Stain/cnt ? Block H&E x 1 ? A H&E x 1 ? B H&E x 1 ? C H&E x 1 ? D H&E x 1 ? E Part 7: 7. LEFT BREAST ADDITIONAL POSTERIOR INFERIOR MARGIN STITCH NEW MARGIN Taken: 06/01/2021 10:50 ? Received: 06/01/2021 12:14 Stain/cnt ? Block [id number] x 1 ? A H&E x 1 ? A SMMHC x 1 ? A P63 x 1 ? A CFS361 x 1 ? B H&E x 1 ? B SMMHC x 1 ? B P63 x 1 ? B H&E x 1 ? C H&E x 1 ? D H&E x 1 ? E H&E x 1 ? F H&E x 1 ? G H&E x 1 ? H H&E x 1 ? I H&E x 1 ? J H&E x 1 ? K H&E x 1 ? L H&E x 1 ? M H&E x 1 ? N H&E x 1 ? O x 1 ? (none) TC1 [facility] Department of Pathology [address] [place], [place] ??[address] Antonietta Bateman MD LAB PATHOLOGY/CYTOLO GY ORDERABLES [facility] COPATH documented in this encounter Visit Diagnoses Not on filedocumented in this encounter Care Teams Sephora Product Consultant Relationship Specialty Start Date End Date Ortiz Rothman MD [address] [facility] [address] [place] [address] PCP - General 12/03/02 Bryce Allison MD, PhD [address] [place] [address] D, Bert [address] [place] [address] 08/25/10 Laura Villalobos MD [facility] 08/25/10 Valerie Wilkinson MD [facility] [address] [facility] [place] [address] 08/25/10 [place] [address] [place] [address] [place] [address] ENT-Otolaryngology 03/15/17 Vandana Walker AUD [address] [place] [address] Audiology 03/15/17 Geovanna Hughes MD [address] [phone] Internal Medicine 04/01/19 Vandana Whitmore MD [address] [facility] [place] [place] [address] Ophthalmology 08/18/19 Provider, Historical [facility] 11/06/19 Rozina Sanders MD [address] [facility] [place] [address] Ophthalmology 12/25/19 Antonietta Bateman MD CORPORATE OFFICE [address], [facility] [address] [place] [address] Surgical Oncology 04/29/21 documented as of this encounter
--- OUTSIDE RECORDS SUMMARY | 2024-10-14 21:58 | XMS_ITS | Encounter Summary ---
Author Organization [facility] Ambulatory Address [address] [place] [address] Phone Care Team Providers Care Dietary Supervisor Name Role Phone Ortiz Rothman MD Primary Care Provider [phone] Bryce Allison MD, PhD Unavailable +[phone] Provider, Abstract MD Unavailable Unavailabl Valerie Orellana MD Unavailable [phone] Yohan Powell MD Unavailable [phone] Vandana Walker Unavailable +[phone] Geovanna Hughes MD Unavailable Vandana Whitmore MD Unavailable +[phone] Provider, Historical Unavailable Unavailable Rozina Sanders MD Unavailable [phone] Source Comments This information has been disclosed [...] 2.65.[facility] Ambulatory Encounter Details Date Type Department Care Team (Late st Contact Info) Description 04/07/2021 Imaging EXTERNAL DEPARTMENT [address] [place] [address] Jacques Rothman MD [address] [facility] [address] [place] [address] Social History Tobacco Use Types Packs/Day Years [...] as of this encounter Plan of Treatment Pending Results Name Type Priority Associated Diagnoses Date /Time BI MAMMOGRAM DIGITAL DIAGNOSTIC ALL VIEWS W/WO CAD LEFT Imaging Routine 04/07/2021 8:30 AM EDT documented as of this encounter Procedures Procedure Name Priority Date/Time Associated Diagnosis Comments BI US BREAST LIMITED LEFT Routine 04/07/2021 8:57 AM EDT documented in this encounter Results * BI US BREAST LIMITED LEFT (04/07/2021 8:57 AM EDT) Anatomical Region Laterality Modality Other 04/07/2021 8:57 AM EDT Impressions 04/08/2021 10:23 AM EDT Highly suggestive for malignancy, mass in the periareolar 3 to 5 position of the left breast. Minimally asymmetric thickened axillary lymph node which is probably not significant. Recommendation: Ultrasound-guided core biopsy of the left breast. The findings have been discussed with the patient and she has been given a written summary. OVERALL ASSESSMENT: BI-RADS 5: HIGHLY SUGGESTIVE OF MALIGNANCY Narrative 04/08/2021 10:23 AM EDT THIS REPORT IS BEING REDISTRIBUTED A RESULT OF A REPORT ASSOCIATION. NO ADDITIONAL DIAGNOSTIC CONTENT HAS BEEN ADDED. CLINICAL INDICATION: Recall from screening, left breast architectural distortion. TECHNIQUE: Spot tomosynthesis tomographic images of the left breast in the craniocaudal projection and mediolateral oblique projection, focusing in the retroareolar aspect the left breast and tomosynthesis images of the entire left breast in a true lateral projection. This was supplemented by a focused ultrasound of the retroareolar aspect of the left breast and left axilla. COMPARISON: Screening mammograms performed between 06/12/2018 and 03/22/2021. FINDINGS: Scattered fibroglandular tissue is present, predominantly in the retroareolar aspect of the left breast. A persistent mass is identified in the retroareolar aspect of the left breast, partially obscured by adjacent fibroglandular tissue. This lesion is superficial in location and there is associated, subtle skin thickening. No associated calcifications are identified. A solid lobulated component is identified, with associated spiculations, extending to the skin surface and surrounding the deeper margins. On ultrasound evaluation a poorly defined irregular hypoechoic mass was identified adjacent to the nipple extending from the 3 to 5 o'clock position with distal shadowing. The margins were difficult to separate from the nipple areolar complex. There is a surrounding echogenic halo. On ultrasound this lesion measured 2.5 x 1.8 x 2.1 cm. There are several associated mildly prominent blood vessels at the superficial margin. The left axilla was also evaluated. Several small lymph nodes were identified which maintained normal cortical medullary differentiation, although one lymph node was eccentrically thickened with the cortex measuring 2 mm. Procedure Note Cleopatra Chacon MD - 04/08/2021 THIS REPORT IS BEING REDISTRIBUTED A RESULT OF A REPORT ASSOCIATION. NO ADDITIONAL DIAGNOSTIC CONTENT HAS BEEN ADDED. CLINICAL INDICATION: Recall from screening, left breast architectural distortion. TECHNIQUE: Spot tomosynthesis tomographic images of the left breast in the craniocaudal projection and mediolateral oblique projection, focusing in the retroareolar aspect the left breast and tomosynthesis images of the entire left breast in a true lateral projection. This was supplemented by a focused ultrasound of the retroareolar aspect of the left breast and left axilla. COMPARISON: Screening mammograms performed between 06/12/2018 and 03/22/2021. FINDINGS: Scattered fibroglandular tissue is present, predominantly in the retroareolar aspect of the left breast. A persistent mass is identified in the retroareolar aspect of the left breast, partially obscured by adjacent fibroglandular tissue. This lesion is superficial in location and there is associated, subtle skin thickening. No associated calcifications are identified. A solid lobulated component is identified, with associated spiculations, extending to the skin surface and surrounding the deeper margins. On ultrasound evaluation a poorly defined irregular hypoechoic mass was identified adjacent to the nipple extending from the 3 to 5 o'clock position with distal shadowing. The margins were difficult to separate from the nipple areolar complex. There is a surrounding echogenic halo. On ultrasound this lesion measured 2.5 x 1.8 x 2.1 cm. There are several associated mildly prominent blood vessels at the superficial margin. The left axilla was also evaluated. Several small lymph nodes were identified which maintained normal cortical medullary differentiation, although one lymph node was eccentrically thickened with the cortex measuring 2 mm. IMPRESSION Highly suggestive for malignancy, mass in the periareolar 3 to 5 position of the left breast. Minimally asymmetric thickened axillary lymph node which is probably not significant. Recommendation: Ultrasound-guided core biopsy of the left breast. The findings have been discussed with the patient and she has been given a written summary. OVERALL ASSESSMENT: BI-RADS 5: HIGHLY SUGGESTIVE OF MALIGNANCY Jacques Rothman MD IMG BI ORDERABLES documented in this encounter Visit Diagnoses Not on filedocumented in this encounter Care Teams Dietary Supervisor Relationship Specialty Start Date End Date Ortiz Rothman MD [address] [facility] [address] [place] [address] PCP - General 12/03/02 Bryce Allison MD, PhD 1400 [facility] D, [facility] [address] [place] [address] 08/25/10 ProviderLaura MD [facility] 08/25/10 Valerie Wiklinson MD [facility] EYE CENTER [address] [facility] EYE [facility] EAR [place], [place] [phone] 08/25/10 Yohan Powell MD [address] [address] ENT-Otolaryngology 03/15/17 Vandana Walker AUD [address] [place] [phone] Audiology 03/15/17 Geovanna Hughes MD [address] [place] [phone] Internal Medicine 04/01/19 Vandana Whitmore MD [address] [facility] EYE [facility] E[facility] [place], [place] [phone] Ophthalmology 08/18/19 Provider, Historical EPICARE PROVIDER 11/06/19 Rozina Sanders MD [address] [facility] [place] [phone] Ophthalmology 12/25/19 documented as of this encounter
--- OUTSIDE RECORDS SUMMARY | 2024-10-14 21:58 | XMS_ITS | Encounter Summary ---
Author Organization [facility] Ambulatory Address [address] [place] [address] Phone Care Team Providers Care Client Technical Specialist Name Role Phone Ortiz Rothman MD Primary Care Provider [phone] Bryce Allison MD, PhD Unavailable [phone] Provider, Abstract Unavailable Unavailabl e Valerie Wilkinson MD Unavailable [phone] Yohan Powell MD Unavailable [phone] Vandana Walker Unavailable [phone] Geovanna Hughes MD Unavailable Vandana Whitmore MD Unavailable [phone] Source Comments This information has been disclosed [...] Ambulatory Reason for Visit * Reason Comments Oculo-Plastics Evaluation ref by Dr. Sivakumar doe for Dermatochalasis OU Encounter Details Date Type Department Care Team (Latest Contact Info) Description 08/19/2019 8:15 AM EST Office Visit [facility] Vision [place] 203 [facility] [address] [place] [address] Word Processor: Sheyla Quintanilla, Vandana Bates MD [address] [facility] [place] [address] Dermatochalasis of both upper eyelids (Primary Dx) Social History Tobacco Use Types [...] Sign Reading Time Taken Comments Blood Pressure 142/83 08/19/2019 8:31 AM EST Pulse - - Temperature - - Respiratory Rate - - Oxygen Saturation - - Inhaled Oxygen Concentration - - Weight 61.2 kg (135 lb) 08/19/2019 8:31 AM EST Height 157.5 cm (5' 2 ) 08/19/2019 8:31 AM EST Body Mass Index 24.69 08/19/2019 8:31 AM EST documented in this encounter Progress Notes * ToElsa - 08/19/2019 8:15 AM EST HPI: Referred by Dr. Allison for dermatochalasis. Had bilateral upper blepharoplasty 20-30 years ago(Dr Field). Has now noticed the skin is back, gets in her vision, feels heavy. 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, s/p right upper lid eve K removal 03/17/19 PMHx: Graves disease (treated with radio-iodine at 32 years old) FOHx: none Gtts: refresh PRN Social: nonsmoker never before Assessment/plan: Dermatochalasis OU - prior bleph 20-30 years ago - taped/untaped [place] today - no ddx of sleep apnea but she does report snoring - will plan for blepharoplasty OU, risk including bleeding, infection, scarring, asymmetry, need for further procedures, loss of vision or reduced vision were discussed Lower lid laxity OS Brow ptosis OU - can consider repair in future if she is still bothered Graves disease - s/p radio-iodine - mild proptosis since her 30s, not requiring surgery - monitor Schedule for blepharoplasty OU in OR Taped/Untaped and external photos today * Vandana Whitmore MD - 08/19/2019 8:15 AM EST I have reviewed the fellow/resident's findings and interpretations and agree and have linked my note. I have discussed the findings with the patient. Vandana Whitmore MD documented in this encounter Nursing Notes * Sary Lama - 08/19/2019 8:15 AM EST Pt is here toady for ref by Dr. Allison for Dermatochalasis OU. Denies any pain or discomfort, vision changes. Currently taking: Refresh PM OU artifical tears PRN OU timolol QAM OU POHx: s/p right upper lid eve K removal 03/17/19 Pseudophakia OU Dermatochalasis OU POAG OU Graves disease Constitutional: Normal Cardiovascular: Normal Respiratory: Normal Gastrointestinal: Normal Genitourinary: Normal Musculoskeletal: Normal [employer]BAT[employer] CREWMAN: Normal ENT: Normal Integumentary: Normal Psychiatric: Normal Endocrine: Normal Hematologic/Lymphatic: Normal Mental Status: Normal documented in this encounter Plan of Treatment Not on file documented as of this encounter Results * EXTERNAL PHOTOGRAPHY (08/20/2019 5:00 PM EST) 08/20/2019 5:00 PM EST Narrative FORUM RESULTS - 08/20/2019 5:00 PM EST See linked image. Vandana Whitmore MD EYE TESTING FORUM RESULTS * (ABNORMAL) VISUAL FIELD, TAPED/UNTAPED (08/19/2019 11:53 AM EST) MD (OD) FORUM RESULTS MD (OS) FORUM RESULTS PSD (OD) FORUM RESULTS PSD (OS) FORUM RESULTS GHT (OD) FORUM RESULTS GHT (OS) FORUM RESULTS RELIABILITY (OD) FORUM RESULTS RELIABILITY (OS) FORUM RESULTS VFI (OD) FORUM RESULTS VFI (OS) FORUM RESULTS GPA (OD) FORUM RESULTS GPA (OS) FORUM RESULTS FIXATION LOSSES FORUM RESULTS FALSE POS ERRORS FORUM RESULTS FALSE NEG ERRORS FORUM RESULTS 08/19/2019 11:5 3 AM EST Impressions FORUM RESULTS - 08/19/2019 11:53 AM EST OU VF decreased to <5 deg from fixation; resolve with tape. Narrative FORUM RESULTS - 08/19/2019 11:53 AM EST See linked image. Vandana Whitmore MD EYE TESTING Performing Organization Address City/State/[facility] Co de Phone Number FORUM RESULTS documented in this encounter Visit Diagnoses Diagnosis Dermatochalasis of both upper eyelids- Primary Dermatochalasis of both upper eyelids Dermatochalasis of both upper eyelids documented in this encounter Care Teams Client Technical Specialist Relationship Specialty Start Date End Date Ortiz Rothman MD [address] [facility] [address] [place] [address] PCP - General 12/03/02 Bryce Allison MD, PhD [address] [place] [address] D, [facility] [address] [place] [phone] 08/25/10 Provider, MD ADE Sanchez PROVIDER 08/25/10 Valerie Wilkinson MD [facility] EYE CENTER 203 [facility] [place], [place] [phone] 08/25/10 Yohan Powell MD [address] [place] [address] [place] [phone] (Work) ENT-Otolaryngology 03/15/17 Vandana Walker AUD [address] [place] [phone] Audiology 03/15/17 Geovanna Hughes MD [address] [place] [phone] Internal Medicine 04/01/19 Vandana Whitmore MD 203 [facility] [place] [address] Ophthalmology 08/18/19 documented as of this encounter
--- OUTSIDE RECORDS SUMMARY | 2024-10-14 21:58 | XMS_ITS | Encounter Summary ---
Author Organization [facility] Ambulatory Address [address] [place] [address] Phone Care Team Providers Care Product Support Analyst Name Role Phone Ortiz Rothman MD Primary Care Provider [phone] Bryce Allison MD, PhD Unavailable [phone] Provider, Abstract MD Unavailable Unavailabl Valerie Orellana MD Unavailable + [phone] Yohan Powell MD Unavailable [phone] Vandana Walker Unavailable + Geovanna Hughes MD Unavailable Vandana Whitmore MD Unavailable + Provider, Historical Unavailable Unavailable Rozina Sanders MD Unavailable [phone] Antonietta Bateman MD Unavailable + [phone] Antonietta Bateman MD Unavailable [phone] Artie Lanza MD Unavailable Dena Berumen PA-C Unavailable [phone] Sangita Holly PA-C Unavailable [phone] Source Comments This information has been disclosed [...] Care Team (Late st Contact Info) Description 07/26/2021 Imaging EXTERNAL DEPARTMENT [address] [place] [address] Andre Frye MD [address] [place] [address] Social History Tobacco Use Types Packs/Day Years [...] Name Priority Date/Time Associated Diagnosis Comments CT RADIATION TREATMENT PLAN Routine 07/26/2021 8:27 AM EDT documented in this encounter Results * CT RADIATION TREATMENT PLAN (07/26/2021 8:27 AM EDT) Anatomical Region Laterality Modality Other 07/26/2021 8:27 AM EDT Impressions 07/26/2021 6:12 PM EDT Postsurgical changes in the left breast region. Postsurgical seroma at the left breast and left axillary levels are identified. The images are provided to the radiation therapy services for planning purposes. Narrative 07/26/2021 6:12 PM EDT CLINICAL HISTORY: Radiation therapy planning. FINDINGS: Contiguous 2.5 mm interval images are obtained on the radiation therapy planning table. Images are acquired with radiopaque markers at the left breast skin surface and operative site. Retroareolar postsurgical seroma is identified at approximately 4 x 3 cm. Left periareolar skin thickening is apparent. Surgical clips at the left axillary region are identified. There are small additional subcentimeter lymph nodes present at the subpectoral region. There is no pleural or pericardial effusion. Small less than 5 mm pulmonary nodules are apparent. The caliber of the thoracic aorta is maintained normally. Procedure Note Veronika Davidson MD - 07/26/2021 CLINICAL HISTORY: Radiation therapy planning. FINDINGS: Contiguous 2.5 mm interval images are obtained on the radiation therapy planning table. Images are acquired with radiopaque markers at the left breast skin surface and operative site. Retroareolar postsurgical seroma is identified at approximately 4 x 3 cm. Left periareolar skin thickening is apparent. Surgical clips at the left axillary region are identified. There are small additional subcentimeter lymph nodes present at the subpectoral region. There is no pleural or pericardial effusion. Small less than 5 mm pulmonary nodules are apparent. The caliber of the thoracic aorta is maintained normally. IMPRESSION Postsurgical changes in the left breast region. Postsurgical seroma at the left breast and left axillary levels are identified. The images are provided to the radiation therapy services for planning purposes. Andre Frye MD IMG CT ORDERABLES documented in this encounter Visit Diagnoses Not on filedocumented in this encounter Care Teams Product Support Analyst Relationship Specialty Start Date End Date Ortiz Rothman MD [address] [facility] [address] [place] [address] PCP - General 12/03/02 Antonietta Bateman MD [facility] [address] [facility] [address] [place] [address] PCP - CANCER CTR RMD Surgical Oncology 06/09/21 Artie Lanza MD [address] [facility] [address] [place] [address] PCP - Cancer CTR Hematology 06/09/21 Bryce Allison MD, PhD [address] [place] [address] D, Bert [address] [place] [phone] 08/25/10 Provider, MD Laura EPICARE PROVIDER 08/25/10 Valerie Wilkinson MD [facility] 203 [facility] [place] [address] 08/25/10 [place] [address] [place] [address] [address] [place], [place] [phone] ENT-Otolaryngology 03/15/17 Vandana Walker AUD [address] [place] [phone] Audiology 03/15/17 Geovanna Hughes MD [address] [place] [phone] Internal Medicine 04/01/19 Vandana Whitmore MD [address] [place] [address] [place] [address] Ophthalmology 08/18/19 Provider, Historical EPICARE PROVIDER 11/06/19 Rozina Sanders MD [address] [place] [address] [place] [phone] Ophthalmology 12/25/19 Antonietta Bateman MD CORPORATE OFFICE [address], [facility] [address] [place] [address] Surgical Oncology 04/29/21 Dena Berumen PA-C 300 [facility] [address] [place] [address] Oncology 06/13/21 Sangita Holly PA-C [address] [address] General Surgery 06/23/21 documented as of this encounter
--- OUTSIDE RECORDS SUMMARY | 2024-10-14 21:58 | XMS_ITS | Encounter Summary ---
Author Organization [facility] Ambulatory Address [address] [place] [address] Phone Care Team Providers Care Neurology Professor Name Role Phone Ortiz Rothman MD Primary Care Provider [phone] Bryce Allison MD, PhD Unavailable [phone] Provider, Abstract Unavailable Unavailabl e Valerie Wilkinson MD Unavailable [phone] Yohan Powell MD Unavailable [phone] Vandana Walker Unavailable [phone] Source Comments This information has been disclosed [...] Ambulatory Reason for Visit * Reason Comments New Patient Encounter Details Date Type Department Care Team (Late st Contact Info) Description 09/30/2018 9:15 AM EST Office Visit [facility] Vision [place] [facility] [address] [phone] Field Marketing Director: Valerie Purcell Evan L, MD, PhD 1400 [facility] D, Bert [address] [place] [address] Glaucoma suspect of both eyes (Primary Dx) Social History [...] as of this encounter Progress Notes * Elsa Morfin - 09/30/2018 9:15 AM EST 78 yo F, lost to follow up, here for pseudophakia OU. Wears OTC reading glasses. Distance starting to notice when she drives that signs are not as clear as they were, progressing over years. POHx: CE/IOL OU ; RD OD with buckle 1989, blepharoplasty OU PMHx: no DM, no HTN, Graves with radioactive iodine (synthroid) FOHx: no glaucoma or AMD Social: nonsmoker Gtts: visine 7 times a year OCT 09/30/2018: OD signal strength 9/10, aRNFL 64, C:D 0.82, superior and inferior thinning OS signal strength 7/10, aRNFL 70, C:D 0.65, inferior thinning and borderline superior and nasal thinning MacCube normal OU Overall worrisome for glaucomatous changes, will correlate with HVF 24-2 Glaucoma suspect - no family history of glaucoma, no steroid use - IOP acceptable - OCT for baseline today with changes worrisome for glaucoma - discussed findings with patient via phone - will bring back within 1 month for AM IOP check, pachymetry, HVF 24-2 and discussion Pseudophakia OU - aimed emmetropia - stable, no desire for distance correction Dry Eye OU - recommend ATs PRN, especially when driving Dermatochalasis, OU - refer to oculoplastics PRN Graves disease - mild proptosis since her 30s, not requiring surgery - no evidence of TID RTC within 1 month * Bryce Allison MD, PhD - 09/30/2018 9:15 AM EST ATTENDING NOTE: I personally performed a history and physical examination on Danika Mckeon. I reviewed the fellow/resident's findings and plan and note, and agree and link my note. I discussed the plan with the patient. documented in this encounter Nursing Notes * Kerrie Briseno - 09/30/2018 9:15 AM EST Last seen 08/21/2008 Lost to follow up 78 y female patient for full exam Ocular History: Pseudophakic OU, h/o VZV Patient states she has noticed slight blurred vision in the left eye. Complains of redness in the left eye which has been on going for years. No pain or discomfort. Gtts: Artificial tears PRN OU Constitutional: denies fatigue, fever, chills, weight change Cardiovascular: denies syncope, chest pain, palpitations Respiratory: no cough, exertional dyspnea, orthopnea or PND Gastrointestinal: no abdominal pain, nausea, vomiting, constipation or diarrhea Genitourinary: no dysuria, hematuria, flank pain Musculoskeletal: no muscle or joint pains or weakness SALON RECEPTIONIST: denies headaches, seizures, vertigo ENT: no dysphagia, rhinitis, pharyngitis Integumentary: no rashes or pruritis Psychiatric: no depression, anxiety, mood disorders Endocrine: no heat/cold intolerance, polydipsia Hematologic/Lymphatic: no bruising, blood clots, anemia documented in this encounter Plan of Treatment Not on file documented as of this encounter Results * OCT OPTIC NERVE (09/30/2018 12:30 PM EST) AVERAGE THICKNESS (OD) FORUM RESULTS SIGNAL STRENGTH (OD) FORUM RESULTS INFERIOR (OD) FORUM RESULTS SUPERIOR (OD) FORUM RESULTS NASAL (OD) FORUM RESULTS TEMPORAL (OD) FORUM RESULTS ANGLE (OD) FORUM RESULTS AVERAGE THICKNESS (OS) FORUM RESULTS SIGNAL STRENGTH (OS) FORUM RESULTS INFERIOR (OS) FORUM RESULTS SUPERIOR (OS) FORUM RESULTS NASAL (OS) FORUM RESULTS TEMPORAL (OS) FORUM RESULTS ANGLE (OS) FORUM RESULTS 09/30/2018 12:3 0 PM EST Impressions FORUM RESULTS - 09/30/2018 12:30 PM EST OD signal strength 9/10, aRNFL 64, C:D 0.82, superior and inferior thinning OS signal strength 7/10, aRNFL 70, C:D 0.65, ??inferior thinning and borderline superior and nasal thinning MacCube normal OU Overall concerning for glaucomatous changes, will correlate with HVF 24-2 Reviewed, agree, ELW Narrative FORUM RESULTS - 09/30/2018 12:30 PM EST See linked image. Bryce Allison MD, PhD EYE TESTING FORUM RESULTS documented in this encounter Visit Diagnoses Diagnosis Glaucoma suspect of both eyes- Primary Preglaucoma, unspecified Glaucoma suspect of both eyes Preglaucoma, unspecified documented in this encounter Care Teams Neurology Professor Relationship Specialty Start Date End Date Ortiz Rothman MD [address] [facility] [address] [place] [address] PCP - General 12/03/02 Bryce Allison MD, PhD [address] [place] [address], [facility] [address] [place] [phone] 08/25/10 ProviderLaura MD [facility] 08/25/10 Valerie Wilkinson MD [facility] EYE CENTER [address] [facility] [place] [address] 08/25/10 Yohan Powell MD [address] [facility] [address] [place], [place] [phone] ENT-Otolaryngology 03/15/17 Vandana Walker, HELLEN [address] [place] [address] Audiology 03/15/17 documented as of this encounter
--- OUTSIDE RECORDS SUMMARY | 2024-10-14 21:58 | XMS_ITS | Encounter Summary ---
Author Organization [facility] Ambulatory Address [address] [place] [address] Phone Care Team Providers Care Split Leather Department Supervisor Name Role Phone Ortiz Rothman MD Primary Care Provider [phone] Bryce Allison MD, PhD Unavailable +[phone] Provider, Abstract MD Unavailable Unavailabl Valerie Orellana MD Unavailable + 00 Yohan Powell MD Unavailable [phone] Vandana Walker Unavailable + Geovanna Hughes MD Unavailable Vandana Whitmore MD Unavailable + Provider, Historical Unavailable Unavailable Rozina Sanders MD Unavailable +[phone] Antonietta Bateman MD Unavailable + 74 Antonietta Bateman MD Unavailable + 74 Artie Lanza MD Unavailable Dena Berumen PA-C Unavailable [phone] Sangita Holly PA-C Unavailable [phone] Source Comments This information has been disclosed [...] at sections 2.12(c)(5) and 2.65.[facility] Ambulatory Reason for Visit * Ophthalmology - Closed Specialty Diagnoses / Procedures Referred By Antonieta t Referred To Contact Diagnoses Primary open angle glaucoma (POAG) of both eyes, mild stage Procedures OCT, OPTIC NERVE - OU - BOTH EYES Bryce Allison MD, PhD [address] [facility], [facility] [address] [place] [address] Referral ID Status Reason Start Date Expiration Date Visits Re quested Visits Authorized [id number] Closed 09/26/2021 1 1 Encounter Details Date Type Department Care Team (Late st Contact Info) Description 10/12/2021 9:30 AM EST Testing Visit [facility] [place] [address] [facility] [address] [place] [address] Speech Therapist Early Intervention: Jennifer Guillory Primary open angle glaucoma (POAG) of both [...] NERVE - OU - BOTH EYES Routine 10/12/2021 9:30 AM EST Primary open angle glaucoma (POAG) of both eyes, mild stage documented in this encounter Results * OCT, OPTIC NERVE - OU - BOTH EYES (10/12/2021 9:30 AM EST) AVERAGE THICKNESS (OD) FORUM RESULTS SIGNAL STRENGTH (OD) FORUM RESULTS INFERIOR (OD) FORUM RESULTS SUPERIOR (OD) FORUM RESULTS NASAL (OD) FORUM RESULTS TEMPORAL (OD) FORUM RESULTS ANGLE (OD) FORUM RESULTS AVERAGE THICKNESS (OS) FORUM RESULTS SIGNAL STRENGTH (OS) FORUM RESULTS INFERIOR (OS) FORUM RESULTS SUPERIOR (OS) FORUM RESULTS NASAL (OS) FORUM RESULTS TEMPORAL (OS) FORUM RESULTS ANGLE (OS) FORUM RESULTS Anatomical Region Laterality Modality Other 10/12/2021 9:30 AM EST Impressions 10/12/2021 9:30 AM EST OCT NFL Good signal strength OU OD - Avg = 59, thin superior quadrant, thin inferior quadrant OS - Avg = 68, thin superior quadrant, thin inferior quadrant Possible progression c/w 09/30/18 Will maintain current treatment and plan to remeasure in 6 months with in-person exam Narrative 10/12/2021 9:30 AM EST See linked image. Bryce Allison MD, PhD OPHTH TOMOGRAPHY documented in this encounter Visit Diagnoses Diagnosis Primary open angle glaucoma (POAG) of both eyes, mild stage documented in this encounter Care Teams Split Leather Department Supervisor Relationship Specialty Start Date End Date Ortiz Rothman MD [address] [facility] [address] [place] [address] PCP - General 12/03/02 Antonietta Bateman MD [facility], [facility] [address] [facility] [address] [place] [address] PCP - CANCER CTR RMD Surgical Oncology 06/09/21 Artie Lanza MD [address] [facility] [address] [place], [place] [phone] PCP - Cancer CTR Hematology 06/09/21 Bryce Allison MD, PhD [address] [facility] D, [facility] [address] [place] [address] 08/25/10 Provider, MD Laura EPICARE PROVIDER 08/25/10 Valerie Wilkinson MD [facility] [address] [facility] [place] [address] 08/25/10 Yohan Powell MD [address] [place] [address] [address] [place] [address] ENT-Otolaryngology 03/15/17 Vandana Walker AUD [address] [place] [address] Audiology 03/15/17 Geovanna Hughes MD [address] [place] [phone] Internal Medicine 04/01/19 Vandana Whitmore MD [address] [facility] [place] [address] Ophthalmology 08/18/19 Provider, Nithin EPICARE PROVIDER 11/06/19 Rozina Sanders MD [address] [facility] [place] [address] Ophthalmology 12/25/19 Antonietta Bateman MD CORPORATE OFFICE [address], [facility] [address] [place] [address] Surgical Oncology 04/29/21 Dena Berumen PA-C [address] [facility] [address] [place] [address] Oncology 06/13/21 Sangita Holly PA-C [address] [place] [address] General Surgery 06/23/21 documented as of this encounter
--- OUTSIDE RECORDS SUMMARY | 2024-10-14 21:58 | XMS_ITS | Encounter Summary ---
Author Organization [facility] Ambulatory Address [address] [place] [address] Phone Care Team Providers Care Liquor Merchant Name Role Phone Ortiz Rothman MD Primary Care Provider [phone] Bryce Allison MD, PhD Unavailable +[phone] Provider, Abstract MD Unavailable Unavailabl Valerie Orellana MD Unavailable + 00 Yohan Powell MD Unavailable [phone] Vandana Walker Unavailable + Geovanna Hughes MD Unavailable Vandana Whitmore MD Unavailable + Provider, Historical Unavailable Unavailable Rozina Sanders MD Unavailable +[phone] Antonietta Bateman MD Unavailable + [phone] Antonietta Bateman MD Unavailable +[phone] Artie Lanza MD Unavailable Dena Berumen PA-C Unavailable [phone] Sangita Holly PA-C Unavailable [phone] Source Comments This information has been disclosed [...] and 2.65.[facility] Ambulatory Encounter Details Date Type Department Care Team (Late st Contact Info) Description 06/29/2021 Lab Results EXTERNAL DEPARTMENT [address] [place] [address] Artie Lanza MD [address] [facility] [address] [place] [address] Social History Tobacco Use Types Packs/Day Years [...] Procedure Name Priority Date/Time Associated Diagnosis Comments COMPREHENSIVE METABOLIC PANEL (CMP) Routine 06/29/2021 4:39 PM EDT CBC (INCLUDES DIFFERENTIAL AND PLATELETS) Routine 06/29/2021 4:39 PM EDT documented in this encounter Results * COMPREHENSIVE METABOLIC PANEL (CMP) (06/29/2021 4:39 PM EDT) Sodium(Na) 143 136 - 144 mmol/L 06/29/2021 5:56 PM EDT [facility] Potassium(K) 4.2 3.5 - 4.9 mmol/L 06/29/2021 5:56 PM EDT [facility] Chloride(Cl) 105 98 - 109 mmol/L 06/29/2021 5:56 PM EDT [facility] Carbon Dioxide(CO2) 28 22 - 32 mmol/L 06/29/2021 5:56 PM EDT [facility] Urea Nitrogen 12 7 - 24 mg/dL 06/29/2021 5:56 PM EDT [facility] Glucose 90 70 - 99 mg/dL 06/29/2021 5:56 PM EDT [facility] Creatinine 0.74 0.50 - 1.17 mg/dL 06/29/2021 5:56 PM EDT [facility] Calcium(Ca) 8.8 8.5 - 10.1 mg/dL 06/29/2021 5:56 PM EDT [facility] Alkaline Phosphatase 73 46 - 128 U/L 06/29/2021 5:56 PM EDT [facility] Total Bilirubin 0.6 0.1 - 1.4 mg/dL 06/29/2021 5:56 PM EDT [facility] Total Protein 7.0 6.4 - 8.2 g/dL 06/29/2021 5:56 PM EDT [facility] Albumin 3.4 3.4 - 4.6 g/dL 06/29/2021 5:56 PM EDT [facility] Aspartate Aminot.(AST) 17 10 - 40 U/L 06/29/2021 5:56 PM EDT [facility] Alanine Aminotrans(ALT) 20 12 - 67 U/L 06/29/2021 5:56 PM EDT [facility] ANION GAP 14 10 - 20 meq/L 06/29/2021 5:56 PM EDT [facility] A/G RATIO 0.9 06/29/2021 5:56 PM EDT [facility] BUN/CREATININE RATIO 16 06/29/2021 5:56 PM EDT [facility] CALCULATED OSMOLALITY 295 281 - 307 mOsm/kg 06/29/2021 5:56 PM EDT [facility] EGFR 89 >59 06/29/2021 5:56 PM EDT [facility] Comment: eGFR was calculated by [employer] using the CKD-EPI formula: eGFR/1.73 m2 = 141x[min (Cr/k,1)a]x[max(Cr/k,1)-1.209]x 0.993Age. (x 1.018 [if female] and x 1.159 [if black]) k = 0.7 (female) or 0.9 (male) a = -0.329 (female) or -0.411 (male) min/max = min or max of Cr/k or 1 eGFR < 60 mL/min/1.73m2 can indicate chronic kidney disease. <15 mL/min/1.73m2 can indicate chronic kidney failure. eGFR 77 >59 06/29/2021 5:56 PM EDT [facility] Comment: eGFR was calculated by [employer] using the CKD-EPI formula: eGFR/1.73 m2 = 141x[min (Cr/k,1)a]x[max(Cr/k,1)-1.209]x 0.993Age. (x 1.018 [if female] and x 1.159 [if black]) k = 0.7 (female) or 0.9 (male) a = -0.329 (female) or -0.411 (male) min/max = min or max of Cr/k or 1 eGFR < 60 mL/min/1.73m2 can indicate chronic kidney disease. <15 mL/min/1.73m2 can indicate chronic kidney failure. 06/29/2021 4:39 PM EDT 06/29/2021 4:40 PM EDT Artie Lanza MD LAB BLOOD ORDERABLES Performing Organization Address City/State/[facility] Co de Phone Number [facility] [address] [place] [address] * CBC (INCLUDES DIFFERENTIAL AND PLATELETS) (06/29/2021 4:39 PM EDT) Neutrophils 51 % 06/29/2021 5:34 PM EDT [facility] ABS Neutrophils 2.40 1.80 - 7.50 X10E+09/L 06/29/2021 5:34 PM EDT [facility] Lymphocytes 35 % 06/29/2021 5:34 PM EDT [facility] ABS Lymphocytes 1.60 1.00 - 5.00 X10E+09/L 06/29/2021 5:34 PM EDT [facility] Monocytes 11 % 06/29/2021 5:34 PM EDT [facility] ABS Monocytes 0.50 0.00 - 0.80 X10E+09/L 06/29/2021 5:34 PM EDT [facility] Eosinophils 2 % 06/29/2021 5:34 PM EDT [facility] ABS Eosinophils 0.10 0.00 - 0.70 X10E+09/L 06/29/2021 5:34 PM EDT [facility] Basophils 1 % 06/29/2021 5:34 PM EDT [facility] BASOPHILS, ABS 0.00 0.00 - 0.20 X10E+09/L 06/29/2021 5:34 PM EDT [facility] WBC 4.7 3.8 - 10.6 X10E+09/L 06/29/2021 5:34 PM EDT [facility] RBC 4.63 3.90 - 5.00 X10E+12/L 06/29/2021 5:34 PM EDT [facility] Hgb 13.8 12.0 - 14.8 g/dL 06/29/2021 5:34 PM EDT [facility] Hematocrit(HCT) 41.2 35.0 - 43.0 % 06/29/2021 5:34 PM EDT [facility] MCV 89.0 81.0 - 99.0 fL 06/29/2021 5:34 PM EDT [facility] MCH 29.8 27.0 - 33.0 pg 06/29/2021 5:34 PM EDT [facility] MCHC 33.4 30.0 - 37.0 g/dL 06/29/2021 5:34 PM EDT [facility] RDW-CV 13.1 % 06/29/2021 5:34 PM EDT [facility] Platelets 237 150 - 450 X10E+09/L 06/29/2021 5:34 PM EDT [facility] Mean Platelet Volume 7.6 fL 06/29/2021 5:34 PM EDT [facility] 06/29/2021 4:39 PM EDT 06/29/2021 4:40 PM EDT Artie Lanza MD LAB BLOOD ORDERABLES [facility] [address] [place] [address] documented in this encounter Visit Diagnoses Not on filedocumented in this encounter Care Teams Liquor Merchant Relationship Specialty Start Date End Date Ortiz Rothman MD [address] [facility] [address] [place] [address] PCP - General 12/03/02 Antonietta Bateman MD [facility], [facility] [address] [facility] [address] [place] [address] PCP - CANCER CTR RMD Surgical Oncology 06/09/21 Artie Lanza MD [address] [facility] [address] [place] [address] PCP - Cancer CTR Hematology 06/09/21 Bryce Allison MD, PhD [address] [place] [address] D, Bert [address] [place] [phone] 08/25/10 ProviderLaura MD [facility] PROVIDER 08/25/10 Valerie Wilkinson MD [facility] [address] [facility] [place] [address] 08/25/10 Yohan Powell MD [address] [facility] [address] [place] [address] ENT-Otolaryngology 03/15/17 Vandana Walker AUD [address] [place] [phone] Audiology 03/15/17 Geovanna Hughes MD [address] [phone] Internal Medicine 04/01/19 Vandana Whitmore MD [address] [facility] [place] [address] Ophthalmology 08/18/19 Provider, Historical EPICARE PROVIDER 11/06/19 Rozina Sanders MD [address] [facility] [place] [phone] Ophthalmology 12/25/19 Antonietta Bateman MD CORPORATE OFFICE [address], [facility] [address] [place] [address] Surgical Oncology 04/29/21 Dena Berumen PA-C [address] [place] [address] Oncology 06/13/21 Sangita Holly PA-C [address] [place] [address] General Surgery 06/23/21 documented as of this encounter
--- OUTSIDE RECORDS SUMMARY | 2024-10-14 21:58 | XMS_ITS | Encounter Summary ---
Author Organization [facility] Ambulatory Address [address] [place] [address] Phone Care Team Providers Care Ski Tow Operator Name Role Phone Ortiz Rothman MD Primary Care Provider + [phone] Bryce Allison MD, PhD Unavailable + [phone] Provider, Abstract Unavailable Unavailabl e Valerie Wilkinson MD Unavailable [phone] Yohan Powell MD Unavailable [phone] Vandana Walker Unavailable [phone] Geovanan Hughes MD Unavailable Source Comments This information [...] sections 2.12(c)(5) and 2.65.[facility] Ambulatory Reason for Visit * Reason Comments Advice Encounter Details Date Type Department Care Team (Late st Contact Info) Description 04/01/2019 Telephone [facility] [place] [address] [place] [phone] Medical Lead: Valerie Purcell Siwei, MD [address] [phone] Advice Social History Tobacco Use Types Packs/Day Years Used Date Smoking Tobacco: Never Alcohol Use Standard Drinks/Week Comments Yes 0 (1 standard drink = 0.6 oz pur e alcohol) socially Sex and Gender Information Value Date Recorded Sex Assigned at Not on file Gender Identity Not on file Sexual Orientation Not on file documented as of this encounter Miscellaneous Notes * Telephone Encounter - Geovanna Hughes - 04/01/2019 6:23 PM EDT Patient called - he had nodule removed with Dr. Allison today and lost the tube of tobradex providedat the end of the visit. I reviewed her chart and sent medication script to her pharmacy of choice. documented in this encounter Plan of Treatment Not on file documented as of this encounter Visit Diagnoses Diagnosis Benign lesion of eyelid- Primary Unspecified disorder of eyelid documented in this encounter Care Teams Ski Tow Operator Relationship Specialty Start Date End Date Ortiz Rothman MD [address] [facility] [address] [place] [address] PCP - General 12/03/02 Bryce Allison MD, PhD [address] [place] [address] D, [facility] [address] [place] [phone] 08/25/10 Provider, Laura, MD BOOKER PROVIDER 08/25/10 Valerie Wilkinson MD [facility] [address] [facility] [place] [address] 08/25/10 Yohan Powell MD [address] [place] [address] [place] [address] ENT-Otolaryngology 03/15/17 Vandana Walker AUD [address] [place] [phone] Audiology 03/15/17 Geovanna Hughes MD [address] [place] [phone] Internal Medicine 04/01/19 documented as of this encounter
--- OUTSIDE RECORDS SUMMARY | 2024-10-14 21:58 | XMS_ITS | Encounter Summary ---
Author Organization [facility] Ambulatory Address [address] [place] [address] Phone Care Team Providers Care Gritting Machine Operator Name Role Phone Ortiz Rothman MD Primary Care Provider [phone] Bryce Allison MD, PhD Unavailable +[phone] Provider, Abstract MD Unavailable Unavailabl Valerie Orellana MD Unavailable [phone] Yohan Powell MD Unavailable [phone] Vandana Walker Unavailable +[phone] Geovanna Hughes MD Unavailable Vandana Whitmore MD Unavailable +[phone] Provider, Historical Unavailable Unavailable Rozina Sanders MD Unavailable [phone] Source Comments This information has been disclosed [...] Ambulatory Reason for Visit * Reason Comments Question Encounter Details Date Type Department Care Team (Late st Contact Info) Description 08/18/2019 Telephone [facility] [place] 203 [facility] 6th [place] [address] Sports Bookmaker: Sheyla Quintanilla, Vandana Bates MD [address] [facility] [place] [address] Question Social History Tobacco Use Types Packs/Day Years Used Date Smoking Tobacco: Never Alcohol Use Standard Drinks/Week Comments Yes 0 (1 standard drink = 0.6 oz pur e alcohol) socially Sex and Gender Information Value Date Recorded Sex Assigned at Not on file Gender Identity Not on file Sexual Orientation Not on file documented as of this encounter Miscellaneous Notes * Telephone Encounter - Amy South - 08/18/2019 3:55 PM EST I called this patient but no answer. I left message for patient to call the office * Telephone Encounter - Amy South - 08/18/2019 3:55 PM EST ----- Message from Renny Rolon sent at 08/18/2019 2:25 PM EST ----- Regarding: Left name/number requesting a return call. Contact: Its concerning her appointment tomorrow. documented in this encounter Plan of Treatment Not on file documented as of this encounter Visit Diagnoses Not on filedocumented in this encounter Care Teams Gritting Machine Operator Relationship Specialty Start Date End Date Ortiz Rothman MD [address] [facility] [address] [facility] [address] PCP - General 12/03/02 Bryce Allison MD, PhD [address] [place] [address] D, Bert [address] [place] [phone] 08/25/10 Provider, MD Laura EPICARE PROVIDER 08/25/10 Valerie Wilkinson MD [facility] [address] [facility] [place] [address] 08/25/10 Yohan Powell MD [address] [place] [address] ENT-Otolaryngology 03/15/17 Vandana Walker, HELLEN [address] [place] [phone] Audiology 03/15/17 Geovanna Hughes MD [address] [place] [phone] Internal Medicine 04/01/19 Vandana Whitmore MD [address] [place] [address] [place] [address] Ophthalmology 08/18/19 Provider, Historical EPICARE PROVIDER 11/06/19 Rozina Sanders MD [address] [place] [address] [place] [phone] Ophthalmology 12/25/19 documented as of this encounter
--- OUTSIDE RECORDS SUMMARY | 2024-10-14 21:58 | XMS_ITS | Encounter Summary ---
Author Organization [facility] Ambulatory Address [address] [place] [address] Phone Care Team Providers Care Subway Guard Name Role Phone Ortiz Rothman MD Primary Care Provider [phone] Bryce Allison MD, PhD Unavailable [phone] Provider, Abstract MD Unavailable Unavailabl Valerie Orellana MD Unavailable + [phone] Yohan Powell MD Unavailable [phone] Vandana Walker Unavailable + Geovanna Hughes MD Unavailable Vandana Whitmore MD Unavailable + Provider, Historical Unavailable Unavailable Rozina Sanders MD Unavailable [phone] Antonietta Bateman MD Unavailable + [phone] Antonietta Bateman MD Unavailable [phone] Artie Lanza MD Unavailable Dena Berumen PA-C Unavailable [phone] Sangita Holly PA-C Unavailable [phone] Source Comments This information has been disclosed [...] Care Team (Late st Contact Info) Description 10/19/2021 Office Note [facility] [address] [place] [address] Artie Lanza MD [address] [facility] [address] [place] [address] Social History Tobacco Use Types Packs/Day Years [...] this encounter Progress Notes * Artie Lanza - 10/19/2021 11:09 AM EST NOTE TYPE: OFFICE NOTE DID: MOOFCNT PATIENT NAME: Danika Mckeon ID: [id number] DATE OF : 1940 DATE OF VISIT: Oct 19, 2021 FOLLOW UP OFFICE NOTE DIAGNOSIS: Primary C50.112 - Malignant neoplasm of central portion of left female breast, Diagnosed Jun 09, 2021 (Active) CHIEF COMPLAINT: PRINCIPAL DIAGNOSIS: - Stage IA, T2N0M0, left breast invasive lobular carcinoma (ER/WY positive, HER2 negative, Ki-67 10%, Racine grade 1) CURRENT THERAPY: - Anastrozole 1 [...] histiocytoid morphology, ER positive (H score 250), WY positive (H score 140), HER2/kam negative (1+ by IHC), Ki-67 low (10%), Ivan grade 1. - The patient underwent left [...] 05/21/20 showed osteopenia - Adjuvant anastrozole started 10/19/21 HISTORY OF PRESENT ILLNESS/INTERIM HISTORY: Ms. Mckeon is an 81 year old woman with a history of stage IA, T2N0M0, left breast invasive lobular carcinoma (ER/WY positive, HER2 negative, Ki-67 10%, Racine grade 1) s/p left segmental mastectomyand SLNB on 06/01/21 and adjuvant radiation completed on 08/31/21 who presents for ongoing follow-up. The patient reports that she tolerated radiation well aside from mild skin changes and fatigue, both of which have resolved. She has no new fevers, chills, chest pain, shortness of breath, cough, abdominal pain, nausea, vomiting, diarrhea, dysuria, lower extremity swelling, bone pain, back pain, headache, blurred vision, numbness, tingling, weakness, or bleeding issues. REVIEW OF SYSTEMS: The pertinent ROS are incorporated in the HPI. Beyond those, the remaining 10 organ system ROS are either normal/negative or listed below. MEDICATIONS: COVID-19 mRNA Vaccine (Pfizer) Intramuscular COVID-19 mRNA Vaccine (Pfizer) Intramuscular COVID-19 mRNA Vaccine (Pfizer) Intramuscular Synthroid (75 mcg) Tablet Oral daily [...] support systems: lives with spouse. Lives in [place] with her husbandand son. 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 Never smoker. Has one glass of wine per day on average. No illicit drugs. PHYSICAL EXAMINATION: Performed on Oct 19, 2021 10:40 Height 62 in Weight 135.2 lbs BSA (derived) 1.62 sq.m BMI 24.73 Temperature 97.7 F Pulse 68 /min Respiration 16 /min BP 136/84 Pulse Oximetry (O2 Sat) 99 % Fatigue 3 Pain Assessment 1 0 - Fully active, able to carry [...] of heart without murmurs, gallops or rubs. Abdomen Non-tender, non-distended, no masses, ascites or [...] the EMR. IMPRESSION: Ms. Mckeon is an 81 year old woman with a history of stage IA, T2N0M0, left breast invasive lobular carcinoma (ER/WY positive, HER2 negative, Ki-67 10%, Ivan grade 1) s/p left segmental mastectomyand SLNB on 06/01/21 and adjuvant radiation completed on 08/31/21 who presents for ongoing follow-up. # Breast Cancer The patient is doing well since she was last seen. She completed adjuvant radiation on 08/31/21, which she tolerated well aside from mild fatigue and skin changes that have since resolved. She has nosigns or symptoms concerning for recurrent, metastatic disease, so there is no indication to obtainlabs or imaging at this time. The patient has not yet started her adjuvant anastrozole, so we discussed that it would be appropriate to start it at this time. We reviewed the relevant side effects ofanastrozole in detail, including the risk of decreased bone density. We will plan to complete 5 years of therapy through 10/2026.I will see the patient back in 3 months to see how she is doing. She will follow-up with Dr. Bateman for annual mammography. # Osteopenia The patient had a DEXA scan on 05/20/20 that showed osteopenia. She will take calcium and vitamin D supplementation while taking anastrozole, and a repeat a DEXA will be obtained in 05/2022. ASSESSMENT AND PLAN: - Start anastrozole 1 mg daily -- plan for 5 years of therapy through 10/2026 - Calcium/vitamin D supplementation -- repeat DEXA in 05/2022 - F/u with Dr. Bateman for annual mammography - Return to clinic in 3 months She knows to call or return at any time with questions or problems. NEW ORDERS TODAY: Return Visit ordered by Artie Lanza on Oct 19, 2021: The following order(s) were created to occur in 3 months: Schedule next visit with (Approved) (Transcribed) Electronically Reviewed By: Artie Lanza Oct 19, 2021 11:09AM documented in this encounter Plan of Treatment Not on file documented as of this encounter Visit Diagnoses Not on filedocumented in this encounter Care Teams Subway Guard Relationship Specialty Start Date End Date Ortiz Rothman MD [address] [facility] [address] [place] [address] PCP - General 12/03/02 Antonietta Bateman MD [facility], [facility] [address] [facility] [address] [place] [address] PCP - CANCER CTR RMD Surgical Oncology 06/09/21 Artie Lanza MD [address] [facility] [address] [place] [address] PCP - Cancer CTR Hematology 06/09/21 Bryce Allison MD, PhD [address] [place] [address] D, [facility] [address] [place] [phone] 08/25/10 Provider, MD Laura [facility] 08/25/10 Valerie Wilkinson MD [facility] [address] [facility] [place] [address] 08/25/10 [place] [address] [place] [address] [address] [place] [address] ENT-Otolaryngology 03/15/17 Vandana Walker [address] [place] [phone] Audiology 03/15/17 Geovanna Hughes MD [address] [address] Internal Medicine 04/01/19 Vandana Whitmore MD [address] [place] [address] [place] [address] Ophthalmology 08/18/19 Provider, Historical EPICARE PROVIDER 11/06/19 Rozina Sanders MD [facility] [address] Ophthalmology 12/25/19 Antonietta Bateman MD CORPORATE OFFICE [address] [place] [address] Surgical Oncology 04/29/21 Dena Berumen PA-C [address] [place] [address] Oncology 06/13/21 Sangita Holly PA-C [address] [place] [address] General Surgery 06/23/21 documented as of this encounter
--- OUTSIDE RECORDS SUMMARY | 2024-10-14 21:58 | XMS_ITS | Encounter Summary ---
Author Organization [facility] Ambulatory Address [address] [place] [address] Phone Care Team Providers Care Lever Operator Name Role Phone Ortiz Rothman MD Primary Care Provider [phone] Bryce Allison MD, PhD Unavailable [phone] Provider, Abstract Unavailable Unavailabl e Valerie Wilkinson MD Unavailable [phone] Yohan Powell MD Unavailable [phone] Vandana Walker Unavailable [phone] Source Comments This information has been disclosed [...] except as provided at sections 2.12(c)(5) and 2.65.[facility] Ambulatory Encounter Details Date Type Department Care Team (Late st Contact Info) Description 12/03/2017 Imaging EXTERNAL DEPARTMENT [address] [place] [address] Ortiz Rothman MD [address] [facility] [address] [place] [address] Social History Tobacco Use Types Packs/Day Years [...] Procedure Name Priority Date/Time Associated Diagnosis Comments MAMMOGRAM DIGITAL SCREENING WWO CAD Routine 12/03/2017 8:13 AM EST documented in this encounter Results * MAMMOGRAM DIGITAL SCREENING WWO CAD (12/03/2017 8:13 AM EST) Anatomical Region Laterality Modality Other 12/03/2017 8:13 AM EST Impressions 12/07/2017 4:45 AM EST No evidence of malignancy is identified. RECOMMENDATION: Routine screening mammography and tomosynthesis is recommended in one year, unless otherwise clinically indicated. We will provide the patient with these findings and recommendations. OVERALL ASSESSMENT: BI-RADS: 1 - NEGATIVE RIS CODE: 3NEGATIVE Narrative 12/07/2017 4:45 AM EST CLINICAL HISTORY: The patient is 77 years old and presents for routine screening. Family history of breast cancer in her mother diagnosed at age 45. Family history of ovarian cancer in her mother diagnosed at age 47. FINDINGS: Bilateral synthetically generated digital mammography with CAD and digital breast tomosynthesis ?reveals heterogeneously dense breast tissue, which may obscure small masses. No suspicious findings or changes are present as compared to the prior examination(s), the most recent of which is dated 12/01/2016. ? Procedure Note Rancho Ledbetter MD - 12/07/2017 CLINICAL HISTORY: The patient is 77 years old and presents for routine screening. Family history of breast cancer in her mother diagnosed at age 45. Family history of ovarian cancer in her mother diagnosed at age 47. FINDINGS: Bilateral synthetically generated digital mammography with CAD and digital breast tomosynthesis reveals heterogeneously dense breast tissue, which may obscure small masses. No suspicious findings or changes are present as compared to the prior examination(s), the most recent of which is dated 12/01/2016. IMPRESSION No evidence of malignancy is identified. RECOMMENDATION: Routine screening mammography and tomosynthesis is recommended in one year, unless otherwise clinically indicated. We will provide the patient with these findings and recommendations. OVERALL ASSESSMENT: BI-RADS: 1 - NEGATIVE RIS CODE: 3NEGATIVE Ortiz Rothman MD BREAST IMAGING documented in this encounter Visit Diagnoses Not on filedocumented in this encounter Care Teams Lever Operator Relationship Specialty Start Date End Date Ortiz Rothman MD [address] [facility] [address] [place] [address] PCP - General 12/03/02 Bryce Allison MD, PhD [address] [facility] D, [address] [place] [address] 08/25/10 Provider, MD Laura EPICARE PROVIDER 08/25/10 Valerie Wilkinson MD [facility] [address] [facility] EYE [facility] EAR [place], [place] [id number] 08/25/10 Yohan Powell MD [address] [place] [address] [address] [place] [address] ENT-Otolaryngology 03/15/17 Vandana Walker [address] [place] [phone] Audiology 03/15/17 documented as of this encounter
--- OUTSIDE RECORDS SUMMARY | 2024-10-14 21:58 | XMS_ITS | Encounter Summary ---
Author Organization [facility] Ambulatory Address [address] [place] [address] Phone Care Team Providers Care Rail Transportation Operator Name Role Phone Ortiz Rothman MD Primary Care Provider [phone] Bryce Allison MD, PhD Unavailable [phone] Provider, Abstract MD Unavailable Unavailabl Valerie Orellana MD Unavailable + [phone] Yohan Powell MD Unavailable [phone] Vandana Walker Unavailable + Geovanna Hughes MD Unavailable Vandana Whitmore MD Unavailable + Provider, Historical Unavailable Unavailable Rozina Sanders MD Unavailable [phone] Antonietta Bateman MD Unavailable + [phone] Antonietta Bateman MD Unavailable [phone] Artie Lanza MD Unavailable Dena Berumen PA-C Unavailable [phone] Sangita Holly PA-C Unavailable [phone] Source Comments This information has been disclosed [...] Team (Late st Contact Info) Description 06/29/2021 Ambulatory Visit Summary LIDIA Villalta [facility] [address] [facility], [address] [place] [address] External, Provider MedOnc - After Visit Summary [...] encounter Progress Notes * External, Provider - 06/29/2021 4:08 PM EDT NOTE TYPE = TREATMENT/PROCEDURES DID: [facility] Visit Summary Visit/Patient Information Date & Time Provider Jun 2914:08PM Artie Lanza M.D. Name Date of Danika Mckeon 1940 Problems Malignant neoplasm of central portion of left [...] date of the medication. COVID-19 mRNA Vaccine (Pfizer) Intramuscular COVID-19 mRNA Vaccine (Pfizer) Intramuscular Erythromycin Ointment Ophthalmic PRN Synthroid (75 mcg) Tablet Oral daily Timolol Maleate (0.5 %) Solution Ophthalmic daily Tobramycin-Dexamethasone Ointment Ophthalmic Vitamin D3 Capsule Oral every other week Active Treatment Medications Displays each active chemotherapy and non-chemotherapy medication. Anastrozole Active Treatment Medications Given this Visit Displays each medication that has an approved dose recording on the effective date. The agent's name, administered dose, form, start date and time, end date and time (when entered). There is no information available in this category. __ Vital Signs Performed on Jun 29, 2021 15:22 Height - 62 in Weight - 133 lbs BSA - 1.61 sq.m BMI - 24.33 Temperature - 97.5 F (LOW) Pulse - 66 /min Respiration - 16 /min BP - 169/81 mm(hg) (HIGH) O2 Sat - 99 % Fatigue - 3 Pain - 5 Performed on Jun 29, 2021 15:12 Height - 62 in Weight - 133 lbs (LOW) BSA - 1.61 sq.m BMI - 24.33 __ Most Recent Labs Most recent lab results are not available for this patient. This link will provide you with access to all Patient Education resources that are available at [facility] [email or web address] Prepared By: Savana Moyer Created On: Jun 29, 2021 4:08PM documented in this encounter Plan of Treatment Not on file documented as of this encounter Visit Diagnoses Not on filedocumented in this encounter Care Teams Rail Transportation Operator Relationship Specialty Start Date End Date Ortiz Rothman MD [address] [facility] [address] [place] [address] PCP - General 12/03/02 Antonietta Bateman MD [facility], [address] [place] [id number] PCP - CANCER CTR RMD Surgical Oncology 06/09/21 Artie Lanza MD [address] [facility] [address] [place] [address] PCP - Cancer CTR Hematology 06/09/21 Bryce Allison MD, PhD [address] [facility] [address], [address] [place] [id number] 08/25/10 Provider, MD Laura EPICARE PROVIDER 08/25/10 Valerie Wilkinson MD [facility] [address] [facility] [place] [address] 08/25/10 Yohan Powell MD [address] [facility] [address] [place] [address] ENT-Otolaryngology 03/15/17 Vandana Walker AUD [address] [place] [phone] Audiology 03/15/17 Geovanna Hughes MD [address] [address] Internal Medicine 04/01/19 Vandana Whitmore MD [address] [place] [address] [place] [address] Ophthalmology 08/18/19 Provider, Nithin EPICARE PROVIDER 11/06/19 Rozina Sanders MD [address] [facility] [place] [phone] Ophthalmology 12/25/19 Antonietta Bateman MD [facility]POR[facility] OFF[facility] [address] [place] [address] Surgical Oncology 04/29/21 Dena Berumen PA-C [address] [place] [address] [address] [place] [address] Oncology 06/13/21 Sangita Holly PA-C [address] [place] [address] [place] [address] General Surgery 06/23/21 documented as of this encounter
--- OUTSIDE RECORDS SUMMARY | 2024-10-14 21:58 | XMS_ITS | Encounter Summary ---
Author Organization [facility] Ambulatory Address [address] [place] [address] Phone Care Team Providers Care Network Desktop Support Specialist Name Role Phone Ortiz Rothman MD Primary Care Provider [phone] Bryce Allison MD, PhD Unavailable + [phone] Provider, Abstract MD Unavailable Unavailabl Valerie Orellana MD Unavailable [phone] Yohan Powell MD Unavailable [phone] Vandana Walker Unavailable [phone] Geovanna Hughes MD Unavailable Vandana Whitmore MD Unavailable +[phone] Provider, Historical Unavailable Unavailable Rozina Sanders MD Unavailable [phone] Antonietta Bateman MD Unavailable [phone] Source Comments This information has been [...] at sections 2.12(c)(5) and 2.65.[facility] Ambulatory Reason for Visit * Reason Comments Surgery Scheduling Encounter Details Date Type Department Care Team (Late st Contact Info) Description 05/10/2021 3:00 PM EDT Office Visit [facility] [address] [facility] [address] [place] [address] Crm Consultant: Irene Arroyo Emilia J, MD [facility] [address] [place] [address], [facility] [address] [place] [address] Malignant neoplasm of lower-outer quadrant of left [...] Sign Reading Time Taken Comments Blood Pressure 140/79 05/10/2021 2:51 PM EDT Pulse 70 05/10/2021 2:51 PM EDT Temperature - - Respiratory Rate - - Oxygen Saturation 97% 05/10/2021 2:51 PM EDT Inhaled Oxygen Concentration - - Weight 59.9 kg (132 lb) 05/10/2021 2:51 PM EDT Height 157.5 cm (5' 2 ) 05/10/2021 2:51 PM EDT Body Mass Index 24.14 05/10/2021 2:51 PM EDT documented in this encounter Patient Instructions * Patient Instructions* Lorraine Jones - 05/10/2021 3:00 PM EDT ?? [facility] - Surgery Instructions: o Patient Name: Danika Mckeon o Surgery Date: 06/01/21 o Procedure: left partial mastectomy (central lumpectomy), left sentinal lymph node biopsy o Location: [facility], [address] [place] [phone] o Our office will contact your insurance company to pre-certify your surgery o The day before your surgery, the hospital???s Operating Room will call you in the afternoon, between the hours of 2 pm and 6 pm to inform you of arrival and operating times. If you are having a procedure on Sunday, they will call on Sunday. If you have not heard from the hospital, you may call them at [phone] (before 6 pm) or [phone] (after 6 pm) and ask for your instructions and times to arrive at the hospital. - They will remind you not to eat or drink anything after midnight. - They will go over all of your medications with you and tell you which ones to take in morning. - You should NOT take any aspirin, Ibuprofen, or Vitamin E for one week prior to surgery. o On the day of surgery, go to the Surgical Center located on the 3rd floor. The nurses will take you to a private holding room where you will change into a hospital gown. o The anesthesiologist will talk with you, and start an IV. o Your family can stay with you until it is time to go to the Operating Room. Family members are then instructed to stay in the waiting room. Your surgeon will come into the waiting room and talk to the family after the surgery is over. o You will be in the recovery room for approximately an hour and a half. You will then be transferred to a step-down unit where you will be discharged from, or to the floor where you will spend the night. o It will take approximately 4 to 5 working days to get the pathology results. Once received, our team will call you with these results. o You should return to the office for a post-operative visit in 7-14 days after the surgery. If youhave not scheduled your post-op appt today, please call the surgeon???s administrative clerk a day or two after your surgery to arrange this visit. o Scheduled Appointments: ??? Post-Operative Appt: 06/13/[address], [address], [place] [address] o For scheduling future appointments, call your surgeon???s administrative clerk. For nursing questions or concerns, call you surgeon???s clinical nurse coordinator. documented in this encounter Progress Notes * Antonietta Bateman MD - 05/10/2021 3:00 PM EDT HISTORY OF PRESENT ILLNESS Danika Mckeon is a pleasant 81 year old postmenopausal woman who returns to the office today accompanied by her and referred by Dr. Rothman to finalize surgery for a recently diagnosed left breast cancer. The patient specifically was not aware of any breast masses, skin changes, nipple retraction or nipple discharge. Her most recent bilateral screening mammogram was performed at at [facility] in March 2021 reveals scattered fibroglandular densities, [...] core needle biopsy demonstrates invasive lobular carcinoma, Damascus score 5/9, ER positive, H score 250, GA positive, H score 140, HER-2/kam negative, Ki-67 10%. She denies any new onset weight loss, headaches, bone pain, shortness of breath or abdominal pain. Allergies Allergen Reactions ??? No Known Allergies Outpatient Medications Marked as Taking for the 05/10/21 encounter (Office Visit) with Luca Bateman MD Medication Sig Dispense Refill ??? cholecalciferol, vitamin D3, 50,000 unit oral capsule Take 50,000 units by mouth once a week 3 ??? erythromycin (ROMYCIN) 5 mg/gram (0.5 %) ophthalmic ointment APPLY 1/2 INCH ON BOTH UPPER EYE LIDS SUTURES TWICE A DAY FOR 10 DAYS ??? SYNTHROID TABLET 100MCG PO None Entered ??? timoloL maleate (TIMOPTIC) 0.5 % ophthalmic drops INSTILL ONE DROP INTO EACH EYE EVERY MORNING 10 mL 3 ??? tobramycin-dexamethasone (TOBRADEX) 0.3-0.1 % opht ophthalmic ointment Place into the left eye 2 times a day 3.5 g 0 The patient's Past Medical, Surgical and Family [...] Use of Control: No Physical exam Vitals: BP 140/79 Pulse 70 Ht 5' 2 (157.5 cm) Wt 132 lb (59.9 kg) SpO2 97% BMI 24.14 kg/m?? General Appearance: Well appearing, nourished, comfortable. Awake, [...] Patient gets on and off the examining table with minimal assistance. Imaging Review: The patients [facility] diagnostic breast imaging to include mammogram and [...] hormonal therapy because of the ER and GA status of her tumor. She signed consent for surgery today and the procedure is scheduled at [facility] on June 01. The patient verbalized understanding of our discussion. I spent 20 minutes with Danika and her , the majority of this time spent in counseling and coordination of care. Thank you for involving me in her care. Please do not hesitate to contact me with questions. NB: Documentation partially created using [employer] voice recognition software. There may be grammatical/typographical errors, which may not be recognized despite proofreading. Please contact me if there is any confusion or ambiguity. documented in this encounter Nursing Notes * Lorraine Jones - 05/10/2021 3:00 PM EDT pt consented for: LEFT PALPATION GUIDED SEGMENTAL MASTECTOMY (CENTRAL LUMPECTIOMY), LEFT SLNB On 06/01/21 at [facility] issue bank consent signed. No Pre-op clearance or testing needed per review w/pt of her hx and of anesthesia guidelines / smartset H&P per Dr. Fransico SCHRADER Pfizer COVID vaccine 12/20/2020, 12/02/2020 POV: 06/13/21 at [facility] Education binder provided. AVS and Pre/post-operative instructions reviewed, including medications to avoid one week prior to surgery. Pre-op education complete. Patient verbalizes understanding. Office contact information provided for any follow-up questions. documented in this encounter Plan of Treatment Not on file documented as of this encounter Visit Diagnoses Diagnosis 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, estrogen receptor positive (HCC)- Primary documented in this encounter Care Teams Network Desktop Support Specialist Relationship Specialty Start Date End Date Ortiz Rothman MD [address] [facility] [address] [place] [address] PCP - General 12/03/02 Bryce Allison MD, PhD [address] [place] [address], [facility] [address] [place] [phone] 08/25/10 ProviderLaura MD [facility] 08/25/10 Valerie Wilkinson MD [facility] [address] [facility] [place] [address] 08/25/10 Yohan Powell MD [address] [place] [address] [address] [place] [address] ENT-Otolaryngology 03/15/17 Vandana Walker AUD [address] [place] [address] Audiology 03/15/17 Geovanna Hughes MD [address] [place] [phone] Internal Medicine 04/01/19 Vandana Whitmore MD [address] [facility] [place], [place] [phone] Ophthalmology 08/18/19 Provider, Historical EPICARE PROVIDER 11/06/19 Rozina Sanders MD [facility] [place] [phone] Ophthalmology 12/25/19 Antonietta Bateman MD CORPORATE OFFICE [address], [facility] [address] [place] [address] Surgical Oncology 04/29/21 documented as of this encounter
--- OUTSIDE RECORDS SUMMARY | 2024-10-14 21:58 | XMS_ITS | Encounter Summary ---
Author Organization [facility] Ambulatory Address [address] [place] [address] Phone Care Team Providers Care Jet Engine Mechanic Name Role Phone Ortiz Rothman MD Primary Care Provider [phone] Bryce Allison MD, PhD Unavailable [phone] Provider, Abstract Unavailable Unavailabl e Valerie Wilkinson MD Unavailable [phone] Yohan Powell MD Unavailable [phone] Vandana Walker Unavailable [phone] Source Comments This information has been disclosed [...] Care Team (Late st Contact Info) Description 12/10/2018 Imaging EXTERNAL DEPARTMENT [address] [place] [address] Ortiz Rothman MD [address] [facility] [address] [place] [address] Social History Tobacco Use Types Packs/Day Years [...] Comments MAMMOGRAM DIGITAL SCREENING WWO CAD Routine 12/10/2018 7:50 AM EST documented in this encounter Results * MAMMOGRAM DIGITAL SCREENING WWO CAD (12/10/2018 7:50 AM EST) Anatomical Region Laterality Modality Other 12/10/2018 7:50 AM EST Impressions 12/13/2018 2:34 AM EST No evidence of malignancy is identified. RECOMMENDATION: Routine screening mammography and tomosynthesis is recommended in one year, unless otherwise clinically indicated. We will provide the patient with these findings and recommendations. OVERALL ASSESSMENT: BI-RADS: 1 - NEGATIVE RIS CODE: 3NEGATIVE Narrative 12/13/2018 2:34 AM EST CLINICAL HISTORY: The patient is 78 years old and presents for routine screening. Family history breast cancer in her mother diagnosed at age 45. Family history of ovarian cancer in her mother diagnosed at age 47. FINDINGS: Bilateral synthetically generated digital mammography with CAD and digital breast tomosynthesis reveals heterogeneously dense breast tissue, which may obscure small masses. No suspicious findings or changes are present as compared to the prior examination(s), the most recent of which is dated 12/03/2017. Procedure Note Rancho Ledbetter MD / Signing Provider, [employer] - 12/13/2018 CLINICAL HISTORY: The patient is 78 years old and presents for routine screening. Family history breast cancer in her mother diagnosed at age 45. Family history of ovarian cancer in her mother diagnosed at age 47. FINDINGS: Bilateral synthetically generated digital mammography with CAD and digital breast tomosynthesis reveals heterogeneously dense breast tissue, which may obscure small masses. No suspicious findings or changes are present as compared to the prior examination(s), the most recent of which is dated 12/03/2017. IMPRESSION No evidence of malignancy is identified. RECOMMENDATION: Routine screening mammography and tomosynthesis is recommended in one year, unless otherwise clinically indicated. We will provide the patient with these findings and recommendations. OVERALL ASSESSMENT: BI-RADS: 1 - NEGATIVE RIS CODE: 3NEGATIVE Provider [facility] BREAST IMAGING documented in this encounter Visit Diagnoses Not on filedocumented in this encounter Care Teams Jet Engine Mechanic Relationship Specialty Start Date End Date Ortiz Rothman MD [address] [facility] [address] [place] [address] PCP - General 12/03/02 Bryce Allison MD, PhD [address] [facility] D, Bert [address] [place] [phone] 08/25/10 ProviderLaura MD [facility] PROVIDER 08/25/10 Valerie Wilkinson MD [facility] [address] [facility] E[facility] [place], [place] [phone] 08/25/10 Yohan Powell MD [address] [place] [address] [address] [place] [address] ENT-Otolaryngology 03/15/17 Vandana Walker AUD [address] [place] [phone] Audiology 03/15/17 documented as of this encounter
--- OUTSIDE RECORDS SUMMARY | 2024-10-14 21:58 | XMS_ITS | Encounter Summary ---
Author Organization [facility] Ambulatory Address [address] [place] [address] Phone Care Team Providers Care Kid Club Attendant Name Role Phone Ortiz Rothman MD Primary Care Provider [phone] Bryce Allison MD, PhD Unavailable [phone] Provider, Abstract Unavailable Unavailabl e Valerie Wilkinson MD Unavailable [phone] Yohan Powell MD Unavailable [phone] Vandana Walker Unavailable [phone] Geovanna Hughes MD Unavailable Vandana Whitmore MD Unavailable [phone] Source Comments This information has been disclosed [...] Care Team (Latest Contact Info) Description 08/19/2019 12:15 PM EST Testing Visit [facility] [address] [phone] Nursing Scheduler: Ana Luisa Quintanillafer Shravan Dermatochalasis of both upper eyelids Social History Tobacco Use Types Packs/Day Years Used Date Smoking Tobacco: Never Smokeless Tobacco: Never Alcohol Use Standard Drinks/Week Comments Yes 0 (1 standard drink = 0.6 oz pur e alcohol) socially Sex and Gender Information Value Date Recorded Sex Assigned at Not on file Gender Identity Not on file Sexual Orientation Not on file documented as of this encounter Nursing Notes * Juanita Fitzgerald - 08/19/2019 12:15 PM EST HVF taped and untaped 81 completed documented in this encounter Plan of Treatment Not on file documented as of this encounter Procedures Procedure Name Priority Date/Time Associated Diagnosis Comments VAN 81, TAPED/UNTAPED Routine 08/19/2019 11:53 AM EST Dermatochalasis of both upper eyelids documented in this encounter Results * (ABNORMAL) VISUAL FIELD, TAPED/UNTAPED (08/19/2019 11:53 [...] Vandana Whitmore MD EYE TESTING FORUM RESULTS documented in this encounter Visit Diagnoses Diagnosis Dermatochalasis of both upper eyelids documented in this encounter Care Teams Kid Club Attendant Relationship Specialty Start Date End Date Ortiz Rothman MD [address] [facility] [address] [place] [address] PCP - General 12/03/02 Bryce Allison MD, PhD [address] [place] [address] D, [address] [place] [phone] 08/25/10 Provider, Laura, MD BOOKER PROVIDER 08/25/10 Valerie Wilkinson MD [facility] [address] [facility] [place] [place] [address] 08/25/10 Yohan Powell MD [address] [place] [address] [address] [place] [address] ENT-Otolaryngology 03/15/17 Vandana Walker, HELLEN [address] [place] [phone] Audiology 03/15/17 Geovanna Hughes MD [address] [place] [phone] Internal Medicine 04/01/19 Vandana Whitmore MD [address] [facility] [place] [address] Ophthalmology 08/18/19 documented as of this encounter
--- OUTSIDE RECORDS SUMMARY | 2024-10-14 21:58 | XMS_ITS | Encounter Summary ---
Author Organization [facility] Ambulatory Address [address] [place] [address] Phone Care Team Providers Care Work Distributor Name Role Phone Ortiz Rothman MD Primary Care Provider [phone] Bryce Allison MD, PhD Unavailable [phone] Provider, Abstract Unavailable Unavailabl e Valerie Wilkinson MD Unavailable [phone] Yohan Powell MD Unavailable [phone] Vandana Walker Unavailable [phone] Geovanna Hughes MD Unavailable Vandana Whitmore MD Unavailable [phone] Source Comments This information has been disclosed [...] except as provided at sections 2.12(c)(5) and 2.65.[facility] Ambulatory Encounter Details Date Type Department Care Team (Latest Contact Info) Description 08/19/2019 12:45 PM EST Testing Visit [facility] [id number] [place] [address] Waterworks Supervisor: Mayra Alexander Dermatochalasis of both upper eyelids Social History [...] Nursing Notes * Juanita Fitzgerald - 08/19/2019 12:45 PM EST External photos completed documented in this encounter Plan of Treatment Not on file documented as of this encounter Procedures Procedure Name Priority Date/Time Associated Diagnosis Comments EXTERNAL PHOTOGRAPHY Routine 08/20/2019 5:00 PM EST Dermatochalasis of both upper eyelids documented in this encounter Results * EXTERNAL PHOTOGRAPHY (08/20/2019 5:00 PM EST) 08/20/2019 5:00 PM EST Narrative FORUM RESULTS - 08/20/2019 5:00 PM EST See linked image. Vandana Whitmore MD EYE TESTING FORUM RESULTS documented in this encounter Visit Diagnoses Diagnosis Dermatochalasis of both upper eyelids documented in this encounter Care Teams Work Distributor Relationship Specialty Start Date End Date Ortiz Rothman MD [address] [facility] [address] [place] [address] PCP - General 12/03/02 Bryce Allison MD, PhD [address] [facility] [address], [address] [place] [phone] 08/25/10 Provider, Laura, EPICARE PROVIDER 08/25/10 Valerie Wilkinson MD [facility]ENTER [address] [facility] [place] [address] 08/25/10 Yohan Powell MD [address] [place] [address] [place] [address] ENT-Otolaryngology 03/15/17 Vandana Walker, HELLEN [address] [place] [phone] Audiology 03/15/17 Geovanna Hughes MD [address] [place] [phone] Internal Medicine 04/01/19 Vandana Whitmore MD [address] [place] [address] [place] [address] Ophthalmology 08/18/19 documented as of this encounter
--- OUTSIDE RECORDS SUMMARY | 2024-10-14 21:58 | XMS_ITS | Encounter Summary ---
Author Organization [facility] Ambulatory Address [address] [place] [address] Phone Care Team Providers Care Stitching Department Supervisor Name Role Phone Ortiz Rothman MD Primary Care Provider [phone] Bryce Allison MD, PhD Unavailable [phone] Provider, Abstract MD Unavailable Unavailabl Valerie Orellana MD Unavailable + [phone] Yohan Powell MD Unavailable [phone] Vandana Walker Unavailable + Geovanna Hughes MD Unavailable Vandana Whitmore MD Unavailable + Provider, Historical Unavailable Unavailable Rozina Sanders MD Unavailable [phone] Antonietta Bateman MD Unavailable + [phone] Antonietta Bateman MD Unavailable [phone] Artie Lanza MD Unavailable Dena Berumen PA-C Unavailable [phone] Sangita Holly PA-C Unavailable [phone] Source Comments This information has been disclosed [...] Team (Late st Contact Info) Description 06/29/2021 It Infrastructure Manager LIDIA ESCOBAR [facility] [address] [facility] Ground Floor, [address] [place] [address] Artie Lanza MD [address] [facility] [address] [place] [address] Social History Tobacco Use Types Packs/Day Years [...] encounter Progress Notes * Artie Lanza - 06/29/2021 4:47 PM EDT NOTE TYPE: CONSULTATION DID: MOSLT PATIENT NAME: Danika Mckeon ID: [id number] DATE OF : 1940 DATE OF VISIT: Jun 29, [address] Antonietta Bateman M.D. Thank you for kindly referring me your patient, Danika Mckeon, whom I saw in consultation for breast cancer. CHIEF COMPLAINT: evaluation of breast cancer HISTORY OF PRESENT ILLNESS/INTERIM HISTORY: Ms. Mckeon is an 81 year old woman with a history of glaucoma and hypothyroidism who presents for evaluation of breast cancer. The patient had a screening mammogram on 03/22/21 that showed no suspicious findings on the right, but noted architectural distortion on the left for which additional evaluation was recommended. Diagnostic mammogram and ultrasound on 04/07/21 showed a 2.5 cm lesion in the periareolar area of the left breast concerning for malignancy and minimally asymmetric thickening of a left axillary lymph node, which was felt to be likely benign. Biopsy of the left breast mass on 04/15/21 showed invasive lobularcarcinoma, classical type with histiocytoid morphology, ER positive (H score 250), MO positive (H score 140), HER2/kam negative (1+ by IHC), Ki-67 low (10%), [place] grade 1. The patient underwent left segmental mastectomy and sentinel lymph node biopsy on 06/01/[address] Antonietta Bateman. Pathology showed a 5.0 cm invasive lobular carcinoma; [place] grade 2 (tubule formation 3, nuclear grade 2, mitotic rate 1, total score 6/9); negative LVI; invasive carcinoma focally present at posterior/lateral margin of resection; LCIS, atypical lobular hyperplasia; none of four lymph nodes positive for metasatic carcinoma; pT2N0. The patient had a post-operative surgical wound infection that was treated with 10 days of Keflex. She had a seroma aspirated on 06/13/21, cultures from which were negative. The patient met with Dr. Andre Frye on 06/23/21, who recommended whole breast radiation pending a discussion regarding systemic therapy. The patient reports that she is dealing with ongoing discomfort and redness around the incision site of her segmental mastectomy. She still has 7 days left on a second course of Keflex. She is seeingsurgery again on 07/08/21. She has no fevers, chills, chest pain, shortness of breath, cough, abdominal pain, nausea, vomiting, diarrhea, constipation, melena, hematochezia, dysuria, hematuria, lower extremity swelling, rash, bone pain, back pain, headache, blurred vision, numbness, tingling, or weakness. She is an active person and independent of ADLs and IADLs. REVIEW OF SYSTEMS: The pertinent ROS are incorporated in the HPI. Beyond those, the remaining 10 organ system ROS are either normal/negative or listed below. PAST MEDICAL HISTORY: Ms. Williams medical history consists of Breast Cancer, glaucoma, hypothyroidism, and Osteopenia. PAST SURGICAL HISTORY: Ms. Williams surgical/procedural history consists of Breast Surgery, cataracts, detached retina repair, scleral buckle, hysterectomy, and tonsillectomy. 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 Mckeon has had 3 pregnancies and 3 births.She is post-menopausal at age 56. Hormone use consists of Contraceptive Hormones for 25 years and post menopause hormones. Bra size 34DD. MEDICATIONS: COVID-19 mRNA Vaccine (Pfizer) Intramuscular COVID-19 mRNA Vaccine (Pfizer) Intramuscular Erythromycin Ointment Ophthalmic PRN Synthroid (75 mcg) Tablet Oral daily Timolol Maleate (0.5 %) Solution Ophthalmic daily Tobramycin-Dexamethasone Ointment Ophthalmic Vitamin D3 Capsule Oral every other week ALLERGIES: No Known Allergies. FAMILY HISTORY: Mother was diagnosed with breast cancer in her 40s. SOCIAL HISTORY: Ms. Mckeon is . Ms. Mckeon has never smoked. She drinks daily. She consumes 1 drink/day 7 days/week. Ms. Mckeon reports the following support systems: lives with spouse. Lives in [place] with her husbandand son. 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 Never smoker. Has one glass of wine per day on average. No illicit drugs. PHYSICAL EXAMINATION: Performed on Jun 29, 2021 15:22 Height 62 in Weight 133 lbs BSA (derived) 1.61 sq.m BMI 24.33 Temperature 97.5 F Pulse 66 /min Respiration 16 /min BP 169/81 Pulse Oximetry (O2 Sat) 99 % Fatigue 3 Pain Assessment 5 Performed on Jun 29, 2021 15:12 Height 62 in Weight 133 lbs BSA (derived) 1.61 sq.m BMI 24.33 0 - Fully active, able to carry [...] clear to auscultation without rhonchi or wheezing. Breasts Breast exam performed with banana handler present. Right breast showed no palpable abnormalities. Left breast segmental mastectomy incision CDI, but with a ~4-5 cm area of surrounding erythema andwarmth with slight induration. No palpable masses or fluctuance. Extremities No visible deformities, no cyanosis, clubbing or edema. Musculoskeletal No tenderness or swelling, normal range of motion without obvious weakness. Integumentary No rash. Neurologic No sensory or motor deficits, normal cerebellar function, normal gait, cranial nerves intact. Psychiatric Alert and oriented times three. Coherent speech. Verbalizes understanding of our discussions today. LABORATORY DATA: IMPRESSION: Ms. Mckeon is an 81 year old woman with a history of glaucoma and hypothyroidism who presents for evaluation of breast cancer. The patient was diagnosed with a left breast cancer after screening mammogram on 03/22/21 showed architectural distortion on the left, and follow-up diagnostic mammogram and ultrasound on 04/07/21 showed a 2.5 cm periareolar lesion, which was biopsied on 04/15/21 to show invasive lobular carcinoma, classical type with histiocytoid morphology, ER positive (H score 250), MO positive (H score 140), HER2/kam negative (1+ by IHC), Ki-67 low (10%), [place] grade 1. The patient is now s/p left segmentalmastectomy and SLNB on 06/01/[address] Bateman, pathology from which showed a 5.0 cm invasive lobular carcinoma; Ivan grade 2 (tubule formation 3, nuclear grade 2, mitotic rate 1, total score 6/9); negative LVI; invasive carcinoma focally present at posterior/lateral margin of resection; LCIS,atypical lobular hyperplasia; none of four lymph nodes positive for metasatic carcinoma; pT2N0. Thepatient has no signs or symptoms concerning for distant metastatic disease. We discussed that if her CBC and CMP today are normal, then imaging to evaluate for occult metastatic disease is not necessary. The patient continues to deal with a post-operative wound infection, for which she is taking Keflex and will be seeing Dr. Bateman's team again next week. I reviewed with the patient that, assuming her labs today are normal, she has a stage IA, T2N0M0, left breast invasive lobular carcinoma that is hormone receptor positive, HER2 negative, [place] grade 2, and Ki-67 low. The patient's Cornwall Equation results are 20.1, 19.4, and 16.7, and her mitotic activity score was 1, so we discussed that her clinicopathologic risk is low enough that she wouldnot benefit from adjuvant chemotherapy and that we can safely expect her Oncotype Dx score to be </= 25, so additional testing is not necessary to inform that recommendation. The potential benefitof adjuvant chemotherapy is also fairly minimal. We reviewed the rationale behind adjuvant radiation to reduce the risk of local recurrence, for which she will follow-up with Dr. Frye once her post-operative wound infection resolves. Following completion of radiation therapy, the patient will start adjuvant anastrozole 1 mg daily to be continued for at least 5 and ideally 10 years. We reviewed the role of adjuvant hormonal therapy in reducing the risk of local and distant recurrence as well asa second, primary breast cancer. The relevant side effects of AIs were reviewed in detail, including the risk of decreased bone density. I will obtain an updated DEXA (her last one on 05/20/20 showed osteopenia), and the patient will add calcium supplementation to her vitamin D supplement. She was counseled on moderating alcohol intake and maintaining a healthy body weight as means of reducing the risk of breast cancer recurrence. I will see her back in 4 months to see how she is doing. ASSESSMENT AND PLAN: - Check CBC and CMP -- no role for imaging to evaluate for metastatic disease if normal - No role for adjuvant chemotherapy or Oncotype Dx testing - Management of post-operative wound infection as per surgery - F/u with Dr. Frye for adjuvant radiation - Start anastrozole 1 mg daily following completion of radiation -- plan for 5 and up to 10 years - Obtain new baseline DEXA -- add calcium to vitamin D supplement - Return to clinic in 4 months or sooner as needed Electronically Reviewed By: Artie Lanza Jun 29, 2021 4:47PM documented in this encounter Plan of Treatment Not on file documented as of this encounter Visit Diagnoses Not on filedocumented in this encounter Care Teams Stitching Department Supervisor Relationship Specialty Start Date End Date Ortiz Rothman MD [address] [facility] [address] [place] [address] PCP - General 12/03/02 Antonietta Bateman MD [facility], [facility] [address] [facility] [address] [place] [address] PCP - CANCER CTR RMD Surgical Oncology 06/09/21 Artie Lanza MD [address] [facility] [address] [place] [address] PCP - Cancer CTR Hematology 06/09/21 Bryce Allison MD, PhD [address] [place] [address] D, Bert [address] [place] [phone] 08/25/10 ProviderLaura MD EPICARE PROVIDER 08/25/10 Valerie Wilkinson MD [facility] [address] [facility] [place] [place] [address] 08/25/10 Yohan Powell MD [address] [facility] [address] [place] [address] ENT-Otolaryngology 03/15/17 Vandana Walker AUD [address] [place] [phone] Audiology 03/15/17 Geovanna Hughes MD [address] [phone] Internal Medicine 04/01/19 Vandana Whitmore MD [address] [place] [address] [place] [address] Ophthalmology 08/18/19 Wilfredo, Nithin EPICARE PROVIDER 11/06/19 Rozina Sanders MD [address] [facility] [place] [address] Ophthalmology 12/25/19 Antonietta Bateman MD CORPORATE OFFICE [address], [facility] [address] [place] [address] Surgical Oncology 04/29/21 Dena Berumen PA-C [address] [place] [address] [place] [id number] Oncology 06/13/21 Sangita Holly PA-C [address] [place] [address] [place] [address] General Surgery 06/23/21 documented as of this encounter
--- OUTSIDE RECORDS SUMMARY | 2024-10-14 21:58 | XMS_ITS | Encounter Summary ---
Author Organization [facility] Ambulatory Address [address] [place] [address] Phone Care Team Providers Care Digital Tech Name Role Phone Ortiz Rothman MD Primary Care Provider [phone] Bryce Allison MD, PhD Unavailable [phone] Provider, Abstract Unavailable Unavailabl e Valerie Wilkinson MD Unavailable [phone] Yohan Powell MD Unavailable [phone] Vandana Walker Unavailable [phone] Source Comments This information has been disclosed [...] Care Team (Late st Contact Info) Description 03/17/2019 9:15 AM EDT Office Visit [facility] [place] [address] [address] Nurse Practitioner Per Diem: Valerie Purcell Evan L, MD, PhD [address] [facility] D, Bert [address] [place] [address] Primary open angle glaucoma (POAG) [...] as of this encounter Progress Notes * Ghulam Cazares - 03/17/2019 9:15 AM EDT Scheduled follow up for glaucoma suspect pseudophakic OU for IOP check on timolol OS qam No new issues Impression/Plan primary open angle glaucoma - nice response to timolol OU - IOP is excellent today right upper lid eve K - schedule for removal at pt request Pseudophakia OU - stable Dermatochalasis, OU - refer to oculoplastics PRN Graves disease - mild proptosis since her 30s, not requiring surgery - injection OS> OD chronic - floppy lids OU - can try refresh pm OU and ATs [facility] patient - refer to Dr Farhad Chowdary should have visual field at next appointment in about 4 months * Bryce Allison MD, PhD - 03/17/2019 9:15 AM EDT ATTENDING NOTE: I personally performed a history and physical examination on Danika Mckeon. I reviewed the fellow/resident's documentation and agree except as otherwise noted. I discussed the plan with the patient. documented in this encounter Nursing Notes * Jewels Vaca - 03/17/2019 9:15 AM EDT 79 yof for scheduled exam 4 month f/u for iop check POAG OU On timolol OU qam No issues Constitutional: Normal Cardiovascular: Normal Respiratory: Normal Gastrointestinal: Normal Genitourinary: Normal Musculoskeletal: Normal PERSONAL BANKING ADVISOR: Normal ENT: Normal Integumentary: Normal Psychiatric: Normal Endocrine: Normal Hematologic/Lymphatic: Normal Mental Status: Normal documented in this encounter Plan of Treatment Not on file documented as of this encounter Visit Diagnoses Diagnosis Primary open angle glaucoma (POAG) of both eyes, mild stage- Primary documented in this encounter Care Teams Digital Tech Relationship Specialty Start Date End Date Ortiz Rothman MD [address] [facility] [address] [place] [address] PCP - General 12/03/02 Bryce Allison MD, PhD [address] [place] [address] D, Bert [address] [place] [phone] 08/25/10 Provider, MD Laura [facility] 08/25/10 Valerie Wilkinson MD [facility] [address] [facility] [place] [address] 08/25/10 Yohan Powell MD [address] [place] [address] [address] [place] [address] ENT-Otolaryngology 03/15/17 Vandana Walker AUD [address] [place] [address] Audiology 03/15/17 documented as of this encounter
--- OUTSIDE RECORDS SUMMARY | 2024-10-14 21:58 | XMS_ITS | Encounter Summary ---
Author Organization [facility] Ambulatory Address [address] [place] [address] Phone Care Team Providers Care Scouring Train Operator Chief Name Role Phone Ortiz Rothman MD Primary Care Provider [phone] Bryce Allison MD, PhD Unavailable [phone] Provider, Abstract MD Unavailable Unavailabl Valerie Orellana MD Unavailable [phone] Yohan Powell MD Unavailable [phone] Vandana Walker Unavailable [phone] Geovanna Hughes MD Unavailable Vandana Whitmore MD Unavailable [phone] Provider, Historical Unavailable Unavailable Rozina Sanders MD Unavailable [phone] Source Comments This information has been disclosed [...] EXTERNAL DEPARTMENT [address] [place] [address] Ortiz Rothman MD [address] [facility] [address] [place], [place] [id number] Social History Tobacco Use Types Packs/Day Years [...] Name Priority Date/Time Associated Diagnosis Comments BI MAMMOGRAM DIGITAL DIAGNOSTIC POST-PROCEDURAL W/WO CAD LEFT Routine 04/15/2021 9:32 AM EDT documented in this encounter Results * BI MAMMOGRAM DIGITAL DIAGNOSTIC POST-PROCEDURAL W/WO CAD LEFT (04/15/2021 9:32 AM EDT) Anatomical Region Laterality Modality Other 04/15/2021 9:32 AM EDT Impressions 04/15/2021 9:36 AM EDT Uncomplicated left breast ultrasound guided core biopsy and clip placement is performed. RECOMMENDATION Final recommendations are pending pathology. Narrative 04/15/2021 9:36 AM EDT Addendum Begins Original report by Dr. Sales. Addendum by Dr. Krishnan. The results for ultrasound-guided core biopsy 5:00 left breast have returned as invasive lobular carcinoma, ER positive, NE positive, H ER-2/kam negative with the low [...] expected location. Procedure Note Nita Sales MD / Signing Provider, [employer] - 04/21/2021 Addendum Begins Original report by Dr. Sales. Addendum by Dr. Krishnan. The results for ultrasound-guided core biopsy 5:00 left breast have returned as invasive lobular carcinoma, ER positive, NE positive, H ER-2/kam negative with the low [...] on filedocumented in this encounter Care Teams Scouring Train Operator Chief Relationship Specialty Start Date End Date Ortiz Rothman MD [address] [facility] [address] [place] [address] PCP - General 12/03/02 Bryce Allison MD, PhD [address] [place] [address], [facility] [address] [place] [phone] 08/25/10 ProviderLaura MD [facility] PROVIDER 08/25/10 Valerie Wilkinson MD [facility] [address] [place] [address] [place] [address] 08/25/10 Yohan Powell MD [address] [place] [address] [address] [place] [address] ENT-Otolaryngology 03/15/17 Vandana Walker AUD [address] [place] [phone] Audiology 03/15/17 Geovanna Hughes MD [address] [place] [phone] Internal Medicine 04/01/19 Vandana Whitmore MD [address] [place] [address] [place] [address] Ophthalmology 08/18/19 Provider, Historical EPICARE PROVIDER 11/06/19 Rozina Sanders MD [address] [place] [address] [place] [address] Ophthalmology 12/25/19 documented as of this encounter
--- OUTSIDE RECORDS SUMMARY | 2024-10-14 21:58 | XMS_ITS | Encounter Summary ---
Author Organization [facility] Ambulatory Address [address] [place] [address] Phone Care Team Providers Care Swing Frame Grinder Operator Name Role Phone Ortiz Rothman MD Primary Care Provider [phone] Bryce Allison MD, PhD Unavailable [phone] Provider, Abstract MD Unavailable Unavailabl Valerie Orellana MD Unavailable + [phone] Yohan Powell MD Unavailable [phone] Vandana Walker Unavailable + Geovanna Hughes MD Unavailable Vandana Whitmore MD Unavailable + Provider, Historical Unavailable Unavailable Rozina Sanders MD Unavailable [phone] Antonietta Bateman MD Unavailable + [phone] Antonietta Bateman MD Unavailable [phone] Artie Lanza MD Unavailable Dena Berumen PA-C Unavailable [phone] Sangita Holly PA-C Unavailable [phone] Source Comments This information has been disclosed [...] * Reason Comments Breast Surgery Post-Operative Visit Encounter Details Date Type Department Care Team (Late st Contact Info) Description 07/07/2021 8:45 AM EDT Office Visit [facility] [address] [place] [address] Athletic Trainer: Irene Arroyo Emilia J, MD CORPORATE [facility] [address] [facility] [facility], [address] [place] [address] Malignant neoplasm of lower-outer quadrant of [...] Sign Reading Time Taken Comments Blood Pressure 140/74 07/07/2021 8:52 AM EDT Pulse 71 07/07/2021 8:52 AM EDT Temperature - - Respiratory Rate - - Oxygen Saturation 97% 07/07/2021 8:52 AM EDT Inhaled Oxygen Concentration - - Weight 60.8 kg (134 lb) 07/07/2021 8:52 AM EDT Height 157.5 cm (5' 2 ) 07/07/2021 8:52 AM EDT Body Mass Index 24.51 07/07/2021 8:52 AM EDT documented in this encounter Progress Notes * Antonietta Bateman MD - 07/07/2021 8:45 AM EDT REASON FOR VISIT: Post-operative visit to evaluate breast erythema following breast surgery Diagnosis: Stage IIA (T2, N0, M0) Infiltrating lobular carcinoma, left breast: ER H-score 250, NH H-score 140, Her2 neg by IHC, Ki-67 10%. Procedure: Left segmental mastectomy (central lumpectomy) and sentinel lymph node biopsy at [facility] on 06/01/21. The procedure performed by Dr. Antonietta Bateman. FINAL PATHOLOGY: Reviewed at previous visit HISTORY OF PRESENT ILLNESS: Ms Danika Mckeon is a 81 year old woman with a diagnosis of left breast cancer s/p left central lumpectomy with sentinel node biopsy. She was seen on June 13, 2021 for her routine postoperative visit. A 4 x 5 cm area of erythema was noted involving her breast incision. 80 mL of seroma fluid was aspirated. Patient was provided a prescription for Keflex 500 mg 4 times a day for a 20-day course. Finalcultures demonstrated no growth. Patient feels as though the erythema has decreased in intensity. She denies any fever, chills, malaise or drainage. FOCUSED PHYSICAL EXAMINATION: Appearance: Well-appearing, well-nourished, Vitals: BP 140/74 Pulse 71 Ht 5' 2 (157.5 cm) Wt 134 lb (60.8 kg) SpO2 97% BMI 24.51 kg/m?? Constitutional: No acute distress. Non-toxic appearance. Heme/Lymph System: No edema appreciated in the upper extremities. Skin: Warm. Dry. Directed Breast /Axillary Basins: A well-healed central lumpectomy transverse incision is present .No signs of dehiscence. Area of resolving erythema is marked measuring approximately 6 x 7 cm. Erythema slightly dissipates when the patient lies supine. A 4 cm seroma is palpable. The axillary incision is also well healed with no evidence of a seroma. Remnants of surgical glue from the breast incision were removed at today's visit. ASSESSMENT/PLAN: Ms Danika Mckeon is a 81 year old woman with a diagnosis of left breast cancer. She presents for evaluation of left breast erythema following her central lumpectomy. We will discontinue antibiotics at this point. 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 She is clinically improved. Medical oncology and radiation oncology care per Dr. Lanza and Uday. She will return to the office next week for another evaluation prior to initiating radiation therapy. documented in this encounter Plan of Treatment Not on file documented as of this encounter Visit Diagnoses Diagnosis 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, estrogen receptor positive (HCC)- Primary documented in this encounter Care Teams Swing Frame Grinder Operator Relationship Specialty Start Date End Date Ortiz Rothman MD [address] [facility] [address] [place] [address] PCP - General 12/03/02 Antonietta Bateman MD [facility], [facility] [address] [facility] [address] [place] [address] PCP - CANCER CTR RMD Surgical Oncology 06/09/21 Artie Lanza MD [address] [facility] [address] [place] [address] PCP - Cancer CTR Hematology 06/09/21 Bryce Allison MD, PhD [address] [facility] D, [facility] [address] [place] [address] 08/25/10 Provider, MD Laura EPICARE PROVIDER 08/25/10 Valerie Wilkinson MD [facility] [address] [facility] [place] [address] 08/25/10 Yohan Powell MD [address] [facility] [address] [place] [address] ENT-Otolaryngology 6/1/17 Vandana Walker A[address] [place] [phone] Audiology 03/15/17 Geovanna Hughes MD [address] [address] Internal Medicine 04/01/19 Vandana Whitmore MD [address] [facility] [place] [address] Ophthalmology 08/18/19 Provider, [facility] EPICARE PROVIDER 11/06/19 Rozina Sanders MD [address] [facility] [place] [phone] Ophthalmology 12/25/19 Antonietta Bateman MD CORPORATE OFFICE [address], [facility] [address] [place] [address] Surgical Oncology 04/29/21 Dena Berumen PA-C [address] [facility] [address] [place] [address] Oncology 06/13/21 Sangita Holly PA-C [address] [facility] [address] [place] [address] General Surgery 06/23/21 documented as of this encounter
--- OUTSIDE RECORDS SUMMARY | 2024-10-14 21:58 | XMS_ITS | Encounter Summary ---
Author Organization [facility] Ambulatory Address [address] [place] [address] Phone Care Team Providers Care Real Estate Investor Name Role Phone Ortiz Rothman MD Primary Care Provider [phone] Bryce Allison MD, PhD Unavailable [phone] Provider, Abstract Unavailable Unavailabl e Valerie Wilkinson MD Unavailable [phone] Yohan Powell MD Unavailable [phone] Vandana Walker Unavailable [phone] Source Comments This information has been disclosed [...] Care Team (Late st Contact Info) Description 01/14/2018 Lab Results EXTERNAL DEPARTMENT [address] [place], [place] [id number] Daphnie Garibay, BRITTANI [address] [place] [address] Social History Tobacco Use Types Packs/Day Years [...] VITAMIN D 25-OH SCREEN FOR DEFICIENCY/TOXICITY Routine 01/14/2018 11:37 AM EDT COMP METABOLIC PANEL Routine 01/14/2018 11:37 AM EDT PARATHYROID HORMONE (SERUM) Routine 01/14/2018 11:37 AM EDT documented in this encounter Results * (ABNORMAL) VITAMIN D 25-OH SCREEN FOR DEFICIENCY/TOXICITY (01/14/2018 11:37 AM EDT) Vitamin D, 25-Hydroxy 22(L) 30 - 100 ng/mL 01/14/2018 2:32 PM EDT [facility] Comment: Vitamin D Status ?Range Deficiency ?<20 ng/mL Insufficency ?20-30 ng/mL Sufficiency ? 30-100 ng/mL 01/14/2018 11:3 7 AM EDT 01/14/2018 11:38 AM EDT Daphnie Garibay PA-C [facility] [address] [place] [address] * (ABNORMAL) PARATHYROID HORMONE (SERUM) (01/14/2018 11:37 AM EDT) INTACT PTH 102.6(H) 14.0 - 72.0 pg/mL 01/14/2018 2:32 PM EDT [facility] PTHN CALCIUM 8.6 8.5 - 10.1 mg/dL 01/14/2018 1:32 PM EDT [facility] 01/14/2018 11:3 7 AM EDT 01/14/2018 11:38 AM EDT Daphnie Garibay PA-C [facility] [address] [place] [address] * COMP METABOLIC PANEL (01/14/2018 11:37 AM EDT) Sodium(Na) 140 136 - 144 mmol/L 01/14/2018 1:40 PM EDT [facility] Potassium(K) 4.1 3.5 - 4.9 mmol/L 01/14/2018 1:40 PM EDT [facility] Chloride(Cl) 105 98 - 109 mmol/L 01/14/2018 1:40 PM EDT [facility] Carbon Dioxide(CO2) 26 22 - 32 mmol/L 01/14/2018 1:40 PM EDT [facility] Urea Nitrogen 16 7 - 24 mg/dL 01/14/2018 1:40 PM EDT [facility] Glucose 93 70 - 99 mg/dL 01/14/2018 1:40 PM EDT [facility] Creatinine 0.72 0.50 - 1.17 mg/dL 01/14/2018 1:40 PM EDT [facility] Calcium(Ca) 8.6 8.5 - 10.1 mg/dL 01/14/2018 1:40 PM EDT [facility] Alkaline Phosphatase 69 46 - 128 U/L 01/14/2018 1:40 PM EDT [facility] Total Bilirubin 0.9 0.1 - 1.4 mg/dL 01/14/2018 1:40 PM EDT [facility] Total Protein 6.9 6.4 - 8.2 g/dL 01/14/2018 1:40 PM EDT [facility] Albumin 3.6 3.4 - 4.6 g/dL 01/14/2018 1:40 PM EDT [facility] Aspartate Aminot.(AST) 19 10 - 40 U/L 01/14/2018 1:40 PM EDT [facility] Alanine Aminotrans(ALT) 21 12 - 67 U/L 01/14/2018 1:40 PM EDT [facility] ANION GAP 13 7 - 15 mEq/L 01/14/2018 1:40 PM EDT [facility] A/G RATIO 1.1 01/14/2018 1:40 PM EDT [facility] BUN/CREATININE RATIO 22 01/14/2018 1:40 PM EDT [facility] CALCULATED OSMOLALITY 291 281 - 307 mOsm/kg 01/14/2018 1:40 PM EDT [facility] EGFR 94 >59 01/14/2018 1:40 PM EDT [facility] Comment: Comment: This eGFR indicator was calculated by Dheere Bolo using the CKD-EPI formula using the following patient variables: serum Creatinine, Age, Gender and Race. eGFR values greater than or equal to 60 are considered normal. eGFR values less than 60 mL/min/1.73m2 can indicate chronic kidney disease (CKD) eGFR values less than 15 mL/min/1.73m2 can indicate chronic kidney failure (CKF) Note: ??1. If the patient has an UNSTABLE serum Creatinine concentration this calculation ? may under-estimate the degree of kidney impairment. ??Unstable is defined by a ? 0.3 change in the two most recent Creatinine concentrations in past 52 hours. ? This estimation is only accurate when the serum Creatinine is stable. ??A patient ? with an unstable creatinine concentration should be carefully evaluated to ? confirm the degree of kidney impairment. ??If kidney impairment is present, the ? medical regimen may need to be adjusted. ??Consultation of Renal Medicine for ? assistance in diagnosis and medication adjustment should also be considered. ??2. Patients on dialysis should not have an eGFR calculated. Given the need for ? dialysis, the medical regimen may need to be adjusted. ??Consultation of Renal ? Medicine for assistance in medical management including medication adjustment ? should be considered if not already in place. CKD-EPI formula: eGFR/1.73 m2 = 141x[min(Cr/k,1)a]x[max(Cr/k,1)-1.209]x0.993Age x1.018(if female) x1.159(if black) k = 0.7 (female) or 0.9 (male) a = -0.329 (female) or -0.411 (male) min/max = min or max of Cr/k or 1 eGFR 81 >59 01/14/2018 1:40 PM EDT [facility] 01/14/2018 11:3 7 AM EDT 01/14/2018 11:38 AM EDT Daphnie Garibay PA-C LAB[facility]AT[facility] [address] [place] [address] documented in this encounter Visit Diagnoses Not on filedocumented in this encounter Care Teams Real Estate Investor Relationship Specialty Start Date End Date Ortiz Rothman MD [address] [facility] [address] [place] [address] PCP - General 12/03/02 Bryce Allison MD, PhD [address] [place] [address] D, [facility] [address] [place] [phone] 08/25/10 Laura Villalobos MD [facility] PROVIDER 08/25/10 Valerie Wilkinson MD [facility] [address] [facility] [facility] [place] [address] 08/25/10 Yohan Powell MD [address] [facility] [address] [place] [address] ENT-Otolaryngology 03/15/17 Vandana Walker, HELLEN [address] [place] [phone] Audiology 03/15/17 documented as of this encounter
--- OUTSIDE RECORDS SUMMARY | 2024-10-14 21:58 | XMS_ITS | Encounter Summary ---
Author Organization [facility] Ambulatory Address [address] [place] [address] Phone Care Team Providers Care Oil Tanker Captain Name Role Phone Ortiz Rothman MD Primary Care Provider [phone] Bryce Allison MD, PhD Unavailable [phone] Provider, Abstract MD Unavailable Unavailabl Valerie Orellana MD Unavailable [phone] Yohan Powell MD Unavailable [phone] Vandana Walker Unavailable [phone] Geovanna Hughes MD Unavailable Vandana Whitmore MD Unavailable [phone] Provider, Historical Unavailable Unavailable Rozina Sanders MD Unavailable [phone] Source Comments This information has been disclosed to you from records protected by federal confidentiality rules (42 CFR part 2). The federal rules prohibit you from making any further disclosure of information in this record that identifies a patient as having or having had a substance use disorder either directly, by reference to publicly available information, or through verification of such identificationby another person unless further disclosure is expressly permitted by the written consent of the individual whose information is being disclosed or as otherwise permitted by 42 CFR part 2. A general authorization for the release of medical or other information is NOT sufficient for this purpose (see section 2.31). The federal rules restrict any use of the information to investigate or prosecute with regard to a crime any patient with a substance use disorder, except as provided at sections 2.12(c)(5) and 2.65.[facility] Ambulatory Reason for Visit * Reason Comments Rescheduled Appointment Pt refused to re schedule due to covid 19, explained to pt needs to be seen. Encounter Details Date Type Department Care Team (Late st Contact Info) Description 01/14/2020 Telephone [facility] [place] [address] [facility] 1st [place] [address] Wire Coiler Machine Operator: Valerie Purcell Evan L, MD, PhD [address] [place] [address], [address] [address] Rescheduled Appointment (Pt refused to reschedule due to covid 19, explained to pt needs to be seen.) Social History Tobacco Use Types Packs/Day Years [...] encounter Miscellaneous Notes * Telephone Encounter - Robyn Banuelos - 01/14/2020 9:12 AM EDT Pt refused to reschedule appt with Dr. allison for 6 mo /u/ JUL due to covid 19. Explained to pt needs to be seen for diagnosis. She will call when she wants an appt. documented in this encounter Plan of Treatment Not on file documented as of this encounter Visit Diagnoses Not on filedocumented in this encounter Care Teams Oil Tanker Captain Relationship Specialty Start Date End Date Ortiz Rothman MD [address] [facility] [address] [place] [address] PCP - General 12/03/02 Bryce Allison MD, PhD [address] [facility] D, [address] [address] 08/25/10 Provider, MD Laura EPICARE PROVIDER 08/25/10 Valerie Wilkinson MD [facility] [address] [facility] [place] [address] 08/25/10 Yohan Powell MD [address] [place] [address] [place] [address] ENT-Otolaryngology 03/15/17 Vandana Walker [address] [place] [address] Audiology 03/15/17 Geovanna Hughes MD [address] [place] [phone] Internal Medicine 04/01/19 Vandana Whitmore MD [address] [facility] [address] Ophthalmology 08/18/19 Provider, Historical EPICARE PROVIDER 11/06/19 Rozina Sanders MD [address] [facility] [place] [address] Ophthalmology 12/25/19 documented as of this encounter
--- OUTSIDE RECORDS SUMMARY | 2024-10-14 21:58 | XMS_ITS | Encounter Summary ---
Author Organization [facility] Ambulatory Address [address] [place] [address] Phone Care Team Providers Care Implementation Architect Name Role Phone Ortiz Rothman MD Primary Care Provider [phone] Bryce Allison MD, PhD Unavailable [phone] Provider, Abstract MD Unavailable Unavailabl Valerie Orellana MD Unavailable [phone] Yohan Powell MD Unavailable [phone] Vandana Walker Unavailable [phone] Geovanna Hughes MD Unavailable Vandana Whitmore MD Unavailable +[phone] Provider, Historical Unavailable Unavailable Rozina Sanders MD Unavailable [phone] Source Comments This information has been disclosed [...] Care Team (Late st Contact Info) Description 03/22/2021 Imaging EXTERNAL DEPARTMENT [address] [place] [address] Jacques Rothman MD [address] [facility] [address] [place] [address] Social History Tobacco Use Types Packs/Day Years [...] Date/Time Associated Diagnosis Comments BI MAMMOGRAM DIGITAL SCREENING W/WO CAD Routine 03/22/2021 2:40 PM EDT documented in this encounter Results * BI MAMMOGRAM DIGITAL SCREENING W/WO CAD (03/22/2021 2:40 PM EDT) Anatomical Region Laterality Modality Other 03/22/2021 2:40 PM EDT Provider [employer] IMG BI ORDERABLES documented in this encounter Visit Diagnoses Not on filedocumented in this encounter Care Teams Implementation Architect Relationship Specialty Start Date End Date Ortiz Rothman MD [address] [facility] [address] [place] [address] PCP - General 12/03/02 Bryce Allison MD, PhD [address] [place] [address] D, [address] [place] [address] 08/25/10 Provider, MD ADE Sanchez PROVIDER 08/25/10 Valerie Wilkinson MD [facility] [address] [facility] [place] [address] 08/25/10 Yohan Powell MD [address] [place] [address] ENT-Otolaryngology 03/15/17 Vandana Walker [address] [place] [address] Audiology 03/15/17 Geovanna Hughes MD [address] [place] [phone] Internal Medicine 04/01/19 Vandana Whitmore MD [address] [facility] [place] [address] Ophthalmology 08/18/19 Provider, Historical EPICARE PROVIDER 11/06/19 Rozina Sanders MD [address] [facility] [place] [address] Ophthalmology 12/25/19 documented as of this encounter
--- OUTSIDE RECORDS SUMMARY | 2024-10-14 21:58 | XMS_ITS | Encounter Summary ---
Author Organization [facility] Ambulatory Address [address] [place] [address] Phone Care Team Providers Care Insurance Sales Representative Name Role Phone Ortiz Rothman MD Primary Care Provider [phone] Bryce Allison MD, PhD Unavailable [phone] Provider, Abstract Unavailable Unavailabl e Valerie Wilkinson MD Unavailable [phone] Yohan Powell MD Unavailable [phone] Vandana Walker Unavailable [phone] Source Comments This information has been disclosed [...] Team (Late st Contact Info) Description 10/21/2018 10:30 AM EST Office Visit [facility] [place] [address] [address] Pack Train Driver: Valerie Purcell Evan L, MD, PhD [address] [facility] D, [facility] [address] [place] [address] Primary open angle glaucoma (POAG) [...] Notes * Bryce Allison MD, PhD - 10/21/2018 10:30 AM EST Scheduled follow up for glaucoma suspect pseudophakic OU for visual field and follow up after having progression on OCT Impression/Plan primary open angle glaucoma - early stage OU - IOP 22 OU today - start timolol OS qam as monocular trial Pseudophakia OU - stable Dermatochalasis, OU - refer to oculoplastics PRN Graves disease - mild proptosis since her 30s, not requiring surgery - no evidence of TID RTC 3-4 weeks for IOP check documented in this encounter Nursing Notes * Wanda Marte - 10/21/2018 10:30 AM EST Previous visit 09/30/2018 POH POAG suspect ou, RD od, [place], PC IOL ou, Blepharoplasty ou, Mild Graves disease Here for HVF 24-2/PACH/AM IOP Patient states vision remains the same And does not have any issues with eye Does not use AT's as told Constitutional: Normal Cardiovascular: Normal Respiratory: Normal Gastrointestinal: Normal Genitourinary: Normal Musculoskeletal: Normal FRUIT OR NUT CROPS FARM MANAGER: Normal ENT: Normal Integumentary: Normal Psychiatric: Normal [...] (POAG) of both eyes, mild stage- Primary Glaucoma suspect of both eyes Preglaucoma, unspecified documented in this encounter Care Teams Insurance Sales Representative Relationship Specialty Start Date End Date Ortiz Rothman MD [address] [facility] [address] [place] [address] PCP - General 12/03/02 Bryce Allison MD, PhD [address] [facility] D, Bert [address] [place] [phone] 08/25/10 Laura Villalobos MD EPICARE PROVIDER 08/25/10 Valerie Wilkinson MD [facility] [address] [facility] [place] [address] 08/25/10 Yohan Powell MD [address] [address] ENT-Otolaryngology 03/15/17 Vandana Walker AUD [address] [place] [phone] Audiology 03/15/17 documented as of this encounter
--- OUTSIDE RECORDS SUMMARY | 2024-10-14 21:58 | XMS_ITS | Encounter Summary ---
Author Organization [facility] Ambulatory Address [address] [place] [address] Phone Care Team Providers Care Cut And Print Machine Operator Name Role Phone Ortiz Rothman MD Primary Care Provider [phone] Bryce Allison MD, PhD Unavailable +[phone] Provider, Abstract MD Unavailable Unavailabl Valerie Orellana MD Unavailable [phone] Yohan Powell MD Unavailable [phone] Vandana Walker Unavailable +[phone] Geovanna Hughes MD Unavailable Vandana Whitmore MD Unavailable +[phone] Provider, Historical Unavailable Unavailable Rozina Sanders MD Unavailable [phone] Source Comments This information has been disclosed [...] Ambulatory Reason for Visit * Reason Comments Post Operative Exam Encounter Details Date Type Department Care Team (Latest Contact Info) Description 12/25/2019 2:00 PM EDT Office Visit [facility] [place] 203 [facility] 6th [place] [address] Insurance Sales Manager: Sheyla Quintanilla Erika, MD 203 [facility] [place] [address] Dermatochalasis of both upper eyelids Social History [...] as of this encounter Progress Notes * Rozina Sanders MD - 12/25/2019 2:00 PM EDT POD8 functional blepharoplasty BUL Patient is doing great She find she still a little swollen BUL, but it is much better She has no ocular pain She only uses timolol OU for eyedrops She is using ointment BUL BID, but it blurs her vision Impression #Dermatochalasis BUL - sp blepharoplasty BUL x [...] Whitmore in 5-6 weeks or earlier PRN documented in this encounter Nursing Notes * Lana De La Cruz - 12/25/2019 2:00 PM EDT 79 year old female returns following s/p Blepharoplasty OU 12/17/2019. The patient states that there was some swelling with both eyes but it has started to improve. She complains of some intermittent blurry vision since the surgery which she attributes to the ointment she has been using. There is some mild soreness today around the incision sites. Gtts: Ointment BID OU- used @ 7 am today Timolol BID OU- used @ 7 am today Constitutional: Normal Cardiovascular: Normal Respiratory: Normal Gastrointestinal: Normal Genitourinary: Normal Musculoskeletal: Normal BIOMEDICAL ENGINEERING DIRECTOR: Normal ENT: Normal Integumentary: Normal Psychiatric: Normal Endocrine: Normal Hematologic/Lymphatic: Normal Mental Status: Normal documented in this encounter Miscellaneous Notes * Assessment & Plan Note - Rozina Sanders MD - 12/25/2019 3:02 PM EDT Associated Problem(s): Dermatochalasis of both upper eyelids #Dermatochalasis BUL - sp blepharoplasty BUL x [...] Whitmore in 5-6 weeks or earlier PRN documented in this encounter Plan of Treatment Not on file documented as of this encounter Visit Diagnoses Diagnosis Dermatochalasis of both upper eyelids documented in this encounter Care Teams Cut And Print Machine Operator Relationship Specialty Start Date End Date Ortiz Rothman MD [address] [facility] [address] [place] [address] PCP - General 12/03/02 Bryce Allison MD, PhD [address] [place] [address] D, Bert [address] [place] [address] 08/25/10 Provider, MD Laura EPICARE PROVIDER 08/25/10 Valerie Wilkinson MD [facility] 203 [facility] [place] [address] 08/25/10 [place] [address] [place] [address] [address] [place] [address] ENT-Otolaryngology 03/15/17 Vandana Walker AUD [address] [place] [phone] Audiology 03/15/17 Geovanna Hughes MD [address] [place] [phone] Internal Medicine 04/01/19 Vandana Whitmore MD [address] [place] [address] [place] [address] Ophthalmology 08/18/19 Provider, Historical EPICARE PROVIDER 11/06/19 Rozina Sanders MD [address] [place] [address] [place] [phone] Ophthalmology 12/25/19 documented as of this encounter
--- OUTSIDE RECORDS SUMMARY | 2024-10-14 21:58 | XMS_ITS | Encounter Summary ---
Author Organization [facility] Ambulatory Address [address] [place] [address] Phone Care Team Providers Care Range Operator Name Role Phone Ortiz Rothman MD Primary Care Provider [phone] Bryce Allison MD, PhD Unavailable +[phone] Provider, Abstract MD Unavailable Unavailabl Valerie Orellana MD Unavailable + [phone] Yohan Powell MD Unavailable [phone] Vandana Walker Unavailable + Geovanna Hughes MD Unavailable Vandana Whitmore MD Unavailable + Provider, Historical Unavailable Unavailable Rozina Sanders MD Unavailable +[phone] Antonietta Bateman MD Unavailable + [phone] Antonietta Bateman MD Unavailable +[phone] Artie Lanza MD Unavailable Dena Berumen PA-C Unavailable [phone] Sangita Holly PA-C Unavailable [phone] Source Comments This information has been disclosed [...] sections 2.12(c)(5) and 2.65.[facility] Ambulatory Reason for Visit * Reason Comments Schedule Tests Encounter Details Date Type Department Care Team ([facility] st Contact Info) Description 09/26/2021 Telephone [facility] [place] 16[address] [facility] 1st [place] [address] Pattern Keeper: Valerie Purcell Evan L, MD, PhD [address] [place] [address], [facility] [address] [place] [address] Schedule Tests Social History Tobacco Use Types Packs/Day Years [...] * Telephone Encounter - Jennifer Guillory - 09/27/2021 3:34 PM EST Patient returned my call and I scheduled for 10/04 @ 9:30am. * Telephone Encounter - Jennifer Guillory - 09/26/2021 12:56 PM EST I called patient but there was no answer. I left a message on the machine to return my call. * Telephone Encounter - Jennifer Guillory - 09/26/2021 12:55 PM EST ----- Message from Son Cespedes sent at 09/26/2021 11:47 AM EST ----- Contact: Dr. Keegan Padilla woould like this patient to have an OCT done at the [place] office. Thank you documented in this encounter Plan of Treatment Not on file documented as of this encounter Visit Diagnoses Not on filedocumented in this encounter Care Teams Range Operator Relationship Specialty Start Date End Date Ortiz Rothman MD [address] [facility] [address] [place] [address] PCP - General 12/03/02 Antonietta Bateman MD [facility], [facility] 300 [facility] [address] [place] [address] PCP - CANCER CTR RMD Surgical Oncology 06/09/21 Artie Lanza MD 9100 [facility] [address] [place] [address] PCP - Cancer CTR Hematology 06/09/21 Bryce Allison MD, PhD 1400 [facility] D, Bert [address] [place] [phone] 08/25/10 Provider, MD Laura EPICARE PROVIDER 08/25/10 Valerie Wilkinson MD [facility] 203 [facility] [place] [address] 08/25/10 Yohan Powell MD 6[address] [facility] [address] [place] [address] ENT-Otolaryngology 03/15/17 Vandana Walker AUD [address] [place] [phone] Audiology 03/15/17 Geovanna Hughes MD [address] [address] Internal Medicine 04/01/19 Vandana Whitmore MD 203 [facility] [place] [address] Ophthalmology 08/18/19 Provider, Historical [facility] 11/06/19 Rozina Sanders MD 203 [facility] [place] [phone] Ophthalmology 12/25/19 Antonietta Bateman MD CORPORATE OFFICE [address], [facility] [address] [place] [address] Surgical Oncology 04/29/21 Dena Berumen PA-C [address] [place] [address] [place] [address] Oncology 06/13/21 Sangita Holly PA-C 300 [facility] [address] [place] [address] General Surgery 06/23/21 documented as of this encounter
--- OUTSIDE RECORDS SUMMARY | 2024-10-14 21:58 | XMS_ITS | Encounter Summary ---
Author Organization [facility] Ambulatory Address [address] [place] [address] Phone Care Team Providers Care Rubber Compounder Mixer Name Role Phone Ortiz Rothman MD Primary Care Provider [phone] Bryce Allison MD, PhD Unavailable +[phone] Provider, Abstract MD Unavailable Unavailabl Valerie Orellana MD Unavailable [phone] Yohan Powell MD Unavailable [phone] Vandana Walker Unavailable +[phone] Geovanna Hughes MD Unavailable Vandana Whitmore MD Unavailable +[phone] Provider, Historical Unavailable Unavailable Rozina Sanders MD Unavailable [phone] Source Comments This information has been disclosed [...] sections 2.12(c)(5) and 2.65.[facility] Ambulatory Encounter Details Date Type Department Care Team (Late st Contact Info) Description 09/13/2020 Lab Results EXTERNAL DEPARTMENT [address] [place], [place] [phone] Ortiz Rothman MD [address] [facility] [address] [place] [address] Social History Tobacco Use Types Packs/Day Years [...] VITAMIN D 25-OH SCREEN FOR DEFICIENCY/TOXICITY Routine 09/13/2020 9:08 AM EST FREE T4 Routine 09/13/2020 9:08 AM EST TSH/THY.STIM.HORM Routine 09/13/2020 9:0 8 AM EST documented in this encounter Results * VITAMIN D 25-OH SCREEN FOR DEFICIENCY/TOXICITY (09/13/2020 9:08 AM EST) Vitamin D, 25-Hydroxy 44 30 - 100 ng/mL 09/13/2020 11:[address] [facility] Comment: Vitamin D Status ?Range Deficiency ?<20 ng/mL Insufficency ?20-30 ng/mL Sufficiency ? 30-100 ng/mL 09/13/2020 9:08 AM EST 09/13/2020 9:09 AM EST Ortiz Rothman MD LABORATORY Performing Organization Address City/[facility]/ZIP Co de Phone Number [facility] [address] [place] [address] * (ABNORMAL) TSH/THY.STIM.HORM (09/13/2020 9:08 AM EST) TSH/Thy.Stim.H orm 0.064(L) 0.358 - 3.740 uIU/mL 09/13/2020 11:[address] [facility] 09/13/2020 9:08 AM EST 09/13/2020 9:09 AM EST Ortiz Rothman MD LABORATORY Performing Organization Address City/[facility] Co de Phone Number [facility] [address] [place] [address] * FREE T4 (09/13/2020 9:08 AM EST) FREE T4 1.6 0.8 - 1.6 ng/dL 09/13/2020 11:[address] [facility] 09/13/2020 9:08 AM EST 09/13/2020 9:09 AM EST Ortiz Rothman MD LABORATORY Performing Organization Address City/[facility] Co de Phone Number [facility] [address] [place] [address] documented in this encounter Visit Diagnoses Not on filedocumented in this encounter Care Teams Rubber Compounder Mixer Relationship Specialty Start Date End Date Ortiz Rothman MD [address] [facility] [address] [place] [address] PCP - General 12/03/02 Bryce Allison MD, PhD [address], Bert [address] [place] [phone] 08/25/10 Provider, MD ADE Sanchez PROVIDER 08/25/[address] [facility] 203 [facility] [place] [address] 08/25/10 Yohan Powell MD [address] [place] [address] [place] [address] ENT-Otolaryngology 03/15/17 Vandana Walker AUD [address] [place] [phone] Audiology 03/15/17 Geovanna Hughes MD [address] [place] [phone] Internal Medicine 04/01/19 Vandana Whitmore MD 203 [facility] [place] [address] Ophthalmology 08/18/19 Provider, Historical EPICARE PROVIDER 11/06/19 Rozina Sanders MD 203 [facility] [place] [phone] Ophthalmology 12/25/19 documented as of this encounter
--- OUTSIDE RECORDS SUMMARY | 2024-10-14 21:58 | XMS_ITS | Encounter Summary ---
Author Organization [facility] Ambulatory Address [address] [place] [address] Phone Care Team Providers Care Pasting Inspector Name Role Phone Ortiz Rothman MD Primary Care Provider [phone] Bryce Allison MD, PhD Unavailable +[phone] Provider, Abstract Unavailable Unavailabl e Valerie Wilkinson MD Unavailable [phone] Yohan Powell MD Unavailable [phone] Vandana Walker Unavailable [phone] Source Comments This information has been disclosed [...] 2.12(c)(5) and 2.65.[facility] Ambulatory Reason for Visit * Reason Comments Appointment Request Encounter Details Date Type Department Care Team (Late st Contact Info) Description 08/12/2018 Telephone [facility] [employer] [address] [facility] 1st [place] [address] Rn Invasive: Valerie Purcell Evan L, MD, PhD 1400 [facility] D, Bert [address] [place] [address] Appointment Request Social History Tobacco Use Types Packs/Day Years Used Date Smoking Tobacco: Never Alcohol Use Standard Drinks/Week Comments Yes 0 (1 standard drink = 0.6 oz pur e alcohol) socially Sex and Gender Information Value Date Recorded Sex Assigned at Not on file Gender Identity Not on file Sexual Orientation Not on file documented as of this encounter Miscellaneous Notes * Telephone Encounter - Samanta Lundberg - 08/12/2018 3:38 PM EDT Done. * Telephone Encounter - Savana Briseno - 08/12/2018 1:45 PM EDT CRM message: New pt Danika Mckeon 1940 is requesting an appointment with provider/physician Keegan for the reason of blurred vision, difficulty focusing, and trouble seeing close when reading. Please call pt [phone] documented in this encounter Plan of Treatment Not on file documented as of this encounter Visit Diagnoses Not on filedocumented in this encounter Care Teams Pasting Inspector Relationship Specialty Start Date End Date Ortiz Rothman MD 40[address] [facility] [address] [place] [address] PCP - General 12/03/02 Bryce Allison MD, PhD 1400 [facility] D, [address] [place] [address] 08/25/10 ProviderLaura MD [facility] 08/25/10 Valerie Wilkinson MD [facility] 203 [facility] [place] [address] 08/25/10 Yohan Powell MD [address] [place] [address] ENT-Otolaryngology 03/15/17 Vandana Walker AUD [address] [place] [phone] Audiology 03/15/17 documented as of this encounter
--- OUTSIDE RECORDS SUMMARY | 2024-10-14 21:58 | XMS_ITS | Encounter Summary ---
Author Organization [facility] Ambulatory Address [address] [place] [address] Phone Care Team Providers Care Auto Fleet Manager Name Role Phone Ortiz Rothman MD Primary Care Provider [phone] Bryce Allison MD, PhD Unavailable + [phone] Provider, Abstract MD Unavailable Unavailabl Valerie Orellana MD Unavailable + [phone] Yohan Powell MD Unavailable [phone] Vandana Walker Unavailable + Geovanna Hughes MD Unavailable Vandana Whitmore MD Unavailable + Provider, Historical Unavailable Unavailable Rozina Sanders MD Unavailable +[phone] Antonietta Bateman MD Unavailable + [phone] Antonietta Bateman MD Unavailable [phone] Artie Lanza MD Unavailable Dena Berumen PA-C Unavailable [phone] Sangita Holly PA-C Unavailable [phone] Dulce Lara PA-C Unavailable [phone] Elisa Martines PA-C Unavailable + Source Comments This information has been disclosed [...] for Visit * Reason Comments Ear Wax New Pt here for ceru men removal. Hearing decreased. Pt wears hearing aids. Encounter Details Date Type Department Care Team (Late st Contact Info) Description 05/25/2023 8:30 AM EDT Office Visit [facility] - [address], [address] [place] [address] Respiratory Therapist: Fern Gifford Laura Elizabeth, PA-C [address] [place] [address] [address] [place] [address] Impacted cerumen of both ears (Primary Dx) [...] Pressure - - Pulse - - Temperature 34.9 ??C (94.9 ??F) 05/25/2023 8:28 AM ED T Respiratory Rate - - Oxygen Saturation - - Inhaled Oxygen Concentration - - Weight 60.6 kg (133 lb 9.6 oz) 05/25/2023 8:28 A M EDT Height 160 cm (5' 3 ) 05/25/2023 8:28 AM EDT Body Mass Index 23.67 05/25/2023 8:28 AM EDT documented in this encounter Progress Notes * Reji Hansen - 05/25/2023 8:30 AM EDT Review of Systems: HENT: cerumen Endocrine: Positive for thyroid problem. All other systems reviewed and are negative * Elisa Martines PA-C - 05/25/2023 8:30 AM EDTAssociated Order(s): EAR CERUMEN REMOVAL Post-Procedure Diagnose(s): Impacted cerumen of both ears EAR CERUMEN REMOVAL Date/Time: 05/25/2023 8:30 AM Performed by: Elisa Martines PA-C Authorized by: Elisa Martines PA-C Binocular microscope was used for cerumen removal and to examine the ears. Removal of cerumen from bilateral was performed using curette. Comments: PROCEDURE: REMOVE IMPACTED EAR WAX Both ears were examined using the binocular microscope. Then under microscopic control, the wax wasremoved using instruments. The removal of cerumen required significant time and effort. The binocular microscopic exam of the tympanic membranes was normal. TOLERANCE: The patient tolerated this well She wears bilateral hearing aids. Noted improvement in hearing following removal of cerumen. Recommend follow up in one year. Dr. Loving was available by phone at the time the patient was seen. documented in this encounter Plan of Treatment Not on file documented as of this encounter Procedures Procedure Name Priority Date/Time Associated Diagnosis Comments REMOVAL IMPACTED CERUMEN INSTRUMENTATION UNILAT Routine 05/25/2023 8:30 AM EDT Impacted cerumen of both ears documented in this encounter Results * REMOVAL IMPACTED CERUMEN INSTRUMENTATION UNILAT (05/25/2023 8:30 AM EDT) Narrative Elisa Martines PA-C - 05/25/2023 8:30 AM EDT Elisa Martines PA-C ? 05/25/2023 ??8:46 AM EAR CERUMEN REMOVAL Date/Time: 05/25/2023 8:30 AM Performed by: Elisa Martines PA-C Authorized by: Elisa Martines PA-C ??Binocular microscope was used for cerumen removal and to examine the ears. Removal of cerumen from bilateral was performed using curette. Comments: PROCEDURE: REMOVE IMPACTED EAR WAX Both ears were examined using the binocular microscope. ??Then under microscopic control, the wax was removed using instruments. The removal of cerumen required significant time and effort. The binocular microscopic exam of the tympanic membranes was normal. TOLERANCE: The patient tolerated this well Elisa Martines PA-C IN CLINIC ORDERABLES documented in this encounter Visit Diagnoses Diagnosis Impacted cerumen of both ears- Primary Impacted cerumen documented in this encounter Care Teams Auto Fleet Manager Relationship Specialty Start Date End Date Ortiz Rothman MD 4068 [facility] [address] [place] [address] PCP - General 12/03/02 Antonietta Bateman MD [facility] 300 [facility] [address] [place] [address] PCP - CANCER CTR RMD Surgical Oncology 06/09/21 Artie Lanza MD 9100 [facility] [address] [place] [address] PCP - Cancer CTR Hematology 06/09/21 Bryce Allison MD, PhD [address] [place] [address], [facility] [address] [place] [address] 08/25/10 ProviderLaura MD [facility] PROVIDER 08/25/10 Valerie Wilkinson MD [facility] 203 [facility] [place] [address] 08/25/10 Yohan Powell MD [address] [place] [address] [address] [place] [address] ENT-Otolaryngology 03/15/17 Vandana Walekr AUD [address] [place] [phone] Audiology 03/15/17 Geovanna Hughes MD [address] [place] [phone] Internal Medicine 04/01/19 Vandana Whitmore MD [address] [place] [address] [place] [address] Ophthalmology 08/18/19 Provider, Historical EPICARE PROVIDER 11/06/19 Rozina Sanders MD [address] [place] [address] [place] [phone] Ophthalmology 12/25/19 Antonietta Bateman MD CORPORATE OFFICE [address], [facility] [address] [place] [address] Surgical Oncology 04/29/21 Dena Berumen PA-C [address] [place] [address] Oncology 06/13/21 Sangita Holly PA-C [address] [place] [address] General Surgery 06/23/21 Dulce Lara PA-C [address] [place] [address] Surgical Oncology 06/28/22 Elisa Martines PA-C [address] [place] [address] General Surgery 05/25/23 documented as of this encounter
--- OUTSIDE RECORDS SUMMARY | 2024-10-14 21:58 | XMS_ITS | Encounter Summary ---
Author Organization [facility] Ambulatory Address [address] [place] [address] Phone Care Team Providers Care Landscaper Name Role Phone Ortiz Rothman MD Primary Care Provider [phone] Bryce Allison MD, PhD Unavailable +[phone] Provider, Abstract MD Unavailable Unavailabl Valerie Orellana MD Unavailable [phone] Yohan Powell MD Unavailable [phone] Vandana Walker Unavailable +[phone] Geovanna Hughes MD Unavailable Vandana Whitmore MD Unavailable +[phone] Provider, Historical Unavailable Unavailable Rozina Sanders MD Unavailable [phone] Source Comments This information has been disclosed [...] 2.12(c)(5) and 2.65.[facility] Ambulatory Reason for Visit * Reason Comments Surgery Encounter Details Date Type Department Care Team (Late st Contact Info) Description 12/04/2019 Telephone [facility] - [place] [address] [place] [address] Shot Peening Operator: Valerie Purcell Susan Tonya, MD 203 [facility] [place] [address] Surgery Social History Tobacco Use Types Packs/Day [...] on filedocumented in this encounter Care Teams Landscaper Relationship Specialty Start Date End Date Ortiz Rothman MD 4068 [facility] [address] [place] [address] PCP - General 12/03/02 Bryce Allison MD, PhD 1400 [facility] D, [facility] [address]103 [place] [phone] 08/25/10 Provider, MD ADE Sanchez PROVIDER 08/25/10 Valerie Wilkinson MD [facility] 203 [facility] [place] [address] 08/25/10 [place] [address] [place] [address] [address] [place] [address] ENT-Otolaryngology 03/15/17 Vandana Walker AUD [address] [place] [address] Audiology 03/15/17 Geovanna Hughes MD [address] [address] Internal Medicine 04/01/19 Vandana Whitmore MD 203 [facility] [place] [address] Ophthalmology 08/18/19 Provider, Historical EPICARE PROVIDER 11/06/19 Rozina Sanders MD 203 [facility] [place] [phone] Ophthalmology 12/25/19 documented as of this encounter
--- OUTSIDE RECORDS SUMMARY | 2024-10-14 21:58 | XMS_ITS | Encounter Summary ---
Author Organization [facility] Ambulatory Address [address] [place] [address] Phone Care Team Providers Care Poultry Scientist Name Role Phone Ortiz Rothman MD Primary Care Provider [phone] Bryce Allison MD, PhD Unavailable +[phone] Provider, Abstract MD Unavailable Unavailabl Valerie Orellana MD Unavailable + [phone] Yohan Powell MD Unavailable [phone] Vandana Walker Unavailable + Geovanna Hughes MD Unavailable Vandana Whitmore MD Unavailable + Provider, Historical Unavailable Unavailable Rozina Sanders MD Unavailable [phone] Antonietta Bateman MD Unavailable + [phone] Antonietta Bateman MD Unavailable [phone] Artie Lanza MD Unavailable Dena Berumen PA-C Unavailable [phone] Sangita Holly PA-C Unavailable [phone] Source Comments This information has been disclosed [...] Care Team (Late st Contact Info) Description 08/31/2021 Investigator Fraud EXTERNAL DEPARTMENT [address] [place] [address] Andre Frye MD [address] [place] [address] Social History Tobacco Use Types Packs/Day Years [...] as of this encounter Progress Notes * Andre Frye MD - 08/31/2021 12:00 AM EST PATIENT NAME: DANIKA MCKEON DATE OF : 1940 DATE OF VISIT: 08/31/2021 Treatment Summary DIAGNOSIS: Left breast cancer. STAGE: T2 sentinel node 0 M0. Treatment Site Energy/ Modality Technique Dose Fractions [...] August 02, 2021 August 31, 2021 29 TREATMENT NARRATIVE: The patient tolerated her treatments well. She developed a pruritic rash involving the breast, which was treated with hydrocortisone and lidocaine. She had moderate fatigue and will return for a followup in 4 to 6 weeks. [facility] Radiation Oncology at [facility] [place] [phone] , [place] , vrl/scottie Confirmation #: [id number]/Document ID: [id number] documented in this encounter Plan of Treatment Not on file documented as of this encounter Visit Diagnoses Not on filedocumented in this encounter Care Teams Poultry Scientist Relationship Specialty Start Date End Date Ortiz Rothman MD [address] [facility] [address] [place] [address] PCP - General 12/03/02 Antonietta Bateman MD [facility], [facility] [address] [facility] [address] [place] [address] PCP - CANCER CTR RMD Surgical Oncology 06/09/21 Artie Lanza MD [address] [facility] [address] [place] [address] PCP - Cancer CTR Hematology 06/09/21 Bryce Allison MD, PhD [address] [facility] [address] [place] [address] 08/25/10 Provider, MD Laura EPICARE PROVIDER 08/25/10 Valerie Wilkinson MD [facility] [address] [facility] [place] [address] 08/25/10 Yohan Powell MD [address] [facility] [address] [place] [address] ENT-Otolaryngology 03/15/17 Vandana Walker AUD [address] [place] [address] Audiology 03/15/17 Geovanna Hughes MD [address] [place] [id number] Internal Medicine 04/01/19 Vadnana Whitmore MD [address] [facility] [place] [address] Ophthalmology 08/18/19 Provider, Historical [facility] 11/06/19 Rozina Sanders MD [address] [place] [address] [place] [id number] Ophthalmology 12/25/19 Antonietta Bateman MD CORPORATE OFFICE [address] [place] [address] Surgical Oncology 04/29/21 Dena Berumen PA-C [address] [place], [place] [address] [place] [address] Oncology 06/13/21 Sangita Holly PA-C [address] [place] [id number] General Surgery 06/23/21 documented as of this encounter
--- OUTSIDE RECORDS SUMMARY | 2024-10-14 21:58 | XMS_ITS | Encounter Summary ---
Author Organization [facility] Ambulatory Address [address] [place] [address] Phone Care Team Providers Care Building Construction Foreman Name Role Phone Ortiz Rothman MD Primary Care Provider [phone] Bryce Allison MD, PhD Unavailable +[phone] Provider, Abstract Unavailable Unavailabl e Valerie Wilkinson MD Unavailable [phone] Yohan Powell MD Unavailable [phone] Vandana Walker Unavailable [phone] Source Comments This information has been disclosed [...] Care Team (Late st Contact Info) Description 06/12/2018 Imaging EXTERNAL DEPARTMENT [address] [place] [address] Ortiz Rothman MD [address] [facility] [address] [place] [address] Social History Tobacco Use Types Packs/Day Years [...] Procedure Name Priority Date/Time Associated Diagnosis Comments BREAST ULTRASOUND COMPLETE LEFT Routine 06/12/2018 11:27 AM EDT MAMMOGRAM DIGITAL DIAGNOSTIC RIGHT ALL VIEWS WWO CAD Routine 06/12/2018 10:47 AM EDT documented in this encounter Results * BREAST ULTRASOUND COMPLETE LEFT (06/12/2018 11:27 AM EDT) Anatomical Region Laterality Modality Other 06/12/2018 11:2 7 AM EDT Impressions 06/12/2018 12:05 PM EDT No mammographic evidence of malignancy is present, no significant changes. Stable benign findings left breast. Sources for breast pain were discussed. RECOMMENDATION: Recommend screening mammogram or combination screening mammogram with tomosynthesis due November 2018. A written and verbal summary was given to the patient. OVERALL ASSESSMENT: BI-RADS 2 - Benign finding(s) Narrative 06/12/2018 12:05 PM EDT CLINICAL HISTORY: This 78-year-old female presents with a left breast lump present for several weeks. She can only feel it when laying in a certain position. Family history breast cancer mother age 40, also diagnosed with ovarian cancer age 40. COMPARISON: Comparison was made to multiple prior studies, most recent 12/03/2017. TECHNIQUE: Diagnostic combination mammography of the left breast including exaggerated left craniocaudal and full lateral view with tomosynthesis and CAD (computer-aided detection) was performed. Digital magnification left craniocaudal view Targeted left breast ultrasound FINDINGS: The breast tissue is heterogeneously dense, which may obscure detection of small masses. Scattered stable asymmetries are noted unchanged, most prominent in the posterior lateral left breast with appearance similar to 2012. A few typically benign-appearing calcifications are present including vascular calcifications. No new suspicious findings are identified, including an area of palpable concern, of which the gis scientist could not specifically feel and therefore a BB marker was not placed. The patient identified the area of palpable concern when rolled up on her left side towards her stomach 3:00 3 cm from nipple. On my correlative examination, the areas tender but there is no dominant suspicious lump. Overlying skin is normal. Simultaneous targeted sonography demonstrates a corresponding area of benign glandular tissue. Procedure Note Marivel Krishnan MD - 06/12/2018 CLINICAL HISTORY: This 78-year-old female presents with a left breast lump present for several weeks. She can only feel it when laying in a certain position. Family history breast cancer mother age 40, also diagnosed with ovarian cancer age 40. COMPARISON: Comparison was made to multiple prior studies, most recent 12/03/2017. TECHNIQUE: Diagnostic combination mammography of the left breast including exaggerated left craniocaudal and full lateral view with tomosynthesis and CAD (computer-aided detection) was performed. Digital magnification left craniocaudal view Targeted left breast ultrasound FINDINGS: The breast tissue is heterogeneously dense, which may obscure detection of small masses. Scattered stable asymmetries are noted unchanged, most prominent in the posterior lateral left breast with appearance similar to 2012. A few typically benign-appearing calcifications are present including vascular calcifications. No new suspicious findings are identified, including an area of palpable concern, of which the gis scientist could not specifically feel and therefore a BB marker was not placed. The patient identified the area of palpable concern when rolled up on her left side towards her stomach 3:00 3 cm from nipple. On my correlative examination, the areas tender but there is no dominant suspicious lump. Overlying skin is normal. Simultaneous targeted sonography demonstrates a corresponding area of benign glandular tissue. IMPRESSION No mammographic evidence of malignancy is present, no significant changes. Stable benign findings left breast. Sources for breast pain were discussed. RECOMMENDATION: Recommend screening mammogram or combination screening mammogram with tomosynthesis due November 2018. A written and verbal summary was given to the patient. OVERALL ASSESSMENT: BI-RADS 2 - Benign finding(s) Ortiz Rothman MD BREAST IMAGING * MAMMOGRAM DIGITAL DIAGNOSTIC RIGHT ALL VIEWS WWO CAD (06/12/2018 10:47 AM EDT) Anatomical Region Laterality Modality Other 06/12/2018 10:4 7 AM EDT Impressions 06/12/2018 12:05 PM EDT No mammographic evidence of malignancy is present, no significant changes. Stable benign findings left breast. Sources for breast pain were discussed. RECOMMENDATION: Recommend screening mammogram or combination screening mammogram with tomosynthesis due November 2018. A written and verbal summary was given to the patient. OVERALL ASSESSMENT: BI-RADS 2 - Benign finding(s) Narrative 06/12/2018 12:05 PM EDT CLINICAL HISTORY: This 78-year-old female presents with a left breast lump present for several weeks. She can only feel it when laying in a certain position. Family history breast cancer mother age 40, also diagnosed with ovarian cancer age 40. COMPARISON: Comparison was made to multiple prior studies, most recent 12/03/2017. TECHNIQUE: Diagnostic combination mammography of the left breast including exaggerated left craniocaudal and full lateral view with tomosynthesis and CAD (computer-aided detection) was performed. Digital magnification left craniocaudal view Targeted left breast ultrasound FINDINGS: The breast tissue is heterogeneously dense, which may obscure detection of small masses. Scattered stable asymmetries are noted unchanged, most prominent in the posterior lateral left breast with appearance similar to 2012. A few typically benign-appearing calcifications are present including vascular calcifications. No new suspicious findings are identified, including an area of palpable concern, of which the gis scientist could not specifically feel and therefore a BB marker was not placed. The patient identified the area of palpable concern when rolled up on her left side towards her stomach 3:00 3 cm from nipple. On my correlative examination, the areas tender but there is no dominant suspicious lump. Overlying skin is normal. Simultaneous targeted sonography demonstrates a corresponding area of benign glandular tissue. Procedure Note Marivel Krishnan MD - 06/12/2018 CLINICAL HISTORY: This 78-year-old female presents with a left breast lump present for several weeks. She can only feel it when laying in a certain position. Family history breast cancer mother age 40, also diagnosed with ovarian cancer age 40. COMPARISON: Comparison was made to multiple prior studies, most recent 12/03/2017. TECHNIQUE: Diagnostic combination mammography of the left breast including exaggerated left craniocaudal and full lateral view with tomosynthesis and CAD (computer-aided detection) was performed. Digital magnification left craniocaudal view Targeted left breast ultrasound FINDINGS: The breast tissue is heterogeneously dense, which may obscure detection of small masses. Scattered stable asymmetries are noted unchanged, most prominent in the posterior lateral left breast with appearance similar to 2012. A few typically benign-appearing calcifications are present including vascular calcifications. No new suspicious findings are identified, including an area of palpable concern, of which the gis scientist could not specifically feel and therefore a BB marker was not placed. The patient identified the area of palpable concern when rolled up on her left side towards her stomach 3:00 3 cm from nipple. On my correlative examination, the areas tender but there is no dominant suspicious lump. Overlying skin is normal. Simultaneous targeted sonography demonstrates a corresponding area of benign glandular tissue. IMPRESSION No mammographic evidence of malignancy is present, no significant changes. Stable benign findings left breast. Sources for breast pain were discussed. RECOMMENDATION: Recommend screening mammogram or combination screening mammogram with tomosynthesis due November 2018. A written and verbal summary was given to the patient. OVERALL ASSESSMENT: BI-RADS 2 - Benign finding(s) Ortiz Rothman MD BREAST IMAGING documented in this encounter Visit Diagnoses Not on filedocumented in this encounter Care Teams Building Construction Foreman Relationship Specialty Start Date End Date Ortiz Rothman MD [address] [facility] [address] [place] [address] PCP - General 12/03/02 Bryce Allison MD, PhD [address] [facility] [address] [place] [address] 08/25/10 Provider, MD Laura [facility] 08/25/10 Valerie Wilkinson MD [facility] [address] [facility] [place], [place] [id number] 08/25/10 [place] [address] [place] [address] ENT-Otolaryngology 03/15/17 Vandana Walker AUD [address] [place] [phone] Audiology 03/15/17 documented as of this encounter
--- OUTSIDE RECORDS SUMMARY | 2024-10-14 21:58 | XMS_ITS | Encounter Summary ---
Author Organization [facility] Ambulatory Address [address] [place] [address] Phone Care Team Providers Care Skilled Helper Name Role Phone Ortiz Rothman MD Primary Care Provider [phone] Bryce Allison MD, PhD Unavailable [phone] Provider, Abstract MD Unavailable Unavailabl Valerie Orellana MD Unavailable [phone] Yohan Powell MD Unavailable [phone] Vandana Walker Unavailable [phone] Geovanna Hughes MD Unavailable Vandana Whitmore MD Unavailable +[phone] Provider, Historical Unavailable Unavailable Rozina Sanders MD Unavailable [phone] Source Comments This information has been disclosed [...] 2.12(c)(5) and 2.65.[facility] Ambulatory Encounter Details Date Type Department Care Team (Late st Contact Info) Description 04/15/2021 Lab Results EXTERNAL DEPARTMENT [address] [place] [address] Ortiz Rothman MD [address] [facility] [address] [place], [place] [id number] Social History Tobacco Use Types Packs/Day Years [...] Priority Date/Time Associated Diagnosis Comments SURGICAL PATHOLOGY EXAM 04/15/2021 9:10 AM EDT documented in this encounter Results * SURGICAL PATHOLOGY EXAM (04/15/2021 9:10 AM EDT) 04/15/2021 9:10 AM EDT 04/15/2021 5:59 PM EDT Narrative [facility] COPATH - 04/21/2021 2:54 PM EDT AMENDED/CORRECTED REPORT: Amended date: ??04/21/2021 Reason: ??Specimen part edited In the final diagnosis the location of the breast as reported as RIGHT and should be LEFT as submitted by the collection site. This amendment is to edit the location of the breast only. There are no pathologic diagnostic changes being done to this report. The following changes are listed below: From: BREAST, RIGHT, 5 O'CLOCK ULTRASOUND GUIDED CORE BIOPSY To: BREAST, LEFT, 5 O'CLOCK ULTRASOUND GUIDED CORE BIOPSY This amendment has been communicated to Dr. Kvng Rothman via electronic messaging on 04/21/2021. Original sign-out date: ??04/20/2021 15:42 This Amended Report supersedes all prior reports under this accession number and should be the only one used for patient management. ??All reports, both original and amended, are maintained in electronic archives and are available upon request. /dew FINAL DIAGNOSIS: BREAST, LEFT, 5 O'CLOCK, ULTRASOUND GUIDED CORE BIOPSY: INVASIVE LOBULAR CARCINOMA, CLASSICAL TYPE, WITH HISTIOCYTOID MORPHOLOGY (see comment). JWalt/bri/nataly MXB/MXB COMMENT: Immunohistochemical stain for e-cadherin and p120 showed absent e-cadherin staining with positive cytoplasmic p120 staining in the tumor cells, confirming the lobular phenotype. ??Provisional Ivan grade: I (tubule formation: 3, nuclear pleomorphism: 1, mitotic activity: 1; total score: 5/9). BREAST TUMOR IMMUNOHISTOLOGY RESULTS HORMONE RECEPTOR IMMUNOHISTOCHEMISTRY ? RESULT ? H SCORE ?RAW IMMUNOSTAINING SEMIQUANTITATION ER: ??Positive ? 250 ?(0: 0%; ??1+: 0%; ??2+: 50%; ??3+: 50%) MN: ??Positive ? 140 ?(0: 30%; ??1+: 20%; ??2+: 30%; ??3+: 20%) NOTE: Internal controls present and stained appropriately. External controls stained appropriately. HER-2/KAM IMMUNOHISTOCHEMISTRY [NEGATIVE: 0,1+; EQUIVOCAL: 2+; POSITIVE: 3+] ?RESULT ? SCORE HER-2/KAM ? Negative ?1+ TUMOR CELL PROLIFERATION INDEX (Ki-67) [LOW: UP TO 10%; MODERATE: 11-25%; HIGH: 26-50%; VERY HIGH: >50%] ?RESULT ?INDEX Ki-67 ?Low ? 10% ESTROGEN/PROGESTERONE RECEPTORS (ER/MN) TEST DETAILS: Using tissues fixed in 10% NBF and appropriate positive and negative internal/external controls; the tests for the presence of hormone receptor proteins are performed by the immunoperoxidase method according to the ASCO-CAP Guidelines (Rosa KH et al. J Clin Oncol. 2020;38:9419-3957. PMID: 59139429). ??A positive Estrogen or Progesterone receptor tumor shows nuclear immunostaining in greater than or equal to 1% of the tumor cells (i.e. an H-score of 1 or higher). The ER and MN Histologic Score (H-Score, or HS) is calculated as the sum of intensity of staining times the proportion of cells staining and has a dynamic range of 0 to 300. The semiquantitation immunostaining raw data used to calculate the H-score is also shown above in the report. ??Generally, the H-score correlates to percentage of positive cells. ??According to [facility] laboratory metrics, the correlation of mean H-score versus percent cells staining for ER is as follows: H-score of 251 (>75% cells staining); H-score of 130 (51-75% cells staining); H-score of 42 (10-50% cells staining); H-score of 4 (<10% cells staining). Cases with 1%-10% of tumor nuclei positive for ER: These cases are considered as Low Positive . There are limited data on the overall benefit of endocrine therapies for patients with low level (1%10%) ER expression, but they currently suggest possible benefit, so patients are considered eligible for endocrine treatment. There are data that suggest invasive cancers with these results are heterogeneous in both behavior and biology and often have gene expression profiles more similar to ER-negative cancers. Cases with no internal controls and ER expression in 0%-10% cells: Please note testing another specimen that contains internal controls may be warranted for confirmation of ER status. ? Estrogen receptor antibody SP1, FDA approved, is performed using the [employer] ULTRA ([place], [place], [place]). Progesterone receptor antibody 1E2, FDA approved, is performed using the [employer] ULTRA ([place], [place], [place]). HER2 IMMUNOHISTOCHEMISTRY TEST DETAILS: Using tissues fixed in 10% NBF controls and tissue test block, 4B5 antibody clone is used as part of FDA approved Pathway on the [employer] ULTRA ([place], [place], [place]) and interpreted according to the ASCO-CAP HER2 guidelines (Paige AC et al. J Clin Oncol. 2018;36:5413-1986. PMID: [id number]) as follows: Score 0 (negative) = No staining is observed or incomplete faint/barely perceptible membranous staining is observed in =10% of the tumor cells. Score 1+ (negative) = A faint/barely perceptible membrane staining is detected in more than 10% of the tumor cells. The cells are only stained in part of their membrane. ??Score 2+ (equivocal) = Circumferential weak to moderate membrane staining is observed in more than 10% of the tumor cells. Intense circumferential membrane staining in =10% of tumor cells is also interpreted as score of 2+. This score requires reflex testing by FISH. Score 3+ (positive) = A strong complete membrane staining is observed in more than 10% of the tumor cells. Ki-67 IMMUNOHISTOCHEMISTRY TEST DETAILS: Using tissues fixed in 10% NBF, Ki-67 labeling index is calculated as percent positive tumor cells in the entire tumor section. The test is performed using antibody clone [id number] ([place]). SPECIMEN FIXATION REQUIREMENTS: Please see specimen gross description section for cold ischemic time and time in formalin . For consult cases that originated outside of [facility], please refer to outside pathology report for specimen cold ischemic time and time in formalin . Please note that the test results may be affected if the cold ischemic time is greater than one hour and the time in formalin is less than 6 hours or more than 72 hours. IMPORTANT INFORMATION REGARDING COMMUNICATION OF BREAST BIOPSY RESULTS: Please be aware that an important component of percutaneous breast biopsy includes correlation of this biopsy report with the radiology report in order to ensure radiologic-pathologic concordance of the lesion in question for proper patient management. DEB/bri ? Pathologist: ??Mel Warner M.D., Ph.D. ? Report Electronically Signed Out ? By Pathologist: ??Mel Warner M.D., Ph.D. ? 04/21/2021 14:54 My signature is attestation that I have personally reviewed the submitted material(s) and the final diagnosis reflects that evaluation. GROSS DESCRIPTION: The specimen is received in formalin, labeled with the patient's name with initials LRJ and left breast 5:00 core biopsy . Cores: 5 Length range: 0.5 to 1.4 cm Average diameter: 0.1 cm Tissue color/consistency: [place] yellow fibrous tissue Cassette(s): A Cold ischemic time: <1 hour Formalin exposure time: 83 hours Grossed by: Elsie Urrutia SPT CXC//CXC/CXC MICROSCOPIC: Microscopic examination substantiates the above diagnosis. Antibody/Antigen ?Result e-cadherin ?Negative p120 ?Cytoplasmic staining in tumor cells SUJIT-3 ?Positive CK7 ? Positive CK20 ?Negative p63 ? Negative Myosin heavy chain ?Negative CD68 ?Negative S100 ?Negative. Utilizing formalin-fixed (8-96 hour range), paraffin embedded tissue, immunohistology is performed with the following selected antibodies and designated antibody clone(s), directed against the following antigenic target(s), with adequate positive and negative internal and external controls. Antibodies are optimized appropriate for fixation times. ANTIBODY ?CLONE ? TARGET ANTIGEN ? VENDOR e-cadherin ?36 ?Lobular Differentiation ? [place] p120 ?98 ?Lobular Differentiation ? [employer] SUJIT-3 ?L50-823 ? Breast cancer, ?bladder cancer ? [employer] CK7 ? OV-TL 12/30 ? Select Carcinomas ? [place] CK20 ?SP33 ?Select Carcinomas ? [place] p63 ? 4A4 ? Myoepithelial cells ? [place] Myosin ?SMMS-1 ?Myoepithelial cells ? [place] CD68 ?514H12 ?macrophages ? Leica S-100 ? Polyclonal Rabbit ? Melanoma screen ? [place] ?[Cat #[id number]] DEB/bri The following statement applies to all immunohistochemistry, insitu hybridization (CHONG & FISH), molecular & genomic pathology, and immunofluorescence testing: The testing was developed and its performance characteristics determined by the [facility], Department of Pathology, as required by the [...] upon request. Selected immunohistochemistry testing is performedat [facility], [address] [place] [address]; [facility], [address] [place] [address], [facility]; and [facility], [address] [place] [address]. PATIENT HISTORY: CHIEF COMPLAINT/ PRE-OP/ POST-OP DIAGNOSIS: Suspicious mass left breast 5:00 retroareolar- 1 distortion. PROCEDURE: Ultrasound-guided left breast 5:00 core biopsy with 5 passes. SPECIFIC CLINICAL QUESTION: Suspect cancer. [facility] HISTO TISSUE SUMMARY/SLIDES REVIEWED: Part 1: Left Breast 5:00 Core Biopsy Taken: 04/15/2021 09:10 ? Received: 04/15/2021 17:59 Stain/cnt ? Block BLANK-15 x 1 ? A BLANK-8 x 1 ? A BLANK-1 x 1 ? A BLANK-9 x 1 ? A BLANK-11 x 1 ? A BLANK-2 x 1 ? A BLANK-4 x 1 ? A BLANK-3 x 1 ? A BLANK-7 x 1 ? A BLANK-12 x 1 ? A BLANK-6 x 1 ? A BLANK-10 x 1 ? A BLANK-5 x 1 ? A BLANK-13 x 1 ? A BLANK-14 x 1 ? A CD68 x 1 ? A CK20 x 1 ? A CK7 x 1 ? A E-Cad x 1 ? A GATA3 x 1 ? A Her- 2/kam -v x 1 ? A H&E LV3 x 1 ? A H&E LV2 x 1 ? A H&E LV1 x 1 ? A SMMHC x 1 ? A p120 x 1 ? A P63 x 1 ? A AER x 1 ? A KI67 x 1 ? A APR x 1 ? A S100 x 1 ? A CONSULTING PATHOLOGIST(S): Ashanti Danielle M.D. ?? TC1 [facility] Department of Pathology [address] [place], [place] ??[address] Ortiz Rothman MD LAB PATHOLOGY/CYT OLOGY ORDERABLES [facility] COPATH documented in this encounter Visit Diagnoses Not on filedocumented in this encounter Care Teams Skilled Helper Relationship Specialty Start Date End Date Ortiz Rothman MD [address] [facility] [address] [place] [address] PCP - General 12/03/02 Bryce Allison MD, PhD [address] [facility] [address], [address] [place] [address] 08/25/10 Laura Villalobos MD EPICARE PROVIDER 08/25/10 Valerie Wilkinson MD [facility] [address] [facility] [place] [address] 08/25/10 Yohan Powell MD [address] [place] [address] ENT-Otolaryngology 03/15/17 Vandana Walker AUD [address] [place] [address] Audiology 03/15/17 Geovanna Hughes MD [address] [place] [phone] Internal Medicine 04/01/19 Vandana Whitmore MD [address] [facility] [place] [address] Ophthalmology 08/18/19 Provider, Historical EPICARE PROVIDER 11/06/19 Rozina Sanders MD [address] [facility] [place] [phone] Ophthalmology 12/25/19 documented as of this encounter
--- OUTSIDE RECORDS SUMMARY | 2024-10-14 21:58 | XMS_ITS | Encounter Summary ---
Author Organization [facility] Ambulatory Address [address] [place] [address] Phone Care Team Providers Care Artist Mannequin Coloring Name Role Phone Ortiz Rothman MD Primary Care Provider [phone] Bryce Allison MD, PhD Unavailable [phone] Provider, Abstract MD Unavailable Unavailabl Valerie Orellana MD Unavailable + [phone] Yohan Powell MD Unavailable [phone] Vandana Walker Unavailable + Geovanna Hughes MD Unavailable Vandana Whitmore MD Unavailable + Provider, Historical Unavailable Unavailable Rozina Sanders MD Unavailable [phone] Antonietta Bateman MD Unavailable + [phone] Antonietta Bateman MD Unavailable [phone] Artie Lanza MD Unavailable Dena Berumen PA-C Unavailable [phone] Sangita Holly PA-C Unavailable [phone] Source Comments This information has been disclosed [...] Care Team (Late st Contact Info) Description 06/23/2021 Consult [facility] [address] [place] [address] Andre Frye MD [address] [place] [address] Social History Tobacco Use Types [...] Progress Notes * Andre Frye MD - 06/23/2021 10:00 AM EDT PATIENT NAME: DANIKA MCKEON DATE OF : 1940 DATE OF VISIT: 06/23/2021 Consultation IDENTIFICATION: An 81-year-old female with T2 sentinel node 0 M0 invasive lobular carcinoma of the left breast, referred for radiation consultation. HISTORY OF PRESENT ILLNESS: The patient is an 81-year-old female who was found on screening mammography to have an area of architectural distortion in the left breast. Additional imaging confirmed a persistent mass in the retroareolar left breast associated with subtle skin thickening. Ultrasound demonstrated a mass difficult to separate from the nipple areolar complex measuring 2.5 x 1.8 x 2.1 cm. Ultrasound examination of the left axilla revealed normal appearing axillary lymph nodes. Biopsy was positive for invasive lobular carcinoma, Ivan score 5/9, ER/IL positive, HER-2/kam negative, Ki-67 of 10%. Then, on June 01, 2021, she underwent palpation-guided central lumpectomy of the left breast. This revealed an invasive lobular carcinoma, Ivan grade II, measuring 5 cm in greatest dimension, no LVSI was noted. Invasive carcinoma was focally present at the posterior and lateral margins; however, intraoperative reexcision revealed negative margins. Four sentinel lymph nodeswere removed and negative for malignancy. The patient is recovering well from surgery. The patient was seen last week and was noted to have some redness near the surgical incision. Antibiotics were started and the patient will be following up again today for further evaluation. She is due to see Dr. Lanza next week. She presents today for radiation consultation. PAST MEDICAL HISTORY: Glaucoma, hypothyroidism. PAST SURGICAL HISTORY: Cataract surgery, detached retina repair, scleral surgery, hysterectomy, tonsillectomy. CURRENT MEDICATIONS: Erythromycin ophthalmic ointment, Synthroid, tobramycin ointment, vitamin D3, antibiotics. ALLERGIES: NO KNOWN DRUG ALLERGIES. SOCIAL HISTORY: The patient is , accompanied today by her . She denies smoking. Drinks alcohol once per week. Denies recreational drug use. FAMILY HISTORY: Positive for breast cancer in the patient's mother. GYNECOLOGIC HISTORY: , first at 28. Bra size 34DD. Postmenopausal since 56. Oral contraceptive use for 25 years. REVIEW OF SYSTEMS: GENERAL: The patient denies change in appetite, fatigue, lethargy, malaise. KPS equals 100. HEENT: No allergies, alopecia, blurred or double vision. No dysphagia, ear pain, epistaxis. Positive mild hearing impairment. She uses hearing aids on occasion. NECK: No neck masses, muscle weakness or decreased range of motion. INTEGUMENT: No alopecia, bruising, blistering. The patient did have a recent precancerous lesion removed from her hand. BREASTS: Positive 3/10 left breast pain. CARDIOVASCULAR: No chest pain, palpitations, murmurs. RESPIRATORY: No cough, hemoptysis, shortness of breath, orthopnea, or PND. GASTROINTESTINAL: No nausea, vomiting, diarrhea, or constipation. GENITOURINARY: No hematuria, dysuria, nocturia, or frequency. MUSCULOSKELETAL: No bone pain, back pain. NEUROLOGIC: No headaches, seizures, numbness, dizziness, tingling. PSYCHIATRIC: The patient denies anxiety or depression. ENDOCRINE: Positive hypothyroidism. Remainder of review of systems is negative. PHYSICAL EXAMINATION: GENERAL: Pleasant, elderly female sitting upright, in no acute distress. VITAL SIGNS: Weight is 134, pulse 77, respiratory rate 16, blood pressure 168/89. HEENT: Normocephalic, atraumatic. Pupils equal, round, reactive to light. NECK: Supple with full range of motion. Thyroid and trachea are midline. LYMPHATICS: No palpable cervical, supraclavicular, infraclavicular, or axillary lymphadenopathy. LUNGS: Clear bilaterally. HEART: Regular rate and rhythm. BREASTS: Good cosmetic result. Central left breast incision is noted. The nipple areola are surgically absent. Area of erythema is noted in the shannan-incisional area. This is well within the marked region. No dominant masses are palpated bilaterally. ABDOMEN: Soft, without hepatosplenomegaly. EXTREMITIES: Without clubbing, cyanosis, or lymphedema. NEUROLOGICAL: Nonfocal. INTEGUMENT: No rashes or ecchymosis. IMPRESSION AND PLAN: The patient is an 81-year-old female with T2 sentinel node 0 M0 invasive lobular carcinoma of the left breast, 5 cm primary, status post excision with negative margins. I recommend a course of radiation to the whole breast and in view of her negative margins, a boost will not be required. We talked about alternatives of partial breast radiation and observation. However, in view of her large tumor size, I would favor standard whole breast radiation. The patient is comfortable with my recommendations. She will be meeting with Dr. Lanza next week. We will await his recommendations regarding adjuvant therapy and the patient will follow up with us thereafter for treatment pl anning. We will treat the whole breast to 42.56 Gy without a boost. [facility] Radiation Oncology at [facility] [phone] , [place] , [facility] Confirmation #: [id number]/Document ID: [id number] documented in this encounter Plan of Treatment Not on file documented as of this encounter Visit Diagnoses Not on filedocumented in this encounter Care Teams Artist Mannequin Coloring Relationship Specialty Start Date End Date Ortiz Rothman MD [address] [facility] [address] [place] [address] PCP - General 12/03/02 Antonietta Bateman MD [facility], [facility] [address] [facility] [address] [place] [address] PCP - CANCER CTR [facility] Surgical Oncology 06/09/21 Artie Lanza MD [address] [facility] [address] [place] [address] PCP - Cancer CTR Hematology 06/09/21 Bryce Allison MD, PhD [address] [facility] [address] [place] [phone] 08/25/10 Provider, MD Laura EPICARE PROVIDER 08/25/10 Valerie Wilkinson MD [facility] [address] [facility] [place] [address] 08/25/10 Yohan Powell MD [address] [facility] [address] [place] [address] ENT-Otolaryngology 03/15/17 Vandana Walker AUD [address] [place] [phone] Audiology 03/15/17 Geovanna Hughes MD [address] [address] Internal Medicine 04/01/19 Vandana Whitmore MD [address] [facility] [place] [address] Ophthalmology 08/18/19 Provider, Historical EPICARE PROVIDER 11/06/19 Rozina Sanders MD [address] [facility] [place] [place] [address] Ophthalmology 12/25/19 Antonietta Bateman MD CORPORATE OFFICE [address], [facility] [address] [place] [address] Surgical Oncology 04/29/21 Dena Berumen PA-C [address] [place] [address] Oncology 06/13/21 Sangita Holly PA-C [address] [place] [address] General Surgery 06/23/21 documented as of this encounter
--- OUTSIDE RECORDS SUMMARY | 2024-10-14 21:58 | XMS_ITS | Encounter Summary ---
Author Organization [facility] Ambulatory Address [address] [place] [address] Phone Care Team Providers Care Cutting Room Supervisor Name Role Phone Ortiz Rothman MD Primary Care Provider [phone] Bryce Allison MD, PhD Unavailable [phone] Provider, Abstract Unavailable Unavailabl e Valerie Wilkinson MD Unavailable [phone] Yohan Powell MD Unavailable Vandana Walker Unavailable [phone] Source Comments This information has been disclosed [...] Ambulatory Reason for Visit * Reason Comments Eye Problem Encounter Details Date Type Department Care Team (Late st Contact Info) Description 11/18/2018 9:15 AM EST Office Visit [facility] [place] [address] [address] Cell Changer: Valerie Purcell Evan L, MD, PhD [address] [facility] [address] [place] [address] Primary open angle glaucoma (POAG) [...] Notes * Bryce Allison MD, PhD - 11/18/2018 9:15 AM EST Scheduled follow up for glaucoma suspect pseudophakic OU for IOP check on timolol OS qam No new issues Impression/Plan primary open angle glaucoma - nice response to timolol - use timolol for both eyes now Pseudophakia OU - stable Dermatochalasis, OU - refer to oculoplastics PRN Graves disease - mild proptosis since her 30s, not requiring surgery f/u 4 months to check for sustained efficacy documented in this encounter Nursing Notes * Jewels Vaca - 11/18/2018 9:15 AM EST 78 yof for one month f/u iop check Timolol OS qam Doing well Constitutional: Normal Cardiovascular: Normal Respiratory: Normal Gastrointestinal: Normal Genitourinary: Normal Musculoskeletal: Normal HOPPER ATTENDANT: Normal ENT: Normal Integumentary: Normal Psychiatric: Normal Endocrine: Normal Hematologic/Lymphatic: Normal Mental Status: Normal documented in this encounter Plan of Treatment Not on file documented as of this encounter Visit Diagnoses Diagnosis Primary open angle glaucoma (POAG) of both eyes, mild stage- Primary documented in this encounter Care Teams Cutting Room Supervisor Relationship Specialty Start Date End Date Ortiz Rothman MD [address] [facility] [address] [place] [address] PCP - General 12/03/02 Bryce Allison MD, PhD [address] [place] [address] [address], [address] [place] [address] 08/25/10 Provider, Laura, MD [facility] PROVIDER 08/25/10 Valerie Wilkinson MD [facility] [address] [facility] [place] [address] 08/25/10 Yohan Powell MD [address] [place] [address] [address] [place] [address] ENT-Otolaryngology 03/15/17 Vandana Walker, [place] [address] [place] [phone] Audiology 03/15/17 documented as of this encounter
--- OUTSIDE RECORDS SUMMARY | 2024-10-14 21:58 | XMS_ITS | Encounter Summary ---
Author Organization [facility] Ambulatory Address [address] [place] [address] Phone Care Team Providers Care Rim Roller Operator Name Role Phone Ortiz Rothman MD Primary Care Provider [phone] Bryce Allison MD, PhD Unavailable +[phone] Provider, Abstract Unavailable Unavailabl e Valerie Wilkinson MD Unavailable [phone] Yohan Powell MD Unavailable [phone] Vandana Walker Unavailable [phone] Source Comments This information has been disclosed [...] [facility] Ambulatory Encounter Details Date Type Department Care Team (Late st Contact Info) Description 09/30/2018 12:30 PM EST Testing Visit [facility] [place] [facility] [address] Jig Filler: Kerrie Butts Glaucoma suspect of both eyes [...] encounter Nursing Notes * Augustina Monaco - 09/30/2018 12:30 PM EST OCT Completed RTL documented in this encounter Plan of Treatment Not on file documented as of this encounter Procedures Procedure Name Priority Date/Time Associated Diagnosis Comments OCT OPTIC NERVE Routine 09/30/2018 12:30 PM EST Glaucoma suspect of both eyes documented in this encounter Results * OCT OPTIC NERVE [...] unspecified documented in this encounter Care Teams Rim Roller Operator Relationship Specialty Start Date End Date Ortiz Rothman MD [address] [facility] [address] [place] [address] PCP - General 12/03/02 Bryce Allison MD, PhD [address] [facility] D, [address] [place] [address] 08/25/10 Provider, Luara, MD [facility] 08/25/10 Valerie Wilkinson MD [facility] [address] [facility] [place] [address] 08/25/10 Yohan Powell MD [address] [place] [address] [address] [place] [address] ENT-Otolaryngology 03/15/17 Vandana Walker AUD [address] [place] [address] Audiology 03/15/17 documented as of this encounter
--- OUTSIDE RECORDS SUMMARY | 2024-10-14 21:58 | XMS_ITS | Encounter Summary ---
Author Organization [facility] Ambulatory Address [address] [place] [address] Phone Care Team Providers Care Traffic Line Painter Name Role Phone Ortiz Rothman MD Primary Care Provider [phone] Bryce Allison MD, PhD Unavailable +[phone] Provider, Abstract MD Unavailable Unavailabl Valerie Orellana MD Unavailable [phone] Yohan Powell MD Unavailable [phone] Vandana Walker Unavailable [phone] Geovanna Hughes MD Unavailable Vandana Whitmore MD Unavailable +[phone] Provider, Historical Unavailable Unavailable Rozina Sanders MD Unavailable [phone] Source Comments This information has been disclosed [...] Closed Specialty Diagnoses / Procedures Referred By Contac t Referred To Contact Diagnoses Primary open angle glaucoma (POAG) of both eyes, mild stage Procedures OCT, OPTIC NERVE - OU - BOTH EYES Bryce Allison MD, PhD [address] [facility] [address], [address] [place] [address] Referral ID Status Reason Start Date Expiration Date Visits Re quested Visits Authorized [id number] Closed 03/29/2021 1 1 Encounter Details Date Type Department Care Team (Late st Contact Info) Description 03/29/2021 11:00 AM EDT Testing Visit [facility] Vision [place] [address] [facility] [address] [place] [address] Group President: Kerrie Butts Primary open angle glaucoma (POAG) of both [...] NERVE - OU - BOTH EYES Routine 03/29/2021 11:00 AM EDT Primary open angle glaucoma (POAG) of both eyes, mild stage documented in this encounter Results * OCT, OPTIC NERVE - OU - BOTH EYES (03/29/2021 11:00 AM EDT) AVERAGE THICKNESS (OD) FORUM RESULTS SIGNAL STRENGTH [...] FORUM RESULTS Anatomical Region Laterality Modality Other 03/29/2021 11:0 0 AM EDT Impressions 03/29/2021 11:00 AM EDT OD: ss 8/10 aRNFL 59; thin S/I; bld N OS: ss 7/10 aRNFL 69; bld S/N/I - no GPA available, no gross progression as compared to prior exam Reviewed, agree, ELW c/w optic neuropathy OU Not suggestive of progression Narrative 03/29/2021 11:00 AM EDT See linked image. Bryce Allison MD, PhD OPHTH TOMOGRAPHY documented in this encounter Visit Diagnoses Diagnosis Primary open angle glaucoma (POAG) of both eyes, mild stage documented in this encounter Care Teams Traffic Line Painter Relationship Specialty Start Date End Date Ortiz Rothman MD [address] [facility] [address] [place] [address] PCP - General 12/03/02 Bryce Allison MD, PhD [address] [place] [address] D, [address] [place] [address] 08/25/10 ProviderLaura MD [facility] PROVIDER 08/25/10 Valerie Wilkinson MD [facility] [address] [facility] [place] [address] 08/25/10 [place] [address] [place] [address] [address] [place], [place] [phone] ENT-Otolaryngology 03/15/17 Vandana Walker AUD [address] [place] [phone] Audiology 03/15/17 Geovanna Hughes MD [address] [place] [phone] Internal Medicine 04/01/19 Vandana Whitmore MD [address] [facility] [place] [place] [address] Ophthalmology 08/18/19 Provider, Historical [facility] 11/06/19 Rozina Sanders MD [address] [facility] [place] [address] Ophthalmology 12/25/19 documented as of this encounter
--- OUTSIDE RECORDS SUMMARY | 2024-10-14 21:58 | XMS_ITS | Encounter Summary ---
Author Organization [facility] Ambulatory Address [address] [place] [address] Phone Care Team Providers Care Field Cashier Name Role Phone Ortiz Rothman MD Primary Care Provider [phone] Bryce Allison MD, PhD Unavailable +[phone] Provider, Abstract MD Unavailable Unavailabl Valerie Orellana MD Unavailable [phone] Yohan Powell MD Unavailable [phone] Vandana Walker Unavailable +[phone] Geovanna Hughes MD Unavailable Vandana Whitmore MD Unavailable +[phone] Provider, Historical Unavailable Unavailable Rozina Sanders MD Unavailable [phone] Source Comments This information has been disclosed [...] 2.65.[facility] Ambulatory Reason for Referral * Ophthalmology - Closed Specialty Diagnoses / Procedures Referred By Contac t Referred To Contact Diagnoses Primary open angle glaucoma (POAG) of both eyes, mild stage Procedures OCT, OPTIC NERVE - OU - BOTH EYES Bryce Allison MD, PhD [address] [facility] D, [address] [place] [address] Referral ID Status Reason Start Date Expiration Date Visits Re quested Visits Authorized [id number] Closed 03/29/2021 1 1 Reason for Visit * Reason Comments Follow-Up Encounter Details Date Type Department Care Team (Late st Contact Info) Description 03/29/2021 9:45 AM EDT Office Visit [facility] Vision [place] [address] [address] Lumber Estimator: Valerie Purcell Evan L, MD, PhD [address] [facility] D, [facility] [address] [place] [address] Primary open angle glaucoma (POAG) of both eyes, mild stage (Primary Dx); Dermatochalasis of both upper eyelids; Benign lesion of eyelid Social History Tobacco Use Types Packs/Day Years [...] as of this encounter Progress Notes * Mira Rodriguez - 03/29/2021 9:45 AM EDT 81 yoF presenting for annual exam. Complaining her vision is not as clear as it had been after the surgery. Impression/Plan Primary open angle glaucoma - continued good response to timolol OU - visual field is stable - OCT grossly stable as compared to 2018 (no GPA) Pseudophakia OU - stable Dermatochalasis, OU - s/p upper lid blepharoplasty 12/17/19 Graves disease - mild proptosis since her 30s, not requiring surgery - s/p radio-iodine treatment - stable/monitor Chalazion/Meibomian Gland Dysfunction - Tobradex QID for 1 week - AT QID - warm compresses - if not resolved within 4-6 weeks follow up with oculoplastics f/u 6 months for visual field and exam * Bryce Allison MD, PhD - 03/29/2021 9:45 AM EDT ATTENDING NOTE: I personally performed a history and physical examination on Danika Mckeon. I reviewed the fellow/resident's documentation and agree except as otherwise noted. I discussed the plan with the patient. documented in this encounter Nursing Notes * Brandin Acosta - 03/29/2021 9:45 AM EDT 81 yof presents for 21 month f/u with DFE/OCT. Pt sts: Vision is slightly blurred OD>OS since 06/24/2019 visit. Denies pain, pressure, hugo's, flashes, floaters, and other ocular complaints. POHX: POAG, Pseudophakia OU, dermatochalasis OU, graves disease Gtts: Timolol QAM OU, AT's PRN OU, Refresh PM QHS OU Constitutional: Normal Cardiovascular: Normal Respiratory: Normal Gastrointestinal: Normal Genitourinary: Normal Musculoskeletal: Normal TRACK DRESSER: Normal ENT: Normal Integumentary: Normal Psychiatric: Normal Endocrine: Normal Hematologic/Lymphatic: Normal Mental Status: Normal documented in this encounter Plan of Treatment Not on file documented as of this encounter Results * OCT, OPTIC NERVE [...] 59; thin S/I; bld N OS: ss 7 aRNFL 69; bld S/N/I - no GPA available, no gross progression as compared to prior exam Reviewed, agree, ELW c/w optic neuropathy OU Not suggestive of progression Narrative 03/29/2021 11:00 AM EDT See linked image. Bryce Allison MD, PhD OPHTH TOMOGRAPHY documented in this encounter Visit Diagnoses Diagnosis Primary open angle glaucoma (POAG) of both eyes, mild stage- Primary Dermatochalasis of both upper eyelids Benign lesion of eyelid Unspecified disorder of eyelid Primary open angle glaucoma (POAG) of both eyes, mild stage documented in this encounter Care Teams Field Cashier Relationship Specialty Start Date End Date Ortiz Rothman MD [address] [facility] [address] [place] [address] PCP - General 12/03/02 Bryce Allison MD, PhD [address] [place] [address] D, [facility] [address] [place] [phone] 08/25/10 Laura Villalobos MD EPICARE PROVIDER 08/25/10 Valerie Wilkinson MD [facility] [address] [facility] [place] [address] 08/25/10 Yohan Powell MD NPI: [id number] [place] [address] ENT-Otolaryngology 03/15/17 Vandana Walker AUD [address] [place] [phone] Audiology 03/15/17 Geovanna Hughes MD [address] [place] [phone] Internal Medicine 04/01/19 Vadnana Whitmore MD [address] [facility] [place], [place] [phone] Ophthalmology 08/18/19 Provider, Historical EPICARE PROVIDER 11/06/19 Rozina Sanders MD [address] [facility] [place] [phone] Ophthalmology 12/25/19 documented as of this encounter
--- OUTSIDE RECORDS SUMMARY | 2024-10-14 21:58 | XMS_ITS | Encounter Summary ---
Author Organization [facility] Ambulatory Address [address] [place] [address] Phone Care Team Providers Care Director Trial Name Role Phone Ortiz Rothman MD Primary Care Provider [phone] Bryce Allison MD, PhD Unavailable +[phone] Provider, Abstract MD Unavailable Unavailabl Valerie Orellana MD Unavailable + [phone] Yohan Powell MD Unavailable [phone] Vandana Walker Unavailable + Geovanna Hughes MD Unavailable Vandana Whitmore MD Unavailable + Provider, Historical Unavailable Unavailable Rozina Sanders MD Unavailable [phone] Antonietta Bateman MD Unavailable + [phone] Antonietta Bateman MD Unavailable [phone] Artie Lanza MD Unavailable Dena Berumen PA-C Unavailable [phone] Sangita Holly PA-C Unavailable [phone] Source Comments This information has been disclosed [...] sections 2.12(c)(5) and 2.65.[facility] Ambulatory Reason for Visit * Reason Comments Breast Surgery Post-Operative Visit Encounter Details Date Type Department Care Team (Late st Contact Info) Description 07/14/2021 7:30 AM EDT Office Visit [facility] [address] [place] [address] [place] [address] Yoga Teacher: Irene Arroyo Emilia J, MD [facility] [address] [facility] [address] [place] [address] [...] Sign Reading Time Taken Comments Blood Pressure 126/71 07/14/2021 7:17 AM EDT Pulse 85 07/14/2021 7:17 AM EDT Temperature - - Respiratory Rate - - Oxygen Saturation 98% 07/14/2021 7:17 AM EDT Inhaled Oxygen Concentration - - Weight 60.8 kg (134 lb) 07/14/2021 7:17 AM EDT Height 157.5 cm (5' 2 ) 07/14/2021 7:17 AM EDT Body Mass Index 24.51 07/14/2021 7:17 AM EDT documented in this encounter Progress Notes * Antonietta Bateman MD - 07/14/2021 7:30 AM EDT REASON FOR VISIT: Post-operative visit to evaluate breast erythema following breast surgery Diagnosis: Stage IIA (T2, N0, M0) Infiltrating lobular carcinoma, left breast: ER H-score 250, NM H-score 140, Her2 neg by IHC, Ki-67 10%. Procedure: Left segmental mastectomy (central lumpectomy) and sentinel lymph node biopsy at [facility] on 06/01/21. FINAL PATHOLOGY: Reviewed at previous visit HISTORY [...] PHYSICAL EXAMINATION: Appearance: Well-appearing, well-nourished, Vitals: BP 126/71 Pulse 85 Ht 5' 2 (157.5 cm) Wt 134 lb (60.8 kg) SpO2 98% BMI 24.51 kg/m?? Constitutional: No acute distress. Non-toxic appearance. Heme/Lymph System: No edema appreciated in the upper extremities. Skin: Warm. Dry. Directed Breast /Axillary Basins: A well-healed central lumpectomy transverse incision is present .No signs of dehiscence. Area of resolving erythema is almost completely resolved.The axillary incision is also well healed with [...] oncology care per Dr. Lanza and Uday. Ok to start radiation. documented in this encounter Plan of Treatment Not on file documented as of this encounter Visit Diagnoses Diagnosis 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, estrogen receptor positive (HCC)- Primary documented in this encounter Care Teams Director Trial Relationship Specialty Start Date End Date Ortiz Rothman MD [address] [facility] [address] [place] [address] PCP - General 12/03/02 Antonietta Bateman MD [facility], [facility] [address] [facility] [address] [place] [address] PCP - CANCER CTR RMD Surgical Oncology 06/09/21 Artie Lanza MD [address] [facility] [address] [place] [address] PCP - Cancer CTR Hematology 06/09/21 Bryce Allison MD, PhD [address] [place] [address] D, [address] [place] [phone] 08/25/10 Provider, MD Laura [facility] 08/25/10 Valerie Wilkinson MD [facility] [address] [facility] [place] [address] 08/25/10 Yohan Powell MD [address] [facility] [address] [place], [place] [phone] ENT-Otolaryngology 03/15/17 Vandana Walker AUD [address] [place] [phone] Audiology 03/15/17 Geovanna Hughes MD [address] [phone] Internal Medicine 04/01/19 Vandana Whitmore MD [address] [facility] [place] [address] Ophthalmology 08/18/19 Provider, Historical EPICARE PROVIDER 11/06/19 Rozina Sanders MD [address] [facility] [place] [phone] Ophthalmology 12/25/19 Antonietta Bateman MD CORPORATE OFFICE [address], [facility] [address] [place] [address] Surgical Oncology 04/29/21 Dena Berumen PA-C [address] [place] [address] Oncology 06/13/21 Sangita Holly PA-C [address] [place] [address] General Surgery 06/23/21 documented as of this encounter
--- OUTSIDE RECORDS SUMMARY | 2024-10-14 21:58 | XMS_ITS | Encounter Summary ---
Author Organization [facility] Ambulatory Address [address] [place] [address] Phone Care Team Providers Care Riffler Tender Name Role Phone Ortiz Rothman MD Primary Care Provider [phone] Bryce Allison MD, PhD Unavailable [phone] Provider, Abstract MD Unavailable Unavailabl Valerie Orellana MD Unavailable + 00 Yohan Powell MD Unavailable [phone] Vandana Walker Unavailable + Geovanna Hughes MD Unavailable Vandana Whitmore MD Unavailable + Provider, Historical Unavailable Unavailable Rozina Sanders MD Unavailable [phone] Antonietta Bateman MD Unavailable + [phone] Antonietta Bateman MD Unavailable +[phone] Artie Lanza MD Unavailable Dena Berumen PA-C Unavailable [phone] Sangita Holly PA-C Unavailable [phone] Dulce Lara PA-C Unavailable [phone] Source Comments This information has been disclosed [...] except as provided at sections 2.12(c)(5) and 2.65.[facility] Ambulatory Reason for Referral * Radiology - Closed Specialty Diagnoses / Procedures Referred By Antonieta bauman Referred To Contact Diagnoses 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, estrogen receptor positive (HCC) Procedures BI MAMMOGRAM DIGITAL SCREENING WITH TOMOSYNTHESIS BILATERAL Dulce Lara PA-C [address] [facility] [address] [place] [phone] Referral ID Status Reason Start Date Expiration Date Visits Re quested Visits Authorized [id number] Closed 06/28/2022 1 1 Reason for Visit * Reason Comments Wellness Visit Yeaarly wellness Encounter Details Date Type Department Care Team (Late st Contact Info) Description 06/28/2022 9:00 AM EDT Office Visit [facility] [address] [facility] [address] [facility] [phone] Farm Supervisor: Irene Arroyo Tiffany L, PA-C [address] [address] Malignant neoplasm of lower-outer quadrant of [...] Sign Reading Time Taken Comments Blood Pressure 129/79 06/28/2022 9:02 AM EDT Pulse 78 06/28/2022 9:02 AM EDT Temperature 37.2 ??C (98.9 ??F) 06/28/2022 9:02 AM ED T Respiratory Rate 16 06/28/2022 9:02 AM EDT Oxygen Saturation 95% 06/28/2022 9:02 AM EDT Inhaled Oxygen Concentration - - Weight 62.1 kg (137 lb) 06/28/2022 9:02 AM EDT Height 157.5 cm (5' 2 ) 06/28/2022 9:02 AM EDT Body Mass Index 25.06 06/28/2022 9:02 AM EDT documented in this encounter Patient Instructions * Patient Instructions* Dulce Lara - 06/28/2022 9:00 AM EDT Recommendations: Continue medications as prescribed by medical oncologist. Patient to continue bilateral annual mammography. Option to return to the Follow-Up Center in one year for a total of three years. documented in this encounter Progress Notes * Dulce Lara - 06/28/2022 9:00 AM EDT Reason For Visit: annual surgical oncology wellness exam Diagnosis: Stage IIA (T2, N0, M0) Infiltrating lobular carcinoma, left breast: ER H-score 250, NC H-score 140, Her2 neg by IHC, Ki-67 10%. Procedure: Left segmental mastectomy (central lumpectomy) and left sentinel lymph node biopsy at [facility] on 06/01/21. The procedure was performed by Dr. Antonietta Bateman. Medical Oncology: Adjuvant Arimidex initiated in October 2021 and continuing, under the care of Dr.Neal Lanza. Radiation Oncology: Left breast radiation completed in August 2021, managed by Dr. Andre Frye. Updated HPI: Danika Mckeon is an 82 year old female who presents in our Breast Cancer Annual Follow-up Center at [facility]. The Follow-up Center was established to ensure that patients whohave been treated by surgery for a diagnosis of breast cancer would be examined once a year for three years, to supplement long-term surveillance also provided by the other members of her oncologic team and primary care. Below is a synopsis of past and present health information pertinent to her breast cancer diagnosis, treatment, and current health status. The patient had a post-operative surgical wound infection that was treated with 10 days of Keflex. She had a seroma aspirated on 06/13/21, cu ltures from which were negative. She notes some periodic axillary discomfort. She has not had any notable effects to her AI. She does question the mechanism of action of the AI and what its purpose actually is. She denies any changes to her usual state of health. She is feeling very well overall. She completed her annual mammogram in February 2022 and findings were benign. She enjoys traveling and was thrilled to take her youngest grandchild on a trip to [place] as a special family tradition this year. She has no other concerns today. Review of Systems with focus on breast cancer: CONSTITUTIONAL: negative for chronic unexplained headaches, dizziness. RESPIRATORY: negative for chronic unexplained cough, shortness of breath. MUSCULOSKELETAL: negative for chronic unexplained back pain, bone pain. SKIN: reports negative for breast or chest wall skin changes, rash, scaling, lumps or bumps PSYCHIATRIC: negative for prolonged increase of anxiety, depression since diagnosis and treatment for breast cancer As mentioned above and in subjective, all other Review of Systems reviewed and negative. Allergies Allergen Reactions Adhesive Tape Other reaction(s): pt prefers paper tape- others rips skin Outpatient Medications Marked as Taking for the 06/28/22 encounter (Office Visit) with Dulce Lara PA-C Medication Sig Dispense Refill anastrozole (ARIMIDEX) 1 [...] EACH EYE EVERY MORNING 10 mL 3 tobramycin-dexamethasone (TOBRADEX) 0.3-0.1 % opht ophthalmic ointment [...] estrogen receptor positive (hcc) 04/29/2021 Past Surgical History: Procedure Laterality Date CATARACT PROCEDURE HYSTERECTOMY REMV CATARACT EXTRACAP,INSERT LENS REPAIR DETACH RETINA,SCLERAL BUCKLE segmental mastectomy and sentinel node biopsy Left 06/01/2021 TONSILLECTOMY Family History Problem Comment Relation Other All reviewed, none relevant Other Cancer Biological Mother Ca, Breast Biological Mother Heart Disease Biological Father Social History Tobacco Use Smoking status: Never Smokeless tobacco: Never Substance Use Topics Alcohol use: Yes Comment: socially Breast Health and Related Information: Bra Size: 34DD Do you perform self breast exams?: Yes Menarche - Age: 15 Age at 1st : 28 Age at 1st Live : 28 Have you ever breast fed your child?: Yes HRT Past Use: Yes HRT Current Use: No Past Use of Control: Yes Present Use of Control: No Diagnostic Imaging: Bilateral screening mammogram and tomosynthesis done 03-11-22 at [facility] indicates no evidence of malignancy bilateral, BIRADS 2 benign, and recommendation is for repeat bilateral screening mammogram and tomosynthesis in one year, due February 2023 Physical Exam: Vitals: BP 129/79 Pulse 78 Temp 98.9 ??F (37.2 ??C) (Oral) Resp 16 Ht 5' 2 (157.5 cm) Wt137 lb (62.1 kg) SpO2 95% No BMI 25.06 kg/m?? General Appearance: well appearing, nourished, and comfortable, tremendously pleasant lady in no distress. Please note that Ms. Kylie Lay, new physician facilities assistant to our staff, was in the room with me for the entire interview and exam with patient's permission. We were appropriately masked and socially distanced during the visit to comply with Covid-19 precautions. Head and Neck: Oral mucosa is pink and moist, no thyroid or neck masses, the trachea is midline, nojugular venous distention, cranial nerve exam is grossly normal Musculoskeletal: normal strength and tone, normal gait, patient gets on and off the examining tablewith minimal assistance, bilateral upper extremities have full range of motion, bilateral arm circumference is symmetric, and there is no evidence of lymphedema Comprehensive Breast Exam: A comprehensive examination of the breasts and chest wall was performed with the patient upright and supine with arms at her sides and above her head, breasts symmetric in appearance, no erythema or edema of breast skin, right nipple is normally everted and no crusting orexcoriation, left nipple surgically absent with central mastectomy. Cosmetic outcome is good. Left Breast: palpation negative for mass, no fibroglandular thickening, and no axillary, infra, or supraclavicular adenopathy. The left breast and axillary scars are well healed. Right Breast: palpation negative for mass, no fibroglandular thickening, and no axillary, infra, orsupraclavicular adenopathy Patient Satisfaction: Overall, are you satisfied with your breast cancer surgery outcome? 5. Strongly Agree. Impression: She is one year status post left segmental central mastectomy with left sentinel lymph node biopsy for left breast infiltrating lobular carcinoma. Recommendations: Continue medications as prescribed by medical oncologist. Patient to continue bilateral annual mammography. Due February 2023. Option to return to the Follow-Up Center in one year for a total of three years. Discussed new normal physical findings of breast/axillary region after surgery and radiation which does include presence of scar tissue and skin thickness. Discussed that pain is still normal at thistime as her body's nerves continue to heal, and that there is no guarantee her pain/discomfort willfully resolve, but it should improve with time. Discussed that altered nerve sensations after damage from surgery and radiation could present as discomfort on palpation, jabs or shocks of pain at times, itching, tingling, burning, and more sensations, and that sometimes those sensations occur without precipitating event. We discussed the mechanism of action of the AI to inhibit estrogen, which was the primary source of cancer growth for her due to an estrogen receptor-positive tumor, and that the absence of estrogen may lead to side effects. All of her questions were answered to the best of my ability. The patient verbalized understanding of our discussion. Thank you for involving me in her care. Please do not hesitate to contact me with questions. Dr. Sierra Johansen was available for consultation electronically during the patient???s visit today. Total time (bjce-bi-joit and tqb-ewsk-lf-face) spent on today's visit was 25 minutes. This includedpreparation for the visit (i.e. reviewing test results), performance of a medically appropriate history and examination, and orders for medications, tests or other procedures. This time is exclusive of procedures performed and time spent teaching. Dulce Lara PA-C documented in this encounter Plan of Treatment Not on file documented as of this encounter Results * BI MAMMOGRAM DIGITAL SCREENING WITH TOMOSYNTHESIS BILATERAL (03/13/2023 7:25 AM EDT) Anatomical Region Laterality Modality Other 03/13/2023 7:25 AM EDT Impressions 03/14/2023 10:32 AM EDT No evidence of malignancy is identified. RECOMMENDATION: Routine screening mammography and tomosynthesis is recommended in one year, unless otherwise clinically indicated. ??We will provide the patient with these findings and recommendations. OVERALL ASSESSMENT: BI-RADS: 2 - BENIGN FINDING(S) RIS CODE: 2BENIGN Narrative 03/14/2023 10:32 AM EDT CLINICAL HISTORY: The patient is 83 years old and presents for routine screening. The patient had an ultrasound guided biopsy 04/15/2021 of the 5:00 region showing invasive lobular carcinoma. Patient had a lumpectomy with a negative sentinel node biopsy on 06/01/2021. Patient is status post radiation therapy and is currently on Arimidex. Mother diagnosed with breast cancer at 45 and ovarian cancer 47 FINDINGS: Bilateral synthetically generated digital mammography with CAD and digital breast tomosynthesis reveals scattered areas of fibroglandular density. No suspicious findings or significant changes are present as compared to the prior examination(s), the most recent of which is dated 03/11/2022. Post-surgical changes are noted in the left breast. Procedure Note Mindy Shaver MD, MPH - 03/14/2023 CLINICAL HISTORY: The patient is 83 years old and presents for routine screening. The patient had an ultrasound guided biopsy 04/15/2021 of the 5:00 region showing invasive lobular carcinoma. Patient had a lumpectomy with a negative sentinel node biopsy on 06/01/2021. Patient is status post radiation therapy and is currently on Arimidex. Mother diagnosed with breast cancer at 45 and ovarian cancer 47 FINDINGS: Bilateral synthetically generated digital mammography with CAD and digital breast tomosynthesis reveals scattered areas of fibroglandular density. No suspicious findings or significant changes are present as compared to the prior examination(s), the most recent of which is dated 03/11/2022. Post-surgical changes are noted in the left breast. IMPRESSION No evidence of malignancy is identified. RECOMMENDATION: Routine screening mammography and tomosynthesis is recommended in one year, unless otherwise clinically indicated. We will provide the patient with these findings and recommendations. OVERALL ASSESSMENT: BI-RADS: 2 - BENIGN FINDING(S) RIS CODE: 2BENIGN Dulce Lara PA-C IMG BI ORDERAB LES documented in this encounter Visit Diagnoses Diagnosis 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, estrogen receptor positive (HCC)- Primary documented in this encounter Care Teams Riffler Tender Relationship Specialty Start Date End Date Ortiz Rothman MD [address] [facility] [address] [place] [address] PCP - General 12/03/02 Antonietta Bateman MD [facility], [facility] [address] [facility] [address] [place] [address] PCP - CANCER CTR RMD Surgical Oncology 06/09/21 Artie Lanza MD [address] [facility] [address] [place] [address] PCP - Cancer CTR Hematology 06/09/21 Bryce Allison MD, PhD [address] [facility] [address] [place] [address] 08/25/10 Provider, MD [facility] 08/25/10 Valerie Wilkinson MD [facility] [address] [facility] [place] [address] 08/25/10 Yohan Powell MD [address] [place] [address] [address] [place] [address] ENT-Otolaryngology 03/15/17 Vandana Walker AUD [address] [place] [phone] Audiology 03/15/17 Geovanna Hughes MD [address] [place] [phone] Internal Medicine 04/01/19 Vandnaa Whitmore MD [address] [place] [address] [place] [address] Ophthalmology 08/18/19 Provider, Nithin EPICARE PROVIDER 11/06/19 Rozina Sanders MD [address] [place] [address] [place] [phone] Ophthalmology 12/25/19 Antonietta Bateman MD CORPORATE OFFICE [address], [facility] [address] [place] [address] Surgical Oncology 04/29/21 Dena Berumen PA-C [address] [facility] [address] [place] [address] Oncology 06/13/21 Sangita Holly PA-C [address] [facility] [address] [place] [address] General Surgery 06/23/21 Ducle Lara PA-C [address] [address] Surgical Oncology 06/28/22 documented as of this encounter
--- OUTSIDE RECORDS SUMMARY | 2024-10-14 21:58 | XMS_ITS | Encounter Summary ---
Author Organization [facility] Ambulatory Address [address] [place] [address] Phone Care Team Providers Care Air Hammer Stripper Name Role Phone Ortiz Rothman MD Primary Care Provider [phone] Bryce Allison MD, PhD Unavailable [phone] Provider, Abstract MD Unavailable Unavailabl Valerie Orellana MD Unavailable + [phone] Yohan Powell MD Unavailable [phone] Vandana Walker Unavailable + Geovanna Hughes MD Unavailable Vandana Whitmore MD Unavailable + Provider, Historical Unavailable Unavailable Rozina Sanders MD Unavailable [phone] Antonietta Bateman MD Unavailable + [phone] Antonietta Bateman MD Unavailable [phone] Artie Lanza MD Unavailable Dena Berumen PA-C Unavailable [phone] Sangita Holly PA-C Unavailable [phone] Source Comments This information has been disclosed [...] Ambulatory Reason for Visit * Reason Comments Medication Questions Encounter Details Date Type Department Care Team ([facility] st Contact Info) Description 04/12/2021 Telephone [facility] [place] [address] [facility] 1st [place] [address] Safety Counselor: Valerie Purcell Evan L, MD, PhD [address] [place] [address], [address] [place] [address] Medication Questions Social History Tobacco Use Types Packs/Day Years [...] encounter Miscellaneous Notes * Telephone Encounter - Sergio Medel - 04/13/2021 9:31 AM EDT Timolol should be once a day in both eyes. Tobradex should be for 1 week total. * Telephone Encounter - Brenden Castillo - 04/12/2021 1:43 PM EDT From last visit: Impression/Plan Primary open angle glaucoma - continued good response to timolol OU - visual field is stable - OCT grossly stable as compared to 2018 (no GPA) ?? Pseudophakia OU - stable ?? Dermatochalasis, OU - s/p upper lid blepharoplasty 12/17/19 ?? Graves disease - mild proptosis since her 30s, not requiring surgery - s/p radio-iodine treatment - stable/monitor ?? Chalazion/Meibomian Gland Dysfunction - Tobradex QID for 1 week - AT QID - warm compresses - if not resolved within 4-6 weeks follow up with oculoplastics How many times a day should patient being using timolol OU? Thanks * Telephone Encounter - Renny Rolon - 04/12/2021 1:36 PM EDT Questioning how long she is to use her antibiotic eyedrops. [phone] documented in this encounter Plan of Treatment Not on file documented as of this encounter Visit Diagnoses Not on filedocumented in this encounter Care Teams Air Hammer Stripper Relationship Specialty Start Date End Date Ortiz Rothman MD [address] [facility] [address] [place] [address] PCP - General 12/03/02 Antonietta Bateman MD [facility], [facility] [address] [facility] [address] [place] [address] PCP - CANCER CTR RMD Surgical Oncology 06/09/21 Artie Lanza MD [address] [facility] [address] [place] [address] PCP - Cancer CTR Hematology 06/09/21 Bryce Allison MD, PhD [address] [place] [address] D, [address] [place] [phone] 08/25/10 Provider, MD ADE Sanchez PROVIDER 08/25/10 Valerie Wilkinson MD [facility] [address] [place] [address] 08/25/10 [place] [address] [place] [address] [address] [place] [address] ENT-Otolaryngology 03/15/17 Vandana Walker AUD [address] [place] [phone] Audiology 03/15/17 Geovanna Hughes MD [address] [place] [phone] Internal Medicine 04/01/19 Vandana Whitmore MD [address] [place] [address] [place] [address] Ophthalmology 08/18/19 Provider, Historical EPICARE PROVIDER 11/06/19 Rozina Sanders MD [address] [place] [address] [place] [phone] Ophthalmology 12/25/19 Antonietta Bateman MD CORPORATE OFFICE [address], [facility] [address] [place] [address] Surgical Oncology 04/29/21 Dena Berumen PA-C [address] [place] [address] Oncology 06/13/21 Sangita Holly PA-C [address] [place] [address] [place] [address] General Surgery 06/23/21 documented as of this encounter
--- OUTSIDE RECORDS SUMMARY | 2024-10-14 21:58 | XMS_ITS | Encounter Summary ---
Author Organization [facility] Ambulatory Address [address] [place] [address] Phone Care Team Providers Care Auto Apprentice Mechanic Name Role Phone Ortiz Rothman MD Primary Care Provider [phone] Bryce Allison MD, PhD Unavailable +[phone] Provider, Abstract MD Unavailable Unavailabl Valerie Orellana MD Unavailable + 00 Yohan Powell MD Unavailable [phone] Vandana Walker Unavailable + Geovanna Hughes MD Unavailable Vandana Whitmore MD Unavailable + Provider, Historical Unavailable Unavailable Rozina Sanders MD Unavailable [phone] Antonietta Bateman MD Unavailable + 74 Antonietta Bateman MD Unavailable +[phone] Artie Lanza MD Unavailable Dena Berumen PA-C Unavailable [phone] Sangita Holly PA-C Unavailable [phone] Source Comments This information has been disclosed [...] and 2.65.[facility] Ambulatory Reason for Referral * Ophthalmology - Closed Specialty Diagnoses / Procedures Referred By Antonieta bauman Referred To Contact Diagnoses Primary open angle glaucoma (POAG) of both eyes, mild stage Procedures OCT, OPTIC NERVE - OU - BOTH EYES Bryce Allison MD, PhD [address] [place] [address] [employer] [facility], [address] [address] Referral ID Status Reason Start Date Expiration Date Visits Re quested Visits Authorized [id number] Closed 09/26/2021 1 1 * Ophthalmology - Closed Specialty Diagnoses / Procedures Referred By Antonieta bauman Referred To Contact Diagnoses Primary open angle glaucoma (POAG) of both eyes, mild stage Procedures VAN 24-2 VISUAL FIELD - OU - BOTH EYES Bryce Allison MD, PhD [address] [place] [address] [employer] [facility], [place] [address] [place] [address] Referral ID Status Reason Start Date Expiration Date Visits Re quested Visits Authorized [id number] Closed 09/26/2021 1 1 Reason for Visit * Reason Comments Follow-Up Encounter Details Date Type Department Care Team (Latest Contact Info) Description 09/26/2021 10:00 AM EST Office Visit [facility] [address] [address] Accounting Analyst: Valerie Purcell Evan L, MD, PhD [address] [place] [address] [employer] 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 She says vision has been overall stable, but does have some blurry vision temporally in right eye. She does have some difficulty driving at night. Does feel left eye is usually bloodshot and is s/p tarsorrhaphy OS 05/[address] Whitmore for treatment. Has beendiagnosed with breast cancer; s/p partial mastectomy and finished radiation. Said she has not had significantly bulging eyes in years. Gtts: Timolol QAM OU Testing: HVF 24-2 OD: reliability, nasal step OS: reliability, Largely full Stable testing Impression/Plan Primary open angle glaucoma OD>OS - continued good response to timolol QAM OU - visual field is stable today - OCT previously but long interval; repeat at [facility] remotely in coming weeks. Graves disease - mild proptosis since her 30s, not requiring surgery - s/p radio-iodine treatment - stable/monitor with Dr. Whitmore Meibomian Gland Dysfunction TOMMIE + Exposure s/p temp tarso OS with Dr Crawford Ectropion OU - AT QID - warm compresses - if not resolved within 4-6 weeks follow up with oculoplastics Pseudophakia OU - stable Dermatochalasis, OU - s/p upper lid blepharoplasty 12/16/20 f/u 6 months for visual field and exam * Bryce Allison MD, PhD - 09/26/2021 10:00 AM EST ATTENDING NOTE: I personally performed a history and physical examination on Danika Mckeon. I reviewed the fellow/resident's documentation and agree except as otherwise noted. I discussed the plan with the patient. documented in this encounter Nursing Notes * Jane Gonzalez - 09/26/2021 10:00 AM EST 81 year old female presents today for a 6 month eye exam with 24-2 hvf testing. Patient reports that her vision OU has remained stable since her last exam. Patient reports that her vision in the temporal region of the right eye is more blurry. Patient denies: pain, discomfort, headaches, pressure, flashes of lights and new floaters. POH: POAG Pseudophakia OU Dermatochalasis OU -s/p upper lid blepharoplasty 12/17/19 Graves disease -sp radio-iodine treatment Chalazion/Meibomian gland dysfunction gtts: Timolol Qam OU *no refills needed at this time* documented in this encounter Plan of Treatment Not on file documented as of this encounter Procedures Procedure Name Priority Date/Time Associated Diagnosis Comments VAN 24-2 VISUAL FIELD - OU - BOTH EYES Routine 09/26/2021 10:44 AM EST Primary open angle glaucoma (POAG) [...] image. Bryce Allison MD, PhD OPHTH TOMOGRAPHY * VAN 24-2 VISUAL FIELD - OU - BOTH EYES (09/26/2021 10:44 AM EST) MD (OD) FORUM RESULTS MD [...] FORUM RESULTS FALSE NEG ERRORS FORUM RESULTS Anatomical Region Laterality Modality Other 09/26/2021 10:4 4 AM EST Impressions 09/26/2021 10:44 AM EST HVF 24-2 OU OD - good study, possible superior arcuate field depression OS - good study, wnl No significant change seen compared with previous studies Overall not suggestive of progression Narrative 09/26/2021 10:44 AM EST See linked image. 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, mild stage documented in this encounter Care Teams Auto Apprentice Mechanic Relationship Specialty Start Date End Date Ortiz Rothman MD [address] [facility] [address] [place] [address] PCP - General 12/03/02 Antonietta Bateman MD [facility], [facility] [address] [facility] [address] [place] [address] PCP - CANCER CTR RMD Surgical Oncology 06/09/21 Artie Lanza MD [address] [facility] [address] [place] [address] PCP - Cancer CTR Hematology 06/09/21 Bryce Allison MD, PhD [address] [place] [address] [address] [place] [phone] 08/25/10 Provider, MD Laura EPICARE PROVIDER 08/25/10 Valerie Wilkinson MD [facility] [address] [facility] [place] [address] 08/25/10 Yohan Powell MD [address] [facility] [address] [place], [place] [phone] ENT-Otolaryngology 03/15/17 Vandana Walker AUD [address] [place] [phone] Audiology 03/15/17 Geovanna Hughes MD [address] [address] Internal Medicine 04/01/19 Vandana Whitmore MD [address] [facility] [place] [address] Ophthalmology 08/18/19 Provider, Historical EPICARE PROVIDER 11/06/19 Rozina Sanders MD [address] [place] [address] [place] [address] Ophthalmology 12/25/19 Antonietta Bateman MD CORPORATE OFFICE [address], [facility] [address] [place] [address] Surgical Oncology 04/29/21 Dena Berumen PA-C [address] [place] [address] [place] [address] Oncology 06/13/21 Sangita Holly PA-C [address] [place] [address] [place] [address] General Surgery 06/23/21 documented as of this encounter
--- OUTSIDE RECORDS SUMMARY | 2024-10-14 21:58 | XMS_ITS | Encounter Summary ---
Author Organization [facility] Ambulatory Address [address] [place] [address] Phone Care Team Providers Care Non Morse Intercept Technician Name Role Phone Ortiz Rothman MD Primary Care Provider [phone] Bryce Allison MD, PhD Unavailable +[phone] Provider, Abstract MD Unavailable Unavailabl Valerie Orellana MD Unavailable + 00 Yohan Powell MD Unavailable [phone] Vandana Walker Unavailable + Geovanna Hughes MD Unavailable Vandana Whitmore MD Unavailable + Provider, Historical Unavailable Unavailable Rozina Sanders MD Unavailable [phone] Antonietta Bateman MD Unavailable + 74 Antonietta Bateman MD Unavailable +[phone] Artie Lanza MD Unavailable Dena Berumen PA-C Unavailable [phone] Sangita Holly PA-C Unavailable [phone] Source Comments This information has been disclosed [...] * Reason Comments Breast Surgery Post-Operative Visit Re-Herminio ellis Encounter Details Date Type Department Care Team (Latest Contact Info) Description 06/23/2021 12:15 PM EDT Office Visit [facility] [address] [place] [facility] [address], [address] [place] [address] Surveyor: Irene Arroyo Claire J, PA-C [address] [place] [address] 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, estrogen receptor positive (HCC) (Primary Dx); Postoperative cellulitis of surgical wound; Lymphedema of breast; Encounter for postoperative follow-up after surgery for malignant neoplasm Social History Tobacco Use Types Packs/Day Years [...] Sign Reading Time Taken Comments Blood Pressure 132/70 06/23/2021 12:19 PM EDT Pulse 64 06/23/2021 12:19 PM EDT Temperature 36.3 ??C (97.3 ??F) 06/23/2021 12:19 PM E DT Respiratory Rate - - Oxygen Saturation 98% 06/23/2021 12:19 PM EDT Inhaled Oxygen Concentration - - Weight 60.8 kg (134 lb) 06/23/2021 12:19 PM EDT Height 157.5 cm (5' 2 ) 06/23/2021 12:19 PM EDT Body Mass Index 24.51 06/23/2021 12:19 PM EDT documented in this encounter Patient Instructions * Patient Instructions* Sangita Holly - 06/23/2021 12:15 PM EDT Antibiotic therapy: Patient will complete a ten-day course of Keflex tomorrow. We will renew her prescription for an additional ten-day course. Culture and sensitivities: No growth demonstrated on final Radiology: Patient will be due for a routine bilateral mammogram in February 2022. Post-operative care: Patient advised to wear a compression bra and use ice as needed. Chemotherapy/anti-estrogen medication: A consultation with Medical Oncology is scheduled with Dr Lanza on June 29, 2021. Radiation therapy: Patient completed a Radiation Oncology consultation with Dr. Frye earlier today. Follow up visit: ?? Patient will return to the [place] office on July 07 for follow-up exam. ?? Patient understands to contact the office sooner if she notes any worsening of her symptoms suchas increasing redness, fever, chills or drainage from the incision.. ??? The patient will follow-up in our Breast Cancer Follow-Up Clinic after her yearly imaging . This will be a 3 year annual visit beginning in July 2022. documented in this encounter Progress Notes * Sangita Holly - 06/23/2021 12:15 PM EDT [facility] REASON FOR VISIT: Post-operative visit to evaluate breast erythema following breast surgery Diagnosis: Stage IIA (T2, N0, M0) Infiltrating lobular carcinoma, left breast: ER H-score 250, NE H-score 140, Her2 neg by IHC, Ki-67 10%. Procedure: Left segmental mastectomy (central lumpectomy) and sentinel lymph node biopsy at [facility] on 06/01/21. The procedure performed by [...] mg 4 times a day for a ten-day course. Final cultures demonstrated no growth. Patient feels as though the erythema has decreased in intensity. She denies any fever, chills, malaise or drainage. Patient presents today for evaluation. FOCUSED PHYSICAL EXAMINATION: Patient provided permission for photographs noted in the media tab Appearance: Well-appearing, well-nourished, age-appropriate female accompanied by her Vitals: Blood pressure 132/70, pulse 64, temperature 97.3 ??F (36.3 ??C), temperature source Oral, height 5' 2 (157.5 cm), weight 134 lb (60.8 kg), SpO2 98 %. Constitutional: No acute distress. Non-toxic appearance. Heme/Lymph System: No edema appreciated in the upper extremities. Skin: Warm. Dry. Directed Breast /Axillary Basins: A well-healed central lumpectomy transverse incision is present .No signs of dehiscence. Area of erythema is marked measuring approximately 6 x 7 cm. Erythema slightly dissipates when the patient lies supine. A 4 cm seroma is palpable. The axillary incision is also well healed with no evidence of a seroma. Remnants of surgical glue from the axillary incision were removed at today's visit. ASSESSMENT/PLAN: Ms Danika Mckeon is a 81 year old woman with a diagnosis of left breast cancer. She presents for evaluation of left breast erythema following her central lumpectomy. By comparing previous photo erythema appears to be less intense. We will continue Keflex for an additional 10 days. 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 Patient understands we do not perform repeated aspirations due to the risk of infection. Antibiotic therapy: Patient will complete a ten-day course of Keflex tomorrow. We renewed her prescription for an additional ten-day course. She will complete antibiotic therapy on July 04, 2021. We discussed the importance of taking a probiotic daily to reduce GI symptoms. Culture and sensitivities: No growth demonstrated on final Radiology: Patient will be due for a routine bilateral mammogram in February 2022. Post-operative care: Patient advised to wear a compression bra and use ice as needed to decrease inflammation. Chemotherapy/anti-estrogen medication: A consultation with Medical Oncology is scheduled with Dr Lanza on June 29, 2021. Radiation therapy: Patient completed a Radiation Oncology consultation with Dr. Frye earlier today. Follow up visit: ?? Patient will return to the [place] office on June for follow-up exam. ?? Patient understands to contact the office sooner if she notes any worsening of her symptoms suchas increasing redness, fever, chills or drainage from the incision. ??? The patient will follow-up in our Breast Cancer Follow-Up Clinic after her yearly imaging . This will be a 3 year annual visit beginning on June 28, 2022. Dr. Bateman also examined the patient today and agrees with the proposed management and plan. VIRGILIO Harris PA-C Physician Communication Signals Intelligence [facility] of [facility] NB: Documentation partially created using [employer] voice recognition software. There may be grammatical/typographical errors, which may not be recognized despite proofreading. Please contact me if there is any confusion or ambiguity. documented in this encounter Plan of Treatment Not on file documented as of this encounter Visit Diagnoses Diagnosis 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, estrogen receptor positive (HCC)- Primary Postoperative cellulitis of surgical wound Other postoperative infection Lymphedema of breast Other lymphedema Encounter for postoperative follow-up after surgery for malignant neoplasm documented in this encounter Care Teams Non Morse Intercept Technician Relationship Specialty Start Date End Date Ortiz Rothman MD [address] [facility] [address] [place] [address] PCP - General 12/03/02 Antonietta Bateman MD [facility], [facility] [address] [facility] [address] [place] [address] PCP - CANCER CTR RMD Surgical Oncology 06/09/21 Artie Lanza MD [address] [place] [address] [address] [place] [address] PCP - Cancer CTR Hematology 06/09/21 Bryce Allison MD, PhD [address] [place] [address] D, [address] [place] [phone] 08/25/10 Provider, MD Laura EPICARE PROVIDER 08/25/10 Valerie Wilkinson MD [facility] [address] [facility] [place] [address] 08/25/10 Yohan Powell MD [address] [place] [address] [address] [place] [address] ENT-Otolaryngology 03/15/17 Vandana Walker AUD [address] [place] [phone] Audiology 03/15/17 Geovanna Hughes MD [address] [place] [phone] Internal Medicine 04/01/19 Vandana Whitmore MD [address] [place] [address] [place] [address] Ophthalmology 08/18/19 Provider, Historical EPICARE PROVIDER 11/06/19 Rozina Sanders MD [address] [place] [address] [place] [phone] Ophthalmology 12/25/19 Antonietta Bateman MD CORPORATE OFFICE [address], [facility] [address] [place] [address] Surgical Oncology 04/29/21 Dena Berumen PA-C [address] [place] [address] [place] [address] Oncology 06/13/21 Sangita Holly PA-C [address] [place], [place] [address] General Surgery 06/23/21 documented as of this encounter
--- OUTSIDE RECORDS SUMMARY | 2024-10-14 21:58 | XMS_ITS | Encounter Summary ---
Author Organization [facility] Ambulatory Address [address] [place] [address] Phone Care Team Providers Care Rubber Mold Maker Name Role Phone Ortiz Rothman MD Primary Care Provider [phone] Bryce Allison MD, PhD Unavailable [phone] Provider, Abstract MD Unavailable Unavailabl Valerie Orellana MD Unavailable + 00 Yohan Powell MD Unavailable [phone] Vandana Walker Unavailable + Geovanna Hughes MD Unavailable Vandana Whitmore MD Unavailable + Provider, Historical Unavailable Unavailable Rozina Sanders MD Unavailable [phone] Antonietta Bateman MD Unavailable + [phone] Antonietta Bateman MD Unavailable +[phone] Artie Lanza MD Unavailable Dena Berumen PA-C Unavailable [phone] Sangita Holly PA-C Unavailable [phone] Source Comments This information has been disclosed [...] Team (Late st Contact Info) Description 10/19/2021 Ambulatory Visit Summary [facility] [address] [facility] [place] [address] External, Provider MedOnc - After Visit Summary [...] encounter Progress Notes * External, Provider - 10/19/2021 11:02 AM EST NOTE TYPE = TREATMENT/PROCEDURES DID: [facility] Visit Summary Visit/Patient Information Date & Time Provider Oct 191:02AM Artie Lanza M.D. Name Date of Danika [...] date of the medication. COVID-19 mRNA Vaccine (The 3Doodler) Intramuscular COVID-19 mRNA Vaccine (The 3Doodler) Intramuscular COVID-19 mRNA Vaccine (The 3Doodler) Intramuscular Synthroid (75 mcg) Tablet Oral daily [...] this category. __ Vital Signs Performed on Oct 19, 2021 10:40 Height - 62 in Weight - 135.2 lbs (LOW) BSA - 1.62 sq.m BMI - 24.73 Temperature - 97.7 F (LOW) Pulse - 68 /min Respiration - 16 /min BP - 136/84 mm(hg) O2 Sat - 99 % Fatigue - 3 Pain - 1 __ Most Recent Labs Most recent lab results are not available for this patient. This link will provide you with access to all Patient Education resources that are available at [facility] [email or web address] Prepared By: Savana Moyer Created On: Oct 19, 2021 11:02AM documented in this encounter Plan of Treatment Not on file documented as of this encounter Visit Diagnoses Not on filedocumented in this encounter Care Teams Rubber Mold Maker Relationship Specialty Start Date End Date Ortiz Rothman MD [address] [facility] [address] [place] [address] PCP - General 12/03/02 Antonietta Bateman MD [facility], [facility] [address] [facility] [address] [place] [id number] PCP - CANCER CTR RMD Surgical Oncology 06/09/21 Artie Lanza MD [address] [facility] [address] [place] [address] PCP - Cancer CTR Hematology 06/09/21 Bryce Allison MD, PhD [address] [place] [address] D, [facility] [address] [place] [phone] 08/25/10 ProviderLaura MD EPICARE PROVIDER 08/25/10 Valerie Wilkinson MD [facility] [address] [facility] [place] [address] 08/25/10 Yohan Powell MD [address] [place] [address] [address] [place] [address] ENT-Otolaryngology 03/15/17 Vandana Walker AUD [address] [place] [phone] Audiology 03/15/17 Geovanna Hughes MD [address] [place] [phone] Internal Medicine 04/01/19 Vandana Whitmore MD [address] [place] [address] [place] [address] Ophthalmology 08/18/19 Provider, Nithin EPICARE PROVIDER 11/06/19 Rozina Sanders MD [address] [facility] [place] [address] Ophthalmology 12/25/19 Antonietta Bateman MD CORPORATE OFFICE [address], [facility] [address] [place] [address] Surgical Oncology 04/29/21 Dena Berumen PA-C [address] [facility] [address] [place] [address] Oncology 06/13/21 Sangita Holly PA-C [address] [address] General Surgery 06/23/21 documented as of this encounter
--- OUTSIDE RECORDS SUMMARY | 2024-10-14 21:58 | XMS_ITS | Encounter Summary ---
Author Organization [facility] Ambulatory Address [address] [place] [address] Phone Care Team Providers Care Cnc Machine Operator Name Role Phone Ortiz Rothman MD Primary Care Provider [phone] Bryce Allison MD, PhD Unavailable [phone] Provider, Abstract MD Unavailable Unavailabl Valerie Orellana MD Unavailable [phone] Yohan Powell MD Unavailable [phone] Vandana Walker Unavailable [phone] Geovanna Hughes MD Unavailable Vandana Whitmroe MD Unavailable [phone] Provider, Historical Unavailable Unavailable Rozina Sanders MD Unavailable [phone] Source Comments This information has been disclosed [...] [facility] Amb[facility] Reason for Visit * Reason Comments Follow-Up Encounter Details Date Type Department Care Team (Latest Contact Info) Description 02/03/2020 8:45 AM EDT Telemedicine [facility] Vision [place] [address] [facility] 6th [place] [phone] Molded Goods Controls Operator: Sheyla Quintanilla Susan Tonya, MD [address] [facility] [place] [place] [address] Dermatochalasis of both upper eyelids (Primary Dx) [...] Progress Notes * Vandana Whitmore MD - 02/03/2020 8:45 AM EDT Patient had OU upper lid blepharoplasty 12/17/19. She is happy with how even OU seem to be. She has no dryness, but the left eye in particular seems to get red. She thinks she may be allergic to her cat because her eyes are less red when she's been away from the cat, though she has less itching now than she did prior to surgery. She is not referring to redness of scars but of the eye. Looking at her preop pic, she has a mild ectropion of the left lower lid that is likely a bit more symptomatic now. We discussed that she may do a zoom visit in a couple of months after trying a. Tears, and we can decide if an office procedure to the left lower lid is worth it for her. She is pleased with this plan. We will call her to schedule. documented in this encounter Plan of Treatment Not on file documented as of this encounter Visit Diagnoses Diagnosis Dermatochalasis of both upper eyelids- Primary documented in this encounter Care Teams Cnc Machine Operator Relationship Specialty Start Date End Date Ortiz Rothman MD [address] [facility] [address] [place] [address] PCP - General 12/03/02 Bryce Allison MD, PhD [address] [facility] [address], [address] [place] [phone] 08/25/10 Provider, MD Laura EPICARE PROVIDER 08/25/10 Valerie Wilkinson MD [facility] [address] [facility] [place] [address] 08/25/10 [place] [address] [place] [address] [address] [place] [address] ENT-Otolaryngology 03/15/17 Vandana Walker AUD [address] [place] [phone] Audiology 03/15/17 Geovanna Hughes MD [address] [place] [phone] Internal Medicine 04/01/19 Vandana Whitmore MD [address] [facility] [place] [address] Ophthalmology 08/18/19 Provider, Historical EPICARE PROVIDER 11/06/19 Rozina Sanders MD [address] [facility] [place] [phone] Ophthalmology 12/25/19 documented as of this encounter
--- OUTSIDE RECORDS SUMMARY | 2024-10-14 21:59 | XMS_ITS | Encounter Summary ---
Author Organization [facility] Ambulatory Address [address] [place] [address] Phone Care Team Providers Care Aviation Safety Technician Name Role Phone Ortiz Rothman MD Primary Care Provider [phone] Source Comments This information has been disclosed [...] [facility] Ambulatory Encounter Details Date Type Department Care Team (Late st Contact Info) Description 11/11/2007 EKG [facility] Vision [place] [address] [facility] [address] [place] [address] Head Bucker: Sheyla Quintanilla Evan L, MD, PhD [address] [place] [address], [facility] [address] [place] [address] Social History Tobacco Use Types Packs/Day Years Used Date Smoking Tobacco: Never Alcohol Use Standard Drinks/Week Comments No 0 (1 standard drink = 0.6 oz pur e alcohol) Sex and Gender Information Value Date Recorded Sex Assigned at Not on file Gender Identity Not on file Sexual Orientation Not on file documented as of this encounter Procedure Notes * Bryce Allsion MD, PhD - 11/11/2007 11:31 AM ESTAssociated Order(s): ELECTROCARDIOGRAM, TRACING Ventricular Rate 64 BPM Atrial Rate 64 BPM P-R Interval 150 ms QRS Duration 84 ms QT 410 ms QTc 422 ms P [place] 72 degrees R [place] 17 degrees T [place] 63 degrees NORMAL SINUS RHYTHM NONSPECIFIC ST CHANGES COMPARED TO 02-18-07, NO SIGNIFICANT CHANGE I ATTEST THAT THE ABOVE INTERPRETATION IS MINE documented in this encounter Plan of Treatment Not on file documented as of this encounter Procedures Procedure Name Priority Date/Time Associated Diagnosis Comments ECG ROUTINE ECG W/LEAST 12 LDS TRCG ONLY W/O I&R 11/11/2007 11:31 AM EST documented in this encounter Results * ELECTROCARDIOGRAM, TRACING (11/11/2007 11:31 AM EST) Narrative Procedure Note Bryce Allison MD, PhD - 11/11/2007 11:31 AM ESTVentricular Rate 64 BPM Atrial Rate 64 BPM P-R Interval 150 ms QRS Duration 84 ms QT 410 ms QTc 422 ms P [place] 72 degrees R [place] 17 degrees T [place] 63 degrees NORMAL SINUS RHYTHM NONSPECIFIC ST CHANGES COMPARED TO 02-18-07, NO SIGNIFICANT CHANGE I ATTEST THAT THE ABOVE INTERPRETATION IS MINE Bryce Allison MD, PhD EKG documented in this encounter Visit Diagnoses Not on filedocumented in this encounter Care Teams Aviation Safety Technician Relationship Specialty Start Date End Date Ortiz Rothman MD [address] [facility] [address] [place] [address] PCP - General 12/03/02 documented as of this encounter
--- OUTSIDE RECORDS SUMMARY | 2024-10-14 21:59 | XMS_ITS | Encounter Summary ---
Author Organization [facility] Ambulatory Address [address] [place] [address] Phone Care Team Providers Care Spotter Name Role Phone Ortiz Rothman MD Primary Care Provider [phone] Source Comments This information has been disclosed [...] Ambulatory Reason for Visit * Reason Comments Pre-Op Exam Encounter Details Date Type Department Care Team ([facility] st Contact Info) Description 11/11/2007 8:45 AM EST Office Visit [facility] Vision [place] [address] [facility] 6th [place] [address] Plastic Press Molder: Sheyla Quintanilla Evan L, MD, PhD [address] [place] [address], [facility] [address] [place] [phone] Senile Cataract NEC; Preglaucoma NOS Social History Tobacco Use Types Packs/Day Years Used Date Smoking Tobacco: Never Alcohol Use Standard Drinks/Week Comments No 0 (1 standard drink = 0.6 oz pur e alcohol) Sex and Gender Information Value Date Recorded Sex Assigned at Not on file Gender Identity Not on file Sexual Orientation Not on file documented as of this encounter Progress Notes * Eladia Gill - 11/11/2007 9:44 AM EST Vision V OD sc OD: 20/20 J Potential Acuity OS sc OS: 20/50 ph OS: 20/40-2 Refraction W OD M Rx-OD: -0.25 sphere OS Rx-OS: -0.25 sphere add Pupils P OD Reaction OD: Normal RAPD OD: No OS Reaction OS: Normal RAPD OS: No Dilation Eye(s) Eye: OU Meds Med: Mydriacyl; Moise-Synephrine Time Time: 920 Tonometry T time Time: 914 OD OD: 14 Method OD: AP OS OS: 14 Method OS: AP Afferent Testing & Stereo OD OS nl Comments nl Comments VF x VF x Amsler Amsler Color Color Stereo Motility EOM OD EOM OS Balance OU nl x nl x nl x Slit Lamp OD OS nl Comments nl Comments Ext x Ext x L/L x Poor LL aposition, MGD L/L X Poor LL aposition and MGD Conj Conjunctivochalasis, 1 + inj Conj X Conjunctivochalasis, 1+ inj K x K Inf PEE A/C x A/C x Iris x Iris x Lens PCIOL Lens 2+ NS/tr PSC Ant Vit x Ant Vit x Gonioscopy OD OS Optic Nerve & Retina nl Comments nl Comments Disc C/D 0.85 Disc C:D 0.75 Macula x Macula x Vessels x Vessels x Periph SB with laser temporally Periph cobblestone Lid Function / Exophthalmometry Tears & Sensation OD OS OD OS MRD TBUT Lid Fissure K Sensn Levator Fx Base Tiffanie c Exophthal Tiffanie s Neuro-Cognitive nl Comments Alert and Oriented x Mood and Affect x Additional Exam Impression and Plan 1) Pseudophakia OD - great result 2) VS Cataract OS - - Discussed R/B/A of CE w/ patient (aim for -0.50 - monovision discussed but patient opted for botheyes at distance) - good dilation, no guttata, no donesis 3) History of Grave's/Epiphora - combination of MGD, floppy lid, and allergies (cats) - ATs and add patanol in the future - Monitor lids and perhaps refer to oculoplastics in the future 4) h/o RD s/p scleral buckle OD - RD warning signs reinforced 5) Glaucoma suspect -check visual field,disk photos and OCT when convenient FACULTY CASE ATTENDING NOTE: I personally performed a history and physical examination on Danika Mckeon. I reviewed the fellow/resident's findings and plan and note, and agree and link my note. I discussed the plan with the patient. Bryce Allison MD, PhD Director, [facility] Eye Center documented in this encounter H&P Notes * Eladia Gill - 11/11/2007 9:04 AM EST 67 yo WF here for-pre-op exam OS scheduled for CE OS on 11-21-07. She is pseudophakia OD. She describes her left eye as always more sensitive. documented in this encounter Plan of Treatment Not on file documented as of this encounter Visit Diagnoses Diagnosis Other and combined forms of senile cataract Preglaucoma, unspecified documented in this encounter Care Teams Spotter Relationship Specialty Start Date End Date Ortiz Rothman MD [address] [facility] [address] [place] [address] PCP - General 12/03/02 documented as of this encounter
--- OUTSIDE RECORDS SUMMARY | 2024-10-14 21:59 | XMS_ITS | Encounter Summary ---
Author Organization [facility] Ambulatory Address [address] [place] [address] Phone Care Team Providers Care Cdl Driver Name Role Phone Ortiz Rothman MD Primary Care Provider [phone] Source Comments This information has been disclosed [...] Encounter Details Date Type Department Care Team ([facility] st Contact Info) Description 09/30/2007 9:00 AM EST Office Visit [facility] Vision [place] [address] [facility] [address] [place] [address] Medical Or Surgical Instrument Maker: Sheyla Quintanilla Evan L, MD, PhD [address] [place] [address], [facility] [address] [place] [phone] Senile Cataract NEC; Opn Angl W Borderln Find Social History Tobacco Use Types Packs/Day Years Used Date Smoking Tobacco: Never Alcohol Use Standard Drinks/Week Comments No 0 (1 standard drink = 0.6 oz pur e alcohol) Sex and Gender Information Value Date Recorded Sex Assigned at Not on file Gender Identity Not on file Sexual Orientation Not on file documented as of this encounter Progress Notes * BarajasLc carrington Elpidio - 09/30/2007 9:24 AM EST Vision V OD sc OD: 20/20 J Potential Acuity OS sc OS: 20/40 ph OS: 20/30-1 Refraction W OD M OS Rx-OS: -0.50 sph DVA OS: 20/30-1 add Pupils P OD Size: Dim OD: DIM 4 Size: Bright OD: BRIGHT 2 Reaction OD: Normal RAPD OD: No OS Size: Dim OS: DIM 4 Size: Bright OS: BRIGHT 2 Reaction OS: Normal RAPD OS: No Dilation Eye(s) Meds Time Tonometry T time Time: 0910 OD OD: 12 Method OD: AP OS OS: 14 Method [...] X Conjunctivochalasis, 1+ inj K x K Sl PEE A/C x A/C x Iris x Iris x Lens PCIOL Lens 2+ NS CS Ant Vit Ant Vit Gonioscopy OD OS Optic Nerve & Retina nl Comments nl Comments Disc C/D 0.8 Disc Macula x Macula x Vessels x Vessels x Periph Periph Lid Function / Exophthalmometry Tears & Sensation OD OS OD OS MRD TBUT Lid Fissure K Sensn Levator Fx Base Tiffanie c Exophthal Tiffanie s Neuro-Cognitive nl Comments Alert and Oriented x Mood and Affect x Additional Exam Impression and Plan 1) CE/PCIOL OD - great result 2) Cataract OS - decreased VA + glare, BCVA 20/30-1 - Discussed R/B/A of CE w/ patient - Will arrange scheduling w/ Padmini 3) Epiphora - combination of MGD, floppy lid, and allergies (cats) - Corneas look good and sx not really bothering pt - T/c patanol - Monitor lids and perhaps refer to oculoplastics in the future 4) h/o RD s/p scleral buckle OD - RD warning signs reinforced Pt refused dilation today - will do DFE at next visit Also check visual field,disk photos and OCT at next visit ATTENDING NOTE: I personally performed a history and physical examination on Danika Mckeon. I reviewed the resident'sfindings and plan and note, and agree and link my note. I discussed the plan with the patient. documented in this encounter H&P Notes * Lc Barajas - 09/30/2007 9:04 AM EST 67 yo WF h/o Graves dz and pseudophakia OD here for 6 mo f/u and eval of cataract OS. c/o gradual painless worsening vision OS interfering with reading and other activities documented in this encounter Plan of Treatment Not on file documented as of this encounter Visit Diagnoses Diagnosis Other and combined forms of senile cataract Open angle with borderline findings, low risk documented in this encounter Care Teams Cdl Driver Relationship Specialty Start Date End Date Ortiz Rothman MD [address] [facility] [address] [place] [address] PCP - General 12/03/02 documented as of this encounter
--- OUTSIDE RECORDS SUMMARY | 2024-10-14 21:59 | XMS_ITS | Encounter Summary ---
Author Organization [facility] Ambulatory Address [address] [place] [address] Phone Care Team Providers Care Finishing Pan Operator Name Role Phone Ortiz Rothman MD Primary Care Provider [phone] Bryce Allison MD, PhD Unavailable [phone] Provider, Abstract Unavailable Unavailabl e Valerie Wilkinson MD Unavailable [phone] Source Comments This information has been disclosed [...] Care Team (Late st Contact Info) Description 11/04/2014 Lab Results EXTERNAL DEPARTMENT [address] [place] [address] Joe Escobar MD [address] [place] [address] Social History Tobacco Use Types Packs/Day Years [...] Priority Date/Time Associated Diagnosis Comments SURGICAL PATHOLOGY 11/04/2014 11 :05 AM EST documented in this encounter Results * SURGICAL PATHOLOGY (11/04/2014 11:05 AM EST) 11/04/2014 11:0 5 AM EST 11/04/2014 11:05 AM EST Narrative COPATH - 11/05/2014 3:47 PM EST FINAL DIAGNOSIS: SIGMOID COLON, POLYP, BIOPSY POLYPOIDAL COLONIC MUCOSA WITH LYMPHOID AGGREGATE. JAQUELINE/JAQUELINE ? Pathologist: ??Tien Diaz M.D. ? Report Electronically Signed Out ? By Pathologist: ??Tien Diaz M.D. ? 11/05/2014 15:47 My signature is attestation that I have personally reviewed the submitted material(s) and the final diagnosis reflects that evaluation. GROSS DESCRIPTION: The specimen is received in formalin labeled with the patient's name, initials LKJ, and sigmoid polyp . ??It consists of one irregular pink carl soft tissue fragment, 0.6 x 0.3 x 0.2 cm. ??The specimen is entirely submitted in a cassette A. A ??x1, entirely submitted ?? JXS1//CAP/CAP MICROSCOPIC: Microscopic examination substantiates the above diagnosis. ?? Endoscopic images of the gastrointestinal tract were reviewed and correlated with histopathology. ??The significant findings of this endoscopic study are integrated into the above comprehensive final clinicopathologic diagnosis. The following statement applies to all immunohistochemistry, insitu hybridization (CHONG & FISH), molecular & genomic pathology, and immunofluorescence testing: The testing was developed and its performance characteristics determined by the [facility], Department of Pathology, as required by the CLIA '88 regulations. ??The testing has not been cleared or approved for the specific use by the U.S. Food and Drug Administration, but the FDA has determined such approval is not necessary for clinical use. ??Tissue fixation ranges from a minimum of 6 to a maximum of 96 hours. ??Immunohistochemical stains (where applicable) are performed with appropriate positive and negative control reactions. ??Immunohistochemistry assays have not been validated on decalcified tissues. Results should be interpreted with caution given the raised possibility of false negativity on decalcified specimens. This laboratory is certified under the Clinical Laboratory Improvement Amendments of 1988 ( CLIA ) as qualified to perform high-complexity clinical testing. Pursuant to the requirements of CLIA, ASR's used in this laboratory have been established and verified for accuracy and precision. ??Additional information about this type of test is available upon request. Selected immunohistochemistry testing is performedat [facility], [address] [place] [address]; [facility], [address] [place] [address], [facility]; and [facility] of [facility], [address] [place] [address]. PATIENT HISTORY: PRE-OP DIAGNOSIS: ? Screening POST-OP DIAGNOSIS: ? Polyp PROCEDURE: ?Colonoscopy ?? /lak HISTO TISSUE SUMMARY/SLIDES REVIEWED: Part 1: Sigmoid polyp Taken: 11/04/2014 11:05 ? Received: 11/04/2014 11:05 Stain/cnt ? Block H&E Recut x 1 ? A H&E Recut x 1 ? A H&E Recut x 1 ? A x 1 ? A x 1 ? A H&E L1,L2,L3 x 1 ? A TC1 [facility] [place] Department of Pathology [address] [place] [id number] Joe Escobar MD LABORATORY COPATH documented in this encounter Visit Diagnoses Not on filedocumented in this encounter Care Teams Finishing Pan Operator Relationship Specialty Start Date End Date Ortiz Rothman MD [address] [facility] [address] [place] [address] PCP - General 12/03/02 Bryce Allison MD, PhD [address] [facility] [address], [address] [place] [phone] 08/25/10 Provider, Abstract, MD BOOKER PROVIDER 08/25/10 Valerie Wilkinson MD [facility] [address] [facility] [place], [place] [phone] 08/25/10 documented as of this encounter
--- OUTSIDE RECORDS SUMMARY | 2024-10-14 21:59 | XMS_ITS | Encounter Summary ---
Author Organization [facility] Ambulatory Address [address] [place] [address] Phone Care Team Providers Care Senior Coldfusion Developer Name Role Phone Ortiz Rothman MD Primary Care Provider [phone] Source Comments This information has been disclosed [...] sections 2.12(c)(5) and 2.65.[facility] Ambulatory Encounter Details Date Type Department Care Team (Late st Contact Info) Description 11/23/2008 Imaging Stephan Internal Medicine - [facility] [address] [facility], [address] [place] [address] Ortiz Rothman MD [address] [facility] [address] [place] [address] Social History Tobacco Use Types Packs/Day Years [...] Procedure Name Priority Date/Time Associated Diagnosis Comments FOOT MIN 3 VIEWS LEFT (OO) Routine 11/23/2008 12:53 PM EST documented in this encounter Results * FOOT MIN 3 VIEWS LEFT (OO) (11/23/2008 12:53 PM EST) Anatomical Region Laterality Modality Other 11/23/2008 12:5 3 PM EST Impressions 11/24/2008 9:31 AM EST IMPRESSION: ?? CHIP FRACTURE OFF THE DISTAL PHALANX OF THE LEFT GREAT TOE. END OF IMPRESSION: Narrative 11/24/2008 9:31 AM EST EXAMINATION PERFORMED: XRAY FOOT MINIMUM 3 VIEWS LEFT ?? 11/23/08 ? 1255 HOURS CLINICAL HISTORY: ?? Left foot pain. FINDINGS: ?? Three views. There is an undisplaced chip fracture off the lateral proximal aspect of the distal phalanx of the left great toe. Ortiz Rothman MD GENERAL RADIOLOGY documented in this encounter Visit Diagnoses Not on filedocumented in this encounter Care Teams Senior Coldfusion Developer Relationship Specialty Start Date End Date Ortiz Rothman MD [address] [facility] [address] [place] [address] PCP - General 12/03/02 documented as of this encounter
--- OUTSIDE RECORDS SUMMARY | 2024-10-14 21:59 | XMS_ITS | Encounter Summary ---
Author Organization [facility] Ambulatory Address [address] [place] [address] Phone Care Team Providers Care Wool Sampler Name Role Phone Berenice Roberto MD Primary Care Provider [phone] Bryce Allison MD, PhD Unavailable [phone] Provider, Abstract Unavailable Unavailabl Valerie Orellana MD Unavailable [phone] Source Comments This information has been [...] Care Team (Late st Contact Info) Description 11/23/2015 Imaging EXTERNAL DEPARTMENT [address] [place], [place] [id number] Berenice Roberto MD [address] [facility] [address] [place] [id number] Social History Tobacco Use Types Packs/Day Years [...] Date/Time Associated Diagnosis Comments MAMMOGRAM DIGITAL SCREENING W/ CAD Routine 11/27/2015 7:50 AM EST DXA AXIAL SKELETAL 1 OR MORE SITES Routine 11/23/2015 1:28 PM EST documented in this encounter Results * MAMMOGRAM DIGITAL SCREENING BILATERAL W/ CAD (11/27/2015 7:50 AM EST) Anatomical Region Laterality Modality Other 11/27/2015 7:50 AM EST Impressions 11/29/2015 9:04 AM EST IMPRESSION: No evidence of malignancy is identified. RECOMMENDATION: Routine screening mammography or combination screening mammography and tomosynthesis is recommended in one year, unless otherwise clinically indicated. We will provide the patient with these findings and recommendations. OVERALL ASSESSMENT: BI-RADS: 1 - NEGATIVE RIS CODE: 2NEGATIVE Narrative 11/29/2015 9:04 AM EST CLINICAL HISTORY: The patient is 75 years old and presents for routine screening. Mother diagnosed breast cancer 45 and ovarian cancer 47 FINDINGS: Bilateral digital mammography with CAD and digital breast tomosynthesis and exaggerated craniocaudal views reveals scattered areas of fibroglandular density. No suspicious findings or changes are present as compared to the prior examination(s), the most recent of which is dated 09/24/2014. ? Procedure Note Mindy Shaver MD, MPH - 11/29/2015 CLINICAL HISTORY: The patient is 75 years old and presents for routine screening. Mother diagnosed breast cancer 45 and ovarian cancer 47 FINDINGS: Bilateral digital mammography with CAD and digital breast tomosynthesis and exaggerated craniocaudal views reveals scattered areas of fibroglandular density. No suspicious findings or changes are present as compared to the prior examination(s), the most recent of which is dated 09/24/2014. IMPRESSION IMPRESSION: No evidence of malignancy is identified. RECOMMENDATION: Routine screening mammography or combination screening mammography and tomosynthesis is recommended in one year, unless otherwise clinically indicated. We will provide the patient with these findings and recommendations. OVERALL ASSESSMENT: BI-RADS: 1 - NEGATIVE RIS CODE: 2NEGATIVE Berenice Roberto MD BREAST IMAGING * DXA AXIAL SKELETAL 1 OR MORE SITES (11/23/2015 1:28 PM EST) Anatomical Region Laterality Modality Other 11/23/2015 1:28 PM EST Narrative 11/23/2015 5:00 PM EST [facility] ?[facility] ?[address] [facility] ?[address] Scheduling: ? [place]U [place] [id number] Service Location: [place] ? Patient: LORE MCKEON [facility] Number: [id number] (MR: [id number]) ?? Date: 1940 (age: 75) ?? Exam Date: 11/23/2015 Referred By: BERENICE ROBERTO MD ?DXA Bone Density Study INDICATIONS - Estrogen-deficient and at clinical risk for osteoporosis MEASURES AND MEDICATIONS ?STARTED ??DISCONTINUED ?-------- ? Duncan 2013 ? Current ? Hazel 1994 ? 2006 DXA SCAN RESULTS ?BONE MINERAL ?? YOUNG ADULT ?AGE-MATCHED ADULT ?DENSITY g/cm2 ?T-SCORE ? Z-SCORE ?PA LUMBAR SPINE(L1 - L4): ? 0.796 ?-2.3 ?0.1 ?LEFT TOTAL HIP: ? 0.691 ?-2.1 ? -0.3 ? LEFT FEMORAL NECK: ? 0.604 ?-2.2 ? -0.1 Findings - SPINE ? WHO diagnostic criteria (relationship to young adult bone mass) place the ? lumbar spine within the LOW BONE MASS (OSTEOPENIA) range. ? From previous examination 01/23/2013 to the present, the lumbar spine has ? increased 8.3%. Findings - LEFT HIP ? WHO diagnostic criteria (relationship to young adult bone mass) place the ? total hip within the LOW BONE MASS (OSTEOPENIA) range. ? WHO diagnostic criteria (relationship to young adult bone mass) place the ? femoral neck within the LOW BONE MASS (OSTEOPENIA) range. ? From previous examination 01/23/2013 to the present, the total hip has ? remained stable. REPORT SUMMARY ? The overall ??World Health Organization (WHO) classification for this ? patient is LOW BONE MASS (OSTEOPENIA). My signature below is attestation that I have interpreted this study and agree with the findings as noted above. Signed by: Vandana Burger MD ??11/23/2015 17:00 For postmenopausal women, perimenopausal women and men [...] = -2.5 SD and below Procedure Note Vandana Burger MD - 11/23/2015 [facility] [address] [facility] [address] Scheduling: MAU [place] [id number] Service Location: [place] Patient: LORE MCKEON [facility] Number: [id number] (MR: [id number]) Date: 1940 (age: 75) Exam Date: 11/23/2015 Referred By: BERENICE ROBERTO MD DXA Bone Density Study INDICATIONS - Estrogen-deficient and at clinical risk for osteoporosis MEASURES AND MEDICATIONS STARTED DISCONTINUED -------- Prolia 2013 Current Evista 1994 2005 DXA SCAN RESULTS BONE MINERAL YOUNG ADULT AGE-MATCHEDADULT DENSITY g/cm2 T-SCORE Z-SCORE PA LUMBAR SPINE(L1 - L4): 0.796 -2.3 0.1 LEFT TOTAL HIP: 0.691 -2.1 -0.3 LEFT FEMORAL NECK: 0.604 -2.2 -0.1 Findings - SPINE WHO diagnostic criteria (relationship to young adult bone mass) placethe lumbar spine within the LOW BONE MASS (OSTEOPENIA) range. From previous examination 01/23/2013 to the present, the lumbar spinehas increased 8.3%. Findings - LEFT HIP WHO diagnostic criteria (relationship to young adult bone mass) placethe total hip within the LOW BONE MASS (OSTEOPENIA) range. WHO diagnostic criteria (relationship to young adult bone mass) placethe femoral neck within the LOW BONE MASS (OSTEOPENIA) range. From previous examination 01/23/2013 to the present, the total hiphas remained stable. REPORT SUMMARY The overall World Health Organization (WHO) classification forthis patient is LOW BONE MASS (OSTEOPENIA). My signature below is attestation that I have interpreted this study andagree with the findings as noted above. Signed by: Vandana Burger MD 11/23/2015 17:00 For postmenopausal women, perimenopausal women and men [...] their bone density may have been decreasing overmany years. Initiation and choice of therapy depends not only on bonemineral density, but other risk factors such as [...] T = -2.5 SD and below Berenice Roberto MD GENERAL RADIOLOGY documented in this encounter Visit Diagnoses Not on filedocumented in this encounter Care Teams Wool Sampler Relationship Specialty Start Date End Date Berenice Roberto MD [address] [facility] [address] [place] [address] PCP - General 12/03/02 Bryce Allison MD, PhD [address] [facility] [address], [address] [place] [phone] 08/25/10 Provider, Laura, MD BOOKER PROVIDER 08/25/10 Valerie Wilkinson MD [facility] [address] [facility] [place] [address] 08/25/10 documented as of this encounter
--- OUTSIDE RECORDS SUMMARY | 2024-10-14 21:59 | XMS_ITS | Encounter Summary ---
Author Organization [facility] Ambulatory Address [address] [place] [address] Phone Care Team Providers Care Pipe Connector Name Role Phone Ortiz Rothman MD Primary Care Provider [phone] Source Comments This information has been disclosed [...] Ambulatory Reason for Visit * Reason Comments Surgical Followup Encounter Details Date Type Department Care Team ([facility] st Contact Info) Description 11/22/2007 8:00 AM EST Office Visit [facility] Vision [place] [address] [place] [address] Jig Mill Operator: Sheyla Quintanilla Evan L, MD, PhD [address] [place] [address], [facility] [address] [place] [phone] Postsurg Cataract Extraction (Primary Dx) Social History Tobacco Use Types [...] Notes * Bryce Allison MD, PhD - 11/22/2007 8:30 AM EST Vision V OD J Potential Acuity OS sc OS: 20/40 ph OS: 20/30- Refraction W OD M OS add Pupils P OD OS Dilation Eye(s) Meds Time Tonometry T time Time: 818 OD OS OS: 36 Method OS: NIEVES Afferent Testing & Stereo OD OS nl Comments nl Comments VF VF Amsler Amsler Color Color Stereo Motility EOM OD EOM OS Balance OU nl nl nl Slit Lamp OD OS nl Comments nl Comments Ext Ext x L/L L/L X Conj Conj X K K clr A/C A/C x Iris Iris x Lens PCIOL Lens PCIOL Ant Vit Ant Vit x Gonioscopy OD OS Optic [...] Affect x Additional Exam Impression and Plan s/ CEIOL OS looks good IOP a little high, Combigan instilled PF + Zymar qid verbal + written instructions given f/u Sunday Bryce Allison MD, PhD Director, Comprehensive Eye Service [facility] ATTENDING NOTE: I personally performed a history and physical examination on Danika Mckeon. I reviewed the fellow/resident's findings and plan and note, and agree and link my note. I discussed the plan with the patient. Bryce Allison MD, PhD Director, Comprehensive Eye Service [facility] documented in this encounter H&P Notes * Bryce Allison MD, PhD - 11/22/2007 8:16 AM EST 67 yof for 1 day post op 1.PC IOL OS, no pain documented in this encounter Nursing Notes * 11/22/2007 8:00 AM EST >> MONISHA GABRIELLA [facility] Nov 22, 2007 8:19 AM Constitutional: normal Cardiovascular: normal Respiratory: normal Gastrointestinal: normal Genitourinary: normal Musculoskeletal: normal ALINING INSPECTOR: normal ENT: normal Integumentary: normal Psychiatric: normal Endocrine: normal Hematologic/Lymphatic: normal documented in this encounter Plan of Treatment Not on file documented as of this encounter Visit Diagnoses Diagnosis Cataract extraction status- Primary documented in this encounter Care Teams Pipe Connector Relationship Specialty Start Date End Date Ortiz Rothman MD [address] [facility] [address] [place] [address] PCP - General 12/03/02 documented as of this encounter
--- OUTSIDE RECORDS SUMMARY | 2024-10-14 21:59 | XMS_ITS | Encounter Summary ---
Author Organization [facility] Ambulatory Address [address] [place] [address] Phone Care Team Providers Care Spiritual Minister Name Role Phone Ortiz Rothman MD Primary Care Provider [phone] Bryce Allison MD, PhD Unavailable [phone] Provider, Abstract Unavailable Unavailabl Valerie Orellana MD Unavailable [phone] Source Comments This information has been [...] 2.12(c)(5) and 2.65.[facility] Ambulatory Reason for Visit * Reason Comments Patient Call Encounter Details Date Type Department Care Team ([facility] Contact Info) Description 12/10/2015 Telephone [facility] [employer] [address] [facility] 1st [place] [address] Residential Real Estate Sales Manager: Valerie Purcell Evan L, MD, PhD [address] [place] [address] D, [facility] [address] [place] [address] Patient Call Social History Tobacco Use [...] encounter Miscellaneous Notes * Telephone Encounter - Brenden Castillo - 12/10/2015 2:00 PM EST I called the patient and left message for her to return my call to schedule at her convenience. Thanks * Telephone Encounter - Clare Alcazar - 12/10/2015 1:48 PM EST CRM: Danika Martín Mckeon 1940 is requesting an appointment with provider/physician Dr [place] for the reason of follow up and eye exam.Please call the pt back to schedule and if no answer please call back Sunday or leave a message where she can reach you. Thank you. [phone] documented in this encounter Plan of Treatment Not on file documented as of this encounter Visit Diagnoses Not on filedocumented in this encounter Care Teams Spiritual Minister Relationship Specialty Start Date End Date Ortiz Rothman MD [address] [facility] [address] [place] [address] PCP - General 12/03/02 Bryce Allison MD, PhD [address] [facility] [address], [address] [place] [address] 08/25/10 ProviderLaura MD EPICARE PROVIDER 08/25/10 Valerie Wilkinson MD [facility] [address] [facility] [place] [address] 08/25/10 documented as of this encounter
--- OUTSIDE RECORDS SUMMARY | 2024-10-14 21:59 | XMS_ITS | Encounter Summary ---
Author Organization [facility] Ambulatory Address [address] [place] [address] Phone Care Team Providers Care Trim Line Worker Name Role Phone Ortiz Rothman MD Primary Care Provider [phone] Source Comments This information has been disclosed [...] Encounter Details Date Type Department Care Team ([facility] st Contact Info) Description 12/03/2007 9:30 AM EST Office Visit [facility] Vision [place] [address] [facility] 6th [place] [address] Supervisor Beet End: Sheyla Quintanilla Evan L, MD, PhD [address] [place] [address], [facility] [address] [place] [phone] Visual Disturbances NEC (Primary Dx); Postsurg Cataract Extraction Social History Tobacco Use Types Packs/Day Years [...] Notes * Bryce Allison MD, PhD - 12/03/2007 9:53 AM EST Vision V OD J Potential Acuity OS sc OS: 20/100 ph OS: 20/40- Refraction W OD M OS add Pupils P OD OS Dilation Eye(s) Meds Time Tonometry T time Time: 0930 OD OS OS: 19 Method OS: NIEVES Afferent Testing & Stereo OD OS nl Comments nl Comments VF VF Amsler Amsler Color Color Stereo Motility EOM OD EOM OS Balance OU nl nl nl Slit Lamp OD OS nl Comments nl Comments Ext Ext x L/L L/L X Conj Conj X injn K K clr A/C A/C x Iris [...] Affect x Additional Exam Impression and Plan s/p CEIOL OS IOP okay now Unclear why acuity is not better 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 I reviewed the fellow/resident's findings and plan and note, and agree and link my note. I discussed the plan with the patient. Bryce Allison MD, PhD Director, Comprehensive Eye Service [facility] documented in this encounter H&P Notes * Bryce Allison MD, PhD - 12/03/2007 9:26 AM EST Scheduled return post op patient PC IOL OS. Vision is still not clear. Doesn't know if it is getting worse or not. EconoPred 1% OS TID Combigan OS BID documented in this encounter Nursing Notes * 12/03/2007 9:30 AM EST >> BARBIE HELLERBisi Ke Dec 03, 2007 9:30 AM Constitutional: Normal Cardiovascular: Normal Respiratory: Normal Gastrointestinal: Normal Genitourinary: Normal Musculoskeletal: Normal BUDGET CONSULTANT: Normal ENT: Normal Integumentary: Normal Psychiatric: Normal Endocrine: Normal Hematologic/Lymphatic: Normal Mental Status: Normal documented in this encounter Plan of Treatment Not on file documented as of this encounter Results * OCT (12/03/2007) AVG THICKNESS (OD) AVG THICKNESS (OS) RNFL (OD) RNFL (OS) CUP/DISK RATIO (OD) CUP/DISK RATIO (OS) MACULA VOL (OD) MACULA VOL (OS) SS RNFL (OD) SS RNFL (OS) SS ONH (OD) SS ONH (OS) SS MAC (OD) SS MAC (OS) 12/03/2007 Impressions Bryce Allison MD, PhD - 12/03/2007 11:05 AM EST OCT macula and RNFL ??OD for decreased vision after cataract surgery No evidence of retinal edema or peripapillary nerve fiber layer thinning Clinical correlation required Bryce Allison MD, PhD EYE TESTING documented in this encounter Visit Diagnoses Diagnosis Other specified visual disturbances- Primary Cataract extraction status documented in this encounter Care Teams Trim Line Worker Relationship Specialty Start Date End Date Ortiz Rothman MD [address] [facility] [address] [place] [address] PCP - General 12/03/02 documented as of this encounter
--- OUTSIDE RECORDS SUMMARY | 2024-10-14 21:59 | XMS_ITS | Encounter Summary ---
Author Organization [facility] Ambulatory Address [address] [place] [address] Phone Care Team Providers Care Shredding Machine Knife Changer Name Role Phone Ortiz Rothman MD Primary Care Provider [phone] Source Comments This information has been disclosed [...] Encounter Details Date Type Department Care Team ([facility] st Contact Info) Description 12/30/2007 9:00 AM EDT Office Visit [facility] Vision [place] [address] [facility] 6th [place] [address] Passport Support Manager: Sheyla Quintanilla Evan L, MD, PhD [address] [place] [address], [facility] [address] [place] [phone] Postsurg Cataract Extraction; Visual Disturbances NEC; Irregular Astigmatism Social History Tobacco Use Types Packs/Day Years Used Date Smoking Tobacco: Never Alcohol Use Standard Drinks/Week Comments No 0 (1 standard drink = 0.6 oz pur e alcohol) Sex and Gender Information Value Date Recorded Sex Assigned at Not on file Gender Identity Not on file Sexual Orientation Not on file documented as of this encounter Progress Notes * Monisha Vaca - 12/30/2007 10:39 AM EDTAddended by: MONISHA VACA on: 12/30/2007 10:39:54 AM Modules accepted: Orders * Bryce Allison MD, PhD - 12/30/2007 10:08 AM EDT 67 yof for 1 month post op 1.PC IOL OS 11/21/2007 2.PC IOL OD 02/2007 Cc/ left eye vision is still not clear Vision V OD J Potential Acuity OS sc OS: 20/200 Refraction W OD M Rx-OD: -.50 sph DVA OD: 20/20 OS Rx-OS: -2.50+3.25x90 DVA OS: 20/20- add Add: 2.5 Pupils P OD RAPD OD: No OS RAPD OS: No Dilation Eye(s) Eye: OS Meds Med: Mydriacyl; Moise-Synephrine Time Time: 925 Tonometry T time Time: 925 OD OS OS: 25 Method OS: AP Afferent Testing & Stereo [...] Exam Impression and Plan s/p CEIOL OS has substantial cylinder at 90 degrees. Will order topography today recheck topography and refraction in 4- 6 weeks. Consider LRI if not resolving without intervention ATTENDING NOTE: I personally performed a history and physical examination on Danika Mckeon. I reviewed the fellow/resident's findings and plan and note, and agree and link my note. I discussed the plan with the patient. Bryce Allison MD, PhD Director, Comprehensive Eye Service [facility] documented in this encounter H&P Notes * Monisha Vaca - 12/30/2007 9:10 AM EDT 67 yof for 1 month post op 1.PC IOL OS 11/21/2007 2.PC IOL OD 02/2007 Cc/ left eye vision is still not clear documented in this encounter Plan of Treatment Not on file documented as of this encounter Procedures Procedure Name Priority Date/Time Associated Diagnosis Comments PENTACAM Routine 12/30/2007 Irregular Astigmatism documented in this encounter Results * PENTACAM (today) (12/30/2007) MD (OD) MD (OS) PSD (OD) PSD (OS) GHT (OD) GHT (OS) RELIABILITY (OD) RELIABILITY (OS) 12/30/2007 Impressions Bryce Allison MD, PhD - 12/30/2007 10:44 AM EDT Consistent with regular corneal astigmatism OS Bryce Allison MD, PhD EYE TESTING documented in this encounter Visit Diagnoses Diagnosis Cataract extraction status Other specified visual disturbances Irregular astigmatism documented in this encounter Care Teams Shredding Machine Knife Changer Relationship Specialty Start Date End Date Ortiz Rothman MD [address] [facility] [address] [facility] [address] PCP - General 12/03/02 documented as of this encounter
--- OUTSIDE RECORDS SUMMARY | 2024-10-14 21:59 | XMS_ITS | Encounter Summary ---
Author Organization [facility] Ambulatory Address [address] [place] [address] Phone Care Team Providers Care Rocket Motor Mechanic Name Role Phone Ortiz Rothman MD Primary Care Provider [phone] Source Comments This information has been disclosed [...] Care Team (Late st Contact Info) Description 08/16/2010 Imaging EXTERNAL DEPARTMENT [address] [place] [address] Ortiz Rothman MD [address] [facility] [address] [place] [id number] Social History Tobacco Use Types Packs/Day Years [...] Procedure Name Priority Date/Time Associated Diagnosis Comments DUP-SCAN XTR VEINS UNILATERAL/LIMITED STUDY Routine 08/16/2010 4:12 PM EDT documented in this encounter Results * DUPLEX EXTREM VENOUS,UNI OR LTD (08/16/2010 4:12 PM EDT) Anatomical Region Laterality Modality Other 08/16/2010 4:12 PM EDT Impressions 08/16/2010 5:02 PM EDT IMPRESSION: ?? NEGATIVE FOR DEEP VEIN THROMBOSIS IN THE LEFT LOWER EXTREMITY. END OF IMPRESSION: Narrative 08/16/2010 5:02 PM EDT EXAMINATION PERFORMED: US VENOUS DUPLEX SCAN LOWER EXTREMITY LEFT ?? 08/16/10 ? 1540 HOURS CLINICAL HISTORY: ?? Pain swelling of the left lower extremity. TECHNIQUE: ?? Stokes scale/color/duplex Doppler ultrasound of the left lower extremity was performed. FINDINGS: ?? The common and superficial femoral and popliteal veins are patent. These vessels are compressible. The anterior and posterior tibial, great saphenous and peroneal veins are also unremarkable. Ortiz Rothman MD ULTRASOUND documented in this encounter Visit Diagnoses Not on filedocumented in this encounter Care Teams Rocket Motor Mechanic Relationship Specialty Start Date End Date Ortiz Rothman MD [address] [facility] [address] [place] [address] PCP - General 12/03/02 documented as of this encounter
--- OUTSIDE RECORDS SUMMARY | 2024-10-14 21:59 | XMS_ITS | Encounter Summary ---
Author Organization [facility] Ambulatory Address [address] [place] [address] Phone Care Team Providers Care Advertising Dispatch Clerk Name Role Phone Ortiz Rothman MD Primary Care Provider [phone] Source Comments This information has been disclosed [...] Ambulatory Reason for Visit * Reason Comments Other Encounter Details Date Type Department Care Team ([facility] st Contact Info) Description 02/26/2007 9:20 AM EDT Office Visit [facility] Vision [place] [address] 6th [place] [address] Enzyme Chemist: Sheyla Quintanilla Evan L, MD, PhD [address] [place] [address], [facility] [address] [place] [address] Postsurg Cataract Extraction (Primary Dx) Social History [...] Notes * Bryce Allison MD, PhD - 03/02/2007 10:03 AM EDT Vision V OD sc OD: 20/20-1 cc OD: (not recorded) ph OD: (not recorded) J Potential Acuity OS sc OS: (not recorded) cc OS: (not recorded) ph OS: (not recorded) Refraction W OD Rx-OD: (not recorded) M Rx-OD: (not recorded) DVA OD: (not recorded) OS Rx-OS: (not recorded) Rx-OS: (not recorded) DVA OS: (not recorded) add Add: (not recorded) Add: (not recorded) Pupils P OD Size: Dim OD: (not recorded) Size: Bright OD: (not recorded) Reaction OD: (not recorded) RAPD OD: (not recorded) OS Size: Dim OS: (not recorded) Size: Bright OS: (not recorded) Reaction OS: (not recorded) RAPD OS: (not recorded) Dilation Eye(s) Eye: (not recorded) Meds Med: (not recorded) Time Time: (not recorded) Tonometry T time Time: 09 Time: 09 OD OD: 35 OD: 28 Method OD: NIEVES Method OD: AP OS OS: (not recorded) OS: (not recorded) Method OS: (not recorded) Method OS: (not recorded) Afferent Testing & Stereo OD OS nl Comments nl Comments VF VF Amsler Amsler Color Color Stereo Motility EOM OD EOM OS Balance OU nl nl nl Slit Lamp OD OS nl Comments nl Comments Ext x Ext L/L x L/L Conj s/c heme Conj K tr edema K A/C tr+ cell A/C Iris x Iris Lens PCIOL Lens Ant Vit Ant Vit Gonioscopy OD OS Optic Nerve & Retina nl Comments nl Comments Disc Disc Macula Macula Vessels Vessels Periph Periph Lid Function / Exophthalmometry Tears & Sensation OD OS OD OS MRD TBUT Lid Fissure K Sensn Levator Fx Base Tiffanie c Exophthal Tiffanie s Neuro-Cognitive nl Comments Alert and Oriented x Mood and Affect x Additional Exam Impression and Plan Good vision, IOP a little high taper PF, d/c Zymar start Alphagan tid Verbal + written instructions given f/u 3 weeks ATTENDING NOTE: I personally performed a history and physical examination on Danika Mckeon. I reviewed the resident'sfindings and plan and note, and agree and link my note. I discussed the plan with the patient. Bryce Allison MD, PhD Director, Comprehensive Eye Service [facility] documented in this encounter H&P Notes * Bryce Allison MD, PhD - 02/26/2007 9:18 AM EDT Scheduled 5 day follow up, postoperative visit. (1)PC IOL OD Gtts: PF qid and Zymar qid OD. Wearing shield at night. Pt states doing well over weekend. No pain and vision seems to improve daily. documented in this encounter Plan of Treatment Not on file documented as of this encounter Visit Diagnoses Diagnosis Cataract extraction status- Primary documented in this encounter Care Teams Advertising Dispatch Clerk Relationship Specialty Start Date End Date Ortiz Rothman MD [address] [facility] [address] [place] [address] PCP - General 12/03/02 documented as of this encounter
--- OUTSIDE RECORDS SUMMARY | 2024-10-14 21:59 | XMS_ITS | Encounter Summary ---
Author Organization [facility] Ambulatory Address [address] [place] [address] Phone Care Team Providers Care Resistance Machine Welder Setter Name Role Phone Ortiz Rothman MD Primary Care Provider [phone] rByce Allison MD, PhD Unavailable [phone] Provider, Abstract Unavailable Unavailabl Valerie Orellana MD Unavailable [phone] Source Comments This information has been [...] Care Team (Late st Contact Info) Description 09/24/2014 Imaging EXTERNAL DEPARTMENT [address] [place], [place] [id number] Ortiz Rothman MD [address] [facility] [address] [place] [id number] Social History Tobacco Use Types Packs/Day Years [...] Comments MAMMOGRAM DIGITAL SCREENING W/ CAD Routine 09/24/2014 1:22 PM EST documented in this encounter Results * MAMMOGRAM DIGITAL SCREENING BILATERAL W/ CAD (09/24/2014 1:22 PM EST) Anatomical Region Laterality Modality Other 09/24/2014 1:22 PM EST Impressions 09/28/2014 1:12 PM EST IMPRESSION: BILATERAL BREASTS Negative, no evidence of malignancy. Normal interval follow-up is recommended in 12 months. OVERALL ASSESSMENT - CATEGORY 1 - NEGATIVE END OF IMPRESSION Narrative 09/28/2014 1:12 PM EST Digital Screening Mammogram with CAD. Comparison has been made to previous images. ?? Bilateral Breast Findings: The breasts are heterogeneously dense (51% - 75% fibroglandular). This may lower the sensitivity of mammography. ??No significant masses, calcifications or other abnormalities are seen. Procedure Note Papa Guevara MD - 09/28/2014 Digital Screening Mammogram with CAD. Comparison has been made to previous images. Bilateral Breast Findings: The breasts are heterogeneously dense (51% - 75% fibroglandular). This may lower the sensitivity of mammography. No significant masses, calcifications or other abnormalities are seen. IMPRESSION IMPRESSION: BILATERAL BREASTS Negative, no evidence of malignancy. Normal interval follow-up is recommended in 12 months. OVERALL ASSESSMENT - CATEGORY 1 - NEGATIVE END OF IMPRESSION Ortiz Rothman MD BREAST IMAGING documented in this encounter Visit Diagnoses Not on filedocumented in this encounter Care Teams Resistance Machine Welder Setter Relationship Specialty Start Date End Date Ortiz Rothman MD [address] [facility] [address] [place] [address] PCP - General 12/03/02 Bryce Allison MD, PhD [address] [facility] [address], [address] [place] [address] 08/25/10 Provider, Abstract, MD BOOKER PROVIDER 08/25/10 Valerie Wilkinson MD [facility] [address] [facility] [place] [address] 08/25/10 documented as of this encounter
--- OUTSIDE RECORDS SUMMARY | 2024-10-14 21:59 | XMS_ITS | Encounter Summary ---
Author Organization [facility] Ambulatory Address [address] [place] [address] Phone Care Team Providers Care Milling Machine Set Up Operator Name Role Phone Ortiz Rothman MD Primary Care Provider [phone] Bryce Allison MD, PhD Unavailable [phone] Provider, Abstract Unavailable Unavailabl Valerie Orellana MD Unavailable [phone] Source Comments This information has been [...] Team (Late st Contact Info) Description 11/04/2014 GI EXTERNAL DEPARTMENT [address] [facility] [address] [place], [place] [id number] Ortiz Rothman MD [address] [facility] [address] [place] [id number] Social History Tobacco Use Types Packs/Day Years [...] Procedure Name Priority Date/Time Associated Diagnosis Comments COLONOSCOPY Routine 11/04/2014 10:00 AM EST documented in this encounter Results * COLONOSCOPY (11/04/2014 10:00 AM EST) 11/04/2014 10:0 0 AM EST Narrative [facility]OVATION - 11/04/2014 10:20 AM EST [facility] Division of Gastroenterology Patient Name: Danika Mckeon Procedure Date: 11/04/2014 10:00 AM Date of : 1940 Admit Type: Outpatient Age: 74 Gender: Female Note Status: Addendum Attending MD: Kobe Diaz DR Patient Location: [facility] Procedure: ? Colonoscopy Indications: ? Screening for colorectal malignant neoplasm Providers: ? Kobe Diaz DR Referring MD: ?Ortiz Rothman MD Medicines: ? see nurses notes Complications: ? No immediate complications. Procedure: ? Pre-Anesthesia Assessment: ? - Refer to H&P documented by physician prior to the ? procedure. ? After I obtained informed consent, the colonoscope ? was passed under direct vision. Throughout the ? procedure, the patient's blood pressure, pulse, and ? oxygen saturations were monitored continuously. The ? PCF-H190L [id number] was introduced through the anus ? and [...] present throughout the entire procedure. ? [address] [facility] [address] Procedure Note Joe Escobar MD - 11/04/2014 [facility] Division of Gastroenterology Patient Name: Danika Mckeon Procedure Date: 11/04/2014 10:00 AM Date of : 1940 Admit Type: Outpatient Age: 74 Gender: Female Note Status: Addendum Attending MD: Kobe Diaz DR Patient Location: [facility] Procedure: Colonoscopy Indications: Screening for colorectal malignant neoplasm Providers: Kobe Diaz DR Referring MD: Ortiz Rothman MD Medicines: see nurses notes Complications: No immediate complications. Procedure: Pre-Anesthesia Assessment: - Refer to H&P documented by physician prior to the procedure. After I obtained informed consent, the colonoscope was passed under direct vision. Throughout the procedure, the patient's blood pressure, pulse, and oxygen saturations were monitored continuously. The PCF-[id number] was introduced through the anus and advanced [...] was present throughout the entire procedure. [address] [facility] [address] Ortiz Rothman MD GI PROCEDURES [facility] documented in this encounter Visit Diagnoses Not on filedocumented in this encounter Care Teams Milling Machine Set Up Operator Relationship Specialty Start Date End Date Ortiz Rothman MD [address] [facility] [address] [place] [address] PCP - General 12/03/02 Bryce Allison MD, PhD [address] [facility] [address], [address] [place] [address] 08/25/10 Provider, MD ADE Sanchez PROVIDER 08/25/10 Valerie Wilkinson MD [facility] [address] [facility] [place] [address] 08/25/10 documented as of this encounter
--- OUTSIDE RECORDS SUMMARY | 2024-10-14 21:59 | XMS_ITS | Encounter Summary ---
Author Organization [facility] Ambulatory Address [address] [place] [address] Phone Care Team Providers Care Hcc Coders Name Role Phone Ortiz Rothman MD Primary Care Provider [phone] Source Comments This information has been disclosed [...] [facility] Contact [facility]) Description 02/22/2007 8:10 AM EDT Office Visit [facility] [place] [address] 6th [place] [address] Electrical Engineer: Sheyla Quintanilla Evan L, MD, PhD [address] [place] [address], [facility] [address] [place] [address] Postsurg Cataract Extraction (Primary Dx) Social History [...] Notes * Bryce Allison MD, PhD - 02/25/2007 7:14 AM EDT Vision V OD sc OD: 20/40 cc OD: (not recorded) ph OD: (not [...] Time: (not recorded) Tonometry T time Time: (not recorded) Time: (not recorded) OD OD: (not recorded) OD: 32 Method OD: (not recorded) Method OD: (not recorded) OS OS: (not recorded) OS: (not recorded) Method OS: (not recorded) Method OS: (not recorded) Afferent Testing & Stereo OD OS nl Comments nl Comments VF VF Amsler Amsler Color Color Stereo Motility EOM OD EOM OS Balance OU nl nl nl Slit Lamp OD OS nl Comments nl Comments Ext x Ext L/L x L/L Conj s/c heme Conj K microcystic edema K A/C 2+ cell A/C Iris x Iris Lens PCIOL [...] Affect x Additional Exam Impression and Plan POD #1 phaco/IOL OD Good vision, IOP a little high PF + Zymar qid Alphagan instilled in office Verbal + written instructions given f/u Sunday ATTENDING NOTE: I personally performed a history and physical examination on Danika Mckeon. I reviewed the resident'sfindings and plan and note, and agree and link my note. I discussed the plan with the patient. documented in this encounter H&P Notes * Bryce Allison MD, PhD - 02/22/2007 1:18 PM EDT Scheduled 1 day post operative visit. (1) PC IOL OD Patch removed in office today. documented in this encounter Plan of Treatment Not on file documented as of this encounter Visit Diagnoses Diagnosis Cataract extraction status- Primary documented in this encounter Care Teams Hcc Coders Relationship Specialty Start Date End Date Ortiz Rothman MD [address] [facility] [address] [place] [address] PCP - General 12/03/02 documented as of this encounter
--- OUTSIDE RECORDS SUMMARY | 2024-10-14 21:59 | XMS_ITS | Encounter Summary ---
Author Organization [facility] Ambulatory Address [address] [place] [address] Phone Care Team Providers Care Announcer Name Role Phone Ortiz Rothman MD Primary Care Provider [phone] Source Comments This information has been disclosed [...] 2.12(c)(5) and 2.65.[facility] Ambulatory Reason for Visit * Reason Comments Other Encounter Details Date Type Department Care Team ([facility] st Contact Info) Description 04/08/2007 9:40 AM EDT Office Visit [facility] Vision [place] [address]th [place] [address] Machine Woodworking Sander: Sheyla Quintanilla Evan L, MD, PhD [address] [place] [address], [facility] [address] [place] [address] Postsurg Cataract Extraction; Senile Cataract NEC Social History Tobacco Use Types Packs/Day Years Used Date Smoking Tobacco: Never Alcohol Use Standard Drinks/Week Comments No 0 (1 standard drink = 0.6 oz pur e alcohol) Sex and Gender Information Value Date Recorded Sex Assigned at Not on file Gender Identity Not on file Sexual Orientation Not on file documented as of this encounter Progress Notes * Shantal Warner - 04/08/2007 5:00 PM EDT Vision V OD sc OD: 20/20-2 cc OD: (not recorded) ph OD: (not recorded) J Potential Acuity OS sc OS: 20/50 cc OS: (not recorded) ph OS: 20/30+2 Refraction W OD Rx-OD: (not recorded) M [...] (not recorded) OD OD: (not recorded) OD: (not recorded) Method OD: (not recorded) Method OD: (not [...] Comments Ext x Ext x L/L x L/L x Conj x Conj x K x K x A/C x A/C x Iris x Iris x Lens PCIOL Lens NS CS Ant Vit Ant Vit Gonioscopy OD OS Optic Nerve & Retina nl Comments nl Comments Disc x Disc Macula x Macula Vessels x Vessels Periph x Periph Lid Function / Exophthalmometry Tears & Sensation OD OS OD OS MRD TBUT Lid Fissure K Sensn Levator Fx Base Tiffanie c Exophthal Tiffanie s Neuro-Cognitive nl Comments Alert and Oriented Mood and Affect Additional Exam Impression and Plan POM#1 s/p PCIOL OD -- looks great. Discussed scheduling CE for OS. Otherwise, f/u in 6 mos. ATTENDING NOTE: I personally performed a history and physical examination on Danika Mckeon. I reviewed the resident'sfindings and plan and note, and agree and link my note. I discussed the plan with the patient. Bryce Allison MD, PhD Director, Comprehensive Eye Service [facility] Center documented in this encounter H&P Notes * Samanta Lundberg - 04/08/2007 11:14 AM EDT Post op visit s/p PCIOL OD. Patient is happy with vision. Notices that left eye is blurry but unsure if this affecting her in any way. documented in this encounter Plan of Treatment Not on file documented as of this encounter Visit Diagnoses Diagnosis Cataract extraction status Other and combined forms of senile cataract documented in this encounter Care Teams Announcer Relationship Specialty Start Date End Date Ortiz Rothman MD [address] [facility] [address] [place] [address] PCP - General 12/03/02 documented as of this encounter
--- OUTSIDE RECORDS SUMMARY | 2024-10-14 21:59 | XMS_ITS | Encounter Summary ---
Author Organization [facility] Ambulatory Address [address] [place] [address] Phone Care Team Providers Care Account Director Name Role Phone Ortiz Rothman MD Primary Care Provider [phone] Bryce Allison MD, PhD Unavailable [phone] Provider, Abstract Unavailable Unavailabl Valerie Orellana MD Unavailable [phone] Source Comments This information has been [...] Care Team (Late st Contact Info) Description 12/01/2016 Imaging EXTERNAL DEPARTMENT [address] [place], [place] [phone] Ortiz Rothman MD [address] [facility] [address] [place] [id number] Social History Tobacco Use Types Packs/Day Years [...] Comments MAMMOGRAM DIGITAL SCREENING WWO CAD Routine 12/01/2016 8:36 AM EST documented in this encounter Results * MAMMOGRAM DIGITAL SCREENING WWO CAD (12/01/2016 8:36 AM EST) Anatomical Region Laterality Modality Other 12/01/2016 8:36 AM EST Impressions 12/02/2016 2:21 PM EST No evidence of malignancy is identified. RECOMMENDATION: Routine screening mammography or combination screening mammography and tomosynthesis is recommended in one year, unless otherwise clinically indicated. We will provide the patient with these findings and recommendations. OVERALL ASSESSMENT: BI-RADS: 1 - NEGATIVE RIS CODE: 2NEGATIVE Narrative 12/02/2016 2:21 PM EST CLINICAL HISTORY: The patient is 76 years old and presents for routine screening. Mother diagnosed with breast cancer age 45 and ovarian cancer age 47. FINDINGS: Bilateral digital mammography with CAD and digital breast tomosynthesis reveals scattered areas of fibroglandular density. No suspicious findings or changes are present as compared to the prior examination(s), the most recent of which is dated 11/27/2015. ? Procedure Note Marivel Krishnan MD - 12/02/2016 CLINICAL HISTORY: The patient is 76 years old and presents for routine screening. Mother diagnosed with breast cancer age 45 and ovarian cancer age 47. FINDINGS: Bilateral digital mammography with CAD and digital breast tomosynthesis reveals scattered areas of fibroglandular density. No suspicious findings or changes are present as compared to the prior examination(s), the most recent of which is dated 11/27/2015. IMPRESSION No evidence of malignancy is identified. RECOMMENDATION: Routine screening mammography or combination screening mammography and tomosynthesis is recommended in one year, unless otherwise clinically indicated. We will provide the patient with these findings and recommendations. OVERALL ASSESSMENT: BI-RADS: 1 - NEGATIVE RIS CODE: 2NEGATIVE Ortiz Rothman MD BREAST IMAGING documented in this encounter Visit Diagnoses Not on filedocumented in this encounter Care Teams Account Director Relationship Specialty Start Date End Date Ortiz Rothman MD [address] [facility] [address] [place] [address] PCP - General 12/03/02 Bryce Allison MD, PhD [address] [facility] [address] [place] [address] 08/25/10 Provider, Laura, MD BOOKER PROVIDER 08/25/10 Valerie Wilkinson MD [facility] [address] [facility] [place] [place] [address] 08/25/10 documented as of this encounter
--- OUTSIDE RECORDS SUMMARY | 2024-10-14 21:59 | XMS_ITS | Encounter Summary ---
Author Organization [facility] Ambulatory Address [address] [place] [address] Phone Care Team Providers Care Sales Analyst Name Role Phone Ortiz Rothman MD Primary Care Provider [phone] Bryce Allison MD, PhD Unavailable [phone] Provider, Abstract Unavailable Unavailabl Valerie Orellana MD Unavailable [phone] Source Comments This information has been [...] Care Team (Late st Contact Info) Description 08/25/2011 Imaging EXTERNAL DEPARTMENT [address] [place], [place] [id number] Ortiz Rothman MD [address] [facility] [address] [place] [id number] Social History Tobacco Use Types Packs/Day Years [...] Comments MAMMOGRAM DIGITAL SCREENING W/ CAD Routine 08/25/2011 10:16 AM EST documented in this encounter Results * MAMMOGRAM SCREENING BILATERAL (08/25/2011 10:16 AM EST) Anatomical Region Laterality Modality Other 08/25/2011 10:1 6 AM EST Impressions 08/28/2011 9:42 AM EST IMPRESSION: BILATERAL BREASTS Negative, no evidence of malignancy. Normal interval follow-up is recommended in 12 months. OVERALL ASSESSMENT - CATEGORY 1 - NEGATIVE END OF IMPRESSION Narrative 08/28/2011 9:42 AM EST Digital Screening Mammogram with CAD. Comparison has been made to previous images. ?? Bilateral Breast Findings: The breasts are heterogeneously dense (51% - 75% fibroglandular). This may lower the sensitivity of mammography. ??No significant masses, calcifications or other abnormalities are seen. Procedure Note [facility], Provider - 08/28/2011 Digital Screening Mammogram with CAD. Comparison has [...] on filedocumented in this encounter Care Teams Sales Analyst Relationship Specialty Start Date End Date Ortiz Rothman MD [address] [facility] [address] [place] [address] PCP - General 12/03/02 Bryce Allison MD, PhD [address] [facility] [address] [place] [address] 08/25/10 Provider, Abstract, MD BOOKER PROVIDER 08/25/10 Valerie Wilkinson MD [facility] [address] [facility] [place] [address] 08/25/10 documented as of this encounter
--- OUTSIDE RECORDS SUMMARY | 2024-10-14 21:59 | XMS_ITS | Encounter Summary ---
Author Organization [facility] Ambulatory Address [address] [place] [address] Phone Care Team Providers Care Director Of Teacher Education Name Role Phone Ortiz Rothman MD Primary Care Provider [phone] Bryce Allison MD, PhD Unavailable [phone] Provider, Abstract Unavailable Unavailabl Valerie Orellana MD Unavailable [phone] Source Comments This information has been [...] Care Team (Late st Contact Info) Description 09/13/2012 Imaging EXTERNAL DEPARTMENT [address] [facility] [address] [place], [place] [address] Ortiz Rothman MD [address] [facility] [address] [place] [id number] Social History Tobacco Use Types Packs/Day Years [...] Comments MAMMOGRAM DIGITAL SCREENING W/ CAD Routine 09/13/2012 1:10 PM EST documented in this encounter Results * MAMMOGRAM DIGITAL SCREENING BILATERAL W/ CAD (09/13/2012 1:10 PM EST) Anatomical Region Laterality Modality Other 09/13/2012 1:10 PM EST Impressions 09/17/2012 6:04 PM EST IMPRESSION: BILATERAL BREASTS Negative, no evidence of malignancy. Normal interval follow-up is recommended in 12 months. OVERALL ASSESSMENT - CATEGORY 1 - NEGATIVE END OF IMPRESSION Narrative 09/17/2012 6:04 PM EST Digital Screening Mammogram with CAD. Comparison has been made to previous images. ?? Bilateral Breast Findings: There are scattered fibroglandular densities (25% - 50% fibroglandular). ??No significant masses, calcifications or other abnormalities are seen. Procedure Note [facility], Provider - 09/17/2012 Digital Screening Mammogram with CAD. Comparison has been made to previous images. Bilateral Breast Findings: There are scattered fibroglandular densities (25% - 50% fibroglandular). No significant masses, calcifications or other abnormalities are seen. IMPRESSION IMPRESSION: BILATERAL BREASTS Negative, no evidence of malignancy. Normal interval follow-up is recommended in 12 months. OVERALL ASSESSMENT - CATEGORY 1 - NEGATIVE END OF IMPRESSION Ortiz Rothman MD BREAST IMAGING documented in this encounter Visit Diagnoses Not on filedocumented in this encounter Care Teams Director Of Teacher Education Relationship Specialty Start Date End Date Ortiz Rothman MD [address] [facility] [address] [place] [address] PCP - General 12/03/02 Bryce Allison MD, PhD [address] [facility] [address] [place] [address] 08/25/10 Provider, Abstract, MD BOOKER PROVIDER 08/25/10 Valerie Wilkinson MD [facility] [address] [facility] [place] [address] 08/25/10 documented as of this encounter
--- OUTSIDE RECORDS SUMMARY | 2024-10-14 21:59 | XMS_ITS | Encounter Summary ---
Author Organization [facility] Ambulatory Address [address] [place] [address] Phone Care Team Providers Care Dispenser Operator Name Role Phone Ortiz Rothman MD Primary Care Provider [phone] Source Comments This information has been disclosed [...] Care Team (Late st Contact Info) Description 02/21/2007 OP Report EXTERNAL DEPARTMENT [address] [place] [address] External, Provider OPERATIVE REPORT Social History Tobacco Use Types Packs/Day Years Used Date Smoking Tobacco: Never Alcohol Use Standard Drinks/Week Comments No 0 (1 standard drink = 0.6 oz pur e alcohol) Sex and Gender Information Value Date Recorded Sex Assigned at Not on file Gender Identity Not on file Sexual Orientation Not on file documented as of this encounter Progress Notes * Cherry Allison MD, PhD - 02/22/2007 11:47 AM EDTOPH Phacoemulsification [facility] Patient: LORE MCKEON - MPACCOMMMRN Age: 67 years Sex: Female : 1940 Author: CHERRY ALLISON Operative Information Surgeon: CHERRY ALLISON Dye Weigher Helper: MARGARET HAYWOOD General Operative Information Pre-operative diagnosis: Combined Senile Cataract. Operative/Procedure Date 02/21/2007. Indications: Patient vision is interfering with ability to perform tasks of daily living including driving, reading, and ambulating. Risk and benefits were discussed with the patient and family members and informed consent has been obtained.. Operative procedure performed: Phacoemulsification with IOL Right 70960. Anesthesia: Retrobulbar with monitored anesthesia care. Complications: None. Operative Note Operative Details Eye: This operative procedure is being performed on the right eye. The patient was correctly identified in the preoperative holding area and the eye to be operated on was identified and marked. The patient was prepped and draped in the usual sterile fashion for intraocular surgery and a lid speculum was placed in the palpebral fissure. Details Two sideport paracentesis were created. The anterior chamber was filled with Healon V. A superior conjunctival peritomy was made. Hemostasis was achieved using a wet-field cautery. A scleral tunnel incision was created. Capsulorhexis was performed with a bent cystotome needle and capsule forceps. Hydrodissection was performed using balanced salt solution. Nuclear mobility was verified. Nuclear disassembly was accomplished using a divide and conquer technique. Cortical material was removed using the bimanual irrigation/aspiration handpieces. The capsular bag was filled with Healon. An [id number] diopter lens was injected into the capsular bag. Healon was evacuated from the eye. . The sideports were hydrated. The incision was watertight without suture. Conjunctiva was closed with cautery. The wire lid speculum was removed. The eye was cleaned, dried, dressed with Maxitrol ointment, a patch and Grace shield. The patient was discharged to the recovery room and will be seen for follow up tomorrow.. Attending Attestation The attending surgeon was present for the entire operation. Medicare Statement Professional Services Credentials and Title of Author Credentials: PhD Title: Surgeon Perform by CHERRY ALLISON (on 02/21/2007 09:52) Sign by CHERRY ALLISON (on 02/21/2007 09:52) VERIFY by CHERRY ALLISON (on 02/21/2007 09:52) documented in this encounter Plan of Treatment Not on file documented as of this encounter Visit Diagnoses Not on filedocumented in this encounter Care Teams Dispenser Operator Relationship Specialty Start Date End Date Ortiz Rothman MD [address] [facility] [address] [place] [address] PCP - General 12/03/02 documented as of this encounter
--- OUTSIDE RECORDS SUMMARY | 2024-10-14 21:59 | XMS_ITS | Encounter Summary ---
Author Organization [facility] Ambulatory Address [address] [place] [address] Phone Care Team Providers Care Factory Focus Technician Name Role Phone Ortiz Rothman MD Primary Care Provider [phone] Source Comments This information has been disclosed [...] 2.12(c)(5) and 2.65.[facility] Ambulatory Reason for Visit * Reason Onset Date Comments Follow-Up 08/24/2008 Encounter Details Date Type Department Care Team (Late st Contact Info) Description 08/24/2008 Telephone [facility] [place] [address] [place] [address] [place] [address] Marketing Manager Health Communications: Valerie Purcell Alethea A, MD [facility] [address] [facility] [place], [place] [id number] Follow-Up Social History Tobacco Use Types Packs/Day Years Used Date Smoking Tobacco: Never Alcohol Use Standard Drinks/Week Comments No 0 (1 standard drink = 0.6 oz pur e alcohol) Sex and Gender Information Value Date Recorded Sex Assigned at Not on file Gender Identity Not on file Sexual Orientation Not on file documented as of this encounter Miscellaneous Notes * Telephone Encounter - Valerie Wilkinson - 08/24/2008 8:47 AM EST Called and left a message with Mrs. Mckeon's that a limbal relaxing incision could be completed at [facility] to address her astigmatism. Advised pt's that pt can call for appointment when she returns from [facility]. documented in this encounter Plan of Treatment Not on file documented as of this encounter Visit Diagnoses Not on filedocumented in this encounter Care Teams Factory Focus Technician Relationship Specialty Start Date End Date Ortiz Rothman MD [address] [facility] [address] [place] [address] PCP - General 12/03/02 documented as of this encounter
--- OUTSIDE RECORDS SUMMARY | 2024-10-14 21:59 | XMS_ITS | Encounter Summary ---
Author Organization [facility] Ambulatory Address [address] [place] [address] Phone Care Team Providers Care Chef & Owner Name Role Phone Ortiz Rothman MD Primary Care Provider [phone] Bryce Allison MD, PhD Unavailable [phone] Provider, Abstract Unavailable Unavailabl e Valerie Wilkinson MD Unavailable [phone] Yohan Powell MD Unavailable [phone] Vandana Walker Unavailable [phone] Source Comments This information has been disclosed [...] 2.12(c)(5) and 2.65.[facility] Ambulatory Reason for Referral * Consult / Referral - Closed Specialty Diagnoses / Procedures Referred By Contac t Referred To Contact Audiology Diagnoses Impacted cerumen of both ears Sensorineural hearing loss of both ears 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 [address] [place] [address] [address] [place] [address] Referral ID Status Reason Start Date Expiration Date Visits Re quested Visits Authorized [id number] Closed 03/15/2017 1 1 Reason for Visit * Reason Comments Ear Problem new pt here for c/o right ear problems. Pt states sx for last 1 to 2 months. Pt states ears feel stuffy and crackel at times. 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; Dysfunction of right eustachian tube Social History Tobacco Use Types Packs/Day Years [...] Sign Reading Time Taken Comments Blood Pressure 130/73 03/15/2017 2:48 PM EDT Pulse - - Temperature - - Respiratory Rate - - Oxygen Saturation - - Inhaled Oxygen Concentration - - Weight 60.1 kg (132 lb 9.6 oz) 03/15/2017 2:48 P M EDT Height 161.3 cm (5' 3.5 ) 03/15/2017 2:48 PM EDT Body Mass Index 23.12 03/15/2017 2:48 PM EDT documented in this encounter Progress Notes * Yohan Powell - 03/15/2017 2:30 PM EDT MDM Number of Diagnoses or Management Options 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: new, no workup Dysfunction of right eustachian tube: new, no workup Impacted cerumen of both ears: new, no workup Sensorineural hearing loss of both ears: new, no workup Amount and/or Complexity of Data Reviewed Tests in the medicine section of CPT??: ordered and reviewed (Bilateral downsloping sensorineural hearing loss with slight superimposed conductive deficit in the right ear) Independent visualization of images, tracings, or specimens: yes Risk of Complications, Morbidity, and/or Mortality Presenting problems: low * Sly Gould LPN - 03/15/2017 2:30 PM EDT Review of Systems: HENT: Positive for hearing loss, congestion and snoring. Endocrine: Positive for thyroid problem. All other systems reviewed and are negative * Yohan Powell - 03/15/2017 2:30 PM EDT $Sergio Mckeon is a 77 year old female who presents with a chief complaint of Ear Problem (new pt herefor c/o right ear problems. Pt states sx for last 1 to 2 months. Pt states ears feel stuffy and crackel at times.) . History: Past Surgical History: Procedure Laterality Date ??? REMV CATARACT EXTRACAP,INSERT LENS ??? REPAIR DETACH RETINA,SCLERAL BUCKLE Past Medical History: Diagnosis Date ??? Toxic diffuse goiter without mention of thyrotoxic crisis or storm ??? Unspecified cataract Family History Problem Relation Age of Onset ??? Other All reviewed, none relevant ??? Cancer Biological Mother ??? Heart Disease Biological Father Allergies Allergen Reactions ??? No Known Allergies Current Outpatient Prescriptions: SYNTHROID TABLET 100MCG PO None Entered amoxicillin-potassium clavulanate (AUGMENTIN) 875-125 mg oral tablet TK 1 T PO Q 12 H DARVOCET-N 100 100-650 mg Oral Tab every 4-6 hrs daily PRN HYDROcodone-acetaminophen (NORCO) 5-325 mg oral tablet TK 1 T PO Q 6 H PRN I have reviewed the patient's past medical, surgical, family, social history, Review of Systems, allergies and medications with the patient during this visit. Physical Exam: CONSTITUTIONAL Blood pressure 130/73, height 5' 3.5 (1.613 m), weight 132 lb 9.6 oz (60.1 kg). Body mass index is 23.12 kg/(m^2). * Vitals vitals completed and displayed above * Appearance: normal * Communication assessment: normal PSYCH/NEURO * Orientation: Patient is oriented to person, place, and time. * Mood and affect: Patient displays a normal mood and affect. *Test cranial nerves: normal cranial nerve function HEAD AND FACE *Overall appearance normal contour and symmetry, no masses, lesions, or significant scars observed * Palpation/percussion of face, sinus tenderness: no tenderness, deformity, or instability * Glands: normal appearance of parotid and submandibular glands * Facial strength: normal assessment of facial strength and mobility *Temporomandibular joints no deviation, spontaneous dislocation or audible popping and no crepitation or tenderness EAR, NOSE, MOUTH, AND THROAT * External pinna & External nose: normal, no visible lesions or deformities present * Otoscopy: The ears were examined using the binocular microscope. Then under microscopic control the wax was removed using suction and/or other appropriate instruments. The procedure was performed bilaterally. The removal of cerumen required significant time and effort. TOLERANCE: The patient tolerated this well * Assessment of hearing: normal assessment of hearing with tuning forks and conversational speech receptionist doctor's office * Nasal mucosa, septum, and turbinates: normal nasal septum, turbinates normal size and symmetricalbilaterally, normal middle meatus, no rhinorrhea, normal vestibular skin, normal mucosa with no swelling, polyps, active bleeding or evidence of bleeding * Oral Cavity: normal examination of oral cavity including teeth, lips, gums, buccal, tongue, and floor of mouth * Oropharynx: soft palate normal, bilateral tonsils normal, posterior pharynx normal, oral mucosa with normal color and moisture, no oral or oropharyngeal mucosal lesions, anterior 2/3rds of tongue normal, hard palate normal * Nasopharynx (by mirror): unable to visualize * Hypopharynx: unable to visualize * Larynx (by mirror): unable to visualize NECK * Neck: normal appearance, symmetry, and tracheal position * Thyroid: normal examination of the thyroid LYMPHATIC * Lymph nodes: normal examination of the anterior, posterior submandibular, submental, supraclavicular nodes EYE * Ocular motility and orbit: normal primary gaze alignment and orbit appearance RESPIRATORY * Respiratory activity: normal respiratory activity CARDIOVASCULAR *Cardiovascular normal $! Assessment: 1. Impacted cerumen of both ears 2. Sensorineural hearing loss of both ears 3. 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 Dysfunction of right eustachian tube Plan: Orders Placed This Encounter ??? CONSULT / REFERRAL TO AUDIOLOGY (PRINTOUT) ??? Ear Microscopy [[id number]] Proceed with hearing aid evaluation. Patient will try Flonase daily for eustachian tube dysfunction. documented in this encounter H&P Notes * Anisha Rosario PA-C - 03/15/2017 2:30 PM EDT History of Present Illness Ear Problem Visit type: new (no referral) Chief complaint: ear problem Site: ear Location: bilateral Duration: 2 months Timing:constantly Severity: moderate Progression (severity): gradually worsening Prior workup: no prior workup Danika presents for evaluation of aural fullness bilaterally. She noted progressive decline in her hearing, but within the last 2-3 months she felt her ears plug up in her hearing decrease more rapidly; right more than left. She describes feeling pressure like if she was on an airplane and her ear needing to pop. She does have a history of cerumen impaction, which she previously was getting removed by her primary doctor. She has a history of ear infections as a child and cannot remember when herlast audiogram was done. 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 Ordered: 03/15/2017 documented as of this encounter Visit Diagnoses Diagnosis Impacted cerumen of both ears- Primary Impacted cerumen Sensorineural hearing loss of both ears Sensorineural hearing loss, bilateral 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 Dysfunction of right eustachian tube Dysfunction of Eustachian tube documented in this encounter Care Teams Chef & Owner Relationship Specialty Start Date End Date Ortiz Rothman MD [address] [facility] [address] [place] [address] PCP - General 12/03/02 Bryce Allison MD, PhD [address] [facility] [address], [address] [place] [address] 08/25/10 Provider, MD ADE Sanchez PROVIDER 08/25/10 Valerie Wilkinson MD [facility] [address] [facility] [place] [address] 08/25/10 Yohan Powell MD [address] [place] [address] [address] [place] [address] ENT-Otolaryngology 03/15/17 Vandana Walker AUD [address] [place] [id number] Audiology 03/15/17 documented as of this encounter
--- OUTSIDE RECORDS SUMMARY | 2024-10-14 21:59 | XMS_ITS | Encounter Summary ---
Author Organization [facility] Ambulatory Address [address] [place] [address] Phone Care Team Providers Care Senior Construction Estimator Name Role Phone Berenice Rothman MD Primary Care Provider [phone] Source Comments This information has been disclosed [...] Care Team (Late st Contact Info) Description 08/23/2010 Imaging EXTERNAL DEPARTMENT [address] [place] [address] Berenice Rothman MD [address] [facility] [address] [place] [id number] Social History Tobacco Use Types Packs/Day Years [...] Comments MAMMOGRAM DIGITAL SCREENING W/ CAD Routine 08/23/2010 3:39 PM EST DXA AXIAL SKELETAL 1 OR MORE SITES Routine 08/23/2010 documented in this encounter Results * MAMMOGRAM SCREENING BILATERAL (08/23/2010 3:39 PM EST) Anatomical Region Laterality Modality Other 08/23/2010 3:39 PM EST Impressions 08/25/2010 2:36 PM EST IMPRESSION: BILATERAL BREASTS Negative, no evidence of malignancy. Normal interval follow-up is recommended in 12 months. OVERALL ASSESSMENT - CATEGORY 1 - NEGATIVE END OF IMPRESSION Narrative 08/25/2010 2:36 PM EST Screening Mammogram with CAD. No comparison images were available at the time of this reading. ?? Bilateral Breast Findings: The breasts are heterogeneously dense (51% - 75% fibroglandular). This may lower the sensitivity of mammography. ??No significant masses, calcifications or other abnormalities are seen. Procedure Note [employer], Provider - 08/25/2010 Screening Mammogram with CAD. No comparison images were available at the time of this reading. Bilateral Breast Findings: The breasts are heterogeneously dense (51% - 75% fibroglandular). This may lower the sensitivity of mammography. No significant masses, calcifications or other abnormalities are seen. IMPRESSION IMPRESSION: BILATERAL BREASTS Negative, no evidence of malignancy. Normal interval follow-up is recommended in 12 months. OVERALL ASSESSMENT - CATEGORY 1 - NEGATIVE END OF IMPRESSION Berenice Rothman MD BREAST IMAGING * DEXA AXIAL SKELETAL 1 OR MORE SITES (08/23/2010) Anatomical Region Laterality Modality Other 08/23/2010 Narrative 08/25/2010 3:06 AM EST [facility] [address] [address] ? Patient: LORE SMALL ? MR#: [id number] ?: 1940 Date of Service: 08/23/2010 Service Location: [facility] ? Order: [id number] Requesting Physician: BERENICE DONATO MD Interested Physician: YASMIN DELUNA ??MD Interested Physician: NONE ?DXA Bone Density Study Clinical Indications: ? Estrogen-deficient and at clinical risk for osteoporosis DXA Scan Results: ?Bone Mineral ?? Young Adult ??Age-Matched ??Adult Region ?Density G/CM2 ??T-Score ??% ? Z-Score ?% ?PA LUMBAR SPINE (L1 - L4): ?0.761 ? -2.6 ?? 73 ? -0.5 ? 93 PROXIMAL FEMUR ?? Femoral Neck: ?0.628 ? -2.0 ?? 74 ? -0.2 ? 96 ? Total Left Hip: ?0.708 ? -1.9 ?? 75 ? -0.4 ? 93 Findings - SPINE ? WHO diagnostic criteria (relationship to young adult bone mass) place ? this within the OSTEOPOROTIC range. Findings - LEFT HIP ? WHO diagnostic criteria (relationship to young adult bone mass) place the ? total hip within the LOW BONE MASS (OSTEOPENIC) range. ? WHO diagnostic criteria (relationship to young adult bone mass) place the ? femoral neck within the LOW BONE MASS (OSTEOPENIC) range. The final status of this report is attestation that the report was reviewed by an interpreting physician. ?Signed by: Daron Taylor M.D. ? 08/24/2010 at 20:40 Although older patients may be close to the mean bone density for their age (i.e., they have lost an average amount of bone as they have aged), they, like their age-matched cohorts, are often osteopenic or osteoporotic because their bone density may have been decreasing over many years. ??Initiation and choice of therapy depends not only on bone mineral density, but other risk factors such as increased age, positive family history, smoking (past or present), thin body habitus, treatment with medications causing bone loss, etc. ??The relative risks of fracture approximately doubles for each on SD reduction ??in bone mineral density. WORLD HEALTH ORGANIZATION (W.H.O.) BONE DENSITY CRITERIA FOR OSTEOPOROSIS ?*T-SCORE = standard deviations (SD) from the mean for healthy young adults ?Normal: Maintain bone health, calcium / exercise suggested ?T = -1 SD and above ?Osteopenia: Prevention suggested plus calcium / exercise ?T = between -1 SD and -2.5 SD ?Osteoporosis: Treatment suggested plus calcium / exercise ?T = -2.5 SD and below ?? Severe Osteoporosis: Treatment suggested plus calcium / exercise ?T = -2.5 SD and below with fragility fractures Procedure Note 08/25/2010 [facility] [address] [address] Patient: LORE SMALL MR#: [id number] : 1940 Date of Service: 08/23/2010 Service Location: [facility] Order: [id number] Requesting Physician: BERENICE DONATO MD Interested Physician: YASMIN DELUNA MD Interested Physician: NONE DXA Bone Density Study Clinical Indications: Estrogen-deficient and at clinical risk for osteoporosis DXA Scan Results: Bone Mineral Young Adult Age-MatchedAdult Region Density G/CM2 T-Score % Z-Score% [place] LUMBAR SPINE (L1 - L4): 0.761 -2.6 73 -0.593 PROXIMAL FEMUR Femoral Neck: 0.628 -2.0 74 -0.296 Total Left Hip: 0.708 -1.9 75 -0.493 Findings - SPINE WHO diagnostic criteria (relationship to young adult bone mass)place this within the OSTEOPOROTIC range. Findings - LEFT HIP WHO diagnostic criteria (relationship to young adult bone mass) placethe total hip within the LOW BONE MASS (OSTEOPENIC) range. WHO diagnostic criteria (relationship to young adult bone mass) placethe femoral neck within the LOW BONE MASS (OSTEOPENIC) range. The final status of this report is attestation that the report wasreviewed by an interpreting physician. Signed by: Daron Taylor M.D. 08/24/2010 at20:40 Although older patients may be close to the mean bone density for theirage (i.e., they have lost an average amount of bone as they have aged), they,like their age-matched cohorts, are often osteopenic or osteoporotic becausetheir bone density may have been decreasing over many years. Initiation andchoice of therapy depends not only on bone mineral density, but other riskfactors such as increased age, positive family history, smoking (past orpresent), thin body habitus, treatment with medications causing bone loss, etc.The relative risks of fracture approximately doubles for each on SD reductionin bone mineral density. WORLD HEALTH ORGANIZATION (W.H.O.) BONE DENSITY CRITERIA FOROSTEOPOROSIS *T-SCORE = standard deviations (SD) from the mean for healthy youngadults Normal: Maintain bone health, calcium / exercisesuggested T = -1 SD and above Osteopenia: Prevention suggested plus calcium / exercise T = between -1 SD and -2.5 SD Osteoporosis: Treatment suggested plus calcium / exercise T = -2.5 SD and below Severe Osteoporosis: Treatment suggested plus calcium / exercise T = -2.5 SD and below with fragility fractures Berenice Rothman MD GENERAL RADIOLOGY documented in this encounter Visit Diagnoses Not on filedocumented in this encounter Care Teams Senior Construction Estimator Relationship Specialty Start Date End Date Berenice Rothman MD [address] [facility] [address] [place] [address] PCP - General 12/03/02 documented as of this encounter
--- OUTSIDE RECORDS SUMMARY | 2024-10-14 21:59 | XMS_ITS | Encounter Summary ---
Author Organization [facility] Ambulatory Address [address] [place] [address] Phone Care Team Providers Care Cooler Servicer Name Role Phone Ortiz Rothman MD Primary Care Provider [phone] Source Comments This information has been disclosed [...] Encounter Details Date Type Department Care Team ([facility] st Contact Info) Description 03/19/2007 1:40 PM EDT Office Visit [facility] [place] [address] [facility] 6th [place] [address] Linemarker: Sheyla Quintanilla Evan L, MD, PhD [address] [place] [address], [facility] [address] [place] [address] Visual Disturbances NEC (Primary Dx); Postsurg Cataract [...] as of this encounter Progress Notes * Selvin Trujillo - 03/19/2007 2:51 PM EDT Vision V OD sc OD: 20/40 cc OD: (not recorded) ph OD: (not recorded) J Potential Acuity OS sc OS: 20/25 cc OS: (not recorded) ph OS: (not recorded) Refraction W OD Rx-OD: (not recorded) M Rx-OD: +.50+.40h020 20/30 DVA OD: (not recorded) OS Rx-OS: (not recorded) Rx-OS: (not recorded) DVA OS: (not recorded) add Add: (not recorded) Add: (not recorded) Pupils P OD Size: Dim OD: (not recorded) Size: Bright OD: (not recorded) Reaction OD: (not recorded) RAPD OD:no OS Size: Dim OS: (not recorded) Size: Bright OS: (not recorded) Reaction OS: (not recorded) RAPD OS:no Dilation Eye(s) Eye: OD Meds Med: M 1% ;N 2.5% Time Time: 1409 Tonometry T time Time: 1409 Time: (not recorded) OD OD: 12 OD: (not recorded) Method OD: NIEVES Method OD: (not recorded) OS OS: (not recorded) OS: (not recorded) Method OS: (not recorded) Method OS: (not recorded) Afferent Testing & Stereo OD OS nl Comments nl Comments VF VF Amsler Amsler Color Color Stereo Motility EOM OD EOM OS Balance OU nl x nl x nl Slit Lamp OD OS nl Comments nl Comments Ext x Ext x L/L x L/L x Conj 1+ inj mild follicular rxn Conj Tr inj mild follicular rxn K x K x A/C 2-3c/hpf A/C x Iris x Iris x Lens PCIOL Lens NSC Ant Vit x Ant Vit x Gonioscopy OD OS Optic Nerve & Retina nl Comments nl Comments Disc x Disc x Macula x Macula x Vessels x Vessels Periph x Periph Lid Function / Exophthalmometry Tears & Sensation OD OS OD OS MRD TBUT Lid Fissure K Sensn Levator Fx Base Tiffanie c Exophthal Tfifanie s Neuro-Cognitive nl Comments Alert and Oriented x Mood and Affect x Additional Exam +LAD Impression and Plan Suspected Viral Conjuctivitis OU in POW # 3 CE/PCIOL OD d/c PF and cont Ofloxacin that was started yesterday Can d/c Alphagan tid as IOP is good. OCT macula today f/u 2-3 weeks re-refract ATTENDING NOTE: I personally performed a history and physical examination on Danika Mckeon. I reviewed the resident'sfindings and plan and note, and agree and link my note. I discussed the plan with the patient. Bryce Allison MD, PhD Director, [facility] documented in this encounter H&P Notes * Selvin Trujillo - 03/19/2007 2:01 PM EDT 67 yof for 1 month post Op 1.PC IOL OD, tapered PF, Alphagan tid 2.recent eye infection OU, mucus discharge and crust in am, redness, pt spoke with our office on the phone, was told to start Ofloxacin OU , now feels much better documented in this encounter Plan of Treatment Not on file documented as of this encounter Results * OCT (03/19/2007) AVG THICKNESS (OD) AVG THICKNESS (OS) RNFL (OD) RNFL (OS) CUP/DISK RATIO (OD) CUP/DISK RATIO (OS) MACULA VOL (OD) MACULA VOL (OS) SS RNFL (OD) SS RNFL (OS) SS ONH (OD) SS ONH (OS) SS MAC (OD) SS MAC (OS) 03/19/2007 Impressions 03/19/2007 3:22 PM EDT OCT macula Normal macular thickness and contour No evidence of CME Bryce Allison MD, PhD EYE TESTING documented in this encounter Visit Diagnoses Diagnosis Other specified visual disturbances- Primary Cataract extraction status documented in this encounter Care Teams Cooler Servicer Relationship Specialty Start Date End Date Ortiz Rothman MD [address] [facility] [address] [place] [address] PCP - General 12/03/02 documented as of this encounter
--- OUTSIDE RECORDS SUMMARY | 2024-10-14 21:59 | XMS_ITS | Encounter Summary ---
Author Organization [facility] Ambulatory Address [address] [place] [address] Phone Care Team Providers Care Legislative Aide Name Role Phone Beernice Roberto MD Primary Care Provider [phone] Bryce Allison MD, PhD Unavailable [phone] Provider, Abstract Unavailable Unavailabl Valerie Orellana MD Unavailable [phone] Source Comments This information has been [...] Care Team (Late st Contact Info) Description 01/23/2013 Imaging EXTERNAL DEPARTMENT [address] [facility] [address] [place], [place] [id number] Berenice Roberto MD [address] [facility] [address] [place] [id number] Social History Tobacco Use Types Packs/Day Years [...] Procedure Name Priority Date/Time Associated Diagnosis Comments DXA AXIAL SKELETAL 1 OR MORE SITES Routine 01/23/2013 1:08 PM EDT documented in this encounter Results * DXA AXIAL SKELETAL 1 OR MORE SITES (01/23/2013 1:08 PM EDT) Anatomical Region Laterality Modality Other 01/23/2013 1:08 PM EDT Narrative 01/27/2013 8:24 PM EDT OSTEOPOROSIS [facility] ?[facility] ?[address] [facility] ?[address] Scheduling: ? [place] [id number] Service Location: [place] ? Patient: LORE MCKEON Number: [id number] (MR: [id number]) ?? Date: 1940 (age: 72) ?? 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 YOUNG ADULT ?AGE-MATCHED ADULT ?DENSITY g/cm2 ?T-SCORE ? Z-SCORE ?PA LUMBAR SPINE(L1 - L4): ? 0.734 ?-2.8 ? -0.6 ?LEFT TOTAL HIP: ? 0.672 ?-2.2 ? -0.6 ? LEFT FEMORAL NECK: ? 0.594 ?-2.3 ? -0.4 Findings - SPINE ? WHO diagnostic criteria (relationship to young adult bone mass) place the ? lumbar spine within the OSTEOPOROSIS range. ? From previous examination 08/23/2010 to the present, the lumbar spine has ? decreased 3.5%. Findings - LEFT HIP ? WHO diagnostic criteria (relationship to young adult bone mass) place the ? total hip within the LOW BONE MASS (OSTEOPENIA) range. ? WHO diagnostic criteria (relationship to young adult bone mass) place the ? femoral neck within the LOW BONE MASS (OSTEOPENIA) range. ? From previous examination 08/23/2010 to the present, the total hip has ? decreased 5.1%. REPORT SUMMARY ? The overall ??World Health Organization (WHO) classification for this ? patient is OSTEOPOROSIS. My signature below is attestation that I have interpreted this study and agree with the findings as noted above. Signed by: Vandana Burger MD ??01/27/2013 20:24 For postmenopausal women, perimenopausal women and men [...] = -2.5 SD and below Procedure Note 01/27/2013 OSTEOPOROSIS [facility] [address] [facility] [address] Scheduling: [place] [id number] Service Location: [place] Patient: LORE MCKEON [facility] Number: [id number] (MR: [id number]) Date: 1940 (age: 72) Exam Date: 01/23/2013 Referred By: BERENICE ROBERTO MD DXA Bone Density Study INDICATIONS - Bone and cartilage disease - Estrogen-deficient and at clinical risk for osteoporosis DXA SCAN RESULTS BONE MINERAL YOUNG ADULT AGE-MATCHEDADULT DENSITY g/cm2 T-SCORE Z-SCORE PA LUMBAR SPINE(L1 - L4): 0.734 -2.8 -0.6 LEFT TOTAL HIP: 0.672 -2.2 -0.6 LEFT FEMORAL NECK: 0.594 -2.3 -0.4 Findings - SPINE WHO diagnostic criteria (relationship to young adult bone mass) placethe lumbar spine within the OSTEOPOROSIS range. From previous examination 08/23/2010 to the present, the lumbar spinehas decreased 3.5%. Findings - LEFT HIP WHO diagnostic criteria (relationship to young adult bone mass) placethe total hip within the LOW BONE MASS (OSTEOPENIA) range. WHO diagnostic criteria (relationship to young adult bone mass) placethe femoral neck within the LOW BONE MASS (OSTEOPENIA) range. From previous examination 08/23/2010 to the present, the total hiphas decreased 5.1%. REPORT SUMMARY The overall World Health Organization (WHO) classification forthis patient is OSTEOPOROSIS. My signature below is attestation that I have interpreted this study andagree with the findings as noted above. Signed by: Vandana Burger MD 01/27/2013 20:24 For postmenopausal women, perimenopausal women and men [...] on filedocumented in this encounter Care Teams Legislative Aide Relationship Specialty Start Date End Date Berenice Roberto MD [address] [facility] [address] [place] [address] PCP - General 12/03/02 Bryce Allison MD, PhD [address] [facility] [address], [address] [place] [address] 08/25/10 Provider, Abstract, MD BOOKER PROVIDER 08/25/10 Valerie Wilkinson MD [facility] [address] [facility] [place] [place] [address] 08/25/10 documented as of this encounter
--- OUTSIDE RECORDS SUMMARY | 2024-10-14 21:59 | XMS_ITS | Encounter Summary ---
Author Organization [facility] Ambulatory Address [address] [place] [address] Phone Care Team Providers Care Transfill Technician Name Role Phone Ortiz Rothman MD Primary Care Provider [phone] Source Comments This information has been disclosed [...] Ambulatory Reason for Visit * Reason Comments Zhen Encounter Details Date Type Department Care Team ([facility] Contact Info) Description 08/10/2008 2:45 PM EDT Office Visit [facility] [place] [address] [facility] 1st [place] [address] Sailing Officer: Valerie Purcell Evan L, MD, PhD [address] [place] [address] [address], [address] [place] [address] Herpes Zoster Of Eye NEC (Primary Dx) Social History Tobacco Use Types Packs/Day Years Used Date Smoking Tobacco: Never Alcohol Use Standard Drinks/Week Comments No 0 (1 standard drink = 0.6 oz pur e alcohol) Sex and Gender Information Value Date Recorded Sex Assigned at Not on file Gender Identity Not on file Sexual Orientation Not on file documented as of this encounter Progress Notes * Familia Rodriguez - 08/10/2008 3:14 PM EDT Pt broke out in Left sided V1 dist shingles Sunday night, was prodromal since last Sunday. Shedenies any changes in her vision or pain. Pseudophakic OU -- stable Shingles in V1 distribution L sided -- no evidenc eof corneal involvement -- pt already on Valcyclovir by PCP TOMMIE OS>OD -- recommend ATs q2h PRN ATTENDING NOTE: I personally performed a history and physical examination on Danika Mckeon. I reviewed the fellow/resident's findings and plan and note, and agree and link my note. I discussed the plan with the patient. Bryce Allison MD, PhD Director, [facility] Eye Center [facility] documented in this encounter H&P Notes * Familia Rodriguez - 08/10/2008 3:09 PM EDT Pt broke out in Left sided V1 dist shingles Sunday, was prodromal since last Sunday. Shedenies any changes in her vision or pain. documented in this encounter Nursing Notes * 08/10/2008 2:45 PM EDT >> FAMILIA RODRIGUEZ Mon Aug 10, 2008 3:14 PM Constitutional: denies fatigue, fever, chills, weight change Cardiovascular: denies syncope, chest pain, palpitations Respiratory: no cough, exertional dyspnea, orthopnea or PND Gastrointestinal: no abdominal pain, nausea, vomiting, constipation or diarrhea Genitourinary: no dysuria, hematuria, flank pain Musculoskeletal: no muscle or joint pains or weakness BEARING GRINDER: denies headaches, seizures, vertigo ENT: no dysphagia, rhinitis, pharyngitis Integumentary: + V1 dist shingles on left face Psychiatric: no depression, anxiety, mood disorders Endocrine: no heat/cold intolerance, polydipsia Hematologic/Lymphatic: no bruising, blood clots, anemia documented in this encounter Plan of Treatment Not on file documented as of this encounter Visit Diagnoses Diagnosis Herpes zoster with other ophthalmic complications- Primary documented in this encounter Care Teams Transfill Technician Relationship Specialty Start Date End Date Ortiz Rothman MD [address] [facility] [address] [place] [address] PCP - General 12/03/02 documented as of this encounter
--- OUTSIDE RECORDS SUMMARY | 2024-10-14 21:59 | XMS_ITS | Encounter Summary ---
Author Organization [facility] Ambulatory Address [address] [place] [address] Phone Care Team Providers Care Boilermaker Fitter Name Role Phone Ortiz Rothman MD Primary Care Provider [phone] Source Comments This information has been disclosed [...] sections 2.12(c)(5) and 2.65.[facility] Ambulatory Encounter Details Date Type Department Care Team (Latest Contact Info) Description 07/14/2010 Lab Results [facility] Ortiz Rothman MD [address] [facility] [address] [place] [address] Social History Tobacco Use Types Packs/Day Years [...] VITAMIN D 25-OH SCREEN FOR DEFICIENCY/TOXICITY Routine 07/14/2010 7:58 AM EDT CBC WITHOUT DIFF W/ PLATELETS Routine 07/14/2010 7:58 AM EDT COMP METABOLIC PANEL Routine 07/14/2010 7:58 AM EDT LIPID BATTERY Routine 07/14/2010 7:58 AM EDT TSH/THY.STIM.HORM Routine 07/14/2010 7:5 8 AM EDT documented in this encounter Results * (ABNORMAL) VITAMIN D 25-OH SCREEN FOR DEFICIENCY/TOXICITY (07/14/2010 7:58 AM EDT) Vitamin D, 25-Hydroxy 20 Reference range: 30 to 100 Unit: ng/mL(L) [facility] Vitamin D, 25-OH,D3 20 Unit: ng/mL [facility] Vitamin D, 25-OH,D2 <4 Reference range: SEE COMMENT Unit: ng/mL 25-OHD3 indicates both endogenous production and supplementation . 25-OHD2 is an indicator of exogenous sources such as diet or supplementation . Therapy is based on measurement of Total 25-OHD, with levels <20 ng/mL indicative of Vitamin D deficiency while levels between 20 ng/mL and 30 ng/mL suggest insufficiency. Optimal levels are > or = 30ng/mL. ? Test Performed at: [facility] [employer] [address] ??[phone] ? KATHY DAIGLE M.D. [facility] 07/14/2010 7:58 AM EDT 07/14/2010 7:59 AM EDT Ortiz Rothman MD LABORATORY [facility] [address] [place] [address] * TSH/THY.STIM.HORM (07/14/2010 7:58 AM EDT) TSH/Thy.Stim.Ho rm 1.84 0.30 - 4.54 mIU/mL [facility] 07/14/2010 7:58 AM EDT 07/14/2010 7:59 AM EDT Ortiz Rothman MD LABORATORY Performing Organization Address [facility] de Phone Number [facility] [address] [place] [id number] * (ABNORMAL) LIPID BATTERY (07/14/2010 7:58 AM [...] 7:58 AM EDT 07/14/2010 7:59 AM EDT Ortiz Rothman MD LABORATORY Performing Organization Address [facility] [address]/[facility] Phone Number [facility] [address] [place] [address] * COMP METABOLIC PANEL (07/14/2010 7:58 AM EDT) Sodium(Na) 138 135 - 145 mEq/L [facility] Potassium(K) 4.1 3.5 - 5.0 mEq/L [facility] Chloride(Cl) 103 95 - 109 mEq/L [facility] Carbon Dioxide(CO2) 28 21 - 32 mEq/L [facility] Urea Nitrogen 13 7 - 24 mg/dL [facility] Glucose 89 69 - 100 mg/dL [facility] Creatinine 0.9 0.5 - 1.1 mg/dL [facility] Calcium(Ca) 9.0 8.5 - 10.1 mg/dL [facility] Alkaline Phosphatase 90 46 - 128 U/L [facility] Total Bilirubin 0.9 0.1 - 1.4 mg/dL [facility] Total Protein 6.9 6.4 - 8.2 g/dL [facility] Albumin 3.4 3.4 - 4.6 g/dL [facility] Aspartate Aminot.(AST) 19 10 - 40 U/L [facility] Alanine Aminotrans(ALT) 27 25 - 75 U/L [facility] ANION GAP 7 4 - 14 [facility] Comment:New Reference Range, Effective 05/04/2010 A/G RATIO 1.0 [facility] BUN/CREATININE RATIO 14 [facility] CALCULATED OSMOLALITY 286 275 - 305 mOsm/kg [facility] EGFR >60 >59 [facility] Comment: Average GFR for age 60-69 is 85 mL/min/1.73m2 GFR <60mL/min/1.73m2 indicates kidney disease GFR <15mL/min/1.73m2 indicates kidney failure. Information on MDRD formula may be found: NIH's web site: http://www.nkdep.nih.gov eGFR >60 >59 [facility] eGFR Reported Reference Range: ? Stable GFR values greater than or [...] formula may be found: NIH's web site: ??http://www. nkdep.nih.gov [facility] 07/14/2010 7:58 AM EDT 07/14/2010 7:59 AM EDT Ortiz Rothman MD LABORATORY Performing Organization Address City/[facility] [address]/[facility] Co de Phone Number [facility] [address] [place] [address] * (ABNORMAL) CBC WITH PLATELET (07/14/2010 7:58 AM EDT) WBC 5.3 3.8 - 10.6 K/uL [facility] RBC 4.76 3.90 - 5.00 M/uL [facility] Hgb 14.2 12.0 - 14.8 g/dL [facility] Hematocrit(HCT ) 43.6(H) 35.0 - 43.0 % [facility] MCV 91.6 80.0 - 94.0 fL [facility] MCH 29.8 27.0 - 33.0 pg [facility] MCHC 32.5 30.0 - 37.0 g/dL [facility] RDW-CV 11.9 11.5 - 14.5 % [facility] Platelets 269 150 - 450 K/uL [facility] Mean Platelet Volume 8.2 fL [facility] 07/14/2010 7:58 AM EDT 07/14/2010 7:59 AM EDT Ortiz Rothman MD LABORATORY Performing Organization Address City/[facility] [address]/[facility] Co de Phone Number [facility] [address] [place] [address] documented in this encounter Visit Diagnoses Not on filedocumented in this encounter Care Teams Boilermaker Fitter Relationship Specialty Start Date End Date Ortiz Rothman MD [address] [facility] [address] [place] [address] PCP - General 12/03/02 documented as of this encounter
--- OUTSIDE RECORDS SUMMARY | 2024-10-14 21:59 | XMS_ITS | Encounter Summary ---
Author Organization [facility] Ambulatory Address [address] [place] [address] Phone Care Team Providers Care Wire Coating Machine Operator Name Role Phone Ortiz Rothman MD Primary Care Provider [phone] Source Comments This information has been disclosed [...] Encounter Details Date Type Department Care Team ([facility] st Contact Info) Description 01/21/2007 2:20 PM EDT Office Visit [facility] [place] [address] [facility] 6th [place] [address] Restaurant Assistant: Sheyla Quintanilla Evan L, MD, PhD [address] [place] [address], [facility] [address] [place] [phone] Senile Cataract NEC; Retinal Detachment NEC Social History Tobacco Use Types Packs/Day Years Used Date Smoking Tobacco: Never Assessed Sex and Gender Information Value Date Recorded Sex Assigned at Not on file Gender Identity Not on file Sexual Orientation Not on file documented as of this encounter Progress Notes * Bryce Allison MD, PhD - 01/21/2007 3:30 PM EDT Vision V OD sc OD: (not recorded) cc OD: 20/80 ph OD: (not recorded) J Potential Acuity OS sc OS: (not recorded) cc OS: 20/40 ph OS: (not recorded) Refraction W OD Rx-OD: (not recorded) M Rx-OD: -5.00+1.50x90 ni DVA OD: (not recorded) OS Rx-OS: (not recorded) Rx-OS: -4.00+2.75x85 20/30 DVA OS: (not recorded) add Add: (not recorded) Add: (not recorded) Pupils P OD Size: Dim OD: (not recorded) Size: Bright OD: (not recorded) Reaction OD: (not recorded) RAPD OD: No OS Size: Dim OS: (not recorded) Size: Bright OS: (not recorded) Reaction OS: (not recorded) RAPD OS: No Dilation Eye(s) Eye: OU Meds Med: M 1% ;N 2.5% Time Time: 1435 Tonometry T time Time: 1434 Time: (not recorded) OD OD: 14 OD: (not recorded) Method OD: AP Method OD: (not recorded) OS OS: 15 OS: (not recorded) Method OS: AP Method OS: (not recorded) Afferent Testing & [...] A/C x Iris x Iris x Lens +NS + CS Lens +NS +CS Ant Vit Ant Vit Gonioscopy OD OS Optic Nerve & Retina nl Comments nl Comments Disc x Disc x Macula x Macula x Vessels x Vessels x Periph buckle Periph x Lid Function / Exophthalmometry Tears & Sensation OD OS OD OS MRD TBUT Lid Fissure K Sensn Levator Fx Base Tiffanie c Exophthal Tiffanie s Neuro-Cognitive nl Comments Alert and Oriented xx Mood and Affect x Additional Exam Pinhole acuity Impression and Plan Visually significant cataract OU, OD > OS I have discussed the risks, benefits and alternatives to cataract surgery with . She appears to understand and wishes to proceed. I will proceed to schedule surgery. I would like her to be re-examined by Dr Aguila prior to cataract surgery ATTENDING NOTE: I personally performed a history and physical examination on Danika Mckeon. I reviewed the resident'sfindings and plan and note, and agree and link my note. I discussed the plan with the patient. documented in this encounter H&P Notes * Bryce Allison MD, PhD - 01/21/2007 2:22 PM EDT 66 yowf for new pt exam h/o 1) SB OD ~ 12 years ago 2) Grave's Dx c/o gradual painless decrease in vision OU, worse in OD affecting reading and driving and causing glare documented in this encounter Nursing Notes * 01/21/2007 2:20 PM EDT >> MONISHA QUIROZ 01/21/2007 2:36 pm Constitutional: normal Cardiovascular: normal Respiratory: normal Gastrointestinal: normal Genitourinary: normal Musculoskeletal: normal SKIP LOAD DRIVER: normal ENT: normal Integumentary: normal Psychiatric: nl Endocrine: Graves Hematologic/Lymphatic: normal documented in this encounter Plan of Treatment Not on file documented as of this encounter Visit Diagnoses Diagnosis Other and combined forms of senile cataract Other forms of retinal detachment(361.89) Other forms of retinal detachment documented in this encounter Care Teams Wire Coating Machine Operator Relationship Specialty Start Date End Date Ortiz Rothman MD [address] [facility] [address] [place] [address] PCP - General 12/03/02 documented as of this encounter
--- OUTSIDE RECORDS SUMMARY | 2024-10-14 21:59 | XMS_ITS | Encounter Summary ---
Author Organization [facility] Ambulatory Address [address] [facility] [place] [address] Phone Care Team Providers Care Rod Puller Name Role Phone Ortiz Rothman MD Primary Care Provider [phone] [phone] Source Comments This information has been disclosed [...] st Contact Info) Description 02/21/2007 OP Report [facility] [place] [address] [facility] 1st [place] [address] Plant Maintenance Supervisor: Valerie Purcell Evan L, MD, PhD [address] [place] [address], [facility] [address] [place] [address] Ophth-Operative Social History Tobacco Use Types Packs/Day Years [...] Notes * Cherry Allison MD, PhD - 02/18/2009 8:30 PM EDT OPH Phacoemulsification [facility] Patient: LORE MCKEON - MPACCOMMMRN Age: 67 years Sex: Female : 1940 Author: CHERRY ALLISON Operative Information Surgeon: CHERRY ALLISON Cane Pusher: MARGARET HAYWOOD General Operative Information Pre-operative diagnosis: Combined Senile Cataract. Operative/Procedure Date 02/21/2007. Indications: Patient vision is interfering with ability to perform tasks of daily living including driving, reading, and ambulating. Risk and benefits were discussed with the patient and family members and informed consent has been obtained.. Operative procedure performed: Phacoemulsification with IOL Right 51587. Anesthesia: Retrobulbar with monitored anesthesia care. Complications: None. Operative Note Operative Details Eye: This operative procedure is being performed on the right eye. The patient was correctly identified in the preoperative holding area and the eye to be operated onwas identified and marked. The patient was prepped [...] and conquer technique. Cortical material was removed usingthe bimanual irrigation/aspiration handpieces. The capsular bag was filled with Healon. An SN60WF 16 diopter lens was injected into the capsular bag. Healon was evacuated from the eye. . The sideports were hydrated. The incision was watertight without suture. Conjunctiva was closed with cautery. The wire lid speculum was removed. The eye was cleaned, dried, dressed with Maxitrol ointment, a patchand Grace shield. The patient was discharged to [...] on filedocumented in this encounter Care Teams Rod Puller Relationship Specialty Start Date End Date Ortiz Rothman MD [address] [facility] [address] [place] [address] PCP - General 12/03/02 documented as of this encounter
--- OUTSIDE RECORDS SUMMARY | 2024-10-14 21:59 | XMS_ITS | Encounter Summary ---
Author Organization [facility] Ambulatory Address [address] [place] [address] Phone Care Team Providers Care Chairman President And Chief Executive Officer Name Role Phone Ortiz Rothman MD Primary Care Provider [phone] Source Comments This information has been disclosed [...] [facility] Amb[facility] Reason for Visit * Reason Comments Other Encounter Details Date Type Department Care Team ([facility] st Contact Info) Description 02/18/2007 8:50 AM EDT Office Visit [facility] [place] [address] 6th [place] [address] Bell Ringer: Sheyla Quintanilla Evan L, MD, PhD [address] [place] [address], [facility] [address] [place] [address] Senile Cataract NEC (Primary Dx) Social History Tobacco Use [...] Sign Reading Time Taken Comments Blood Pressure 133/72 02/18/2007 9:41 AM EDT Pulse 63 02/18/2007 9:41 AM EDT Temperature - - Respiratory Rate - - Oxygen Saturation - - Inhaled Oxygen Concentration - - Weight - - Height - - Body Mass Index - - documented in this encounter Progress Notes * Jessica Lundberg - 02/18/2007 10:19 AM EDTAddended by: JESSICA LUNDBERG on: 02/18/2007 10:19:59 AM Modules accepted: Orders * Bryce Allison MD, PhD - 02/18/2007 10:03 AM EDT Vision V OD sc OD: (not recorded) cc OD: 20/100+1 ph OD: (not recorded) J Potential Acuity OS sc OS: (not recorded) cc OS: 20/50-1 ph OS: (not recorded) Refraction W OD Rx-OD: -5.25+1.57q203 M Rx-OD: - 5.00+1.50x90 DVA OD: NI OS Rx-OS: -4.25+3.57k846 Rx-OS: - 4.00+2.75x85 DVA OS: 20/30 add Add: 2.5 Add: (not recorded) Pupils P OD Size: Dim OD: (not recorded) Size: Bright OD: (not recorded) Reaction OD: React Yes RAPD OD: No OS Size: Dim OS: (not recorded) Size: Bright OS: (not recorded) Reaction OS: React Yes RAPD OS: No Dilation Eye(s) Eye: (not recorded) Meds Med: (not recorded) Time Time: (not recorded) Tonometry T time Time: 0949 Time: (not recorded) OD OD: 15 OD: (not recorded) Method OD: AP Method [...] and wishes to proceed. I will proceed with surgery. She will be re-examined by Dr Aguila prior to cataract surgery today. ATTENDING NOTE: I personally performed a history and physical examination on Danika Mckeon. I reviewed the resident'sfindings and plan and note, and agree and link my note. I discussed the plan with the patient. documented in this encounter H&P Notes * Bryce Allison MD, PhD - 02/18/2007 9:41 AM EDT Scheduled preoperative evaluation for catract surgery right eye. Pt is going later this afternoon to see Dr. Traylor to evaluate the buckle in OD. documented in this encounter Procedure Notes * Bryce Allison MD, PhD - 02/18/2007 10:49 AM EDTAssociated Order(s): ELECTROCARDIOGRAM, TRACING Ventricular Rate 60 BPM Atrial Rate 60 BPM P-R Interval 134 ms QRS Duration 86 ms QT 414 ms QTc 414 ms P [place] 36 degrees R [place] 28 degrees T [place] 47 degrees NORMAL SINUS RHYTHM ST CHANGES, COMPATIBLE WITH DIGITALIS EFFECT NO PRIOR EKG FOR COMPARISON I ATTEST THAT THE ABOVE INTERPRETATION IS MINE documented in this encounter Plan of Treatment Not on file documented as of this encounter Procedures Procedure Name Priority Date/Time Associated Diagnosis Comments ECG ROUTINE ECG W/LEAST 12 LDS TRCG ONLY W/O I&R 02/18/2007 documented in this encounter Results * IOL MASTER A-SCAN (02/18/2007) A LENGTH (OD) A LENGTH (OS) PC IOL (OD) PC IOL (OS) AC IOL (OD) AC IOL (OS) POWER (OD) POWER (OS) MODEL (OD) MODEL (OS) 02/18/2007 Impressions 02/18/2007 10:40 AM EDT OD - AL = 26.58 ?K = 40.13/41.62 OS - AL = 25.40 ?K = 40.08/42.99 Will order for OD In the bag SN60WF - 15.5 Sulcus MA60AC - 14.5 ACIOL ??- 13.0 Bryce Allison MD, PhD EYE TESTING * ELECTROCARDIOGRAM, TRACING (02/18/2007) Narrative Procedure Note Bryce Allison MD, PhD - 02/18/2007 10:49 AM EDTVentricular Rate 60 BPM Atrial Rate 60 BPM P-R Interval 134 ms QRS Duration 86 ms QT 414 ms QTc 414 ms P [place] 36 degrees R [place] 28 degrees T [place] 47 degrees NORMAL SINUS RHYTHM ST CHANGES, COMPATIBLE WITH DIGITALIS EFFECT NO PRIOR EKG FOR COMPARISON I ATTEST THAT THE ABOVE INTERPRETATION IS MINE Bryce Allison MD, PhD EKG documented in this encounter Visit Diagnoses Diagnosis Other and combined forms of senile cataract- Primary documented in this encounter Care Teams Chairman President And Chief Executive Officer Relationship Specialty Start Date End Date Ortiz Rothman MD [address] [facility] [address] [place] [address] PCP - General 12/03/02 documented as of this encounter
--- OUTSIDE RECORDS SUMMARY | 2024-10-14 21:59 | XMS_ITS | Encounter Summary ---
Author Organization [facility] Ambulatory Address [address] [place] [address] Phone Care Team Providers Care Special Police Name Role Phone Ortiz Rothman MD Primary Care Provider [phone] Source Comments This information has been disclosed [...] Department Care Team (Latest Contact Info) Description 11/11/2007 Lab Results [facility] Bryce Allison MD, PhD [address] [facility] [address], [facility] [address] [place] [address] Social History Tobacco Use Types [...] Procedure Name Priority Date/Time Associated Diagnosis Comments PT/PTT PACKAGE Routine 11/11/2007 11:30 AM EST ELECTROLYTES/BUN/CR EATININE (LAB USE ONLY) Routine 11/11/2007 11:30 AM EST CBC AND DIFF W/ PLATELETS Routine 11/11/2007 11:30 AM EST GLUCOSE Routine 11/11/2007 11:30 AM EST documented in this encounter Results * PT/PTT PACKAGE (11/11/2007 11:30 AM EST) Prothrombin Time 13.0 11.6 - 14.3 sec [facility] Comment:*Note: New method ra nges effective 09/30/07* INR 1.0 0.9 - 1.1 [facility] Comment: The INR value should be used to monitor the response of patients on anticoagulant therapy. *Note: New method ranges effective 09/30/07* Activated PTT 26.6 22.7 - 35.6 sec [facility] Comment:*Note: New method ra nges effective 09/30/07* 11/11/2007 11:3 0 AM EST 11/11/2007 12:06 PM EST Bryce Allison MD, PhD LABORATORY [facility]) [address] Room [address] [place] [address] * ELECTROLYTES/BUN/CREATININE (11/11/2007 11:30 AM EST) Sodium(Na) 138 136.0 - 146.0 mEq/L [facility] Potassium(K) 4.0 3.5 - 5.0 mEq/L [facility] Chloride(Cl) 104 95 - 110 mEq/L [facility] Carbon Dioxide(CO2) 27 21.0 - 31.0 mEq/L [facility] Urea Nitrogen 8 5 - 20 mg/dL [facility] Creatinine 0.9 0.5 - 1.4 mg/dL [facility] 11/11/2007 11:3 0 AM EST 11/11/2007 12:06 PM EST Bryce Allison MD, PhD LABORATORY Performing Organization Address [facility] Co de Phone Number [facility] [place] [address] * GLUCOSE (OO) (11/11/2007 11:30 AM EST) Glucose 83 70 - 99 mg/dL [facility] Comment: The reference range for FASTING glucose is 70 to 99. ??The reference range for RANDOM glucose is 70 to 139. 11/11/2007 11:3 0 AM EST 11/11/2007 12:06 PM EST Bryce Allison MD, PhD LABORATORY Performing Organization Address [facility] de Phone Number [facility] [place] [address] * (ABNORMAL) CBC & DIFF INC PLATELET (11/11/2007 11:30 AM EST) WBC 5.2 3.8 - 10.6 X10E+09/ L [facility] RBC 4.68 3.73 - 4.89 X10E+12/ L [facility] Hgb 14.7(H) 11.6 - 14.6 g/dL [facility]) Hematocrit(HCT) 42.0 34.1 - 43.3 % [facility] MCV 89.8 82.6 - 97.4 fL [facility] MCH 31.4 27.8 - 33.4 pg [facility] MCHC 35.0 32.7 - 35.5 g/dL [facility] RDW 12.1 11.8 - 15.2 % [facility] Mean Platelet Volume 7.6 6.8 - 10.4 fL [facility] Platelets 322 156 - 369 X10E+09/ L [facility] Neutrophils 47 44 - 77 % [facility] ABS Neutrophils 2.50 2.24 - 7.68 X10E+09/ L [facility] Lymphocytes 44 13 - 44 % [facility] ABS Lymphocytes 2.30 0.80 - 3.65 X10E+09/ L [facility] Monocytes 7 4 - 13 % [facility] ABS Monocytes 0.30 0.30 - 0.90 X10E+09/ L [facility] Eosinophils 1 0 - 6 % [facility] ABS Eosinophils 0.00 0.00 - 0.40 X10E+09/ L [facility] Basophils 1 0 - 1 % [facility] ABS Basophils 0.00 0.00 - 0.06 X10E+09/ L [facility] TYPE OF DIFFERENTIAL Automated Differential [facility] 11/11/2007 11:3 0 AM EST 11/11/2007 12:06 PM EST Bryce Allison MD, PhD LABORATORY [facility] [address] [facility] Room [address] [place] [address] documented in this encounter Visit Diagnoses Not on filedocumented in this encounter Care Teams Special Police Relationship Specialty Start Date End Date Ortiz Rothman MD [address] [facility] [address] [place] [address] PCP - General 12/03/02 documented as of this encounter
--- OUTSIDE RECORDS SUMMARY | 2024-10-14 21:59 | XMS_ITS | Encounter Summary ---
Author Organization [facility] Ambulatory Address [address] [place] [address] Phone Care Team Providers Care Environmental Quality Analyst Name Role Phone Ortiz Rothman MD Primary Care Provider [phone] Source Comments This information has been disclosed [...] Encounter Details Date Type Department Care Team ([facility] st Contact Info) Description 11/26/2007 8:30 AM EST Office Visit [facility] [place] [address] 6th [place] [address] Hand Grinder: Sheyla Quintanilla Evan L, MD, PhD [address] [place] [address], [facility] [address] [place] [phone] Postsurg Cataract Extraction (Primary Dx) Social History [...] Notes * Bryce Allison MD, PhD - 11/26/2007 9:15 AM EST Vision V OD J Potential Acuity OS sc OS: 20/60 ph OS: 20/30 Refraction W OD M OS add Pupils P OD OS Dilation Eye(s) Meds Time Tonometry T time Time: 0908 OD OS OS: 30 Method OS: NIEVES Afferent Testing & Stereo OD OS nl Comments nl Comments VF VF Amsler Amsler Color Color Stereo Motility EOM OD EOM OS Balance OU nl nl nl Slit Lamp OD OS nl Comments nl Comments Ext Ext x L/L L/L X Conj Conj X injn K K clr A/C A/C x 1+ cell Iris Iris x Lens PCIOL Lens PCIOL [...] Impression and Plan s/p CEIOL OS IOP a little high, Combigan bid d/c Zymar, cont PF qid verbal + written instructions given f/u about 1 week f/u Sunday Bryce Allison MD, PhD Director, [...] Notes * Bryce Allison MD, PhD - 11/26/2007 9:05 AM EST 67 yof for post op exam 1.PC IOL OS, PD and zymar qid, vision still not clear, eye also red documented in this encounter Nursing Notes * 11/26/2007 8:30 AM EST >> MONISHA Dempsey Nov 26, 2007 9:08 AM Constitutional: normal Cardiovascular: normal Respiratory: normal Gastrointestinal: normal Genitourinary: normal Musculoskeletal: normal CHASSIS MECHANIC: normal ENT: normal Integumentary: normal Psychiatric: normal Endocrine: normal Hematologic/Lymphatic: normal documented in this encounter Plan of Treatment Not on file documented as of this encounter Visit Diagnoses Diagnosis Cataract extraction status- Primary documented in this encounter Care Teams Environmental Quality Analyst Relationship Specialty Start Date End Date Ortiz Rothman MD [address] [facility] [address] [place] [address] PCP - General 12/03/02 documented as of this encounter
--- OUTSIDE RECORDS SUMMARY | 2024-10-14 21:59 | XMS_ITS | Encounter Summary ---
Author Organization [facility] Ambulatory Address [address] [place] [address] Phone Care Team Providers Care Communication Manager Name Role Phone Ortiz Rothman MD Primary Care Provider [phone] Source Comments This information has been disclosed [...] Department Care Team (Latest Contact Info) Description 08/21/2008 8:00 AM EST Office Visit [facility] [place] [address] [facility] 1st [place] [address] Entry Level Marketing Assistant: Valerie Purcell Evan L, MD, PhD [address] [place] [address], [facility] [address] [place] [phone] H Zoster Keratoconjunct (Primary Dx) Social History Tobacco Use Types [...] Notes * Bryce Allison MD, PhD - 08/21/2008 8:53 AM EST ATTENDING NOTE: I personally performed a history and physical examination on Danika Mckeon. I reviewed the fellow/resident's findings and plan and note, and agree and link my note. I discussed the plan with the patient. * Valerie Wilkinson - 08/21/2008 8:41 AM EST HPI: 68y/o F w/ resolving VZV. Pt w/o eye pain. Occ. Paraesthesias, facial pain. Is using darvocet for this. No changes vision. Impression/Plan: 68y/o F w/ resolving VZV & astigmatism. 1. VZV - no eye involvement. 2. Astigmatism - 4D. Recommend limbal relaxing incision. Will contact pt after her return from [facility] to schedule an appt for this. documented in this encounter H&P Notes * Femi Ingram - 08/21/2008 8:03 AM EST Scheduled returning pt for 10 day f/u Pt c/o discharge inside nasal corner of OS Pseudophakic OU Shingles in V1 distribution L sided TOMMIE OS>OD ATs q2h PRN - pt states she is not using documented in this encounter Plan of Treatment Not on file documented as of this encounter Visit Diagnoses Diagnosis Herpes zoster keratoconjunctivitis- Primary documented in this encounter Care Teams Communication Manager Relationship Specialty Start Date End Date Ortiz Rothman MD [address] [facility] [address] [place] [address] PCP - General 12/03/02 documented as of this encounter
--- OUTSIDE RECORDS SUMMARY | 2024-10-14 21:59 | XMS_ITS | Encounter Summary ---
Author Organization [facility] Ambulatory Address [address] [place] [address] Phone Care Team Providers Care Assembly Worker Name Role Phone Ortiz Rothman MD Primary Care Provider [phone] Bryce Allison MD, PhD Unavailable [phone] Provider, Abstract Unavailable Unavailabl Valerie Orellana MD Unavailable [phone] Source Comments This information has been [...] Care Team (Late st Contact Info) Description 09/16/2013 Imaging EXTERNAL DEPARTMENT [address] [facility] [address] [place], [place] [phone] Ortiz Rothman MD [address] [facility] [address] [place] [id number] Social History Tobacco Use Types Packs/Day Years [...] Comments MAMMOGRAM DIGITAL SCREENING W/ CAD Routine 09/16/2013 8:41 AM EST documented in this encounter Results * MAMMOGRAM DIGITAL SCREENING BILATERAL W/ CAD (09/16/2013 8:41 AM EST) Anatomical Region Laterality Modality Other 09/16/2013 8:41 AM EST Impressions 09/17/2013 6:56 PM EST IMPRESSION: BILATERAL BREASTS Negative, no evidence of malignancy. Normal interval follow-up is recommended in 12 months. OVERALL ASSESSMENT - CATEGORY 1 - NEGATIVE END OF IMPRESSION Narrative 09/17/2013 6:56 PM EST Digital Screening Mammogram with CAD. Bilateral Breast Findings: There are scattered fibroglandular densities (25% - 50% fibroglandular). ??No significant masses, calcifications or other abnormalities are seen. Procedure Note External, Provider - 09/17/2013 Digital Screening Mammogram with CAD. Bilateral Breast Findings: There are scattered fibroglandular [...] on filedocumented in this encounter Care Teams Assembly Worker Relationship Specialty Start Date End Date Ortiz Rothman MD [address] [facility] [address] [place] [address] PCP - General 12/03/02 Bryce Allison MD, PhD [address] [place] [address] D, Bert [address] [place] [address] 08/25/10 Provider, Abstract, MD BOOKER PROVIDER 08/25/10 Valerie Wilkinson MD [facility] [address] [facility] [place] [address] 08/25/10 documented as of this encounter
== END 2024-10-07 11:29 | disposition home or self-care (01) ==
PROVIDERS: Emergency Provider Student in an Organized Health Care Education/Training Program
DX: S01.01XA Laceration without foreign body of scalp, initial encounter (principal); W10.9XXA Fall (on) (from) unspecified stairs and steps, initial encounter; Z79.01 Long term (current) use of anticoagulants
CPT/HCPCS: 12001; 70450; 99284